=== PATIENT | female | born 1955 | race Caucasian/White ===

== ENCOUNTER 2017-08-28 11:19 | Outpatient (CLI) | payer OTHER ==
[~2017-08-28 11:19] MED LIST: APIX2.5T PO; BENZ-34 PO; BUDE10.2 INH; DILT240C PO; IPRA3AMP9 NEB; LEVO750T46 PO; LOSA1TAB39 PO; METF1000 PO; METF500T PO; PRED10TA PO; SIMV20TA5 PO; THEO100C PO
== END 2017-08-28 23:59 | disposition home or self-care (01) ==
LOC: LAB 11:19
PROVIDERS: ATTEND Nurse Practitioner Family
DX: L65.9 Nonscarring hair loss, unspecified (principal); R53.83 Other fatigue; E55.9 Vitamin D deficiency, unspecified; I10 Essential (primary) hypertension; J44.9 Chronic obstructive pulmonary disease, unspecified; Z95.0 Presence of cardiac pacemaker; Z87.891 Personal history of nicotine dependence
CPT/HCPCS: 36415; 82306; 84439; 84443

== ENCOUNTER 2017-09-18 11:43 | Outpatient (CLI) | payer OTHER ==
[~2017-09-18 11:43] MED LIST changes: -METF1000 PO; -METF500T PO
[2017-09-18 12:39] LABS: BASOPHILS % (AUTO) 0.5 % (0-1); EOSINOPHILS % (AUTO) 0.6 % (0-6); HEMOGLOBIN 15.4 g/dl (12.0-16.0); LYMPHOCYTES # (AUTO) 2.5 X10'3 (1.1-4.8); LYMPHOCYTES % (AUTO) 29.9 % (21-51); MEAN CORPUSCULAR HEMOGLOBIN 33.3 PG (27.0-31.0); MEAN CORPUSCULAR HGB CONC 33.5 % (33.0-36.5); MEAN CORPUSCULAR VOLUME 99.3 FL (78-98); MEAN PLATELET VOLUME 8.8 FL (7.4-10.4); MONOCYTES # (AUTO) 0.8 X10'3 (0-0.9); PLATELET COUNT 161 X10'3 (140-440); RED BLOOD COUNT 4.63 X10'6 (4.20-5.60); RED CELL DISTRIBUTION WIDTH 14.4 % (11.5-14.5); WHITE BLOOD COUNT 8.3 X10'3 (4.5-11.0)
[2017-09-18 12:54] LABS: ALANINE AMINOTRANSFERASE 71 U/L (12-78); ALBUMIN 3.6 G/DL (3.4-5.0); ALKALINE PHOSPHATASE 157 IU/L (46-116); ANION GAP 9 (8-16); ASPARTATE AMINO TRANSFERASE 70 U/L (10-37); BILIRUBIN,TOTAL 0.8 MG/DL (0.1-1.0); BLOOD UREA NITROGEN 7 MG/DL (7-18); BUN/CREATININE RATIO 8.6 (6.6-38.0); CALCIUM 9.4 MG/DL (8.5-10.1); CHLORIDE 104 MMOL/L (99-107); CREATININE 0.81 MG/DL (0.40-0.90); GLUCOSE 139 MG/DL (70-104); POTASSIUM 4.1 MMOL/L (3.5-5.1); SODIUM 141 MMOL/L (135-145); TOTAL CARBON DIOXIDE 28.4 MMOL/L (24-32); TOTAL PROTEIN 7.3 G/DL (6.4-8.2); eGFR 71 ML/MIN
== END 2017-09-18 23:59 | disposition home or self-care (01) ==
LOC: RAD 11:43
PROVIDERS: ATTEND Nurse Practitioner Family
DX: J44.9 Chronic obstructive pulmonary disease, unspecified (principal); J98.8 Other specified respiratory disorders; R53.83 Other fatigue; I12.9 Hypertensive chronic kidney disease with stage 1 through stage 4 chronic kidney disease, or unspecified chronic kidney disease; N18.9 Chronic kidney disease, unspecified; F17.200 Nicotine dependence, unspecified, uncomplicated; Z96.642 Presence of left artificial hip joint; Z95.0 Presence of cardiac pacemaker
CPT/HCPCS: 36415; 71046; 80053; 85025

== ENCOUNTER 2018-09-03 10:21 | Emergency (ER) | payer OTHER ==
[~2018-09-03] VITALS: Ht 177.8 cm; Wt 99.5 kg
[~2018-09-03 10:21] MED LIST changes: -BENZ-34 PO; +DILT180C95 PO; -DILT240C PO; -LEVO750T46 PO; -THEO100C PO
[2018-09-03] MEDS ORDERED: levalbuterol 1.25mg/0.5ml nebule IH ONE ×3 (10:25→11:45)
[2018-09-03] MEDS ORDERED: normal saline 1000ML IV soln IVB ONE ×2 (10:25→11:45)
[2018-09-03] MEDS ORDERED: ipratropium 0.5 MG/2.5ML nebule IH ONE (10:25)
[2018-09-03] MEDS ORDERED: methylPREDNISolone sod succ 125mg/2ml vial IV ONE (10:25)
[2018-09-03] MEDS ORDERED: ipratropium 0.5 MG/2.5ML nebule ONE (10:32)
[2018-09-03] MEDS ORDERED: magnesium 2GM in 50ml NS 50 ML IV ONE (10:35)
[2018-09-03 11:07] LABS: BASOPHILS # (AUTO) 0.1 X10'3 (0-0.2); EOSINOPHILS # (AUTO) 0.1 X10'3 (0-0.9); EOSINOPHILS % (AUTO) 0.9 % (0-6); HEMATOCRIT 45.1 % (35.0-45.0); HEMOGLOBIN 15.1 g/dl (12.0-16.0); LYMPHOCYTES % (AUTO) 9.4 % (21-51); MEAN CORPUSCULAR HEMOGLOBIN 34.3 PG (27.0-31.0); MEAN CORPUSCULAR HGB CONC 33.5 % (33.0-36.5); MEAN CORPUSCULAR VOLUME 102.4 FL (78-98); MEAN PLATELET VOLUME 9.5 FL (7.4-10.4); MONOCYTES # (AUTO) 0.7 X10'3 (0-0.9); MONOCYTES % (AUTO) 6.2 % (2-12); NEUTROPHILS # (AUTO) 9.2 X10'3 (1.8-7.7); NEUTROPHILS % (AUTO) 82.5 % (42-75); PLATELET COUNT 168 X10'3 (140-440); RED BLOOD COUNT 4.41 X10'6 (4.20-5.60); WHITE BLOOD COUNT 11.2 X10'3 (4.5-11.0)
[2018-09-03 11:22] LABS: ALANINE AMINOTRANSFERASE 74 U/L (12-78); ALBUMIN 3.6 G/DL (3.4-5.0); ALKALINE PHOSPHATASE 142 IU/L (46-116); ANION GAP 12 (8-16); ASPARTATE AMINO TRANSFERASE 59 U/L (10-37); BILIRUBIN,TOTAL 0.6 MG/DL (0.1-1.0); BLOOD UREA NITROGEN 21 MG/DL (7-18); BUN/CREATININE RATIO 19.1 (6.6-38.0); CALCIUM 9.6 MG/DL (8.5-10.1); CHLORIDE 101 MMOL/L (99-107); GLUCOSE 284 MG/DL (70-104); POTASSIUM 4.4 MMOL/L (3.5-5.1); SODIUM 139 MMOL/L (135-145); TOTAL CARBON DIOXIDE 25.8 MMOL/L (24-32); TOTAL PROTEIN 7.1 G/DL (6.4-8.2); eGFR 50 ML/MIN
[2018-09-03 11:29] LABS: MAGNESIUM 1.7 MG/DL (1.5-2.4)
[2018-09-03] MEDS ORDERED: levoFLOXACIN-Levaquin 750MG/D5 150 ML IV ONE (11:45)
[2018-09-03] MEDS ORDERED: LEVO750T21 PO (12:06)
[2018-09-03] MEDS ORDERED: ondansetron/PF 4mg/2ml inj IV ONE (12:15)
[2018-09-03] MEDS ORDERED: HYDR-4353 PO (12:19)
[2018-09-03] MEDS: morphine 4 MG/ML inj SYRINge IV PRN ×2 (12:26→13:13)
[2018-09-03] MEDS ORDERED: albuterol 2.5 MG/3 ML nebule CONTNEB PRN (13:55)
[2018-09-03 15:27] VITALS: BP 120/64
== END 2018-09-03 15:18 | disposition home or self-care (01) ==
LOC: ER 10:22
DX: J44.1 Chronic obstructive pulmonary disease with (acute) exacerbation (principal); I10 Essential (primary) hypertension; G89.29 Other chronic pain; Z86.73 Personal history of transient ischemic attack (TIA), and cerebral infarction without residual deficits; Z86.711 Personal history of pulmonary embolism; Z90.49 Acquired absence of other specified parts of digestive tract; Z95.0 Presence of cardiac pacemaker; Z98.890 Other specified postprocedural states; Z91.018 Allergy to other foods; Z88.8 Allergy status to other drugs, medicaments and biological substances; Z79.01 Long term (current) use of anticoagulants; Z79.899 Other long term (current) drug therapy
CPT/HCPCS: 36415; 71045; 80053; 83605; 83735; 83880; 84145; 85025; 87040; 87502; 87503; 93005; 94640; 94644; 94760; 96365; 96367; 96375; 96376; 99285; J1956; J2270; J2405; J2930; J3475; 99284; J7614

== ENCOUNTER 2018-10-04 06:15 | Inpatient (IN) | payer OTHER | END 2018-10-05 13:25 | disposition home or self-care (01) | LOC: ER 06:15 → ED HOLD 10:13 → MED 3N 12:15 ==

== ENCOUNTER 2018-11-13 21:30 | Inpatient (IN) | payer OTHER ==
[~2018-11-13] VITALS: Ht 177.8 cm; Wt 98.5 kg
[~2018-11-13 21:30] MED LIST changes: -PRED10TA PO; -SIMV20TA5 PO
[2018-11-13] MEDS ORDERED: dexamethasone sod phosphate 10mg/ml inj IV STA (21:33)
[2018-11-13] MEDS ORDERED: normal saline 1000ML IV soln IVB ONE (21:35)
[2018-11-13] MEDS ORDERED: methylPREDNISolone sod succ 125mg/2ml vial IV ONE (21:35)
[2018-11-13] MEDS ORDERED: ipratropium/albuterol 3ml nebule NEB ONE (21:35)
[2018-11-13] MEDS ORDERED: albuterol 2.5 mg/0.5ml nebule NEB ONE (21:35)
[2018-11-13] MEDS ORDERED: albuterol 2.5 MG/3 ML nebule NEB ONE (21:40)
[2018-11-13 21:56] LABS: ABG BASE EXCESS -1.9 mmol/L (-2.0-3.0); ABG HCO3 23.4 mmol/L (22.0-26.0); ABG OXYGEN SATURATION 97.6 % (95-98); ABG PCO2 (T) 40.9 mmHg (32.0-45.0); ABG PH (T) 7.373 (7.350-7.450); ABG PO2 (T) 104.5 mmHg (83-108); ALLEN'S TEST Positive; FCOHb 5.2 % (0.5-1.5); FMetHb 0.2 % (0.3-1.12); FO2Hb 92.3 % (94-100); PATIENT TEMPERATURE 36.4; RESPIRATORY RATE 14 b/min; RESPIRATORY RATE (OBSERVED) 17 b/min
[2018-11-13 22:21] LABS: ALANINE AMINOTRANSFERASE 84 U/L (12-78); ALBUMIN 3.5 G/DL (3.4-5.0); ALBUMIN/GLOBULIN RATIO 0.9 (1.1-1.5); ALKALINE PHOSPHATASE 150 IU/L (46-116); ANION GAP 12 (8-16); ASPARTATE AMINO TRANSFERASE 69 U/L (10-37); BILIRUBIN,TOTAL 0.3 MG/DL (0.1-1.0); BLOOD UREA NITROGEN 13 MG/DL (7-18); CALCIUM 9.4 MG/DL (8.5-10.1); CHLORIDE 103 MMOL/L (99-107); CREATININE 0.93 MG/DL (0.40-0.90); GLUCOSE 154 MG/DL (70-104); POTASSIUM 3.3 MMOL/L (3.5-5.1); SODIUM 140 MMOL/L (135-145); TOTAL PROTEIN 7.2 G/DL (6.4-8.2); eGFR 61 ML/MIN
[2018-11-13 22:27] LABS: PARTIAL THROMBOPLASTIN TIME 28 SECONDS (22-32)
[2018-11-13 22:40] LABS: BASOPHILS % (AUTO) 0.6 % (0-1); EOSINOPHILS # (AUTO) 0.1 X10'3 (0-0.9); EOSINOPHILS % (AUTO) 1.4 % (0-6); HEMATOCRIT 45.7 % (35.0-45.0); HEMOGLOBIN 15.4 g/dl (12.0-16.0); LYMPHOCYTES # (AUTO) 2.3 X10'3 (1.1-4.8); LYMPHOCYTES % (AUTO) 31.5 % (21-51); MEAN CORPUSCULAR HEMOGLOBIN 35.3 PG (27.0-31.0); MEAN CORPUSCULAR HGB CONC 33.7 g/dL (33.0-36.5); MEAN CORPUSCULAR VOLUME 104.6 FL (78-98); MEAN PLATELET VOLUME 9.5 FL (7.4-10.4); MONOCYTES # (AUTO) 1.1 X10'3 (0-0.9); MONOCYTES % (AUTO) 15.5 % (2-12); NEUTROPHILS # (AUTO) 3.7 X10'3 (1.8-7.7); PLATELET COUNT 170 X10'3 (140-440); RED BLOOD COUNT 4.37 X10'6 (4.20-5.60); RED CELL DISTRIBUTION WIDTH 14.2 % (11.5-14.5); WHITE BLOOD COUNT 7.3 X10'3 (4.5-11.0)
--- NOTE | 2018-11-13 22:45 | NUR ---
relieving RN for break, pt tripoding, speaking one word sentences, Dr Ta at bedside to evaluate pt
[2018-11-13] MEDS: magnesium 2GM in 50ml NS 50 ML IV SCH ×2 (22:54→23:45)
[2018-11-13] MEDS ORDERED: propofol 1000mg/100ml bottle 100 ML IV ONE (22:56)
--- NOTE | 2018-11-13 23:03 | NUR ---
2300 RT at bedside, plan to intubate 2305 propofol 130mg IV given 2306 lorena 50mg IV, 172/87, HR 98, pulse ox [address] Ta, propofol 70mg IV, ETtube 7.5, 22cm at the teeth, even rise and fall of chest,
[2018-11-13 23:36] LABS: ABG HCO3 23.2 mmol/L (22.0-26.0); ABG OXYGEN SATURATION 96.3 % (95-98); ABG PCO2 (T) 50.8 mmHg (32.0-45.0); ABG PH (T) 7.278 (7.350-7.450); ABG PO2 (T) 101.4 mmHg (83-108); ALLEN'S TEST Positive; FCOHb 3.3 % (0.5-1.5); FMetHb 0.3 % (0.3-1.12); FO2Hb 92.8 % (94-100); MINUTE VOLUME 7 L/min; PATIENT TEMPERATURE 37.2; PEEP 5 cm H2O; RESPIRATORY RATE 16 b/min; RESPIRATORY RATE (OBSERVED) 16 b/min; TIDAL VOLUME 400 mL; TOTAL HEMOGLOBIN 15.5 G/dl (12.0-16.0)
[2018-11-13] MEDS: normal saline 1000ml 1,000 ML IV SCH (23:39)
[2018-11-13] MEDS ORDERED: acetaminophen 650mg rectal suppository RC PRN (23:40)
[2018-11-13] MEDS ORDERED: magnesium hydroxide 30ml (MOM) UD suspension PO PRN (23:40)
[2018-11-13] MEDS ORDERED: levoFLOXACIN-Levaquin 500mg/D5 100 ML IV SCH (23:40)
[2018-11-13] MEDS ORDERED: ondansetron/PF 4mg/2ml inj IV PRN (23:40)
[2018-11-13] MEDS ORDERED: potassium Cl 40MEQ/NS 500ml 500 ML IV PRN ×2 (23:40)
[2018-11-13] MEDS ORDERED: acetaminophen 325mg tablet PO PRN ×2 (23:40)
[2018-11-13] MEDS ORDERED: albuterol 2.5 MG/3 ML nebule NEB PRN (23:40)
--- NOTE | 2018-11-13 23:50 | NUR ---
pt agitated, increased propofol to 40mcg/kg/min
[2018-11-13] MEDS ORDERED: propofol 1000mg/100ml bottle 100 ML IV PRN (23:56)
[2018-11-13] MEDS ORDERED: FENTANYL-0.9 % NACL/PF 100 ML IV PRN (23:58)
[2018-11-14] VITALS (24 sets, daily range): BP systolic 92–151; BP diastolic 40–70
[2018-11-14] MEDS ORDERED: fentaNYL/PF 50MCG/1 ML 2ML syringe IV ONE
--- NOTE | 2018-11-14 | NUR ---
assisting RN with pt care, pt is agitated, moving all extremities, Dr Ta aware, propofol increased to 40mcg/kg/min
--- NOTE | 2018-11-14 00:30 | NUR ---
received from ER , intubated per feliberto , awaken easily on max dose of diprivan , turn off diprivan and start with fentanyl and versed ,
[2018-11-14] MEDS ORDERED: midazolam 100mg in NS 100ml 100 ML IV PRN ×2 (00:32)
[2018-11-14] MEDS: CefTRIAXone inj 2,000 MG in dextrose 5%-water 50ml 50 ML IV SCH ×2 (01:27→08:00)
[2018-11-14] MEDS ORDERED: ipratropium/albuterol 3ml nebule NEB SCH (03:00)
[2018-11-14] MEDS ORDERED: albuterol 2.5 MG/3 ML nebule NEB SCH (03:00)
[2018-11-14] MEDS: methylPREDNISolone sod succ/PF 40mg inj. IV SCH ×4 (03:42→21:37)
[2018-11-14] MEDS: ipratropium/albuterol 3ml nebule NEB SCH ×5 (03:54→21:11)
[2018-11-14 04:11] LABS: ABG BASE EXCESS -5.2 mmol/L (-2.0-3.0); ABG OXYGEN SATURATION 95.7 % (95-98); ABG PCO2 (T) 41.4 mmHg (32.0-45.0); ABG PH (T) 7.318 (7.350-7.450); ABG PO2 (T) 80.9 mmHg (83-108); ALLEN'S TEST Positive; FCOHb 1.6 % (0.5-1.5); FMetHb 0.3 % (0.3-1.12); FO2Hb 93.9 % (94-100); MINUTE VOLUME 8 L/min; PATIENT TEMPERATURE 35.9; PEEP 5 cm H2O; RESPIRATORY RATE 20 b/min; RESPIRATORY RATE (OBSERVED) 20 b/min; TIDAL VOLUME 400 mL
[2018-11-14 04:15] LABS: PARTIAL THROMBOPLASTIN TIME 28 SECONDS (22-32)
[2018-11-14 04:16] LABS: ALANINE AMINOTRANSFERASE 72 U/L (12-78); ALBUMIN 3.2 G/DL (3.4-5.0); ALBUMIN/GLOBULIN RATIO 0.9 (1.1-1.5); ALKALINE PHOSPHATASE 124 IU/L (46-116); ANION GAP 12 (8-16); ASPARTATE AMINO TRANSFERASE 62 U/L (10-37); BILIRUBIN,TOTAL 0.2 MG/DL (0.1-1.0); BLOOD UREA NITROGEN 13 MG/DL (7-18); BUN/CREATININE RATIO 15.1 (6.6-38.0); CALCIUM 9.2 MG/DL (8.5-10.1); CHLORIDE 104 MMOL/L (99-107); CREATININE 0.86 MG/DL (0.40-0.90); GLUCOSE 194 MG/DL (70-104); POTASSIUM 3.8 MMOL/L (3.5-5.1); SODIUM 139 MMOL/L (135-145); TOTAL PROTEIN 6.7 G/DL (6.4-8.2); eGFR 66 ML/MIN
[2018-11-14 04:19] LABS: PHOSPHORUS 3.5 MG/DL (2.3-4.5)
[2018-11-14 04:20] LABS: BASOPHILS % (AUTO) 0.9 % (0-1); EOSINOPHILS % (AUTO) 0.1 % (0-6); HEMATOCRIT 42.8 % (35.0-45.0); HEMOGLOBIN 14.4 g/dl (12.0-16.0); LYMPHOCYTES # (AUTO) 0.5 X10'3 (1.1-4.8); MEAN CORPUSCULAR HEMOGLOBIN 35.4 PG (27.0-31.0); MEAN CORPUSCULAR HGB CONC 33.7 g/dL (33.0-36.5); MEAN CORPUSCULAR VOLUME 104.9 FL (78-98); MEAN PLATELET VOLUME 9.6 FL (7.4-10.4); MONOCYTES # (AUTO) 0.1 X10'3 (0-0.9); MONOCYTES % (AUTO) 2.5 % (2-12); NEUTROPHILS # (AUTO) 2.7 X10'3 (1.8-7.7); NEUTROPHILS % (AUTO) 80.5 % (42-75); PLATELET COUNT 148 X10'3 (140-440); RED BLOOD COUNT 4.08 X10'6 (4.20-5.60); RED CELL DISTRIBUTION WIDTH 14.2 % (11.5-14.5); WHITE BLOOD COUNT 3.3 X10'3 (4.5-11.0)
--- NOTE | 2018-11-14 06:30 | NUR ---
Patient in room ICU 2037. I have received report from SANDRA Burris and had the opportunity to ask questions and assume patient care.
--- NOTE | 2018-11-14 06:36 | NUR ---
Problems reprioritized. Patient report given, questions answered & plan of care reviewed with JASEN FLORES.
[2018-11-14] MEDS: budesonide 0.5mg/2ml UD nebule IH SCH ×2 (07:19→18:51)
[2018-11-14] MEDS ORDERED: diltiazem CD 180mg cap (once-daily) PO SCH (08:00)
[2018-11-14] MEDS ORDERED: non-formulary drug (Budesonide/Formoterol Fumarate (Symbicort 160-4.5 Mcg Inhaler) 2 PUFFS INH SCH (08:00)
[2018-11-14] MEDS ORDERED: non-formulary drug (Losartan/Hydrochlorothiazide (Losartan-Hctz 100-25 Mg Tab) 1 TAB) PO SCH (08:00)
[2018-11-14] MEDS: pantoprazole 40 MG vial IV SCH (08:34)
[2018-11-14] MEDS: losartan 50mg tablet PO SCH (09:48)
[2018-11-14] MEDS: HYDROchlorothiazide 25mg tablet PO SCH (09:48)
[2018-11-14] MEDS: docusate sodium 100mg/10ml UD cup PO SCH ×2 (09:48→21:37)
[2018-11-14] MEDS: apixaban 2.5mg tablet PO SCH ×2 (09:48→21:37)
--- NOTE | 2018-11-14 10:18 | NUR ---
Rounds with Dr. Segura this AM, addressed pt's decreased UO, respiratory status, vent settings, blood sugars, nutrition and that ordered PO Cardizem cannot be given. Per MD we will wait on tube feeds and and fluids for UO d/t the plan of care for today is to extubate this afternoon. Addressed that pt is still on higher fiO2 of 50% and MD stated that he accepts an O2 saturation of between 88-90%. RN will collaborate with RT to wean down fiO2. Cardizem will be changed to IR dose until pt can receive home dose. RN will continue to monitor blood glucoses and UO.
[2018-11-14] MEDS: diltiazem 30mg tablet PO SCH ×3 (11:33→21:37)
--- NOTE | 2018-11-14 11:36 | NUR ---
Initial: Pt intubated admit w/ COPD exacerbation hx COPD, HTN, smoking. No edema/wounds present on 50% FiO2 w/ MAP [address]. Remains NPO; likely to extubate in near future per MD. WBC 3.3 on steroids w/ GLU 127. Will monitor for nutrition support needs if prolonged intubation; recs below. Rec: 1. IF TF; Vital HP at 90ml/hr goal; to provide 2160ml fluid, 2160kcals, 1814ml free water, and g protein. 2. IF TF, water flush 200ml Q6 3. IF TF, prealbumin Q /, daily wts 4. advance diet upon extubation to heart healthy Addendum: 11/14/18 at [address] Amended: Links added.
[2018-11-14] MEDS: normal saline 1000ml 1,000 ML IV SCH ×2 (11:37→22:37)
[2018-11-14] MEDS ORDERED: racepinephrine 11.25mg/0.5ml nebule NEB PRN (13:35)
[2018-11-14] MEDS ORDERED: ipratropium/albuterol 3ml nebule NEB PRN (13:35)
--- NOTE | 2018-11-14 13:36 | NUR ---
Dr. Segura came to bedside assessed pt, asked for RT to get weaning parameters on pt. Versed and fentanyl turned off. RT's preformed weaning parameters and MD notified. Will extubated when MD puts orders into the chart.
--- NOTE | 2018-11-14 14:09 | NUR ---
Pt extubated at 1347 to NC by RT's. at bedside. Pt tolerating NC well, educated on flutter valve and IS. Moving air well, has an audible voice. RN will continue to monitor.
[2018-11-14] MEDS: azithromycin/NS 500mg/250ml 250 ML IV SCH (14:32)
--- NOTE | 2018-11-14 18:00 | NUR ---
Pt has tablet, phone, and purse at bedside that pt's brought in.
--- NOTE | 2018-11-14 18:00 | NUR ---
Patient in room ICU 2037. I have received report from Lashon FLORES and had the opportunity to ask questions and assume patient care.
--- NOTE | 2018-11-14 18:22 | NUR ---
Problems reprioritized. Patient report given, questions answered & plan of care reviewed with SANDRA Khan.
[2018-11-14] MEDS: mineral oil/petrolatum ophthal oint EACHEYE SCH (20:00)
[2018-11-15] VITALS (17 sets, daily range): BP systolic 93–149; BP diastolic 46–91
--- NOTE | 2018-11-15 00:50 | NUR ---
Patient has been sleeping, but when she woke up for a min nurse asked her if she felt like she needed to urinate and she stated "no". 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 She stated "no" and that she just wanted to sleep. Nurse will ask her again when she wakes up.
[2018-11-15] MEDS ORDERED: levoFLOXACIN-Levaquin 750MG/D5 150 ML IV SCH (01:00)
[2018-11-15] MEDS: methylPREDNISolone sod succ/PF 40mg inj. IV SCH ×4 (02:55→19:48)
[2018-11-15] MEDS: ipratropium/albuterol 3ml nebule NEB SCH ×6 (03:29→23:25)
[2018-11-15 04:56] LABS: BASOPHILS % (AUTO) 0 % (0-1); EOSINOPHILS % (AUTO) 0 % (0-6); HEMATOCRIT 40.3 % (35.0-45.0); HEMOGLOBIN 13.3 g/dl (12.0-16.0); LYMPHOCYTES # (AUTO) 0.7 X10'3 (1.1-4.8); LYMPHOCYTES % (AUTO) 5.8 % (21-51); MEAN CORPUSCULAR HGB CONC 33.2 g/dL (33.0-36.5); MEAN CORPUSCULAR VOLUME 105.7 FL (78-98); MEAN PLATELET VOLUME 9.7 FL (7.4-10.4); MONOCYTES # (AUTO) 0.7 X10'3 (0-0.9); MONOCYTES % (AUTO) 6.5 % (2-12); NEUTROPHILS # (AUTO) 9.8 X10'3 (1.8-7.7); NEUTROPHILS % (AUTO) 87.7 % (42-75); PLATELET COUNT 141 X10'3 (140-440); RED BLOOD COUNT 3.81 X10'6 (4.20-5.60); RED CELL DISTRIBUTION WIDTH 14.7 % (11.5-14.5); WHITE BLOOD COUNT 11.2 X10'3 (4.5-11.0)
[2018-11-15 05:02] LABS: ALANINE AMINOTRANSFERASE 57 U/L (12-78); ALBUMIN 3.1 G/DL (3.4-5.0); ALBUMIN/GLOBULIN RATIO 0.9 (1.1-1.5); ALKALINE PHOSPHATASE 113 IU/L (46-116); ANION GAP 8 (8-16); ASPARTATE AMINO TRANSFERASE 28 U/L (10-37); BILIRUBIN,TOTAL 0.3 MG/DL (0.1-1.0); BLOOD UREA NITROGEN 23 MG/DL (7-18); BUN/CREATININE RATIO 21.5 (6.6-38.0); CALCIUM 8.3 MG/DL (8.5-10.1); CHLORIDE 104 MMOL/L (99-107); CREATININE 1.07 MG/DL (0.40-0.90); GLUCOSE 255 MG/DL (70-104); MAGNESIUM 1.9 MG/DL (1.5-2.4); POTASSIUM 3.8 MMOL/L (3.5-5.1); SODIUM 137 MMOL/L (135-145); TOTAL CARBON DIOXIDE 25.5 MMOL/L (24-32); TOTAL PROTEIN 6.4 G/DL (6.4-8.2); eGFR 52 ML/MIN
[2018-11-15 05:10] LABS: PARTIAL THROMBOPLASTIN TIME 28 SECONDS (22-32); PROTHROMBIN TIME 10.3 SECONDS (9.0-12.0)
[2018-11-15] MEDS: normal saline 1000ml 1,000 ML IV SCH (05:39)
[2018-11-15] MEDS: mineral oil/petrolatum ophthal oint EACHEYE SCH ×3 (05:50→19:48)
--- NOTE | 2018-11-15 06:00 | NUR ---
Problems reprioritized. Patient report given, questions answered & plan of care reviewed with Alvina FLORES.
--- NOTE | 2018-11-15 06:34 | NUR ---
Patient in room ICU 2037. I have received report from Erin and had the opportunity to ask questions and assume patient care.
[2018-11-15] MEDS: azithromycin/NS 500mg/250ml 250 ML IV SCH (07:44)
[2018-11-15] MEDS: HYDROchlorothiazide 25mg tablet PO SCH (07:44)
[2018-11-15] MEDS: pantoprazole 40 MG vial IV SCH (07:44)
[2018-11-15] MEDS: docusate sodium 100mg/10ml UD cup PO SCH ×2 (07:44→19:48)
[2018-11-15] MEDS: losartan 50mg tablet PO SCH (07:44)
[2018-11-15] MEDS: diltiazem 30mg tablet PO SCH ×4 (07:44→19:48)
[2018-11-15] MEDS: CefTRIAXone 2gm/D5W 50ml 50 ML IV SCH (07:45)
[2018-11-15] MEDS: apixaban 2.5mg tablet PO SCH ×2 (07:45→19:47)
[2018-11-15] MEDS: budesonide 0.5mg/2ml UD nebule IH SCH ×2 (08:02→19:31)
[2018-11-15] MEDS: guaiFENesin/DM 10ml UD oral syrup PO PRN ×3 (10:37→19:47)
--- NOTE | 2018-11-15 16:54 | NUR ---
Patient in room ICU 2037. I have received report from Myesha FLORES and had the opportunity to ask questions and assume patient care.
--- NOTE | 2018-11-15 17:00 | NUR ---
Report called to Zuri on PCU. Pt transported via wheelchair to room 3020 with alll belongings.
--- NOTE | 2018-11-15 17:06 | NUR ---
Patient on the unit.
--- NOTE | 2018-11-15 18:29 | NUR ---
Problems reprioritized. Patient report given, questions answered & plan of care reviewed with Rain FLORES.
[2018-11-15] MEDS: lactobacillus rhamnosus 10,000 MMU CELLS/CAPSULE PO SCH (19:48)
[2018-11-15] MEDS: temazepam 15mg capsule PO PRN (21:02)
[2018-11-15] MEDS ORDERED: temazepam 15mg capsule PO ONE (21:55)
[2018-11-16] MEDS: methylPREDNISolone sod succ/PF 40mg inj. IV SCH ×4 (02:43→19:13)
[2018-11-16 03:00] VITALS: BP 142/71
[2018-11-16] MEDS: ipratropium/albuterol 3ml nebule NEB SCH ×6 (03:52→21:56)
--- NOTE | 2018-11-16 06:34 | NUR ---
Patient in room PCU 3020. I have received report from SANDRA Rodrigez and had the opportunity to ask questions and assume patient care. Patient awake and alert at this time. Nasal cannula not on upon entering the room. Oxygen reapplied. Patient in no apparent distress. Call light and items of frequent use in reach of patient.
[2018-11-16 06:56] VITALS: BP 149/70
[2018-11-16 06:57] LABS: BASOPHILS % (AUTO) 0.1 % (0-1); EOSINOPHILS % (AUTO) 0 % (0-6); HEMATOCRIT 42.1 % (35.0-45.0); HEMOGLOBIN 14.3 g/dl (12.0-16.0); LYMPHOCYTES # (AUTO) 0.6 X10'3 (1.1-4.8); LYMPHOCYTES % (AUTO) 4.2 % (21-51); MEAN CORPUSCULAR HEMOGLOBIN 35.4 PG (27.0-31.0); MEAN PLATELET VOLUME 9.7 FL (7.4-10.4); MONOCYTES # (AUTO) 0.8 X10'3 (0-0.9); MONOCYTES % (AUTO) 6.4 % (2-12); NEUTROPHILS # (AUTO) 11.8 X10'3 (1.8-7.7); NEUTROPHILS % (AUTO) 89.3 % (42-75); PLATELET COUNT 144 X10'3 (140-440); RED BLOOD COUNT 4.05 X10'6 (4.20-5.60); RED CELL DISTRIBUTION WIDTH 14.5 % (11.5-14.5); WHITE BLOOD COUNT 13.2 X10'3 (4.5-11.0)
[2018-11-16 06:59] LABS: PARTIAL THROMBOPLASTIN TIME 28 SECONDS (22-32); PROTHROMBIN TIME 10.4 SECONDS (9.0-12.0)
[2018-11-16 07:06] LABS: ALANINE AMINOTRANSFERASE 45 U/L (12-78); ALBUMIN 3.1 G/DL (3.4-5.0); ALBUMIN/GLOBULIN RATIO 0.9 (1.1-1.5); ALKALINE PHOSPHATASE 107 IU/L (46-116); ANION GAP 5 (8-16); ASPARTATE AMINO TRANSFERASE 18 U/L (10-37); BILIRUBIN,TOTAL 0.3 MG/DL (0.1-1.0); BLOOD UREA NITROGEN 19 MG/DL (7-18); BUN/CREATININE RATIO 25.7 (6.6-38.0); CHLORIDE 107 MMOL/L (99-107); CREATININE 0.74 MG/DL (0.40-0.90); GLUCOSE 230 MG/DL (70-104); MAGNESIUM 2.1 MG/DL (1.5-2.4); POTASSIUM 3.7 MMOL/L (3.5-5.1); SODIUM 141 MMOL/L (135-145); TOTAL PROTEIN 6.6 G/DL (6.4-8.2); eGFR 79 ML/MIN
[2018-11-16] MEDS: budesonide 0.5mg/2ml UD nebule IH SCH ×2 (07:28→18:59)
[2018-11-16] MEDS: CefTRIAXone 2gm/D5W 50ml 50 ML IV SCH (07:28)
[2018-11-16] MEDS: pantoprazole 40 MG vial IV SCH (07:34)
[2018-11-16] MEDS: diltiazem 30mg tablet PO SCH ×4 (07:34→20:58)
[2018-11-16] MEDS: docusate sodium 100mg/10ml UD cup PO SCH ×2 (07:35→20:00)
[2018-11-16] MEDS: lactobacillus rhamnosus 10,000 MMU CELLS/CAPSULE PO SCH ×2 (07:36→20:58)
[2018-11-16] MEDS: apixaban 2.5mg tablet PO SCH ×2 (07:36→20:58)
[2018-11-16] MEDS: losartan 50mg tablet PO SCH (07:36)
[2018-11-16] MEDS: HYDROchlorothiazide 25mg tablet PO SCH (07:36)
[2018-11-16] MEDS: azithromycin/NS 500mg/250ml 250 ML IV SCH (07:51)
[2018-11-16] MEDS: guaiFENesin/DM 10ml UD oral syrup PO PRN ×3 (09:31→19:12)
[2018-11-16 11:42] VITALS: BP 155/87
[2018-11-16] MEDS ORDERED: insulin Lispro (HumaLOG) vial - multi-dose SQ SCH (14:50)
[2018-11-16] MEDS ORDERED: dextrose 50%-water 50ml dispensing syringe IV PRN ×2 (14:50)
[2018-11-16] MEDS ORDERED: MESSAGE TO PHARMACY PO ONE (14:50)
[2018-11-16] MEDS ORDERED: dextrose ORAL solution 15 GM/59 ML bottle PO PRN ×2 (14:50)
[2018-11-16] MEDS ORDERED: glucagon, human recombinant 1mg kit SUBCUT PRN (14:50)
[2018-11-16 15:00] VITALS: BP 143/73
[2018-11-16 15:55] LABS: HEMOGLOBIN A1C 6.2 % (4.5-6.2)
--- NOTE | 2018-11-16 16:00 | NUR ---
According to vitals sheet. Patient O2 saturation was 97% on 3L NC. Went to titrate patient down a little. Checked saturation again and patient was 89%-91% on the 3L NC. Will not titrate oxygen at this time.
[2018-11-16 18:00] VITALS: BP 160/66
--- NOTE | 2018-11-16 18:13 | NUR ---
Problems reprioritized. Patient report given, questions answered & plan of care reviewed with SANDRA Parker. Patient in no apparent distress at this time. Call light and items of frequent use in reach of patient.
[2018-11-16] MEDS: temazepam 15mg capsule PO PRN (20:58)
[2018-11-16] MEDS ORDERED: insulin glargine (Lantus) pen - multi-dose SQ SCH (21:00)
--- NOTE | 2018-11-16 21:48 | NUR ---
Paged respiratory for nebulizer treatment d/t wheezing
[2018-11-16 22:00] VITALS: BP 160/69
[2018-11-16] MEDS ORDERED: temazepam 15mg capsule PO ONE (22:45)
[2018-11-16] MEDS ORDERED: morphine 2 MG/ML inj. syringe IV PRN (22:45)
[2018-11-17 02:00] VITALS: BP 141/78
[2018-11-17] MEDS: methylPREDNISolone sod succ/PF 40mg inj. IV SCH ×2 (02:29→08:33)
--- NOTE | 2018-11-17 02:59 | NUR ---
Patient in room PCU 3020. I have received report from efren brantley and had the opportunity to ask questions and assume patient care. patient asleep in no distress on oxygen. iv in place asymptomatic
[2018-11-17] MEDS: ipratropium/albuterol 3ml nebule NEB SCH ×6 (03:43→22:56)
--- NOTE | 2018-11-17 04:23 | NUR ---
CAREY CALLED ABOUT PATIENT'S INCREASES SOB AND WHEEZING. PATIENT IS HAVING AIR HUNGER ON 4L NC O2SAT AT 88%. CAREY ORDERED STAT CHEST XRAY AND 2MG MORPHINE IV ONCE NOW PRN AIR HUNGER.
[2018-11-17] MEDS ORDERED: morphine 2 MG/ML inj. syringe IV ONE (04:25)
--- NOTE | 2018-11-17 06:21 | NUR ---
Problems reprioritized. Patient report given, questions answered & plan of care reviewed with LINDSEY FLORES. PATIENT ASLEEP IN NO DISTRESS.
--- NOTE | 2018-11-17 06:30 | NUR ---
Patient in room PCU 3020. I have received report from SANDRA Portillo and had the opportunity to ask questions and assume patient care.
[2018-11-17 07:12] VITALS: BP 154/84
[2018-11-17 07:46] LABS: BASOPHILS % (AUTO) 0.1 % (0-1); EOSINOPHILS % (AUTO) 0 % (0-6); HEMOGLOBIN 14.1 g/dl (12.0-16.0); LYMPHOCYTES # (AUTO) 0.4 X10'3 (1.1-4.8); LYMPHOCYTES % (AUTO) 3.3 % (21-51); MEAN CORPUSCULAR HEMOGLOBIN 34.9 PG (27.0-31.0); MEAN CORPUSCULAR HGB CONC 33.5 g/dL (33.0-36.5); MEAN CORPUSCULAR VOLUME 104.2 FL (78-98); MEAN PLATELET VOLUME 9.9 FL (7.4-10.4); MONOCYTES # (AUTO) 0.8 X10'3 (0-0.9); MONOCYTES % (AUTO) 7.4 % (2-12); NEUTROPHILS # (AUTO) 10.2 X10'3 (1.8-7.7); NEUTROPHILS % (AUTO) 89.2 % (42-75); PLATELET COUNT 141 X10'3 (140-440); RED BLOOD COUNT 4.03 X10'6 (4.20-5.60); RED CELL DISTRIBUTION WIDTH 14.1 % (11.5-14.5); WHITE BLOOD COUNT 11.5 X10'3 (4.5-11.0)
[2018-11-17 07:57] LABS: ALANINE AMINOTRANSFERASE 40 U/L (12-78); ALBUMIN/GLOBULIN RATIO 0.9 (1.1-1.5); ALKALINE PHOSPHATASE 108 IU/L (46-116); ANION GAP 2 (8-16); ASPARTATE AMINO TRANSFERASE 17 U/L (10-37); BILIRUBIN,TOTAL 0.3 MG/DL (0.1-1.0); BLOOD UREA NITROGEN 21 MG/DL (7-18); BUN/CREATININE RATIO 30.9 (6.6-38.0); CHLORIDE 106 MMOL/L (99-107); CREATININE 0.68 MG/DL (0.40-0.90); GLUCOSE 277 MG/DL (70-104); MAGNESIUM 2.2 MG/DL (1.5-2.4); PHOSPHORUS 2.7 MG/DL (2.3-4.5); POTASSIUM 3.3 MMOL/L (3.5-5.1); SODIUM 141 MMOL/L (135-145); TOTAL PROTEIN 6.5 G/DL (6.4-8.2); eGFR 87 ML/MIN
[2018-11-17 08:00] LABS: PARTIAL THROMBOPLASTIN TIME 27 SECONDS (22-32); PROTHROMBIN TIME 10.1 SECONDS (9.0-12.0)
[2018-11-17] MEDS: docusate sodium 100mg/10ml UD cup PO SCH ×2 (08:00→20:00)
[2018-11-17] MEDS: budesonide 0.5mg/2ml UD nebule IH SCH ×2 (08:25→19:08)
[2018-11-17] MEDS: losartan 50mg tablet PO SCH (08:32)
[2018-11-17] MEDS: HYDROchlorothiazide 25mg tablet PO SCH (08:32)
[2018-11-17] MEDS: diltiazem 30mg tablet PO SCH ×4 (08:32→20:44)
[2018-11-17] MEDS: lactobacillus rhamnosus 10,000 MMU CELLS/CAPSULE PO SCH ×2 (08:32→20:43)
[2018-11-17] MEDS: apixaban 2.5mg tablet PO SCH ×2 (08:32→20:44)
[2018-11-17] MEDS: pantoprazole 40mg Tablet.DR PO SCH (08:32)
[2018-11-17] MEDS: CefTRIAXone 2gm/D5W 50ml 50 ML IV SCH (08:33)
[2018-11-17] MEDS: guaiFENesin/DM 10ml UD oral syrup PO PRN ×3 (08:44→20:49)
[2018-11-17] MEDS: azithromycin/NS 500mg/250ml 250 ML IV SCH (09:10)
--- NOTE | 2018-11-17 09:48 | NUR ---
NOTIFIED BY TELE POLICY VALUE CALCULATOR PATIENT SPO2 "IN THE 80'S" WENT TO ASSESS PATIENT AND PATIENT APPEARS TO BE IN DISTRESS. PATIENT STATES, "I CAN'T BREATHE." SHE IS USING HER ACCESSORY MUSCLES TO BREATHE. SPO2 SHOWED 89-90% TURNED PATIENT TO 4LNC AND PATIENT SPO2 NOW AT 93%. HINA DIAZ NOTIFIED AND RECEVEID NEW ORDERS.
[2018-11-17] MEDS ORDERED: methylPREDNISolone sod succ/PF 40mg inj. IV ONE (09:50)
--- NOTE | 2018-11-17 10:35 | NUR ---
SOLUMEDROL ADMINISTERED ORDERED. PATIENT APPEARS TO BE COMFORTABLE AT THIS TIME. SHE DENIES ANY PAIN OR DISCOMFORT OR DISTRESS AT THIS TIME. HINA DIAZ WAS IN TO SEE PATIENT. PATIENT NOW ON 4LNC SPO2% 93%.
[2018-11-17 12:12] VITALS: BP 146/59
[2018-11-17] MEDS: potassium Cl 20 mEq SR tablet PO PRN ×3 (13:34→20:44)
[2018-11-17] MEDS: methylPREDNISolone sod succ 125mg/2ml vial IV SCH ×2 (13:35→20:54)
--- NOTE | 2018-11-17 15:12 | NUR ---
reassessment: Pt PO 50% avg carb controlled meals s/p extubation. LBM 11/15. GLU 277 on high dose solumedrol w/ hypoglycemics d/c; SHABBIR d/w RN to restart hyperglycemia protocol given A1C 6.2 on steroids; no prior DM hx. K 3.3 on hydrochlorothiazide. Will continue to monitor. Rec: 1. continue carb controlled diet per MD 2. hyperglycemia protocol on solumedrol w/ GLU 277 3. wt per rx Addendum: 11/17/18 at [address] Amended: Links added.
[2018-11-17 16:03] VITALS: BP 138/77
--- NOTE | 2018-11-17 18:34 | NUR ---
Problems reprioritized. Patient report given, questions answered & plan of care reviewed with SANDRA WHEELER.
[2018-11-17 19:00] VITALS: BP 179/78
[2018-11-17] MEDS: temazepam 15mg capsule PO PRN (20:44)
[2018-11-17 23:00] VITALS: BP 135/87
[2018-11-18] MEDS: methylPREDNISolone sod succ 125mg/2ml vial IV SCH ×4 (02:10→19:58)
[2018-11-18 03:00] VITALS: BP 166/81
[2018-11-18] MEDS: ipratropium/albuterol 3ml nebule NEB SCH ×6 (03:09→23:35)
[2018-11-18 06:00] VITALS: BP 168/81
--- NOTE | 2018-11-18 06:30 | NUR ---
Patient in room PCU 3020. I have received report from Katharine FLORES and had the opportunity to ask questions and assume patient care.
[2018-11-18 06:46] LABS: BASOPHILS % (AUTO) 0.1 % (0-1); EOSINOPHILS % (AUTO) 0 % (0-6); HEMATOCRIT 42.1 % (35.0-45.0); HEMOGLOBIN 14.1 g/dl (12.0-16.0); LYMPHOCYTES # (AUTO) 0.6 X10'3 (1.1-4.8); LYMPHOCYTES % (AUTO) 5.5 % (21-51); MEAN CORPUSCULAR HEMOGLOBIN 34.9 PG (27.0-31.0); MEAN CORPUSCULAR HGB CONC 33.5 g/dL (33.0-36.5); MEAN CORPUSCULAR VOLUME 104.1 FL (78-98); MEAN PLATELET VOLUME 9.5 FL (7.4-10.4); MONOCYTES # (AUTO) 0.6 X10'3 (0-0.9); MONOCYTES % (AUTO) 5.6 % (2-12); NEUTROPHILS # (AUTO) 9.4 X10'3 (1.8-7.7); NEUTROPHILS % (AUTO) 88.8 % (42-75); PLATELET COUNT 151 X10'3 (140-440); RED BLOOD COUNT 4.05 X10'6 (4.20-5.60); RED CELL DISTRIBUTION WIDTH 13.9 % (11.5-14.5); WHITE BLOOD COUNT 10.5 X10'3 (4.5-11.0)
[2018-11-18 06:55] LABS: ALANINE AMINOTRANSFERASE 40 U/L (12-78); ALBUMIN 2.9 G/DL (3.4-5.0); ALBUMIN/GLOBULIN RATIO 0.8 (1.1-1.5); ALKALINE PHOSPHATASE 97 IU/L (46-116); ANION GAP 3 (8-16); ASPARTATE AMINO TRANSFERASE 22 U/L (10-37); BILIRUBIN,TOTAL 0.5 MG/DL (0.1-1.0); BLOOD UREA NITROGEN 22 MG/DL (7-18); BUN/CREATININE RATIO 32.8 (6.6-38.0); CHLORIDE 105 MMOL/L (99-107); CREATININE 0.67 MG/DL (0.40-0.90); GLUCOSE 242 MG/DL (70-104); MAGNESIUM 2.3 MG/DL (1.5-2.4); PHOSPHORUS 2.9 MG/DL (2.3-4.5); POTASSIUM 3.5 MMOL/L (3.5-5.1); SODIUM 139 MMOL/L (135-145); TOTAL CARBON DIOXIDE 30.7 MMOL/L (24-32); TOTAL PROTEIN 6.6 G/DL (6.4-8.2); eGFR 89 ML/MIN
[2018-11-18 06:59] LABS: PROTHROMBIN TIME 10.2 SECONDS (9.0-12.0)
[2018-11-18 07:00] LABS: PARTIAL THROMBOPLASTIN TIME 26 SECONDS (22-32)
[2018-11-18] MEDS: docusate sodium 100mg/10ml UD cup PO SCH ×2 (08:00→19:58)
[2018-11-18] MEDS: azithromycin/NS 500mg/250ml 250 ML IV SCH (08:00)
[2018-11-18] MEDS: budesonide 0.5mg/2ml UD nebule IH SCH ×2 (08:01→19:17)
[2018-11-18] MEDS: CefTRIAXone 2gm/D5W 50ml 50 ML IV SCH (08:19)
[2018-11-18] MEDS: lactobacillus rhamnosus 10,000 MMU CELLS/CAPSULE PO SCH ×2 (08:20→19:59)
[2018-11-18] MEDS: pantoprazole 40mg Tablet.DR PO SCH (08:20)
[2018-11-18] MEDS: apixaban 2.5mg tablet PO SCH ×2 (08:21→19:59)
[2018-11-18] MEDS: diltiazem 30mg tablet PO SCH ×4 (08:21→19:59)
[2018-11-18] MEDS: HYDROchlorothiazide 25mg tablet PO SCH (08:21)
[2018-11-18] MEDS: losartan 50mg tablet PO SCH (08:21)
[2018-11-18 11:00] VITALS: BP 145/75
[2018-11-18 15:00] VITALS: BP 177/86
[2018-11-18 18:00] VITALS: BP 154/76
--- NOTE | 2018-11-18 18:30 | NUR ---
Patient in room PCU 3020. I have received report from SANDRA Queen and had the opportunity to ask questions and assume patient care. Patient sitting up in bed eating pizza with at the bedside, she is A&O x4 and AFNG. I will continue to monitor.
--- NOTE | 2018-11-18 18:36 | NUR ---
Problems reprioritized. Patient report given, questions answered & plan of care reviewed with Geovanna FLORES. Pt is resting comfortably in bed.
--- NOTE | 2018-11-18 18:39 | NUR ---
Orientee documentation: I have reviewed and agree with all interventions, assessments performed and documented by Judy FLORES . Orientee Medication Administration: For this medication-pass time frame, all medication were reviewed, dispensed, administered and documented per hospital policy by Judy FLORES .
--- NOTE | 2018-11-18 20:49 | NUR ---
Per KISHA Rock ok to give patient one time Morphine 4mg now for discomfort/pain and work of breathing.
[2018-11-18] MEDS ORDERED: morphine 4 MG/ML inj SYRINge IV ONE (20:50)
[2018-11-18 22:00] VITALS: BP 152/78
[2018-11-19 02:00] VITALS: BP 168/69
[2018-11-19] MEDS: methylPREDNISolone sod succ 125mg/2ml vial IV SCH ×4 (02:23→20:07)
[2018-11-19] MEDS: ipratropium/albuterol 3ml nebule NEB SCH ×6 (03:16→23:35)
[2018-11-19 05:57] LABS: BASOPHILS % (AUTO) 0.1 % (0-1); EOSINOPHILS % (AUTO) 0 % (0-6); HEMOGLOBIN 13.3 g/dl (12.0-16.0); LYMPHOCYTES # (AUTO) 0.5 X10'3 (1.1-4.8); LYMPHOCYTES % (AUTO) 5.9 % (21-51); MEAN CORPUSCULAR HEMOGLOBIN 34.5 PG (27.0-31.0); MEAN CORPUSCULAR HGB CONC 33.3 g/dL (33.0-36.5); MEAN CORPUSCULAR VOLUME 103.5 FL (78-98); MEAN PLATELET VOLUME 9.4 FL (7.4-10.4); MONOCYTES # (AUTO) 0.6 X10'3 (0-0.9); MONOCYTES % (AUTO) 8.2 % (2-12); NEUTROPHILS # (AUTO) 6.8 X10'3 (1.8-7.7); NEUTROPHILS % (AUTO) 85.8 % (42-75); PLATELET COUNT 137 X10'3 (140-440); RED BLOOD COUNT 3.87 X10'6 (4.20-5.60); RED CELL DISTRIBUTION WIDTH 13.7 % (11.5-14.5); WHITE BLOOD COUNT 7.9 X10'3 (4.5-11.0)
[2018-11-19 06:14] LABS: ALANINE AMINOTRANSFERASE 40 U/L (12-78); ALBUMIN 2.8 G/DL (3.4-5.0); ALBUMIN/GLOBULIN RATIO 0.9 (1.1-1.5); ALKALINE PHOSPHATASE 92 IU/L (46-116); ANION GAP 5 (8-16); ASPARTATE AMINO TRANSFERASE 19 U/L (10-37); BILIRUBIN,TOTAL 0.5 MG/DL (0.1-1.0); BLOOD UREA NITROGEN 20 MG/DL (7-18); BUN/CREATININE RATIO 31.3 (6.6-38.0); CALCIUM 9.3 MG/DL (8.5-10.1); CHLORIDE 102 MMOL/L (99-107); CREATININE 0.64 MG/DL (0.40-0.90); GLUCOSE 268 MG/DL (70-104); MAGNESIUM 2.1 MG/DL (1.5-2.4); PHOSPHORUS 2.9 MG/DL (2.3-4.5); SODIUM 142 MMOL/L (135-145); eGFR > 90 ML/MIN
[2018-11-19 06:21] LABS: PARTIAL THROMBOPLASTIN TIME 25 SECONDS (22-32); PROTHROMBIN TIME 10.2 SECONDS (9.0-12.0)
--- NOTE | 2018-11-19 06:23 | NUR ---
Problems reprioritized. Patient report given, questions answered & plan of care reviewed with SANDRA Queen.
--- NOTE | 2018-11-19 06:28 | NUR ---
Patient in room PCU 3020. I have received report from Geovanna FLORES and had the opportunity to ask questions and assume patient care.
--- NOTE | 2018-11-19 06:30 | NUR ---
Patient in room PCU 3020. I have received report from Geovanna FLORES and had the opportunity to ask questions and assume patient care.
[2018-11-19 06:38] LABS: POTASSIUM 2.9 MMOL/L (3.5-5.1)
--- NOTE | 2018-11-19 06:57 | NUR ---
Paged Dr Brock regarding critical lab K 2.9 PAGER ID: [phone] MESSAGE: Judy WHITING. RE: Roscoe Flores [id number]. Critical lab: K 2.9.
[2018-11-19 07:00] VITALS: BP 167/88
[2018-11-19 07:04] LABS: PLATELET ESTIMATE DECREASED; TOTAL CELLS COUNTED 100
[2018-11-19] MEDS: HYDROchlorothiazide 25mg tablet PO SCH (07:29)
[2018-11-19] MEDS: pantoprazole 40mg Tablet.DR PO SCH (07:29)
[2018-11-19] MEDS: diltiazem 30mg tablet PO SCH ×4 (07:29→20:08)
[2018-11-19] MEDS: apixaban 2.5mg tablet PO SCH ×2 (07:29→20:07)
[2018-11-19] MEDS: CefTRIAXone 2gm/D5W 50ml 50 ML IV SCH (07:30)
[2018-11-19] MEDS: losartan 50mg tablet PO SCH (07:30)
[2018-11-19] MEDS: lactobacillus rhamnosus 10,000 MMU CELLS/CAPSULE PO SCH ×2 (07:30→20:08)
[2018-11-19] MEDS: potassium Cl 20 mEq SR tablet PO PRN ×3 (07:31→16:21)
[2018-11-19] MEDS: docusate sodium 100mg/10ml UD cup PO SCH ×2 (07:32→20:00)
[2018-11-19] MEDS: budesonide 0.5mg/2ml UD nebule IH SCH ×2 (08:00→19:59)
[2018-11-19] MEDS: azithromycin/NS 500mg/250ml 250 ML IV SCH (08:58)
[2018-11-19 11:00] VITALS: BP 148/61
[2018-11-19 15:00] VITALS: BP 169/77
[2018-11-19] MEDS ORDERED: furosemide 40mg/4ml inj IV ONE (15:00)
[2018-11-19 18:00] VITALS: BP_SYST 165; BP_SYST 166; BP_DIAS 69; BP_DIAS 81
--- NOTE | 2018-11-19 18:16 | NUR ---
Problems reprioritized. Patient report given, questions answered & plan of care reviewed with Margi FLORES. Patient is resting in bed and is at bedside.
--- NOTE | 2018-11-19 18:17 | NUR ---
Orientee documentation: I have reviewed and agree with all interventions, assessments performed and documented by Judy FLORES. Orientee Medication Administration: For this medication-pass time frame, all medication were reviewed, dispensed, administered and documented per hospital policy by Judy FLORES .
--- NOTE | 2018-11-19 18:27 | NUR ---
Patient in room PCU 3020. I have received report from GARY AND CALLI RNS and had the opportunity to ask questions and assume patient care.
[2018-11-19] MEDS ORDERED: morphine 4 MG/ML inj SYRINge IM ONE (20:20)
[2018-11-19] MEDS ORDERED: morphine 4 MG/ML inj SYRINge IV ONE (20:30)
[2018-11-19 22:00] VITALS: BP 148/76
[2018-11-20 02:00] VITALS: BP 163/79
[2018-11-20] MEDS: methylPREDNISolone sod succ 125mg/2ml vial IV SCH ×4 (02:12→20:43)
[2018-11-20] MEDS: ipratropium/albuterol 3ml nebule NEB SCH ×6 (03:44→22:59)
[2018-11-20 05:16] LABS: BASOPHILS % (AUTO) 0.1 % (0-1); EOSINOPHILS % (AUTO) 0 % (0-6); HEMATOCRIT 39.6 % (35.0-45.0); HEMOGLOBIN 13.2 g/dl (12.0-16.0); LYMPHOCYTES # (AUTO) 0.5 X10'3 (1.1-4.8); LYMPHOCYTES % (AUTO) 6.1 % (21-51); MEAN CORPUSCULAR HEMOGLOBIN 34.5 PG (27.0-31.0); MEAN CORPUSCULAR HGB CONC 33.2 g/dL (33.0-36.5); MEAN CORPUSCULAR VOLUME 103.7 FL (78-98); MEAN PLATELET VOLUME 9.8 FL (7.4-10.4); MONOCYTES # (AUTO) 0.6 X10'3 (0-0.9); MONOCYTES % (AUTO) 7.3 % (2-12); NEUTROPHILS # (AUTO) 6.7 X10'3 (1.8-7.7); NEUTROPHILS % (AUTO) 86.5 % (42-75); PLATELET COUNT 138 X10'3 (140-440); RED BLOOD COUNT 3.82 X10'6 (4.20-5.60); RED CELL DISTRIBUTION WIDTH 14.1 % (11.5-14.5); WHITE BLOOD COUNT 7.7 X10'3 (4.5-11.0)
[2018-11-20 05:32] LABS: PROTHROMBIN TIME 10.6 SECONDS (9.0-12.0)
[2018-11-20 05:33] LABS: PARTIAL THROMBOPLASTIN TIME 24 SECONDS (22-32)
[2018-11-20 05:34] LABS: ALANINE AMINOTRANSFERASE 41 U/L (12-78); ALBUMIN 2.7 G/DL (3.4-5.0); ALBUMIN/GLOBULIN RATIO 0.8 (1.1-1.5); ALKALINE PHOSPHATASE 89 IU/L (46-116); ANION GAP 5 (8-16); ASPARTATE AMINO TRANSFERASE 19 U/L (10-37); BILIRUBIN,TOTAL 0.5 MG/DL (0.1-1.0); BLOOD UREA NITROGEN 22 MG/DL (7-18); BUN/CREATININE RATIO 36.1 (6.6-38.0); CALCIUM 8.5 MG/DL (8.5-10.1); CHLORIDE 100 MMOL/L (99-107); CREATININE 0.61 MG/DL (0.40-0.90); GLUCOSE 281 MG/DL (70-104); MAGNESIUM 2.1 MG/DL (1.5-2.4); PHOSPHORUS 2.9 MG/DL (2.3-4.5); POTASSIUM 3.1 MMOL/L (3.5-5.1); SODIUM 142 MMOL/L (135-145); TOTAL CARBON DIOXIDE 36.7 MMOL/L (24-32); eGFR > 90 ML/MIN
--- NOTE | 2018-11-20 06:14 | NUR ---
Problems reprioritized. Patient report given, questions answered & plan of care reviewed with reyna FLORES.
[2018-11-20 06:30] VITALS: BP 169/77
[2018-11-20 06:39] LABS: PLATELET ESTIMATE DECREASED; TOTAL CELLS COUNTED 100
[2018-11-20 06:40] LABS: TOXIC GRANULATION 1+
--- NOTE | 2018-11-20 06:42 | NUR ---
Patient in room PCU 3020. I have received report from Margi FLORES and had the opportunity to ask questions and assume patient care.
[2018-11-20] MEDS: CefTRIAXone 2gm/D5W 50ml 50 ML IV SCH (07:10)
[2018-11-20] MEDS: diltiazem 30mg tablet PO SCH ×4 (07:11→20:45)
[2018-11-20] MEDS: HYDROchlorothiazide 25mg tablet PO SCH (07:11)
[2018-11-20] MEDS: lactobacillus rhamnosus 10,000 MMU CELLS/CAPSULE PO SCH ×2 (07:11→20:45)
[2018-11-20] MEDS: potassium Cl 20 mEq SR tablet PO PRN ×2 (07:11→11:20)
[2018-11-20] MEDS: pantoprazole 40mg Tablet.DR PO SCH (07:11)
[2018-11-20] MEDS: apixaban 2.5mg tablet PO SCH ×2 (07:11→20:45)
[2018-11-20] MEDS: losartan 50mg tablet PO SCH (07:11)
[2018-11-20] MEDS: docusate sodium 100mg/10ml UD cup PO SCH ×2 (07:12→20:00)
[2018-11-20] MEDS: budesonide 0.5mg/2ml UD nebule IH SCH ×2 (08:01→18:51)
[2018-11-20] MEDS: azithromycin/NS 500mg/250ml 250 ML IV SCH (08:42)
[2018-11-20] MEDS: furosemide 40mg/4ml inj IV SCH ×2 (08:43→20:44)
[2018-11-20 11:00] VITALS: BP 154/76
[2018-11-20 15:00] VITALS: BP 136/73
--- NOTE | 2018-11-20 18:37 | NUR ---
Problems reprioritized. Patient report given, questions answered & plan of care reviewed with Deep RN. Patient is resting in bed and is at bedside.
--- NOTE | 2018-11-20 18:45 | NUR ---
Orientee documentation: I have reviewed and agree with all interventions, assessments performed and documented by Judy FLORES . Orientee Medication Administration: For this medication-pass time frame, all medication were reviewed, dispensed, administered and documented per hospital policy by Judy FLORES.
[2018-11-20 19:00] VITALS: BP 148/74
[2018-11-20] MEDS: temazepam 15mg capsule PO PRN (20:47)
[2018-11-20 23:00] VITALS: BP 140/67
[2018-11-21] MEDS: methylPREDNISolone sod succ 125mg/2ml vial IV SCH ×3 (02:16→14:29)
[2018-11-21 03:00] VITALS: BP 152/79
[2018-11-21] MEDS: ipratropium/albuterol 3ml nebule NEB SCH ×6 (03:00→23:20)
[2018-11-21 06:00] VITALS: BP 171/87
--- NOTE | 2018-11-21 06:35 | NUR ---
Patient in room PCU 3020. I have received report from SANDRA NAVA and had the opportunity to ask questions and assume patient care.
[2018-11-21 07:17] LABS: BASOPHILS % (AUTO) 0.1 % (0-1); EOSINOPHILS % (AUTO) 0 % (0-6); HEMATOCRIT 41.6 % (35.0-45.0); HEMOGLOBIN 13.9 g/dl (12.0-16.0); LYMPHOCYTES # (AUTO) 0.5 X10'3 (1.1-4.8); LYMPHOCYTES % (AUTO) 5.3 % (21-51); MEAN CORPUSCULAR HEMOGLOBIN 34.3 PG (27.0-31.0); MEAN CORPUSCULAR HGB CONC 33.3 g/dL (33.0-36.5); MEAN CORPUSCULAR VOLUME 103.1 FL (78-98); MEAN PLATELET VOLUME 10.1 FL (7.4-10.4); MONOCYTES # (AUTO) 0.6 X10'3 (0-0.9); MONOCYTES % (AUTO) 6.5 % (2-12); NEUTROPHILS % (AUTO) 88.1 % (42-75); PLATELET COUNT 143 X10'3 (140-440); RED BLOOD COUNT 4.04 X10'6 (4.20-5.60); RED CELL DISTRIBUTION WIDTH 13.9 % (11.5-14.5); WHITE BLOOD COUNT 9.1 X10'3 (4.5-11.0)
[2018-11-21 07:43] LABS: ALANINE AMINOTRANSFERASE 48 U/L (12-78); ALBUMIN 2.7 G/DL (3.4-5.0); ALBUMIN/GLOBULIN RATIO 0.8 (1.1-1.5); ALKALINE PHOSPHATASE 109 IU/L (46-116); ANION GAP 2 (8-16); ASPARTATE AMINO TRANSFERASE 22 U/L (10-37); BILIRUBIN,TOTAL 0.6 MG/DL (0.1-1.0); BLOOD UREA NITROGEN 27 MG/DL (7-18); BUN/CREATININE RATIO 39.7 (6.6-38.0); CALCIUM 8.4 MG/DL (8.5-10.1); CHLORIDE 101 MMOL/L (99-107); CREATININE 0.68 MG/DL (0.40-0.90); GLUCOSE 289 MG/DL (70-104); MAGNESIUM 2.1 MG/DL (1.5-2.4); PHOSPHORUS 3.3 MG/DL (2.3-4.5); POTASSIUM 3.2 MMOL/L (3.5-5.1); SODIUM 142 MMOL/L (135-145); TOTAL CARBON DIOXIDE 38.8 MMOL/L (24-32); eGFR 87 ML/MIN
[2018-11-21] MEDS: pantoprazole 40mg Tablet.DR PO SCH (07:45)
[2018-11-21] MEDS: diltiazem 30mg tablet PO SCH ×4 (07:45→20:25)
[2018-11-21 07:46] LABS: INR 1.1 INR; PARTIAL THROMBOPLASTIN TIME 24 SECONDS (22-32); PROTHROMBIN TIME 10.8 SECONDS (9.0-12.0)
[2018-11-21] MEDS: HYDROchlorothiazide 25mg tablet PO SCH (07:46)
[2018-11-21] MEDS: losartan 50mg tablet PO SCH (07:47)
[2018-11-21] MEDS: apixaban 2.5mg tablet PO SCH ×2 (07:48→20:25)
[2018-11-21] MEDS: lactobacillus rhamnosus 10,000 MMU CELLS/CAPSULE PO SCH ×2 (07:48→20:26)
[2018-11-21] MEDS: docusate sodium 100mg/10ml UD cup PO SCH ×2 (07:48→20:00)
[2018-11-21] MEDS: furosemide 40mg/4ml inj IV SCH (07:53)
[2018-11-21] MEDS: budesonide 0.5mg/2ml UD nebule IH SCH ×2 (08:00→20:00)
[2018-11-21] MEDS: CefTRIAXone 2gm/D5W 50ml 50 ML IV SCH (08:01)
[2018-11-21] MEDS ORDERED: potassium Cl 20 mEq SR tablet PO PRN (09:10)
[2018-11-21] MEDS: azithromycin/NS 500mg/250ml 250 ML IV SCH (09:27)
[2018-11-21] MEDS: potassium Cl 20 mEq SR tablet PO PRN ×3 (10:33→22:16)
[2018-11-21 11:00] VITALS: BP 154/82
--- NOTE | 2018-11-21 12:44 | NUR ---
patient walked 60feet with O2 2L and O2 sat dropped to 84, increase O2 to 3L and O2 back to 92.
[2018-11-21 16:00] VITALS: BP 168/75
--- NOTE | 2018-11-21 18:22 | NUR ---
Problems reprioritized. Patient report given, questions answered & plan of care reviewed with Deep RN.
[2018-11-21 19:00] VITALS: BP 151/62
[2018-11-21] MEDS: temazepam 15mg capsule PO PRN (20:25)
[2018-11-21 23:00] VITALS: BP 136/53
[2018-11-22 03:00] VITALS: BP 129/60
[2018-11-22] MEDS: ipratropium/albuterol 3ml nebule NEB SCH ×4 (03:00→15:00)
--- NOTE | 2018-11-22 06:27 | NUR ---
Patient in room PCU 3020. I have received report from Phan RN and had the opportunity to ask questions and assume patient care. Pt is on 2.5L NC, alert and oriented X4, saline locked, will continue to monitor.
[2018-11-22 07:00] VITALS: BP 171/85
[2018-11-22 07:14] LABS: BASOPHILS % (AUTO) 0.2 % (0-1); EOSINOPHILS % (AUTO) 0.1 % (0-6); HEMATOCRIT 43.3 % (35.0-45.0); HEMOGLOBIN 14.1 g/dl (12.0-16.0); LYMPHOCYTES # (AUTO) 1.2 X10'3 (1.1-4.8); LYMPHOCYTES % (AUTO) 10.1 % (21-51); MEAN CORPUSCULAR HEMOGLOBIN 33.8 PG (27.0-31.0); MEAN CORPUSCULAR HGB CONC 32.6 g/dL (33.0-36.5); MEAN CORPUSCULAR VOLUME 103.8 FL (78-98); MEAN PLATELET VOLUME 9.7 FL (7.4-10.4); MONOCYTES # (AUTO) 1.1 X10'3 (0-0.9); MONOCYTES % (AUTO) 9.3 % (2-12); NEUTROPHILS # (AUTO) 9.2 X10'3 (1.8-7.7); NEUTROPHILS % (AUTO) 80.3 % (42-75); PLATELET COUNT 146 X10'3 (140-440); RED BLOOD COUNT 4.18 X10'6 (4.20-5.60); RED CELL DISTRIBUTION WIDTH 13.9 % (11.5-14.5); WHITE BLOOD COUNT 11.5 X10'3 (4.5-11.0)
[2018-11-22 07:32] LABS: ANION GAP 5 (8-16); BLOOD UREA NITROGEN 28 MG/DL (7-18); BUN/CREATININE RATIO 38.4 (6.6-38.0); CALCIUM 9.1 MG/DL (8.5-10.1); CHLORIDE 102 MMOL/L (99-107); CREATININE 0.73 MG/DL (0.40-0.90); GLUCOSE 254 MG/DL (70-104); PHOSPHORUS 3.1 MG/DL (2.3-4.5); POTASSIUM 3.5 MMOL/L (3.5-5.1); SODIUM 142 MMOL/L (135-145); TOTAL CARBON DIOXIDE 35.3 MMOL/L (24-32); eGFR 80 ML/MIN
[2018-11-22 07:33] LABS: ALANINE AMINOTRANSFERASE 53 U/L (12-78); ALBUMIN 2.7 G/DL (3.4-5.0); ALBUMIN/GLOBULIN RATIO 0.8 (1.1-1.5); ALKALINE PHOSPHATASE 115 IU/L (46-116); ASPARTATE AMINO TRANSFERASE 20 U/L (10-37); BILIRUBIN,TOTAL 0.6 MG/DL (0.1-1.0); INR 1.1 INR; MAGNESIUM 2.1 MG/DL (1.5-2.4); PARTIAL THROMBOPLASTIN TIME 23 SECONDS (22-32); PROTHROMBIN TIME 10.9 SECONDS (9.0-12.0); TOTAL PROTEIN 5.9 G/DL (6.4-8.2)
[2018-11-22] MEDS: budesonide 0.5mg/2ml UD nebule IH SCH (07:38)
[2018-11-22] MEDS: losartan 50mg tablet PO SCH (07:49)
[2018-11-22] MEDS: HYDROchlorothiazide 25mg tablet PO SCH (07:51)
[2018-11-22] MEDS: lactobacillus rhamnosus 10,000 MMU CELLS/CAPSULE PO SCH (07:51)
[2018-11-22] MEDS: apixaban 2.5mg tablet PO SCH (07:51)
[2018-11-22] MEDS: pantoprazole 40mg Tablet.DR PO SCH (07:52)
[2018-11-22] MEDS: diltiazem 30mg tablet PO SCH ×2 (07:52→13:03)
[2018-11-22] MEDS ORDERED: furosemide 40mg tablet PO SCH (08:00)
[2018-11-22] MEDS: docusate sodium 100mg/10ml UD cup PO SCH (08:00)
[2018-11-22] MEDS ORDERED: prednisone 10mg tablet PO SCH (08:30)
--- NOTE | 2018-11-22 11:47 | NUR ---
O2 Sat at rest on room air: 87% If below 89%: Recovery O2 Sat at rest on 2 LPM: SPO2 93% via nasal cannula No further documentation is necessary.
[2018-11-22 12:11] VITALS: BP 139/73
[2018-11-22] MEDS ORDERED: PANT40TA4 PO (15:24)
[2018-11-22] MEDS ORDERED: FURO40TA4 PO (15:24)
[2018-11-22] MEDS ORDERED: ROBDML PO (15:24)
--- NOTE | 2018-11-22 16:00 | NUR ---
Reviewed discharge instructions with pt including new prescriptions. Her home O2 concentrator was delivered during discharge instructions. Discontinued midline IV with canula intact. Discontinued tele monitor and returned to tele room. Transferred pt via wheelchair to private vehicle driven by spouse. Pt was on 2L NC with her home O2 in stable condition. Called in new prescriptions to [facility] on [address]. Pt left with all of belongings.
== END 2018-11-22 16:23 | disposition home or self-care (01) | DRG 208 ==
LOC: ER 21:30 → ED HOLD 23:39 → ICU 2S 11-14 00:09 → PCU 3S 11-15 17:02
PROVIDERS: ADMIT Internal Medicine Critical Care Medicine; ATTEND Internal Medicine Critical Care Medicine
PROC: 5A1935Z Respiratory Ventilation, Less than 24 Consecutive Hours (ICD-10-PCS; principal; 2018-11-13)
PROC: 0BH17EZ Insertion of Endotracheal Airway into Trachea, Via Natural or Artificial Opening (ICD-10-PCS; 2018-11-13)
PROC: 5A09357 Assistance with Respiratory Ventilation, Less than 24 Consecutive Hours, Continuous Positive Airway Pressure (ICD-10-PCS; 2018-11-13)
DX: J96.01 Acute respiratory failure with hypoxia (principal); J44.1 Chronic obstructive pulmonary disease with (acute) exacerbation; G47.30 Sleep apnea, unspecified; J96.02 Acute respiratory failure with hypercapnia; G89.29 Other chronic pain; F17.210 Nicotine dependence, cigarettes, uncomplicated; I10 Essential (primary) hypertension; R73.9 Hyperglycemia, unspecified; T38.0X5A Adverse effect of glucocorticoids and synthetic analogues, initial encounter; Z86.711 Personal history of pulmonary embolism; Z86.73 Personal history of transient ischemic attack (TIA), and cerebral infarction without residual deficits; Z87.442 Personal history of urinary calculi; Z90.49 Acquired absence of other specified parts of digestive tract; Z87.01 Personal history of pneumonia (recurrent); Z91.041 Radiographic dye allergy status; Z88.8 Allergy status to other drugs, medicaments and biological substances; Z91.018 Allergy to other foods; Z79.899 Other long term (current) drug therapy; Z79.01 Long term (current) use of anticoagulants; Z95.0 Presence of cardiac pacemaker; Y92.89 Other specified places as the place of occurrence of the external cause
CPT/HCPCS: 36415; 36600; 71045; 80053; 82803; 82948; 83036; 83605; 83735; 83880; 84100; 84484; 85018; 85025; 85610; 85730; 87040; 87070; 93005; 94002; 94003; 94640; 94660; 94760; 96374; 96375; 99291; C9113; G0378; J0456; J0696; J1100; J1815; J1940; J2250; J2270; J2405; J2704; J2920; J2930; J3010; J7060; J7512; J7611; J7626

== ENCOUNTER 2019-01-29 07:14 | Outpatient (CLI) | payer OTHER ==
[~2019-01-29 07:14] MED LIST changes: +FURO40TA4 PO; +PANT40TA4 PO; +ROBDML PO
[2019-01-30 11:11] LABS: RUBEOLA ANTIBODIES, IGG >300.0 AU/mL (Immune >29.9); VARICELLA-ZOSTER VIRUS AB, IGG 691 index (Immune >165)
== END 2019-01-29 23:59 | disposition home or self-care (01) ==
LOC: LAB 07:14
PROVIDERS: ATTEND Family Medicine
DX: Z23 Encounter for immunization (principal); J44.9 Chronic obstructive pulmonary disease, unspecified; I10 Essential (primary) hypertension; Z95.0 Presence of cardiac pacemaker; Z87.891 Personal history of nicotine dependence
CPT/HCPCS: 36415; 83880; 86735; 86762; 86765

== ENCOUNTER 2019-01-29 07:22 | Outpatient (CLI) | payer OTHER ==
[~2019-01-29] VITALS: Ht 177.8 cm; Wt 94.3 kg
[2019-01-29] MEDS ORDERED: albuterol 2.5 MG/3 ML nebule NEB PRN (07:45)
== END 2019-01-29 23:59 | disposition home or self-care (01) ==
LOC: RT 07:22
PROVIDERS: ATTEND Internal Medicine Critical Care Medicine
DX: J44.9 Chronic obstructive pulmonary disease, unspecified (principal); R94.2 Abnormal results of pulmonary function studies; I10 Essential (primary) hypertension; Z95.0 Presence of cardiac pacemaker; Z87.891 Personal history of nicotine dependence
CPT/HCPCS: 94060; 94727; 94729; 94760

== ENCOUNTER 2019-05-07 14:26 | Emergency (ER) | payer OTHER ==
[~2019-05-07] VITALS: Ht 177.8 cm; Wt 87.3 kg
[~2019-05-07 14:26] MED LIST changes: +DILT-36 PO; -DILT180C95 PO
[2019-05-07 14:39] VITALS: BP 140/90
[2019-05-07] MEDS ORDERED: HYDROcodone/acetaminophen 5mg/325mg tablet PO ONE (15:05)
[2019-05-07] MEDS ORDERED: ketorolac trometh. 30mg/ml inj. IM ONE (15:05)
[2019-05-07] MEDS ORDERED: diazepam 5mg tablet PO ONE (15:05)
[2019-05-07] MEDS ORDERED: HYDR-3965 PO (15:10)
[2019-05-07] MEDS ORDERED: IBUP-1984 PO (15:10)
[2019-05-07] MEDS ORDERED: DIAZ5TAB PO (15:10)
--- NOTE | 2019-05-07 15:45 | NUR ---
PT. SEEN AND DISCHARGED BY DR. MENA. NO NURSE EXAM DONE
== END 2019-05-07 15:47 | disposition home or self-care (01) ==
LOC: ER 14:27
DX: M54.5 Low back pain (principal); I10 Essential (primary) hypertension; J44.9 Chronic obstructive pulmonary disease, unspecified; G89.29 Other chronic pain; Z88.8 Allergy status to other drugs, medicaments and biological substances; Z88.6 Allergy status to analgesic agent; Z79.899 Other long term (current) drug therapy; Z79.1 Long term (current) use of non-steroidal anti-inflammatories (NSAID); Z86.73 Personal history of transient ischemic attack (TIA), and cerebral infarction without residual deficits; Z86.718 Personal history of other venous thrombosis and embolism; Z87.442 Personal history of urinary calculi; Z90.49 Acquired absence of other specified parts of digestive tract; Z95.0 Presence of cardiac pacemaker; Z87.01 Personal history of pneumonia (recurrent); Z86.79 Personal history of other diseases of the circulatory system; Z91.018 Allergy to other foods; W22.8XXA Striking against or struck by other objects, initial encounter; Y93.89 Activity, other specified; Y92.89 Other specified places as the place of occurrence of the external cause; Y99.8 Other external cause status
CPT/HCPCS: 96372; 99283; J1885

== ENCOUNTER 2019-05-30 22:09 | Emergency (ER) | payer OTHER ==
[~2019-05-30] VITALS: Ht 177.8 cm; Wt 87.3 kg
[~2019-05-30 22:09] MED LIST changes: +DIAZ5TAB PO
[2019-05-30] MEDS ORDERED: albuterol 2.5 MG/3 ML nebule CONTNEB PRN (22:15)
[2019-05-30] MEDS ORDERED: methylPREDNISolone sod succ 125mg/2ml vial IM ONE (22:15)
[2019-05-30] MEDS ORDERED: azithromycin 250mg tablet PO ONE (22:15)
[2019-05-30] MEDS ORDERED: LORazepam 2 mg/ml vial IM ONE (22:35)
--- NOTE | 2019-05-30 22:48 | NUR ---
PT BECAME MORE SOB AFTER WALKING A SHORT DISTANCE TO THE RESTROOM
[2019-05-30 23:39] VITALS: BP 140/85
== END 2019-05-31 00:06 | disposition home or self-care (01) ==
LOC: MERGE 22:09 → EEVIPCON 22:09 → ER 22:09
DX: J44.1 Chronic obstructive pulmonary disease with (acute) exacerbation (principal); Z88.8 Allergy status to other drugs, medicaments and biological substances; Z91.018 Allergy to other foods
CPT/HCPCS: 71045; 94644; 94760; 96372; 99285; J2060; J2930; 94640

== ENCOUNTER 2019-06-02 16:10 | Observation (INO) | payer OTHER ==
[~2019-06-02] VITALS: Ht 177.8 cm; Wt 86.0 kg
--- NOTE | 2019-06-02 16:11 | NUR ---
dr simpson notified trauma level 2
[2019-06-02] MEDS ORDERED: albuterol 2.5 MG/3 ML nebule NEB ONE (16:20)
[2019-06-02] MEDS ORDERED: ipratropium/albuterol 3ml nebule NEB ONE (16:20)
[2019-06-02] MEDS ORDERED: ondansetron/PF 4mg/2ml inj IV ONE ×2 (16:30→18:35)
[2019-06-02] MEDS: morphine 4 MG/ML inj SYRINge IV PRN ×2 (16:34→17:06)
[2019-06-02 16:50] LABS: BASOPHILS % (AUTO) 0.2 % (0-1); EOSINOPHILS % (AUTO) 0 % (0-6); HEMATOCRIT 46.1 % (35.0-45.0); HEMOGLOBIN 15.4 g/dl (12.0-16.0); LYMPHOCYTES # (AUTO) 1.1 X10'3 (1.1-4.8); MEAN CORPUSCULAR HEMOGLOBIN 35.8 PG (27.0-31.0); MEAN CORPUSCULAR HGB CONC 33.4 g/dL (33.0-36.5); MEAN CORPUSCULAR VOLUME 107.1 FL (78-98); MONOCYTES # (AUTO) 0.8 X10'3 (0-0.9); MONOCYTES % (AUTO) 6.6 % (2-12); NEUTROPHILS % (AUTO) 84.2 % (42-75); PLATELET COUNT 202 X10'3 (140-440); RED BLOOD COUNT 4.31 X10'6 (4.20-5.60); RED CELL DISTRIBUTION WIDTH 15.2 % (11.5-14.5); WHITE BLOOD COUNT 11.9 X10'3 (4.5-11.0)
[2019-06-02 16:59] LABS: PARTIAL THROMBOPLASTIN TIME 26 SECONDS (22-32)
[2019-06-02] MEDS ORDERED: LIDOcaine 1% W/epiNEPHrine 1:100,000 20ml vial IJ ONE (17:15)
[2019-06-02] MEDS ORDERED: LIDOcaine 1% w/EPI 1:200,000 injection 10mL vial IM ONE (17:15)
--- NOTE | 2019-06-02 17:43 | NUR ---
Dr Ta at bedside. Trauma called off and c-collar removed by . numbing Pt head to place sutures.
[2019-06-02] MEDS ORDERED: morphine 4 MG/ML inj SYRINge IV ONE (18:00)
[2019-06-02 18:21] LABS: ALANINE AMINOTRANSFERASE 49 U/L (12-78); ALBUMIN 3.6 G/DL (3.4-5.0); ALBUMIN/GLOBULIN RATIO 0.9 (1.1-1.5); ALKALINE PHOSPHATASE 154 IU/L (46-116); ANION GAP 14 (8-16); ASPARTATE AMINO TRANSFERASE 66 U/L (10-37); BILIRUBIN,TOTAL 0.5 MG/DL (0.1-1.0); BLOOD UREA NITROGEN 15 MG/DL (7-18); BUN/CREATININE RATIO 15.5 (6.6-38.0); CALCIUM 9.5 MG/DL (8.5-10.1); CHLORIDE 99 MMOL/L (99-107); CREATININE 0.97 MG/DL (0.40-0.90); GLUCOSE 144 MG/DL (70-104); POTASSIUM 4.2 MMOL/L (3.5-5.1); SODIUM 138 MMOL/L (135-145); TOTAL CARBON DIOXIDE 24.7 MMOL/L (24-32); TOTAL PROTEIN 7.5 G/DL (6.4-8.2); eGFR 58 ML/MIN
[2019-06-02] MEDS ORDERED: HYDROcodone/acetaminophen 10/325mg tab PO ONE (18:35)
[2019-06-02] MEDS ORDERED: morphine 4 MG/ML inj SYRINge IV PRN (18:35)
--- NOTE | 2019-06-02 19:17 | NUR ---
pt awaiting hospitalist for admission and pt agreeable to plan. Pt with increasing pain to her neck and head. just given msiv 4 mg iv and zofran. med rec completed. current vss. ra sats 93%. Pt awaiting to bring her some dinner as she has only eaten "a pickle" earlier today.
[2019-06-02] MEDS ORDERED: magnesium 4gm in 100ml NS 100 ML IV PRN (19:25)
[2019-06-02] MEDS ORDERED: potassium CL 10mEq/100ml bag 100 ML IV PRN ×2 (19:25)
[2019-06-02] MEDS ORDERED: magnesium 2GM in 50ml NS 50 ML IV PRN (19:25)
[2019-06-02] MEDS ORDERED: mag hydrox/Alum hydrox/simeth 30ml oral suspension PO PRN (19:25)
[2019-06-02] MEDS ORDERED: ondansetron/PF 4mg/2ml inj IV PRN (19:25)
[2019-06-02] MEDS ORDERED: magnesium hydroxide 30ml (MOM) UD suspension PO PRN (19:25)
[2019-06-02] MEDS ORDERED: magnesium Cl slow-release 64mg tablet PO PRN (19:25)
[2019-06-02] MEDS ORDERED: acetaminophen 325mg tablet PO PRN ×2 (19:25)
[2019-06-02] MEDS ORDERED: potassium Cl 20 mEq SR tablet PO PRN ×2 (19:25)
[2019-06-02] MEDS ORDERED: PRED10TA (19:29)
[2019-06-02] MEDS ORDERED: LEVO750T46 PO (19:31)
[2019-06-02] MEDS ORDERED: FURO40TA4 PO (19:33)
[2019-06-02 20:00] VITALS: BP_SYST 112; BP_SYST 126; BP_SYST 131; BP_DIAS 53; BP_DIAS 55; BP_DIAS 58
--- NOTE | 2019-06-02 20:29 | NUR ---
DR. OLIVAS AT BEDSIDE FOR ADMISSION. CURRENT VSS.
[2019-06-02] MEDS ORDERED: orphenadrine citrate 60mg/2ml inj. IM ONE (20:45)
--- NOTE | 2019-06-02 21:10 | NUR ---
Patient in room PCU 3019. I have received report from Hilary FLORES (ED) and had the opportunity to ask questions and assume patient care. Patient arrived to telemetry, was able to get herself into bed. Placed on tele, vitals taken, oriented to room. She has had large amounts of morphine to help with the pain of her head laceration. Feeling nauseous, vomited into emesis bag, felt better afterwards. Will continue to monitor closely.
[2019-06-02] MEDS ORDERED: ipratropium/albuterol 3ml nebule NEB PRN (21:40)
[2019-06-02 22:10] VITALS: BP 120/52
[2019-06-02 23:00] VITALS: BP 112/58
[2019-06-03] MEDS: ipratropium/albuterol 3ml nebule NEB SCH ×3 (01:00→08:01)
[2019-06-03 03:00] VITALS: BP 135/54
--- NOTE | 2019-06-03 03:40 | NUR ---
Patient still feeling nauseous after receiving zofran. Spoke with Dr. Brock, orders for Compazine 5mg IV Q6h.
[2019-06-03] MEDS ORDERED: proCHLORperazine 10 MG/2 ml inj IV PRN (03:45)
[2019-06-03 05:01] LABS: ALBUMIN 3.4 G/DL (3.4-5.0); ANION GAP 8 (8-16); BLOOD UREA NITROGEN 23 MG/DL (7-18); BUN/CREATININE RATIO 13.4 (6.6-38.0); CALCIUM 9.2 MG/DL (8.5-10.1); CHLORIDE 101 MMOL/L (99-107); CREATININE 1.72 MG/DL (0.40-0.90); GLUCOSE 117 MG/DL (70-104); MAGNESIUM 1.5 MG/DL (1.5-2.4); POTASSIUM 4.1 MMOL/L (3.5-5.1); SODIUM 142 MMOL/L (135-145); eGFR 30 ML/MIN
[2019-06-03 05:02] LABS: BASOPHILS % (AUTO) 0.3 % (0-1); EOSINOPHILS % (AUTO) 0.1 % (0-6); HEMATOCRIT 41.2 % (35.0-45.0); HEMOGLOBIN 13.9 g/dl (12.0-16.0); LYMPHOCYTES # (AUTO) 2.7 X10'3 (1.1-4.8); LYMPHOCYTES % (AUTO) 23.5 % (21-51); MEAN CORPUSCULAR HGB CONC 33.8 g/dL (33.0-36.5); MEAN CORPUSCULAR VOLUME 106.7 FL (78-98); MEAN PLATELET VOLUME 8.9 FL (7.4-10.4); MONOCYTES # (AUTO) 1.4 X10'3 (0-0.9); MONOCYTES % (AUTO) 12.2 % (2-12); NEUTROPHILS # (AUTO) 7.3 X10'3 (1.8-7.7); NEUTROPHILS % (AUTO) 63.9 % (42-75); PLATELET COUNT 185 X10'3 (140-440); RED BLOOD COUNT 3.87 X10'6 (4.20-5.60); RED CELL DISTRIBUTION WIDTH 15.1 % (11.5-14.5); WHITE BLOOD COUNT 11.5 X10'3 (4.5-11.0)
[2019-06-03 06:00] VITALS: BP 136/59
--- NOTE | 2019-06-03 06:20 | NUR ---
Problems reprioritized. Patient report given, questions answered & plan of care reviewed with Izabela FLORES and Silvia FLORES.
--- NOTE | 2019-06-03 06:36 | NUR ---
Patient in room PCU 3019. I have received report from SANDRA Young and had the opportunity to ask questions and assume patient care. Pt is awake and alert. No needs at this time. Will continue to monitor.
--- NOTE | 2019-06-03 07:16 | NUR ---
Patient in room PCU 3019. I have received report from SANDRA Young and had the opportunity to ask questions and assume patient care.
[2019-06-03 08:00] VITALS: BP_SYST 104; BP_SYST 110; BP_SYST 115; BP_DIAS 44; BP_DIAS 47; BP_DIAS 50
[2019-06-03] MEDS ORDERED: losartan 50mg tablet PO SCH (08:00)
[2019-06-03] MEDS ORDERED: K and/or MAG REPLACEMENT MC SCH (08:00)
[2019-06-03] MEDS ORDERED: predniSONE 20 mg tablet PO SCH (08:00)
[2019-06-03] MEDS ORDERED: diltiazem CD 120mg capsule (once-daily) PO SCH (08:00)
[2019-06-03] MEDS ORDERED: levoFLOXACIN 750MG TABLET PO SCH (08:00)
[2019-06-03] MEDS ORDERED: HYDROchlorothiazide 25mg tablet PO SCH (08:00)
[2019-06-03] MEDS ORDERED: furosemide 40mg tablet PO SCH (08:00)
[2019-06-03] MEDS ORDERED: apixaban 2.5mg tablet PO SCH (08:00)
[2019-06-03] MEDS ORDERED: budesonide 0.5mg/2ml UD nebule IH SCH (09:00)
--- NOTE | 2019-06-03 10:55 | NUR ---
Pt discharged. IV d/c'd, tele removed, all belongings sent home with pt. Walked down to lobby accompanied by RN and . Left in private vehicle.
--- NOTE | 2019-06-03 11:08 | NUR ---
pt. discharged from facility at 1055. pt. was walked down to [facility] accompanied by and RN. pt. went home in personal car. pt. IV was d/c intact. pt. paperwork was explained, understood and signed. pt. was not d/c on any new meds. pt. left with all belongings.
== END 2019-06-03 11:01 | disposition home or self-care (01) ==
LOC: ER 16:11 → EEVIPCON 16:11 → PCU 3S 21:23 → CMPBEDREQ 06-03 05:30
PROVIDERS: ADMIT Hospitalist; ATTEND Internal Medicine
DX: R55 Syncope and collapse (principal); S01.81XA Laceration without foreign body of other part of head, initial encounter; J44.1 Chronic obstructive pulmonary disease with (acute) exacerbation; E78.5 Hyperlipidemia, unspecified; G47.30 Sleep apnea, unspecified; I10 Essential (primary) hypertension; M43.6 Torticollis; R94.31 Abnormal electrocardiogram [ECG] [EKG]; G89.29 Other chronic pain; Z86.711 Personal history of pulmonary embolism; Z86.73 Personal history of transient ischemic attack (TIA), and cerebral infarction without residual deficits; Z87.442 Personal history of urinary calculi; Z90.49 Acquired absence of other specified parts of digestive tract; Z95.0 Presence of cardiac pacemaker; Z79.51 Long term (current) use of inhaled steroids; Z79.01 Long term (current) use of anticoagulants; Z79.899 Other long term (current) drug therapy; Z88.8 Allergy status to other drugs, medicaments and biological substances; Z91.018 Allergy to other foods; W19.XXXA Unspecified fall, initial encounter
CPT/HCPCS: 12013; 36415; 70450; 71045; 72125; 80048; 80053; 83735; 85025; 85610; 85730; 87081; 93005; 94640; 94760; 96372; 96374; 96375; 96376; 99284; G0378; J0780; J2270; J2360; J2405; J7512

== ENCOUNTER 2019-08-19 06:48 | Emergency (ER) | payer OTHER ==
[~2019-08-19] VITALS: Ht 172.7 cm; Wt 93.6 kg
[~2019-08-19 06:48] MED LIST changes: -DIAZ5TAB PO; -IPRA3AMP9 NEB; +LEVO750T46 PO; -PANT40TA4 PO; +PRED10TA; -ROBDML PO
[2019-08-19] MEDS ORDERED: metoclopramide 5 mg/ml inj IV ONE (07:00)
[2019-08-19] MEDS ORDERED: ondansetron 4mg rapidly disintigrating tab PO ONE (07:00)
[2019-08-19] MEDS ORDERED: ondansetron/PF 4mg/2ml inj IM ONE (07:20)
[2019-08-19 07:26] LABS: BASOPHILS # (AUTO) 0.1 X10'3 (0-0.2); EOSINOPHILS # (AUTO) 0.1 X10'3 (0-0.9); EOSINOPHILS % (AUTO) 1.2 % (0-6); HEMATOCRIT 47.1 % (35.0-45.0); HEMOGLOBIN 16.1 g/dl (12.0-16.0); LYMPHOCYTES # (AUTO) 1.9 X10'3 (1.1-4.8); MEAN CORPUSCULAR HEMOGLOBIN 37.3 PG (27.0-31.0); MEAN CORPUSCULAR HGB CONC 34.1 g/dL (33.0-36.5); MEAN CORPUSCULAR VOLUME 109.4 FL (78-98); MEAN PLATELET VOLUME 9.1 FL (7.4-10.4); MONOCYTES # (AUTO) 0.8 X10'3 (0-0.9); MONOCYTES % (AUTO) 12.6 % (2-12); NEUTROPHILS # (AUTO) 3.3 X10'3 (1.8-7.7); NEUTROPHILS % (AUTO) 54.2 % (42-75); PLATELET COUNT 174 X10'3 (140-440); RED BLOOD COUNT 4.31 X10'6 (4.20-5.60); RED CELL DISTRIBUTION WIDTH 15.1 % (11.5-14.5); WHITE BLOOD COUNT 6.2 X10'3 (4.5-11.0)
[2019-08-19] MEDS ORDERED: ondansetron/PF 4mg/2ml inj IV ONE (07:40)
[2019-08-19 07:52] LABS: ALANINE AMINOTRANSFERASE 49 U/L (12-78); ALBUMIN 3.7 G/DL (3.4-5.0); ALBUMIN/GLOBULIN RATIO 0.9 (1.1-1.5); ALKALINE PHOSPHATASE 162 IU/L (46-116); ANION GAP 11 (8-16); ASPARTATE AMINO TRANSFERASE 59 U/L (10-37); BILIRUBIN,TOTAL 0.6 MG/DL (0.1-1.0); BLOOD UREA NITROGEN 8 MG/DL (7-18); BUN/CREATININE RATIO 13.3 (6.6-38.0); CALCIUM 9.2 MG/DL (8.5-10.1); CHLORIDE 105 MMOL/L (99-107); GLUCOSE 109 MG/DL (70-104); POTASSIUM 3.9 MMOL/L (3.5-5.1); SODIUM 143 MMOL/L (135-145); TOTAL CARBON DIOXIDE 26.7 MMOL/L (24-32); TOTAL PROTEIN 7.6 G/DL (6.4-8.2); eGFR > 90 ML/MIN
[2019-08-19] MEDS ORDERED: DIAZ5TAB4 PO (08:30)
[2019-08-19] MEDS ORDERED: MECL-111 PO (08:30)
[2019-08-19] MEDS ORDERED: LORazepam 2 mg/ml vial IV ONE (08:30)
[2019-08-19 09:37] VITALS: BP 166/83
== END 2019-08-19 09:38 | disposition home or self-care (01) ==
LOC: ER 06:48 → EEVIPCON 06:48 → ER 09:38
DX: H81.10 Benign paroxysmal vertigo, unspecified ear (principal); I10 Essential (primary) hypertension; R11.2 Nausea with vomiting, unspecified; J44.9 Chronic obstructive pulmonary disease, unspecified; G89.29 Other chronic pain; Z86.73 Personal history of transient ischemic attack (TIA), and cerebral infarction without residual deficits; Z90.49 Acquired absence of other specified parts of digestive tract; Z95.1 Presence of aortocoronary bypass graft; Z98.890 Other specified postprocedural states; Z87.891 Personal history of nicotine dependence; Z88.8 Allergy status to other drugs, medicaments and biological substances; Z91.041 Radiographic dye allergy status; Z91.018 Allergy to other foods; Z79.01 Long term (current) use of anticoagulants; Z79.899 Other long term (current) drug therapy
CPT/HCPCS: 36415; 70450; 71045; 80053; 84484; 85025; 93005; 96374; 96375; 99284; J2060; J2405; J2765

== ENCOUNTER 2019-09-14 20:34 | Emergency (ER) | payer OTHER ==
[~2019-09-14] VITALS: Ht 177.8 cm; Wt 94.0 kg
[~2019-09-14 20:34] MED LIST changes: +DIAZ5TAB4 PO; +MECL-111 PO
[2019-09-14] MEDS ORDERED: magnesium 2GM in 50ml NS 50 ML IV ONE (20:35)
[2019-09-14] MEDS ORDERED: ipratropium 0.5 MG/2.5ML nebule IH ONE (20:35)
[2019-09-14] MEDS ORDERED: methylPREDNISolone sod succ 125mg/2ml vial IV ONE (20:35)
[2019-09-14] MEDS: albuterol 2.5 MG/3 ML nebule CONTNEB PRN ×2 (20:42→23:17)
[2019-09-14] MEDS ORDERED: ondansetron/PF 4mg/2ml inj IV ONE (20:50)
[2019-09-14 20:54] LABS: BASOPHILS # (AUTO) 0.1 X10'3 (0-0.2); EOSINOPHILS # (AUTO) 0.1 X10'3 (0-0.9); MEAN CORPUSCULAR HGB CONC 34.1 g/dL (33.0-36.5); MONOCYTES # (AUTO) 0.9 X10'3 (0-0.9)
[2019-09-14 20:56] LABS: EOSINOPHILS % (AUTO) 1.5 % (0-6); LYMPHOCYTES % (AUTO) 37.1 % (21-51); MEAN CORPUSCULAR HEMOGLOBIN 37.1 PG (27.0-31.0); MEAN CORPUSCULAR VOLUME 108.7 FL (78-98); MEAN PLATELET VOLUME 9.3 FL (7.4-10.4); MONOCYTES % (AUTO) 10.8 % (2-12); NEUTROPHILS # (AUTO) 4.1 X10'3 (1.8-7.7); NEUTROPHILS % (AUTO) 49.6 % (42-75); PLATELET COUNT 173 X10'3 (140-440); RED BLOOD COUNT 4.33 X10'6 (4.20-5.60); RED CELL DISTRIBUTION WIDTH 14.6 % (11.5-14.5); WHITE BLOOD COUNT 8.2 X10'3 (4.5-11.0)
[2019-09-14 21:09] LABS: ALANINE AMINOTRANSFERASE 64 U/L (12-78); ALBUMIN 3.7 G/DL (3.4-5.0); ALKALINE PHOSPHATASE 174 IU/L (46-116); ANION GAP 8 (8-16); ASPARTATE AMINO TRANSFERASE 74 U/L (10-37); BILIRUBIN,TOTAL 0.4 MG/DL (0.1-1.0); BLOOD UREA NITROGEN 8 MG/DL (7-18); BUN/CREATININE RATIO 11.8 (6.6-38.0); CALCIUM 9.4 MG/DL (8.5-10.1); CHLORIDE 106 MMOL/L (99-107); CREATININE 0.68 MG/DL (0.40-0.90); GLUCOSE 175 MG/DL (70-104); POTASSIUM 3.7 MMOL/L (3.5-5.1); SODIUM 142 MMOL/L (135-145); TOTAL CARBON DIOXIDE 28.5 MMOL/L (24-32); TOTAL PROTEIN 7.3 G/DL (6.4-8.2); eGFR 87 ML/MIN
[2019-09-14] MEDS ORDERED: CefTRIAXone 2gm/D5W 50ml 50 ML IV ONE (21:40)
[2019-09-14] MEDS ORDERED: normal saline 1000ML IV soln IVB ONE (21:40)
[2019-09-14] MEDS ORDERED: glycopyrrolate 0.2mg/ml inj IV ONE ×2 (21:45→22:05)
[2019-09-14] MEDS ORDERED: PRED20TA PO (21:46)
[2019-09-14] MEDS ORDERED: AZIT250T PO (21:46)
--- NOTE | 2019-09-14 21:48 | NUR ---
Patient had episode of apnea, SPO2 82% on room air, patient difficult to arouse, RT at bedside, pat able to follow simple commands, Placed on O@ 2L via N/C, Dr Ta requested to bedside, patient increase in alertness, oriented X4. RT at bedside, at bedside.
--- NOTE | 2019-09-14 22:01 | NUR ---
GLYCOPYRROLATE GIVEN VIA NEBULIZER BY DR ELIZABETH.
[2019-09-14] MEDS ORDERED: LIDOcaine 4% (40 mg/ml) topical solution 50ml MM PRN (22:05)
[2019-09-14] MEDS ORDERED: proCHLORperazine 10 MG/2 ml inj IV ONE (22:10)
--- NOTE | 2019-09-14 22:37 | NUR ---
pts spo2 dropped to 86% on room air. pt placed on o2 at 2lpm - primary RN aware, sats up to 92%
[2019-09-15] MEDS ORDERED: albuterol 2.5 MG/3 ML nebule CONTNEB PRN ×2 (02:00→06:20)
[2019-09-15] MEDS: albuterol 2.5 MG/3 ML nebule CONTNEB PRN ×2 (02:02→06:38)
[2019-09-15] MEDS ORDERED: glycopyrrolate 0.2mg/ml inj IV ONE (06:25)
[2019-09-15] MEDS ORDERED: benzonatate 100mg capsule PO ONE (07:25)
[2019-09-15] MEDS ORDERED: LIDOcaine 40mg/ml topical solution IH ONE (07:35)
[2019-09-15] MEDS ORDERED: LIDOcaine 4% (40 mg/ml) topical solution 50ml TP ONE (07:40)
--- NOTE | 2019-09-15 09:02 | NUR ---
RECIEVING LIDO NEB TX NOW, VS IMPROVED, NO NEEDS AT THIS TIME.
[2019-09-15] MEDS ORDERED: BENZ-16 PO (09:59)
[2019-09-15] MEDS ORDERED: predniSONE 20 mg tablet PO ONE (10:00)
[2019-09-15] MEDS ORDERED: HYDR-4353 PO (10:04)
[2019-09-15] MEDS ORDERED: azithromycin 250mg tablet PO ONE (10:05)
[2019-09-15 10:27] VITALS: BP 120/89
== END 2019-09-15 10:34 | disposition home or self-care (01) ==
LOC: ER 20:35 → EEVIPCON 20:35 → ER 09-15 10:34
DX: J44.1 Chronic obstructive pulmonary disease with (acute) exacerbation (principal); I10 Essential (primary) hypertension; Z86.711 Personal history of pulmonary embolism; G89.29 Other chronic pain; F10.99 Alcohol use, unspecified with unspecified alcohol-induced disorder; Z87.442 Personal history of urinary calculi; Z86.73 Personal history of transient ischemic attack (TIA), and cerebral infarction without residual deficits; Z90.49 Acquired absence of other specified parts of digestive tract; Z95.0 Presence of cardiac pacemaker; Z98.890 Other specified postprocedural states; Z91.018 Allergy to other foods; Z88.8 Allergy status to other drugs, medicaments and biological substances; Z91.041 Radiographic dye allergy status; Z88.6 Allergy status to analgesic agent; Z79.01 Long term (current) use of anticoagulants; Z79.899 Other long term (current) drug therapy; Y90.9 Presence of alcohol in blood, level not specified
CPT/HCPCS: 71045; 80053; 85025; 94640; 94644; 94645; 96365; 96367; 96375; 96376; 99291; J0696; J0780; J2405; J2930; J3475; J7030; J7512; 94760; J2001; J3490

== ENCOUNTER 2019-10-20 08:32 | Emergency (ER) | payer OTHER ==
[~2019-10-20] VITALS: Ht 177.8 cm; Wt 94.5 kg
[~2019-10-20 08:32] MED LIST changes: +AZIT250T PO; -MECL-111 PO; +MECL-159 PO
[2019-10-20] MEDS ORDERED: LORazepam 2 mg/ml vial IV ONE (08:40)
[2019-10-20] MEDS ORDERED: meclizine 12.5mg tablet PO ONE (08:40)
[2019-10-20] MEDS ORDERED: morphine 4 MG/ML inj SYRINge IV ONE (08:50)
[2019-10-20] MEDS ORDERED: diphenhydrAMINE 50 mg/ml inj IV ONE (08:50)
[2019-10-20] MEDS ORDERED: metoclopramide 5 mg/ml inj IV ONE (08:50)
[2019-10-20 09:14] LABS: BASOPHILS # (AUTO) 0.1 X10'3 (0-0.2); BASOPHILS % (AUTO) 0.9 % (0-1); EOSINOPHILS % (AUTO) 0.7 % (0-6); HEMATOCRIT 46.8 % (35.0-45.0); LYMPHOCYTES # (AUTO) 1.7 X10'3 (1.1-4.8); LYMPHOCYTES % (AUTO) 23.2 % (21-51); MEAN CORPUSCULAR HEMOGLOBIN 36.6 PG (27.0-31.0); MEAN CORPUSCULAR HGB CONC 34.2 g/dL (33.0-36.5); MEAN CORPUSCULAR VOLUME 107.1 FL (78-98); MEAN PLATELET VOLUME 9.1 FL (7.4-10.4); MONOCYTES # (AUTO) 0.8 X10'3 (0-0.9); MONOCYTES % (AUTO) 11.5 % (2-12); NEUTROPHILS # (AUTO) 4.6 X10'3 (1.8-7.7); NEUTROPHILS % (AUTO) 63.7 % (42-75); PLATELET COUNT 161 X10'3 (140-440); RED BLOOD COUNT 4.37 X10'6 (4.20-5.60); RED CELL DISTRIBUTION WIDTH 14.8 % (11.5-14.5); WHITE BLOOD COUNT 7.2 X10'3 (4.5-11.0)
[2019-10-20 09:30] LABS: ALANINE AMINOTRANSFERASE 61 U/L (12-78); ALBUMIN 3.7 G/DL (3.4-5.0); ALKALINE PHOSPHATASE 180 IU/L (46-116); ANION GAP 11 (8-16); ASPARTATE AMINO TRANSFERASE 105 U/L (10-37); BILIRUBIN,TOTAL 0.6 MG/DL (0.1-1.0); BLOOD UREA NITROGEN 7 MG/DL (7-18); BUN/CREATININE RATIO 10.8 (6.6-38.0); CALCIUM 9.3 MG/DL (8.5-10.1); CHLORIDE 106 MMOL/L (99-107); CREATININE 0.65 MG/DL (0.40-0.90); GLUCOSE 112 MG/DL (70-104); POTASSIUM 3.7 MMOL/L (3.5-5.1); SODIUM 144 MMOL/L (135-145); TOTAL PROTEIN 7.5 G/DL (6.4-8.2); eGFR > 90 ML/MIN
[2019-10-20 10:14] LABS: MAGNESIUM 1.4 MG/DL (1.5-2.4)
[2019-10-20] MEDS ORDERED: magnesium 2GM in 50ml NS 50 ML IV ONE (10:45)
[2019-10-20] MEDS ORDERED: normal saline 1000ml 1,000 ML IVB ONE (11:30)
[2019-10-20 12:28] VITALS: BP 138/86
== END 2019-10-20 12:31 | disposition home or self-care (01) ==
LOC: ER 08:33 → EEVIPCON 08:33 → ER 12:31
DX: R55 Syncope and collapse (principal); R51 Headache; R05 Cough; R07.89 Other chest pain; H53.8 Other visual disturbances; I10 Essential (primary) hypertension; J44.9 Chronic obstructive pulmonary disease, unspecified; Z86.711 Personal history of pulmonary embolism; G47.30 Sleep apnea, unspecified; F10.99 Alcohol use, unspecified with unspecified alcohol-induced disorder; Z86.73 Personal history of transient ischemic attack (TIA), and cerebral infarction without residual deficits; Z87.442 Personal history of urinary calculi; Z95.0 Presence of cardiac pacemaker; Z90.49 Acquired absence of other specified parts of digestive tract; Z98.890 Other specified postprocedural states; Z87.891 Personal history of nicotine dependence; Z88.8 Allergy status to other drugs, medicaments and biological substances; Z91.018 Allergy to other foods; Z91.041 Radiographic dye allergy status; Z79.899 Other long term (current) drug therapy; Y90.9 Presence of alcohol in blood, level not specified
CPT/HCPCS: 36415; 71045; 80053; 83735; 83880; 84484; 85025; 85610; 87502; 87503; 96365; 96366; 96375; 99284; J1200; J2060; J2270; J2765; J3475; J7030; J8597

== ENCOUNTER 2019-11-13 11:33 | Emergency (ER) | payer OTHER ==
[~2019-11-13] VITALS: Ht 177.8 cm; Wt 94.0 kg
[2019-11-13] MEDS ORDERED: ipratropium/albuterol 3ml nebule NEB ONE (12:20)
[2019-11-13] MEDS ORDERED: normal saline 1000ML IV soln IVB ONE (12:50)
[2019-11-13] MEDS ORDERED: methylPREDNISolone sod succ 125mg/2ml vial IV ONE (12:50)
[2019-11-13] MEDS ORDERED: normal saline 1000ML IV soln IV ONE (13:25)
[2019-11-13 13:27] LABS: BASOPHILS # (AUTO) 0.1 X10'3 (0-0.2); EOSINOPHILS % (AUTO) 0.5 % (0-6); HEMATOCRIT 45.9 % (35.0-45.0); HEMOGLOBIN 15.5 g/dl (12.0-16.0); LYMPHOCYTES # (AUTO) 2.9 X10'3 (1.1-4.8); LYMPHOCYTES % (AUTO) 27.1 % (21-51); MEAN CORPUSCULAR HEMOGLOBIN 35.6 PG (27.0-31.0); MEAN CORPUSCULAR HGB CONC 33.9 g/dL (33.0-36.5); MEAN PLATELET VOLUME 9.2 FL (7.4-10.4); MONOCYTES % (AUTO) 9.3 % (2-12); NEUTROPHILS # (AUTO) 6.6 X10'3 (1.8-7.7); NEUTROPHILS % (AUTO) 62.1 % (42-75); PLATELET COUNT 208 X10'3 (140-440); RED BLOOD COUNT 4.37 X10'6 (4.20-5.60); RED CELL DISTRIBUTION WIDTH 14.5 % (11.5-14.5); WHITE BLOOD COUNT 10.6 X10'3 (4.5-11.0)
[2019-11-13 13:37] LABS: PARTIAL THROMBOPLASTIN TIME 27 SECONDS (22-32)
[2019-11-13] MEDS ORDERED: albuterol 2.5 MG/3 ML nebule CONTNEB PRN (13:40)
[2019-11-13] MEDS ORDERED: ipratropium 0.5 MG/2.5ML nebule IH ONE (13:40)
[2019-11-13] MEDS ORDERED: CefTRIAXone/D5W-Rocephin 1gm 50 ML IV ONE (13:40)
--- NOTE | 2019-11-13 13:49 | NUR ---
RESPIRATORY AT BEDSIDE. PATIENT TO HAVE CONTINUOUS NEB TREATMENT
[2019-11-13 13:52] LABS: ALANINE AMINOTRANSFERASE 37 U/L (12-78); ALBUMIN 3.5 G/DL (3.4-5.0); ALBUMIN/GLOBULIN RATIO 0.9 (1.1-1.5); ALKALINE PHOSPHATASE 166 IU/L (46-116); ANION GAP 9 (8-16); ASPARTATE AMINO TRANSFERASE 46 U/L (10-37); BILIRUBIN,TOTAL 0.8 MG/DL (0.1-1.0); BLOOD UREA NITROGEN 5 MG/DL (7-18); BUN/CREATININE RATIO 7.8 (6.6-38.0); CALCIUM 9.4 MG/DL (8.5-10.1); CHLORIDE 103 MMOL/L (99-107); CREATININE 0.64 MG/DL (0.40-0.90); GLUCOSE 100 MG/DL (70-104); MAGNESIUM 1.5 MG/DL (1.5-2.4); POTASSIUM 3.6 MMOL/L (3.5-5.1); SODIUM 140 MMOL/L (135-145); TOTAL CARBON DIOXIDE 28.4 MMOL/L (24-32); TOTAL PROTEIN 7.4 G/DL (6.4-8.2); eGFR > 90 ML/MIN
[2019-11-13] MEDS ORDERED: PRED10TA PO (15:32)
[2019-11-13] MEDS ORDERED: AZIT250T PO (15:32)
[2019-11-13 15:43] VITALS: BP 198/102
== END 2019-11-13 15:46 | disposition home or self-care (01) ==
LOC: ER 11:34
DX: J44.1 Chronic obstructive pulmonary disease with (acute) exacerbation (principal); I10 Essential (primary) hypertension; G47.30 Sleep apnea, unspecified; G89.29 Other chronic pain; Z86.73 Personal history of transient ischemic attack (TIA), and cerebral infarction without residual deficits; Z86.711 Personal history of pulmonary embolism; Z90.49 Acquired absence of other specified parts of digestive tract; Z95.0 Presence of cardiac pacemaker; Z98.890 Other specified postprocedural states; Z88.8 Allergy status to other drugs, medicaments and biological substances; Z79.01 Long term (current) use of anticoagulants; Z79.899 Other long term (current) drug therapy
CPT/HCPCS: 36415; 71046; 80053; 83605; 83735; 84145; 85025; 85610; 85730; 87040; 94640; 94644; 96361; 96365; 96375; 99285; J0696; J2930; J7030; 94760

== ENCOUNTER 2019-12-01 13:05 | Emergency (ER) | payer OTHER ==
[~2019-12-01] VITALS: Ht 177.8 cm; Wt 91.4 kg
[~2019-12-01 13:05] MED LIST changes: +PRED10TA PO
[2019-12-01 13:24] VITALS: BP 157/111
== END 2019-12-01 14:51 | disposition home or self-care (01) ==
LOC: ER 13:07
DX: R07.89 Other chest pain (principal); J44.9 Chronic obstructive pulmonary disease, unspecified; I10 Essential (primary) hypertension; G47.30 Sleep apnea, unspecified; G89.29 Other chronic pain; F17.210 Nicotine dependence, cigarettes, uncomplicated; Z86.711 Personal history of pulmonary embolism; Z90.49 Acquired absence of other specified parts of digestive tract; Z86.73 Personal history of transient ischemic attack (TIA), and cerebral infarction without residual deficits; Z72.89 Other problems related to lifestyle; Z95.818 Presence of other cardiac implants and grafts; Z98.890 Other specified postprocedural states; Z87.442 Personal history of urinary calculi; Z88.8 Allergy status to other drugs, medicaments and biological substances; Z91.041 Radiographic dye allergy status; Z79.01 Long term (current) use of anticoagulants; Z79.899 Other long term (current) drug therapy; Y04.8XXA Assault by other bodily force, initial encounter; Y93.89 Activity, other specified; Y92.89 Other specified places as the place of occurrence of the external cause; Y99.8 Other external cause status
CPT/HCPCS: 71101; 99283

== ENCOUNTER 2019-12-18 18:00 | Inpatient (IN) | payer OTHER ==
[~2019-12-18] VITALS: Ht 177.8 cm; Wt 89.5 kg
[2019-12-18] MEDS ORDERED: albuterol 2.5 MG/3 ML nebule NEB ONE ×2 (18:30→20:10)
[2019-12-18] MEDS ORDERED: ALBU8.5H8 INH (18:33)
[2019-12-18] MEDS ORDERED: potassium Cl 20 mEq SR tablet PO PRN (18:35)
[2019-12-18] MEDS ORDERED: acetaminophen 325mg tablet PO PRN ×2 (18:35)
[2019-12-18] MEDS ORDERED: ondansetron/PF 4mg/2ml inj IV PRN (18:35)
[2019-12-18] MEDS ORDERED: morphine 2 MG/ML inj. syringe IV PRN (18:35)
[2019-12-18] MEDS ORDERED: magnesium hydroxide 30ml (MOM) UD suspension PO PRN (18:35)
[2019-12-18] MEDS ORDERED: potassium CL 10mEq/100ml bag 100 ML IV PRN ×2 (18:35)
[2019-12-18 18:37] LABS: BASOPHILS # (AUTO) 0.1 X10'3 (0-0.2); EOSINOPHILS # (AUTO) 0.1 X10'3 (0-0.9); EOSINOPHILS % (AUTO) 1.5 % (0-6); HEMATOCRIT 44.8 % (35.0-45.0); HEMOGLOBIN 15.2 g/dl (12.0-16.0); LYMPHOCYTES # (AUTO) 3.4 X10'3 (1.1-4.8); LYMPHOCYTES % (AUTO) 42.5 % (21-51); MEAN CORPUSCULAR HGB CONC 33.9 g/dL (33.0-36.5); MEAN CORPUSCULAR VOLUME 109.2 FL (78-98); MEAN PLATELET VOLUME 8.9 FL (7.4-10.4); MONOCYTES # (AUTO) 1.1 X10'3 (0-0.9); MONOCYTES % (AUTO) 14.3 % (2-12); NEUTROPHILS # (AUTO) 3.2 X10'3 (1.8-7.7); NEUTROPHILS % (AUTO) 40.7 % (42-75); PLATELET COUNT 170 X10'3 (140-440); RED CELL DISTRIBUTION WIDTH 15.6 % (11.5-14.5); WHITE BLOOD COUNT 7.9 X10'3 (4.5-11.0)
[2019-12-18] MEDS: diltiazem CD 120mg capsule (once-daily) PO SCH (18:40)
[2019-12-18] MEDS ORDERED: ALBUTEROL INHALER 1 PUFF/90 MCG INHALER IH PRN (18:40)
[2019-12-18 18:47] LABS: PARTIAL THROMBOPLASTIN TIME 27 SECONDS (22-32)
[2019-12-18 18:48] LABS: ALANINE AMINOTRANSFERASE 62 U/L (12-78); ALBUMIN 3.4 G/DL (3.4-5.0); ALBUMIN/GLOBULIN RATIO 0.9 (1.1-1.5); ALKALINE PHOSPHATASE 153 IU/L (46-116); ANION GAP 8 (8-16); ASPARTATE AMINO TRANSFERASE 137 U/L (10-37); BILIRUBIN,TOTAL 0.6 MG/DL (0.1-1.0); BLOOD UREA NITROGEN 8 MG/DL (7-18); BUN/CREATININE RATIO 13.8 (6.6-38.0); CALCIUM 8.9 MG/DL (8.5-10.1); CHLORIDE 109 MMOL/L (99-107); CREATININE 0.58 MG/DL (0.40-0.90); GLUCOSE 103 MG/DL (70-104); POTASSIUM 3.9 MMOL/L (3.5-5.1); SODIUM 145 MMOL/L (135-145); TOTAL CARBON DIOXIDE 27.6 MMOL/L (24-32); TOTAL PROTEIN 7.3 G/DL (6.4-8.2); eGFR > 90 ML/MIN
[2019-12-18] MEDS ORDERED: albuterol 2.5 MG/3 ML nebule NEB PRN (18:50)
[2019-12-18] MEDS ORDERED: hydroxychloroquine 200mg tablet PO STA (18:58)
[2019-12-18 19:01] LABS: C-REACTIVE PROTEIN 1.07 MG/DL (0.0-0.5); FERRITIN 399 NG/ML (8-252); LACTATE DEHYDROGENASE 265 U/L (81-234); MAGNESIUM 1.7 MG/DL (1.5-2.4)
--- NOTE | 2019-12-18 19:04 | NUR ---
Patient given neb treatment with filter in place. Patient reported feeling better after treatment. Patient was placed on 3L via NC at which patient began to feel as if she stated, "she couldn't get air in." With oxygen saturation of 94%. Patient was then placed on the CPAP filter at a PEEP of 5 with oxygen at 15 L/min. Patient reported feeling still feeling SOB and inability to get "air in". PEEP was increased to 10. Patient reported a decrease in SOB and oxygen saturation increased to 99%. Addendum: 12/18/19 at 1948 by ILSA Amended noted: Patient was placed on angélica breathing apparatus.
--- NOTE | 2019-12-18 19:13 | NUR ---
PER CLARA DHILLON, HOLD HYDROXYCHLOROQUINE
[2019-12-18] MEDS ORDERED: albuterol 2.5 MG/3 ML nebule NEB SCH (20:00)
[2019-12-18] MEDS: budesonide 0.5mg/2ml UD nebule IH SCH (20:00)
--- NOTE | 2019-12-18 20:12 | NUR ---
pt had an episode of pulling off her mask. Dr Ta in the room with the pt and he is comforting her. She is feeling better. Breathing tx ordered. RT paged.
[2019-12-18 21:00] VITALS: BP 129/70
--- NOTE | 2019-12-18 21:00 | NUR ---
Received report from Lizette FLORES, Pt transferred to [address]. Pt on 3l nasal cannula. Pt put in negative presure room pending rule out for COVID19.
[2019-12-18] MEDS: morphine 4 MG/ML inj SYRINge IV PRN (21:40)
[2019-12-18] MEDS: heparin, porcine 5000 units/ml vial SQ SCH (21:41)
[2019-12-18 22:00] VITALS: BP 132/76
[2019-12-18] MEDS ORDERED: Melatonin 3mg tablet PO PRN (22:00)
[2019-12-18] MEDS ORDERED: diphenhydrAMINE 25mg capsule PO PRN (22:00)
[2019-12-18 22:55] LABS: CLARITY,URINE CLEAR (Clear); COLOR,URINE YELLOW (Yellow); GLUCOSE, URINE NEGATIVE (Neg); KETONES,URINE NEGATIVE (Neg); LEUKOCYTE ESTERASE ,URINE NEGATIVE (Neg); NITRITES, URINE NEGATIVE (Neg); OCCULT BLOOD,URINE NEGATIVE (Neg); PROTEIN,URINE NEGATIVE (Neg); URINE HCG NEGATIVE (NEG); UROBILINOGEN,URINE 0.2 E.U/dL (0.2-1.0)
[2019-12-18 22:56] LABS: UA COLLECTION TYPE CLN CATCH MIDSTREAM
[2019-12-18 23:00] VITALS: BP 125/68
[2019-12-19] VITALS (18 sets, daily range): BP systolic 125–180; BP diastolic 50–80
[2019-12-19] MEDS: diphenhydrAMINE 25mg capsule PO PRN ×2 (02:05→20:30)
[2019-12-19] MEDS: albuterol 2.5 MG/3 ML nebule NEB SCH ×4 (02:24→20:48)
[2019-12-19 02:42] LABS: BASOPHILS # (AUTO) 0.1 X10'3 (0-0.2); BASOPHILS % (AUTO) 1.6 % (0-1); EOSINOPHILS # (AUTO) 0.1 X10'3 (0-0.9); EOSINOPHILS % (AUTO) 1.3 % (0-6); HEMATOCRIT 40.6 % (35.0-45.0); HEMOGLOBIN 13.3 g/dl (12.0-16.0); LYMPHOCYTES # (AUTO) 2.1 X10'3 (1.1-4.8); LYMPHOCYTES % (AUTO) 36.8 % (21-51); MEAN CORPUSCULAR HEMOGLOBIN 36.4 PG (27.0-31.0); MEAN CORPUSCULAR HGB CONC 32.9 g/dL (33.0-36.5); MEAN CORPUSCULAR VOLUME 110.7 FL (78-98); MEAN PLATELET VOLUME 9.3 FL (7.4-10.4); MONOCYTES # (AUTO) 0.9 X10'3 (0-0.9); MONOCYTES % (AUTO) 15.6 % (2-12); NEUTROPHILS # (AUTO) 2.5 X10'3 (1.8-7.7); NEUTROPHILS % (AUTO) 44.7 % (42-75); PLATELET COUNT 138 X10'3 (140-440); RED BLOOD COUNT 3.66 X10'6 (4.20-5.60); RED CELL DISTRIBUTION WIDTH 15.5 % (11.5-14.5); WHITE BLOOD COUNT 5.6 X10'3 (4.5-11.0)
[2019-12-19 02:52] LABS: ALANINE AMINOTRANSFERASE 54 U/L (12-78); ALBUMIN 2.9 G/DL (3.4-5.0); ALBUMIN/GLOBULIN RATIO 0.9 (1.1-1.5); ALKALINE PHOSPHATASE 131 IU/L (46-116); ANION GAP 6 (8-16); ASPARTATE AMINO TRANSFERASE 115 U/L (10-37); BILIRUBIN,TOTAL 0.6 MG/DL (0.1-1.0); BLOOD UREA NITROGEN 8 MG/DL (7-18); BUN/CREATININE RATIO 12.1 (6.6-38.0); CALCIUM 8.5 MG/DL (8.5-10.1); CHLORIDE 108 MMOL/L (99-107); CREATININE 0.66 MG/DL (0.40-0.90); GLUCOSE 88 MG/DL (70-104); MAGNESIUM 1.4 MG/DL (1.5-2.4); PHOSPHORUS 3.4 MG/DL (2.3-4.5); POTASSIUM 3.4 MMOL/L (3.5-5.1); SODIUM 142 MMOL/L (135-145); TOTAL PROTEIN 6.3 G/DL (6.4-8.2); eGFR 90 ML/MIN
[2019-12-19 03:25] LABS: TOTAL CELLS COUNTED 100
[2019-12-19 03:26] LABS: PLATELET ESTIMATE NORMAL
--- NOTE | 2019-12-19 06:45 | NUR ---
Patient in room CICU 2006. I have received report from Dc FLORES and had the opportunity to ask questions and assume patient care.
[2019-12-19] MEDS ORDERED: non-formulary drug (Losartan/Hydrochlorothiazide (Losartan-Hctz 100-25 Mg Tab) 1 TAB) PO SCH (08:00)
[2019-12-19] MEDS: heparin, porcine 5000 units/ml vial SQ SCH ×2 (08:20→20:33)
[2019-12-19] MEDS: HYDROchlorothiazide 25mg tablet PO SCH (08:20)
[2019-12-19] MEDS: losartan 50mg tablet PO SCH (08:20)
[2019-12-19] MEDS: diltiazem CD 120mg capsule (once-daily) PO SCH (08:20)
[2019-12-19] MEDS: potassium Cl 20 mEq SR tablet PO PRN ×3 (08:21→20:31)
[2019-12-19] MEDS: budesonide 0.5mg/2ml UD nebule IH SCH ×2 (08:26→20:48)
[2019-12-19] MEDS ORDERED: pneumococcal 23-VAL P-sac vacc 25 mcg/0.5ml vial IMVAC ONE (10:00)
[2019-12-19] MEDS: morphine 4 MG/ML inj SYRINge IV PRN (13:59)
[2019-12-19] MEDS ORDERED: DIPH25CA83 PO (15:39)
--- NOTE | 2019-12-19 17:23 | NUR ---
Patient in room CICU 2006. I have received report from SANDRA Martinez and had the opportunity to ask questions and assume patient care.
--- NOTE | 2019-12-19 17:40 | NUR ---
pt arrived on unit.
--- NOTE | 2019-12-19 18:11 | NUR ---
Problems reprioritized. Patient report given, questions answered & plan of care reviewed with SANDRA Parker.
--- NOTE | 2019-12-19 18:25 | NUR ---
Patient in room PCU 3022. I have received report from Izabela FLORES and had the opportunity to ask questions and assume patient care.
--- NOTE | 2019-12-19 20:56 | NUR ---
Erind Dr. Montes 2256K Keri Barnes - Pt c/o epigastric burning/discomfort + to palpation. relief w/ sitting upright. Pt states they had forgotten to take their prilosec 40mg this AM. Requesting continuation of medication starting now. [phone] Keith Addendum: 12/20/19 at 0102 by Micah Frederick RN Wrong patient -
[2019-12-20 02:00] VITALS: BP 146/77
[2019-12-20] MEDS: morphine 4 MG/ML inj SYRINge IV PRN (02:39)
[2019-12-20] MEDS: albuterol 2.5 MG/3 ML nebule NEB SCH ×2 (03:08→08:08)
[2019-12-20 04:00] VITALS: BP 146/77
[2019-12-20 06:00] VITALS: BP 145/64
[2019-12-20 06:11] LABS: BASOPHILS % (AUTO) 0.7 % (0-1); EOSINOPHILS # (AUTO) 0.1 X10'3 (0-0.9); EOSINOPHILS % (AUTO) 1.1 % (0-6); HEMATOCRIT 41.2 % (35.0-45.0); HEMOGLOBIN 13.9 g/dl (12.0-16.0); LYMPHOCYTES # (AUTO) 1.5 X10'3 (1.1-4.8); LYMPHOCYTES % (AUTO) 29.6 % (21-51); MEAN CORPUSCULAR HEMOGLOBIN 37.1 PG (27.0-31.0); MEAN CORPUSCULAR HGB CONC 33.8 g/dL (33.0-36.5); MEAN CORPUSCULAR VOLUME 109.9 FL (78-98); MEAN PLATELET VOLUME 9.6 FL (7.4-10.4); MONOCYTES # (AUTO) 0.8 X10'3 (0-0.9); MONOCYTES % (AUTO) 14.8 % (2-12); NEUTROPHILS # (AUTO) 2.8 X10'3 (1.8-7.7); NEUTROPHILS % (AUTO) 53.8 % (42-75); PLATELET COUNT 124 X10'3 (140-440); RED BLOOD COUNT 3.75 X10'6 (4.20-5.60); WHITE BLOOD COUNT 5.2 X10'3 (4.5-11.0)
--- NOTE | 2019-12-20 06:15 | NUR ---
Problems reprioritized. Patient report given, questions answered & plan of care reviewed with Lizette FLORES
--- NOTE | 2019-12-20 06:26 | NUR ---
Patient in room PCU 3022. I have received report from Keith and had the opportunity to ask questions and assume patient care.
[2019-12-20 06:37] LABS: ALBUMIN 2.9 G/DL (3.4-5.0); ANION GAP 4 (8-16); BILIRUBIN,TOTAL 0.9 MG/DL (0.1-1.0); BLOOD UREA NITROGEN 11 MG/DL (7-18); BUN/CREATININE RATIO 17.7 (6.6-38.0); CHLORIDE 105 MMOL/L (99-107); CREATININE 0.62 MG/DL (0.40-0.90); GLUCOSE 110 MG/DL (70-104); MAGNESIUM 1.6 MG/DL (1.5-2.4); PHOSPHORUS 3.9 MG/DL (2.3-4.5); POTASSIUM 3.8 MMOL/L (3.5-5.1); SODIUM 138 MMOL/L (135-145); TOTAL CARBON DIOXIDE 28.7 MMOL/L (24-32); TOTAL PROTEIN 6.3 G/DL (6.4-8.2); eGFR > 90 ML/MIN
[2019-12-20 06:38] LABS: ALANINE AMINOTRANSFERASE 40 U/L (12-78); ALBUMIN/GLOBULIN RATIO 0.9 (1.1-1.5); ALKALINE PHOSPHATASE 128 IU/L (46-116); ASPARTATE AMINO TRANSFERASE 52 U/L (10-37)
[2019-12-20] MEDS: losartan 50mg tablet PO SCH (07:38)
[2019-12-20] MEDS: diltiazem CD 120mg capsule (once-daily) PO SCH (07:38)
[2019-12-20] MEDS: heparin, porcine 5000 units/ml vial SQ SCH (07:39)
[2019-12-20] MEDS: HYDROchlorothiazide 25mg tablet PO SCH (07:39)
[2019-12-20] MEDS: budesonide 0.5mg/2ml UD nebule IH SCH (08:08)
[2019-12-20 12:00] VITALS: BP 136/67
[2019-12-20] MEDS ORDERED: AZI25OT PO (12:00)
[2019-12-20] MEDS ORDERED: PRED5TAB PO (12:00)
--- NOTE | 2019-12-20 13:00 | NUR ---
Reviewed discharge medications with pt. Pt verbalized understanding. Pt was able to dress herself and chose to walk downstairs to be picked up by her spouse.
== END 2019-12-20 12:58 | disposition home or self-care (01) | DRG 189 ==
LOC: ER 18:00 → ED HOLD 18:33 → CICU 2S 21:00 → PCU 3S 12-19 17:40
PROVIDERS: ADMIT Internal Medicine Critical Care Medicine; ATTEND Internal Medicine Critical Care Medicine
PROC: 3E0234Z Introduction of Serum, Toxoid and Vaccine into Muscle, Percutaneous Approach (ICD-10-PCS; principal; 2019-12-19)
DX: J96.00 Acute respiratory failure, unspecified whether with hypoxia or hypercapnia (principal); J44.1 Chronic obstructive pulmonary disease with (acute) exacerbation; Z88.8 Allergy status to other drugs, medicaments and biological substances; Z91.041 Radiographic dye allergy status; Z86.711 Personal history of pulmonary embolism; Z86.73 Personal history of transient ischemic attack (TIA), and cerebral infarction without residual deficits; Z95.0 Presence of cardiac pacemaker; Z90.49 Acquired absence of other specified parts of digestive tract; Z87.442 Personal history of urinary calculi; J44.9 Chronic obstructive pulmonary disease, unspecified; I10 Essential (primary) hypertension; G47.30 Sleep apnea, unspecified; Z87.01 Personal history of pneumonia (recurrent); Z87.891 Personal history of nicotine dependence; E87.5 Hyperkalemia; G89.29 Other chronic pain; Z23 Encounter for immunization
CPT/HCPCS: 36415; 71045; 80053; 81003; 81025; 82728; 83605; 83615; 83735; 84100; 84145; 85025; 85610; 85730; 86140; 87040; 87081; 87635; 90732; 93005; 94640; 94760; 97162; 99291; 99292; G0378; J1644; J2270; J7626; Q0163

== ENCOUNTER 2019-12-21 18:35 | Inpatient (IN) | payer OTHER ==
[~2019-12-21] VITALS: Ht 177.8 cm; Wt 97.3 kg
[~2019-12-21 18:35] MED LIST changes: +ALBU8.5H8 INH; -APIX2.5T PO; +AZI25OT PO; -AZIT250T PO; -DIAZ5TAB4 PO; +DIPH25CA83 PO; -FURO40TA4 PO; -LEVO750T46 PO; -MECL-159 PO; -PRED10TA; -PRED10TA PO; +PRED5TAB PO
[2019-12-21] MEDS ORDERED: epiNEPHrine 1 mg/ml inj ONE (18:39)
--- NOTE | 2019-12-21 18:40 | NUR ---
MD Logan stat notified of patient syncope episode and ceasation of autonomic breathing. BVM applied. MD brought to room and decision made at this time to intubation.
--- NOTE | 2019-12-21 18:42 | NUR ---
1840 0.3 MG EPI ADMINISTERD SUB Q NC 6L HR 91 O2 99 135/66 97.5 F 1845 HR 104 98% 3L 135/66
[2019-12-21] MEDS ORDERED: albuterol 2.5 MG/3 ML nebule CONTNEB PRN (18:45)
[2019-12-21] MEDS ORDERED: ipratropium 0.5 MG/2.5ML nebule IH ONE (18:45)
[2019-12-21] MEDS ORDERED: magnesium 2GM in 50ml NS 50 ML IV ONE (18:45)
[2019-12-21] MEDS ORDERED: methylPREDNISolone sod succ 125mg/2ml vial IV ONE (18:45)
--- NOTE | 2019-12-21 19:00 | NUR ---
Successful intubation completed at 1858. Verbal order from MD given for propofol gtt per protocol.
[2019-12-21] MEDS ORDERED: propofol 1000mg/100ml bottle 100 ML IV ONE (19:03)
[2019-12-21 19:06] LABS: BASOPHILS # (AUTO) 0.1 X10'3 (0-0.2); BASOPHILS % (AUTO) 0.9 % (0-1); EOSINOPHILS % (AUTO) 0 % (0-6); HEMATOCRIT 46.9 % (35.0-45.0); HEMOGLOBIN 15.8 g/dl (12.0-16.0); LYMPHOCYTES # (AUTO) 1.8 X10'3 (1.1-4.8); LYMPHOCYTES % (AUTO) 16.3 % (21-51); MEAN CORPUSCULAR HEMOGLOBIN 36.7 PG (27.0-31.0); MEAN CORPUSCULAR HGB CONC 33.7 g/dL (33.0-36.5); MEAN PLATELET VOLUME 9.4 FL (7.4-10.4); MONOCYTES # (AUTO) 0.5 X10'3 (0-0.9); MONOCYTES % (AUTO) 4.8 % (2-12); NEUTROPHILS # (AUTO) 8.5 X10'3 (1.8-7.7); PLATELET COUNT 199 X10'3 (140-440); RED CELL DISTRIBUTION WIDTH 15.4 % (11.5-14.5)
[2019-12-21] MEDS ORDERED: propofol 1000mg/100ml bottle 100 ML IV SCH ×2 (19:07→19:20)
[2019-12-21 19:14] LABS: PARTIAL THROMBOPLASTIN TIME 27 SECONDS (22-32)
[2019-12-21 19:17] LABS: ALANINE AMINOTRANSFERASE 64 U/L (12-78); ALBUMIN 3.5 G/DL (3.4-5.0); ALBUMIN/GLOBULIN RATIO 0.8 (1.1-1.5); ALKALINE PHOSPHATASE 158 IU/L (46-116); ANION GAP 9 (8-16); ASPARTATE AMINO TRANSFERASE 104 U/L (10-37); BILIRUBIN,TOTAL 0.4 MG/DL (0.1-1.0); BLOOD UREA NITROGEN 10 MG/DL (7-18); BUN/CREATININE RATIO 12.7 (6.6-38.0); CALCIUM 9.2 MG/DL (8.5-10.1); CHLORIDE 107 MMOL/L (99-107); CREATININE 0.79 MG/DL (0.40-0.90); GLUCOSE 187 MG/DL (70-104); POTASSIUM 4.2 MMOL/L (3.5-5.1); SODIUM 143 MMOL/L (135-145); TOTAL CARBON DIOXIDE 27.5 MMOL/L (24-32); TOTAL PROTEIN 7.7 G/DL (6.4-8.2); eGFR 73 ML/MIN
[2019-12-21 19:35] LABS: TRIGLYCERIDES 79 MG/DL (20-135)
[2019-12-21 19:51] LABS: ABG BASE EXCESS -1.9 mmol/L (-2.0-3.0); ABG HCO3 24.7 mmol/L (22.0-26.0); ABG OXYGEN SATURATION 96.2 % (95-98); ABG PCO2 (T) 46.9 mmHg (35.0-45.0); ABG PH (T) 7.336 (7.350-7.450); ABG PO2 (T) 85.2 mmHg (83-108); FCOHb 5.7 % (0.5-1.5); FMetHb 0.3 % (0.3-1.12); FO2Hb 90.4 % (94-100); PATIENT TEMPERATURE 36.1; PEEP 5 cm H2O; RESPIRATORY RATE 20 b/min; TIDAL VOLUME 500 mL; TOTAL HEMOGLOBIN 16.1 G/dl (12.0-16.0)
[2019-12-21] MEDS ORDERED: CefTRIAXone/D5W-Rocephin 1gm 50 ML IV ONE (20:00)
[2019-12-21] MEDS ORDERED: azithromycin/NS 500mg/250ml 250 ML IV ONE (20:00)
[2019-12-21] MEDS ORDERED: normal saline 1000ML IV soln IVB ONE (20:05)
[2019-12-21] MEDS ORDERED: FENTANYL-0.9 % NACL/PF 100 ML IV PRN (20:24)
[2019-12-21] MEDS ORDERED: albuterol 2.5 MG/3 ML nebule NEB PRN (20:25)
[2019-12-21] MEDS ORDERED: ondansetron/PF 4mg/2ml inj IV PRN (20:25)
[2019-12-21] MEDS ORDERED: acetaminophen 650mg rectal suppository RC PRN (20:25)
[2019-12-21] MEDS ORDERED: potassium CL 10mEq/100ml bag 100 ML IV PRN (20:25)
[2019-12-21] MEDS ORDERED: acetaminophen 325mg tablet PO PRN ×2 (20:25)
[2019-12-21] MEDS ORDERED: normal saline 1000ml 1,000 ML IVB ONE ×2 (20:51→20:52)
[2019-12-21] MEDS: midazolam 100mg in NS 100ml 100 ML IV PRN (20:54)
[2019-12-21 21:12] LABS: CLARITY,URINE CLEAR (Clear); COLOR,URINE YELLOW (Yellow); GLUCOSE, URINE 250 mg/dl (Neg); KETONES,URINE NEGATIVE (Neg); LEUKOCYTE ESTERASE ,URINE NEGATIVE (Neg); NITRITES, URINE NEGATIVE (Neg); OCCULT BLOOD,URINE NEGATIVE (Neg); PROTEIN,URINE NEGATIVE (Neg)
[2019-12-21 21:14] LABS: UA COLLECTION TYPE CLN CATCH MIDSTREAM
[2019-12-21 21:19] LABS: TROPONIN I < 0.04 NG/ML (0.0-0.05)
[2019-12-21 21:45] VITALS: BP 128/55
[2019-12-21 22:00] VITALS: BP 118/52
[2019-12-21 23:00] VITALS: BP 126/57
[2019-12-21] MEDS: ipratropium/albuterol 3ml nebule NEB SCH (23:13)
[2019-12-22] VITALS (22 sets, daily range): BP systolic 118–153; BP diastolic 53–83
[2019-12-22] MEDS: methylPREDNISolone sod succ 125mg/2ml vial IV SCH ×4 (01:46→20:22)
[2019-12-22] MEDS: normal saline 1000ml 1,000 ML IV SCH ×2 (02:56→06:24)
[2019-12-22] MEDS: ipratropium/albuterol 3ml nebule NEB SCH ×4 (03:06→21:27)
[2019-12-22 03:55] LABS: ABG BASE EXCESS -4.9 mmol/L (-2.0-3.0); ABG HCO3 21.7 mmol/L (22.0-26.0); ABG OXYGEN SATURATION 93.8 % (95-98); ABG PCO2 (T) 43.6 mmHg (35.0-45.0); ABG PH (T) 7.309 (7.350-7.450); ABG PO2 (T) 70.1 mmHg (83-108); FCOHb 1.2 % (0.5-1.5); FMetHb 0.2 % (0.3-1.12); FO2Hb 92.5 % (94-100); PATIENT TEMPERATURE 35.8; PEEP 5 cm H2O; RESPIRATORY RATE 20 b/min; TIDAL VOLUME 400 mL
[2019-12-22] MEDS: midazolam 100mg in NS 100ml 100 ML IV PRN (04:36)
[2019-12-22 05:22] LABS: PARTIAL THROMBOPLASTIN TIME 26 SECONDS (22-32)
[2019-12-22 05:23] LABS: EOSINOPHILS % (AUTO) 0 % (0-6); LYMPHOCYTES # (AUTO) 0.4 X10'3 (1.1-4.8); MEAN CORPUSCULAR VOLUME 110.9 FL (78-98); MONOCYTES # (AUTO) 0.2 X10'3 (0-0.9); NEUTROPHILS % (AUTO) 89.4 % (42-75)
[2019-12-22 05:29] LABS: BASOPHILS % (AUTO) 0.2 % (0-1); HEMATOCRIT 40.8 % (35.0-45.0); HEMOGLOBIN 13.5 g/dl (12.0-16.0); LYMPHOCYTES % (AUTO) 7.5 % (21-51); MEAN CORPUSCULAR HEMOGLOBIN 36.6 PG (27.0-31.0); MEAN PLATELET VOLUME 9.7 FL (7.4-10.4); MONOCYTES % (AUTO) 2.9 % (2-12); PLATELET COUNT 143 X10'3 (140-440); RED BLOOD COUNT 3.68 X10'6 (4.20-5.60); RED CELL DISTRIBUTION WIDTH 15.4 % (11.5-14.5); WHITE BLOOD COUNT 5.6 X10'3 (4.5-11.0)
[2019-12-22 05:46] LABS: ALANINE AMINOTRANSFERASE 49 U/L (12-78); ALBUMIN 2.9 G/DL (3.4-5.0); ALBUMIN/GLOBULIN RATIO 0.8 (1.1-1.5); ALKALINE PHOSPHATASE 124 IU/L (46-116); ANION GAP 11 (8-16); ASPARTATE AMINO TRANSFERASE 66 U/L (10-37); BILIRUBIN,TOTAL 0.2 MG/DL (0.1-1.0); BLOOD UREA NITROGEN 12 MG/DL (7-18); BUN/CREATININE RATIO 17.4 (6.6-38.0); CALCIUM 8.2 MG/DL (8.5-10.1); CHLORIDE 112 MMOL/L (99-107); CREATININE 0.69 MG/DL (0.40-0.90); GLUCOSE 185 MG/DL (70-104); PHOSPHORUS 3.1 MG/DL (2.3-4.5); POTASSIUM 4.2 MMOL/L (3.5-5.1); SODIUM 145 MMOL/L (135-145); TOTAL CARBON DIOXIDE 22.5 MMOL/L (24-32); TOTAL PROTEIN 6.4 G/DL (6.4-8.2); TRIGLYCERIDES 61 MG/DL (20-135); eGFR 85 ML/MIN
--- NOTE | 2019-12-22 06:15 | NUR ---
Problems reprioritized. Patient report given, questions answered & plan of care reviewed with LISA FLORES.
--- NOTE | 2019-12-22 06:15 | NUR ---
Received report from Elza FLORES>
[2019-12-22] MEDS: heparin, porcine 5000 units/ml vial SQ SCH ×2 (08:12→20:23)
[2019-12-22] MEDS: pantoprazole 40 MG vial IV SCH (08:12)
[2019-12-22] MEDS: docusate sodium 100mg/10ml UD cup PO SCH ×2 (08:13→20:22)
[2019-12-22] MEDS ORDERED: FENTANYL-0.9 % NACL/PF 100 ML IV PRN (09:56)
[2019-12-22] MEDS ORDERED: midazolam 100mg in NS 100ml 100 ML IV PRN (09:56)
[2019-12-22 10:48] LABS: TOTAL CELLS COUNTED 100
[2019-12-22 10:49] LABS: LARGE PLATELETS FEW; PLATELET ESTIMATE DECREASED
[2019-12-22 10:50] LABS: ANISOCYTOSIS FEW
[2019-12-22] MEDS ORDERED: racepinephrine 11.25mg/0.5ml nebule NEB PRN (11:25)
[2019-12-22] MEDS ORDERED: ipratropium/albuterol 3ml nebule NEB PRN (11:25)
--- NOTE | 2019-12-22 11:40 | NUR ---
Extubated at this time, placed on 2 L N/C, saturating at 90%, tolerating well.
[2019-12-22] MEDS ORDERED: etomidate 2mg/ml inj. ONE (16:00)
[2019-12-22] MEDS ORDERED: rocuronium 10mg/ml inj IV ONE (16:00)
--- NOTE | 2019-12-22 18:17 | NUR ---
Gave report to Elza FLORES.
--- NOTE | 2019-12-22 18:18 | NUR ---
Patient in room CICU 2009. I have received report from Amanda FLORES and had the opportunity to ask questions and assume patient care.
[2019-12-22] MEDS ORDERED: PRE5T PO (18:33)
[2019-12-22] MEDS ORDERED: AZIT250T29 PO (18:33)
--- NOTE | 2019-12-22 18:35 | NUR ---
Morley catheter removed with tip intact, patient tolerated procedure well.
[2019-12-22] MEDS ORDERED: azithromycin/NS 500mg/250ml 250 ML IV SCH (20:00)
[2019-12-22] MEDS: CefTRIAXone 2gm/D5W 50ml 50 ML IV SCH (20:22)
[2019-12-22] MEDS ORDERED: diphenhydrAMINE 25mg capsule PO PRN ×2 (20:45)
[2019-12-22] MEDS: Melatonin 3mg tablet PO SCH (22:23)
[2019-12-23] VITALS (24 sets, daily range): BP systolic 135–163; BP diastolic 58–85
[2019-12-23] MEDS ORDERED: mineral oil/petrolatum ophthal oint EACHEYE SCH (02:00)
[2019-12-23] MEDS: methylPREDNISolone sod succ 125mg/2ml vial IV SCH ×2 (02:56→07:59)
[2019-12-23] MEDS: ipratropium/albuterol 3ml nebule NEB SCH ×4 (03:32→21:18)
[2019-12-23 05:03] LABS: BASOPHILS % (AUTO) 0 % (0-1); EOSINOPHILS % (AUTO) 0 % (0-6); HEMATOCRIT 41.2 % (35.0-45.0); HEMOGLOBIN 13.3 g/dl (12.0-16.0); LYMPHOCYTES # (AUTO) 0.7 X10'3 (1.1-4.8); LYMPHOCYTES % (AUTO) 6.1 % (21-51); MEAN CORPUSCULAR HEMOGLOBIN 35.9 PG (27.0-31.0); MEAN CORPUSCULAR HGB CONC 32.3 g/dL (33.0-36.5); MEAN CORPUSCULAR VOLUME 111.4 FL (78-98); MEAN PLATELET VOLUME 9.5 FL (7.4-10.4); MONOCYTES # (AUTO) 0.7 X10'3 (0-0.9); MONOCYTES % (AUTO) 5.3 % (2-12); NEUTROPHILS # (AUTO) 10.8 X10'3 (1.8-7.7); NEUTROPHILS % (AUTO) 88.6 % (42-75); PLATELET COUNT 168 X10'3 (140-440); RED CELL DISTRIBUTION WIDTH 15.9 % (11.5-14.5); WHITE BLOOD COUNT 12.2 X10'3 (4.5-11.0)
[2019-12-23 05:11] LABS: PARTIAL THROMBOPLASTIN TIME 25 SECONDS (22-32)
[2019-12-23 05:13] LABS: ALANINE AMINOTRANSFERASE 41 U/L (12-78); ALBUMIN/GLOBULIN RATIO 0.8 (1.1-1.5); ALKALINE PHOSPHATASE 122 IU/L (46-116); ANION GAP 8 (8-16); ASPARTATE AMINO TRANSFERASE 30 U/L (10-37); BILIRUBIN,TOTAL 0.3 MG/DL (0.1-1.0); BLOOD UREA NITROGEN 20 MG/DL (7-18); BUN/CREATININE RATIO 28.2 (6.6-38.0); CALCIUM 8.8 MG/DL (8.5-10.1); CHLORIDE 107 MMOL/L (99-107); CREATININE 0.71 MG/DL (0.40-0.90); GLUCOSE 178 MG/DL (70-104); MAGNESIUM 2.3 MG/DL (1.5-2.4); PHOSPHORUS 2.7 MG/DL (2.3-4.5); SODIUM 139 MMOL/L (135-145); TOTAL CARBON DIOXIDE 24.1 MMOL/L (24-32); TOTAL PROTEIN 6.7 G/DL (6.4-8.2); eGFR 83 ML/MIN
--- NOTE | 2019-12-23 06:43 | NUR ---
Patient in room CICU 2009. I have received report from fercho laws and had the opportunity to ask questions and assume patient care.
[2019-12-23 07:33] LABS: PLATELET ESTIMATE NORMAL
[2019-12-23 07:34] LABS: ANISOCYTOSIS 1+; SCHISTOCYTES FEW
[2019-12-23] MEDS: pantoprazole 40 MG vial IV SCH (07:59)
[2019-12-23] MEDS: docusate sodium 100mg/10ml UD cup PO SCH (07:59)
[2019-12-23] MEDS: heparin, porcine 5000 units/ml vial SQ SCH ×2 (08:00→20:30)
[2019-12-23] MEDS: budesonide 0.5mg/2ml UD nebule IH SCH ×2 (11:18→21:18)
[2019-12-23] MEDS: losartan 50mg tablet PO SCH (13:43)
[2019-12-23] MEDS: HYDROchlorothiazide 25mg tablet PO SCH (13:44)
[2019-12-23] MEDS: diltiazem CD 120mg capsule (once-daily) PO SCH (13:44)
[2019-12-23] MEDS: methylPREDNISolone sod succ/PF 40mg inj. IV SCH ×2 (14:27→20:29)
[2019-12-23] MEDS ORDERED: albuterol 2.5 MG/3 ML nebule NEB SCH (15:00)
[2019-12-23 15:52] LABS: D-DIMER 1.24 MG/L FEU (0-0.50)
[2019-12-23 16:07] LABS: FERRITIN 197 NG/ML (8-252); LACTATE DEHYDROGENASE 219 U/L (81-234)
--- NOTE | 2019-12-23 18:00 | NUR ---
Problems reprioritized. Patient report given, questions answered & plan of care reviewed with SANDRA CHAO.
--- NOTE | 2019-12-23 18:10 | NUR ---
Patient in room CICU 2009. I have received report from JANEY LA RN and had the opportunity to ask questions and assume patient care.
--- NOTE | 2019-12-23 18:40 | NUR ---
Primary assessment complete, the pt is sitting up in the chair finishing dinner and watching TV. The pt does have expiratory wheezes but no complaints of shortness of breath at this time. Plan of care for the night discussed with the pt and she agrees. Will continue to monitor.
[2019-12-23 18:54] LABS: C-REACTIVE PROTEIN 0.45 MG/DL (0.0-0.5)
[2019-12-23] MEDS ORDERED: non-formulary drug (Budesonide/Formoterol Fumarate (Symbicort 160-4.5 Mcg Inhaler) 2 PUFFS INH SCH (20:00)
[2019-12-23] MEDS ORDERED: lactulose 20gm/30ml cup PO PRN (20:25)
[2019-12-23] MEDS: CefTRIAXone 2gm/D5W 50ml 50 ML IV SCH (20:28)
[2019-12-23] MEDS: lactobacillus rhamnosus 10,000 MMU CELLS/CAPSULE PO SCH (20:30)
[2019-12-23] MEDS: docusate sod 100mg capsule PO SCH (21:18)
[2019-12-23] MEDS: diphenhydrAMINE 25mg capsule PO PRN (21:19)
[2019-12-23] MEDS: Melatonin 3mg tablet PO SCH (21:19)
[2019-12-24] VITALS (16 sets, daily range): BP systolic 126–155; BP diastolic 51–77
--- NOTE | 2019-12-24 00:45 | NUR ---
pt placed on O2 via nasal cannula @ 2LPM due to the pt maintaining O2 sats in the mid 80's. Pt was sleeping at the time and woke easily with no complaints of SOB or difficulty breathing.
--- NOTE | 2019-12-24 02:33 | NUR ---
pt resting comfortably, able to reposition self in bed for comfort. will continue to monitor.
[2019-12-24] MEDS: methylPREDNISolone sod succ/PF 40mg inj. IV SCH ×2 (02:55→07:29)
[2019-12-24] MEDS: ipratropium/albuterol 3ml nebule NEB SCH ×4 (02:55→20:07)
[2019-12-24 05:31] LABS: BASOPHILS % (AUTO) 0.2 % (0-1); EOSINOPHILS % (AUTO) 0 % (0-6); HEMATOCRIT 39.2 % (35.0-45.0); LYMPHOCYTES # (AUTO) 0.5 X10'3 (1.1-4.8); LYMPHOCYTES % (AUTO) 4.5 % (21-51); MEAN CORPUSCULAR HEMOGLOBIN 36.7 PG (27.0-31.0); MEAN CORPUSCULAR HGB CONC 33.1 g/dL (33.0-36.5); MEAN CORPUSCULAR VOLUME 110.9 FL (78-98); MEAN PLATELET VOLUME 9.2 FL (7.4-10.4); MONOCYTES # (AUTO) 0.8 X10'3 (0-0.9); NEUTROPHILS # (AUTO) 8.7 X10'3 (1.8-7.7); NEUTROPHILS % (AUTO) 87.3 % (42-75); PLATELET COUNT 161 X10'3 (140-440); RED BLOOD COUNT 3.53 X10'6 (4.20-5.60); RED CELL DISTRIBUTION WIDTH 15.2 % (11.5-14.5)
[2019-12-24 05:50] LABS: ALANINE AMINOTRANSFERASE 31 U/L (12-78); ALBUMIN 2.9 G/DL (3.4-5.0); ALBUMIN/GLOBULIN RATIO 0.9 (1.1-1.5); ALKALINE PHOSPHATASE 120 IU/L (46-116); ANION GAP 7 (8-16); ASPARTATE AMINO TRANSFERASE 21 U/L (10-37); BILIRUBIN,TOTAL 0.3 MG/DL (0.1-1.0); BLOOD UREA NITROGEN 17 MG/DL (7-18); BUN/CREATININE RATIO 24.3 (6.6-38.0); CALCIUM 9.1 MG/DL (8.5-10.1); CHLORIDE 107 MMOL/L (99-107); GLUCOSE 197 MG/DL (70-104); MAGNESIUM 2.2 MG/DL (1.5-2.4); SODIUM 139 MMOL/L (135-145); TOTAL CARBON DIOXIDE 25.1 MMOL/L (24-32); TOTAL PROTEIN 6.2 G/DL (6.4-8.2); eGFR 84 ML/MIN
--- NOTE | 2019-12-24 06:20 | NUR ---
Problems reprioritized. Patient report given, questions answered & plan of care reviewed with ALEN FLORES.
[2019-12-24 07:01] LABS: PLATELET ESTIMATE NORMAL
[2019-12-24 07:14] LABS: PARTIAL THROMBOPLASTIN TIME 25 SECONDS (22-32)
[2019-12-24] MEDS: HYDROchlorothiazide 25mg tablet PO SCH (07:27)
[2019-12-24] MEDS: docusate sod 100mg capsule PO SCH ×2 (07:28→20:33)
[2019-12-24] MEDS: azithromycin 250mg tablet PO SCH (07:28)
[2019-12-24] MEDS: diltiazem CD 120mg capsule (once-daily) PO SCH (07:28)
[2019-12-24] MEDS: pantoprazole 40mg Tablet.DR PO SCH (07:28)
[2019-12-24] MEDS: lactobacillus rhamnosus 10,000 MMU CELLS/CAPSULE PO SCH ×2 (07:28→20:33)
[2019-12-24] MEDS: losartan 50mg tablet PO SCH (07:28)
[2019-12-24] MEDS: heparin, porcine 5000 units/ml vial SQ SCH ×2 (07:29→20:33)
[2019-12-24] MEDS ORDERED: non-formulary drug (Losartan/Hydrochlorothiazide (Losartan-Hctz 100-25 Mg Tab) 1 TAB) PO SCH (08:00)
[2019-12-24] MEDS: budesonide 0.5mg/2ml UD nebule IH SCH ×2 (08:45→20:07)
[2019-12-24] MEDS: predniSONE 20 mg tablet PO SCH (10:17)
--- NOTE | 2019-12-24 14:07 | NUR ---
Patient in room CICU 2009. I have received report from SANDRA Jasmine and had the opportunity to ask questions and assume patient care. Report taken for primary RN Juan.
--- NOTE | 2019-12-24 14:12 | NUR ---
Problems reprioritized. Patient report given, questions answered & plan of care reviewed with Sherry FLORES.
--- NOTE | 2019-12-24 14:30 | NUR ---
Patient transferred to U 3011 with all belongings
--- NOTE | 2019-12-24 14:51 | NUR ---
pt report received from Sherry FLORES. Pt in room 3011. Pt sitting up in bed. Requested water and barrier moisturizing cream.
--- NOTE | 2019-12-24 18:25 | NUR ---
Problems reprioritized. Patient report given, questions answered & plan of care reviewed with Rocio FLORES.
--- NOTE | 2019-12-24 18:31 | NUR ---
Patient in room PCU 3011. I have received report from SANDRA Martinez and had the opportunity to ask questions and assume patient care.
--- NOTE | 2019-12-24 18:32 | NUR ---
Problems reprioritized. Patient report given, questions answered & plan of care reviewed with SANDRA Camacho.
--- NOTE | 2019-12-24 18:43 | NUR ---
Patient in room PCU 3011. I have received report from Lakia FLORES and had the opportunity to ask questions and assume patient care.
[2019-12-24] MEDS: CefTRIAXone 2gm/D5W 50ml 50 ML IV SCH (21:22)
[2019-12-24] MEDS: diphenhydrAMINE 25mg capsule PO PRN (21:23)
[2019-12-24] MEDS: Melatonin 3mg tablet PO SCH (21:23)
[2019-12-25] MEDS: ipratropium/albuterol 3ml nebule NEB SCH ×2 (03:22→09:12)
[2019-12-25 06:11] LABS: BASOPHILS % (AUTO) 0.2 % (0-1); EOSINOPHILS % (AUTO) 0 % (0-6); HEMATOCRIT 39.2 % (35.0-45.0); HEMOGLOBIN 13.1 g/dl (12.0-16.0); LYMPHOCYTES # (AUTO) 0.8 X10'3 (1.1-4.8); LYMPHOCYTES % (AUTO) 8.6 % (21-51); MEAN CORPUSCULAR HEMOGLOBIN 36.5 PG (27.0-31.0); MEAN CORPUSCULAR HGB CONC 33.3 g/dL (33.0-36.5); MEAN CORPUSCULAR VOLUME 109.5 FL (78-98); MEAN PLATELET VOLUME 9.6 FL (7.4-10.4); MONOCYTES % (AUTO) 11.5 % (2-12); NEUTROPHILS # (AUTO) 7.2 X10'3 (1.8-7.7); NEUTROPHILS % (AUTO) 79.7 % (42-75); PLATELET COUNT 162 X10'3 (140-440); RED BLOOD COUNT 3.58 X10'6 (4.20-5.60); RED CELL DISTRIBUTION WIDTH 15.3 % (11.5-14.5); WHITE BLOOD COUNT 9.1 X10'3 (4.5-11.0)
[2019-12-25 06:22] LABS: ALANINE AMINOTRANSFERASE 33 U/L (12-78); ALBUMIN 2.9 G/DL (3.4-5.0); ALBUMIN/GLOBULIN RATIO 0.9 (1.1-1.5); ALKALINE PHOSPHATASE 134 IU/L (46-116); ANION GAP 7 (8-16); ASPARTATE AMINO TRANSFERASE 24 U/L (10-37); BILIRUBIN,TOTAL 0.4 MG/DL (0.1-1.0); BLOOD UREA NITROGEN 21 MG/DL (7-18); BUN/CREATININE RATIO 29.2 (6.6-38.0); CHLORIDE 107 MMOL/L (99-107); CREATININE 0.72 MG/DL (0.40-0.90); GLUCOSE 171 MG/DL (70-104); MAGNESIUM 2.1 MG/DL (1.5-2.4); POTASSIUM 3.5 MMOL/L (3.5-5.1); SODIUM 142 MMOL/L (135-145); TOTAL CARBON DIOXIDE 28.3 MMOL/L (24-32); TOTAL PROTEIN 6.1 G/DL (6.4-8.2); eGFR 81 ML/MIN
--- NOTE | 2019-12-25 06:41 | NUR ---
Patient in room PCU 3011. I have received report from Genie Camacho and had the opportunity to ask questions and assume patient care.
--- NOTE | 2019-12-25 06:43 | NUR ---
Problems reprioritized. Patient report given, questions answered & plan of care reviewed with Michelle FLORES.
[2019-12-25 07:00] VITALS: BP 138/52
[2019-12-25] MEDS: pantoprazole 40mg Tablet.DR PO SCH (07:19)
[2019-12-25] MEDS: diltiazem CD 120mg capsule (once-daily) PO SCH (07:52)
[2019-12-25] MEDS: losartan 50mg tablet PO SCH (07:52)
[2019-12-25] MEDS: lactobacillus rhamnosus 10,000 MMU CELLS/CAPSULE PO SCH (07:52)
[2019-12-25] MEDS: predniSONE 20 mg tablet PO SCH (07:53)
[2019-12-25] MEDS: HYDROchlorothiazide 25mg tablet PO SCH (07:53)
[2019-12-25] MEDS: azithromycin 250mg tablet PO SCH (07:53)
[2019-12-25] MEDS: heparin, porcine 5000 units/ml vial SQ SCH (07:54)
[2019-12-25] MEDS: docusate sod 100mg capsule PO SCH (08:00)
[2019-12-25 08:15] LABS: TOTAL CELLS COUNTED 100
[2019-12-25] MEDS: budesonide 0.5mg/2ml UD nebule IH SCH (09:12)
[2019-12-25 11:00] VITALS: BP 159/78
--- NOTE | 2019-12-25 11:15 | NUR ---
Initial: Pt admitted with COPD exacerbation and required intubation. Pt has been extubated and transferred to the floors. Pt improving per MD notes. Pt s/p BSS 12/[address] recs regular diet as pt swallowing well. Pt currently on a regular diet documented with 75-100% PO intake. LBM 12/23. Will continue to follow and monitor need for nutrition intervention. Recommendations: 1) Continue regular diet 2) Monitor need for additional protein 3) Routine bowel care 4) Wt per rx Addendum: 12/25/19 at [address] Amended: Links added.
[2019-12-25] MEDS ORDERED: PRED10TA23 PO (14:12)
--- NOTE | 2019-12-25 15:18 | NUR ---
Patient stable for discharge. All instructions were reviewed with patient, questions were answered appropriately. All belongings were collected and sent with patient. PIV discontinued, cannula intact. Tele discontinued, telephone lines repairer notified. Walked patient to lobby with standby assistance.
== END 2019-12-25 14:55 | disposition home or self-care (01) | DRG 208 ==
LOC: ER 18:36 → ED HOLD 20:24 → CICU 2S 21:25 → PCU 3S 12-24 14:24
PROVIDERS: ADMIT Internal Medicine Critical Care Medicine; ATTEND Internal Medicine Critical Care Medicine
PROC: 5A1935Z Respiratory Ventilation, Less than 24 Consecutive Hours (ICD-10-PCS; principal; 2019-12-21)
PROC: 0BH17EZ Insertion of Endotracheal Airway into Trachea, Via Natural or Artificial Opening (ICD-10-PCS; 2019-12-21)
PROC: 5A1935Z Respiratory Ventilation, Less than 24 Consecutive Hours (ICD-10-PCS; 2019-12-22)
DX: J96.00 Acute respiratory failure, unspecified whether with hypoxia or hypercapnia (principal); J44.1 Chronic obstructive pulmonary disease with (acute) exacerbation; E78.5 Hyperlipidemia, unspecified; G47.30 Sleep apnea, unspecified; I10 Essential (primary) hypertension; Z79.51 Long term (current) use of inhaled steroids; Z79.899 Other long term (current) drug therapy; Z86.711 Personal history of pulmonary embolism; Z86.73 Personal history of transient ischemic attack (TIA), and cerebral infarction without residual deficits; Z87.442 Personal history of urinary calculi; Z87.891 Personal history of nicotine dependence; Z90.49 Acquired absence of other specified parts of digestive tract; Z95.828 Presence of other vascular implants and grafts
CPT/HCPCS: 31500; 36415; 36600; 71045; 71250; 80053; 81003; 82728; 82803; 82948; 83605; 83615; 83735; 83880; 84100; 84145; 84478; 84484; 85018; 85025; 85379; 85610; 85730; 86140; 87040; 87070; 87081; 92508; 92616; 93005; 94002; 94003; 94640; 94644; 94667; 94760; 96365; 96375; 97110; 97116; 97162; 97530; 99285; C9113; G0378; J0171; J0456; J0696; J1644; J2704; J2920; J2930; J3010; J3475; J3480; J7030; J7512; J7626; Q0163

== ENCOUNTER 2019-12-31 18:48 | Inpatient (IN) | payer OTHER ==
[~2019-12-31] VITALS: Ht 177.8 cm; Wt 84.4 kg
[~2019-12-31 18:48] MED LIST changes: -AZI25OT PO; +AZIT250T29 PO; +PRED10TA23 PO; -PRED5TAB PO
[2019-12-31] MEDS ORDERED: ipratropium 0.5 MG/2.5ML nebule IH ONE (18:50)
[2019-12-31] MEDS ORDERED: magnesium 2GM in 50ml NS 50 ML IV ONE (18:50)
[2019-12-31] MEDS ORDERED: LORazepam 2 mg/ml vial IV ONE (18:50)
[2019-12-31] MEDS ORDERED: methylPREDNISolone sod succ 125mg/2ml vial IV ONE (18:50)
[2019-12-31] MEDS ORDERED: albuterol 2.5 MG/3 ML nebule CONTNEB PRN (18:50)
[2019-12-31] MEDS ORDERED: albuterol 2.5 MG/3 ML nebule NEB ONE ×2 (19:05)
[2019-12-31 19:06] LABS: BASOPHILS # (AUTO) 0.2 X10'3 (0-0.2); EOSINOPHILS % (AUTO) 0.1 % (0-6); HEMOGLOBIN 15.4 g/dl (12.0-16.0); MONOCYTES # (AUTO) 0.9 X10'3 (0-0.9)
[2019-12-31 19:07] LABS: BASOPHILS % (AUTO) 1.2 % (0-1); HEMATOCRIT 45.9 % (35.0-45.0); LYMPHOCYTES # (AUTO) 3.6 X10'3 (1.1-4.8); LYMPHOCYTES % (AUTO) 24.5 % (21-51); MEAN CORPUSCULAR HEMOGLOBIN 36.6 PG (27.0-31.0); MEAN CORPUSCULAR HGB CONC 33.6 g/dL (33.0-36.5); MEAN CORPUSCULAR VOLUME 109.1 FL (78-98); MEAN PLATELET VOLUME 8.8 FL (7.4-10.4); NEUTROPHILS # (AUTO) 10.1 X10'3 (1.8-7.7); NEUTROPHILS % (AUTO) 68.2 % (42-75); PLATELET COUNT 251 X10'3 (140-440); RED CELL DISTRIBUTION WIDTH 15.1 % (11.5-14.5); WHITE BLOOD COUNT 14.8 X10'3 (4.5-11.0)
--- NOTE | 2019-12-31 19:08 | NUR ---
Patient given ativan IV. Her work of breathing decreased and she appeared more comfortable. Shortly after she had a period of apnea which resolved after vigorous stimulation. Patient is now awake and breathing on her own but is drowsy. She is able to nod yes or no to questions.
[2019-12-31 19:21] LABS: ALANINE AMINOTRANSFERASE 79 U/L (12-78); ALBUMIN 3.4 G/DL (3.4-5.0); ALBUMIN/GLOBULIN RATIO 0.9 (1.1-1.5); ALKALINE PHOSPHATASE 194 IU/L (46-116); ANION GAP 12 (8-16); ASPARTATE AMINO TRANSFERASE 49 U/L (10-37); BILIRUBIN,TOTAL 0.4 MG/DL (0.1-1.0); BLOOD UREA NITROGEN 20 MG/DL (7-18); BUN/CREATININE RATIO 21.5 (6.6-38.0); CALCIUM 9.4 MG/DL (8.5-10.1); CHLORIDE 103 MMOL/L (99-107); CREATININE 0.93 MG/DL (0.40-0.90); GLUCOSE 180 MG/DL (70-104); POTASSIUM 4.5 MMOL/L (3.5-5.1); SODIUM 141 MMOL/L (135-145); TOTAL PROTEIN 7.2 G/DL (6.4-8.2); eGFR 61 ML/MIN
--- NOTE | 2019-12-31 19:32 | NUR ---
Patient will full body jerking and tremors for approximately 60 seconds. No apnea during that time and Spo2 remained unchanged. When patient was able to speak she states she has no recollection of the event. No hx of siezures.
[2019-12-31] MEDS ORDERED: ketamine 50 mg/ml 10ml vial IV ONE ×2 (19:35→20:20)
[2019-12-31] MEDS ORDERED: glycopyrrolate 0.2mg/ml inj IV ONE (20:20)
[2019-12-31] MEDS ORDERED: terbutaline 1 mg/ml inj SQ STA (20:27)
[2019-12-31] MEDS ORDERED: zolpidem 5mg tablet PO ONE (20:55)
[2019-12-31] MEDS ORDERED: diphenhydrAMINE 25mg capsule PO ONE (20:55)
[2019-12-31 21:11] LABS: ABG BASE EXCESS 0.9 mmol/L (-2.0-3.0); ABG HCO3 24.8 mmol/L (22.0-26.0); ABG OXYGEN SATURATION 97.8 % (95-98); ABG PCO2 (T) 37.4 mmHg (35.0-45.0); ABG PO2 (T) 99.9 mmHg (83-108); ALLEN'S TEST Yes; FCOHb 4.9 % (0.5-1.5); FLOW 6 L/min; FMetHb 0.2 % (0.3-1.12); FO2Hb 92.8 % (94-100); PATIENT TEMPERATURE 37.1; TOTAL HEMOGLOBIN 15.1 G/dl (12.0-16.0)
--- NOTE | 2019-12-31 22:04 | NUR ---
PATIENT AAKE A0X4 HAVING CONVERSATION WITH LAND SURVEYOR ASSISTANT RR EVEN UN LABORED NO OBSERVABLE S/S OF ACUTE STRESS AT THIS TIME WILL CONTINUE TO MONITOR, TAKING A BREAK WITH BI-PAP SP02 SAT 97% NC 4L
--- NOTE | 2019-12-31 22:22 | NUR ---
PATIENT HAS A SITTER TO HELP PATIENT DECREASE ANXIETY, PATIENT BACK ON BI-PAP SPO2 SAT 99% @30%FIO2
[2019-12-31] MEDS ORDERED: morphine 4 MG/ML inj SYRINge IV PRN (23:20)
[2019-12-31] MEDS ORDERED: potassium Cl 20 mEq SR tablet PO PRN ×2 (23:20)
[2019-12-31] MEDS ORDERED: ondansetron/PF 4mg/2ml inj IV PRN (23:20)
[2019-12-31] MEDS ORDERED: magnesium hydroxide 30ml (MOM) UD suspension PO PRN (23:20)
[2019-12-31] MEDS ORDERED: morphine 2 MG/ML inj. syringe IV PRN (23:20)
[2019-12-31] MEDS: K, MAG and/or Phos replacement - Verify level? MC SCH (23:20)
[2019-12-31] MEDS ORDERED: potassium CL 10mEq/100ml bag 100 ML IV PRN ×2 (23:20)
[2019-12-31] MEDS ORDERED: ipratropium/albuterol 3ml nebule NEB PRN (23:20)
[2019-12-31] MEDS ORDERED: acetaminophen 325mg tablet PO PRN ×2 (23:20)
[2019-12-31] MEDS ORDERED: LORazepam 2 mg/ml vial IV PRN (23:40)
[2020-01-01] VITALS (11 sets, daily range): BP systolic 131–171; BP diastolic 60–81
--- NOTE | 2020-01-01 00:20 | NUR ---
RECEIVED TELEPHONE REPORT FROM BEENA FLORES, AND THEY ARRIVED TO THE BED AROUND 0010. PT WAS ON 6LPM NASAL CANNULA AND WAS ABLE TO HELP SCOOT FROM THE GURNEY TO THE BED. PT STATED THAT SHE FELT LIKE HER BREATHING WAS BETTER BUT SHE WAS VERY TIRED FROM WORKING SO HARD TO BREATH. INITIAL ASSESSMENT COMPLETE, PLAN OF CARE DISCUSSED WITH PT, PT ORIENTED TO ROOM AND CALL LIGHT IN REACH.
--- NOTE | 2020-01-01 02:00 | NUR ---
PT RESTING COMFORTABLY, REPOSITIONING SELF FOR COMFORT. PT STILL ON 6LPM TOLERATING IT WELL. WILL CONTINUE TO MONITOR.
[2020-01-01] MEDS: methylPREDNISolone sod succ/PF 40mg inj. IV SCH ×2 (02:46→08:00)
--- NOTE | 2020-01-01 02:57 | NUR ---
PT WOKE UP AND NEEDED TO USE THE BATHROOM. PT ASSISTED TO BEDSIDE COMMODE WHERE SHE VOIDED 700 ML. PT THEN ASSISTED BACK TO BED.
--- NOTE | 2020-01-01 04:00 | NUR ---
PT AWAKE AND WATCHING THE NEWS. TITRATED THE O2 LITER FLOW DOWN TO 4LPM. WILL CONTINUE TO MONITOR
[2020-01-01 05:38] LABS: BASOPHILS % (AUTO) 0.1 % (0-1); EOSINOPHILS % (AUTO) 0 % (0-6); HEMATOCRIT 41.7 % (35.0-45.0); HEMOGLOBIN 13.9 g/dl (12.0-16.0); LYMPHOCYTES # (AUTO) 0.6 X10'3 (1.1-4.8); MEAN CORPUSCULAR HEMOGLOBIN 36.3 PG (27.0-31.0); MEAN CORPUSCULAR HGB CONC 33.2 g/dL (33.0-36.5); MEAN CORPUSCULAR VOLUME 109.4 FL (78-98); MEAN PLATELET VOLUME 9.1 FL (7.4-10.4); MONOCYTES # (AUTO) 0.1 X10'3 (0-0.9); MONOCYTES % (AUTO) 1.2 % (2-12); NEUTROPHILS # (AUTO) 8.7 X10'3 (1.8-7.7); NEUTROPHILS % (AUTO) 92.7 % (42-75); PLATELET COUNT 186 X10'3 (140-440); RED BLOOD COUNT 3.82 X10'6 (4.20-5.60); RED CELL DISTRIBUTION WIDTH 14.8 % (11.5-14.5); WHITE BLOOD COUNT 9.4 X10'3 (4.5-11.0)
[2020-01-01 05:47] LABS: ALANINE AMINOTRANSFERASE 66 U/L (12-78); ALBUMIN 3.2 G/DL (3.4-5.0); ALBUMIN/GLOBULIN RATIO 0.9 (1.1-1.5); ALKALINE PHOSPHATASE 164 IU/L (46-116); ANION GAP 7 (8-16); ASPARTATE AMINO TRANSFERASE 33 U/L (10-37); BILIRUBIN,TOTAL 0.4 MG/DL (0.1-1.0); BLOOD UREA NITROGEN 26 MG/DL (7-18); BUN/CREATININE RATIO 28.3 (6.6-38.0); CALCIUM 9.1 MG/DL (8.5-10.1); CHLORIDE 102 MMOL/L (99-107); CREATININE 0.92 MG/DL (0.40-0.90); GLUCOSE 216 MG/DL (70-104); MAGNESIUM 2.3 MG/DL (1.5-2.4); PHOSPHORUS 4.7 MG/DL (2.3-4.5); POTASSIUM 4.5 MMOL/L (3.5-5.1); SODIUM 138 MMOL/L (135-145); TOTAL CARBON DIOXIDE 29.1 MMOL/L (24-32); TOTAL PROTEIN 6.7 G/DL (6.4-8.2); eGFR 61 ML/MIN
--- NOTE | 2020-01-01 06:21 | NUR ---
Problems reprioritized. Patient report given, questions answered & plan of care reviewed with David FLORES and Alina FLROES.
[2020-01-01] MEDS: K, MAG and/or Phos replacement - Verify level? MC SCH (08:00)
[2020-01-01] MEDS ORDERED: DILT-94 PO (08:31)
[2020-01-01] MEDS ORDERED: DOXY-1 PO (10:33)
--- NOTE | 2020-01-01 10:56 | NUR ---
patient discharged home Per MD order. patient removed self from monitor when MD told her she was going home. patient educated on all medications, warning signs and symptoms, and follow up care; all questions answered. patient refused wheel chair and walked self out in stable condition with waiting for her in lobby
== END 2020-01-01 11:00 | disposition home or self-care (01) | DRG 192 ==
LOC: ER 18:49 → ED HOLD 23:20 → UNDOADMIN 23:45 → ED HOLD 23:45 → CICU 2S 23:59 → UNDODISIN 01-01 11:00
PROVIDERS: ADMIT Internal Medicine Critical Care Medicine; ATTEND Internal Medicine Critical Care Medicine
DX: J44.1 Chronic obstructive pulmonary disease with (acute) exacerbation (principal); F41.9 Anxiety disorder, unspecified; G47.30 Sleep apnea, unspecified; G89.29 Other chronic pain; I10 Essential (primary) hypertension; Z79.51 Long term (current) use of inhaled steroids; Z79.899 Other long term (current) drug therapy; Z86.711 Personal history of pulmonary embolism; Z86.73 Personal history of transient ischemic attack (TIA), and cerebral infarction without residual deficits; Z87.442 Personal history of urinary calculi; Z87.891 Personal history of nicotine dependence; Z90.49 Acquired absence of other specified parts of digestive tract; Z88.8 Allergy status to other drugs, medicaments and biological substances; Z95.0 Presence of cardiac pacemaker; Z03.818 Encounter for observation for suspected exposure to other biological agents ruled out
CPT/HCPCS: 36415; 36600; 71045; 80053; 82803; 83735; 84100; 85018; 85025; 85610; 87081; 93005; 94640; 94644; 94660; 94760; 96365; 96372; 96375; 96376; 99285; G0378; J2060; J2920; J2930; J3105; J3475; J3490; Q0163

== ENCOUNTER 2020-03-24 12:59 | Outpatient (CLI) | payer BC ==
[~2020-03-24 12:59] MED LIST changes: -AZIT250T29 PO; -DILT-36 PO; +DILT-94 PO; -PRED10TA23 PO
== END 2020-03-24 23:59 | disposition home or self-care (01) ==
LOC: CARD DIAG 12:59
PROVIDERS: ATTEND Family Medicine
DX: I65.23 Occlusion and stenosis of bilateral carotid arteries (principal)
CPT/HCPCS: 93306; 93880

== ENCOUNTER 2020-04-01 14:02 | Emergency (ER) | payer BC ==
[~2020-04-01] VITALS: Ht 177.8 cm; Wt 100.0 kg
[2020-04-01 14:32] LABS: BASOPHILS # (AUTO) 0.1 X10'3 (0-0.2); BASOPHILS % (AUTO) 0.6 % (0-1); EOSINOPHILS # (AUTO) 0.1 X10'3 (0-0.9); EOSINOPHILS % (AUTO) 0.6 % (0-6); HEMATOCRIT 43.5 % (35.0-45.0); HEMOGLOBIN 14.8 g/dl (12.0-16.0); LYMPHOCYTES % (AUTO) 23.4 % (21-51); MEAN CORPUSCULAR VOLUME 108.7 FL (78-98); MEAN PLATELET VOLUME 8.8 FL (7.4-10.4); MONOCYTES # (AUTO) 1.5 X10'3 (0-0.9); MONOCYTES % (AUTO) 11.4 % (2-12); NEUTROPHILS # (AUTO) 8.2 X10'3 (1.8-7.7); PLATELET COUNT 220 X10'3 (140-440); RED CELL DISTRIBUTION WIDTH 14.7 % (11.5-14.5); WHITE BLOOD COUNT 12.8 X10'3 (4.5-11.0)
[2020-04-01] MEDS ORDERED: ondansetron/PF 4mg/2ml inj IV ONE (14:35)
[2020-04-01] MEDS ORDERED: normal saline 1000ML IV soln IVB ONE (14:35)
[2020-04-01 14:46] LABS: ALANINE AMINOTRANSFERASE 37 U/L (12-78); ALBUMIN 2.9 G/DL (3.4-5.0); ALBUMIN/GLOBULIN RATIO 0.6 (1.1-1.5); ALKALINE PHOSPHATASE 327 IU/L (46-116); ANION GAP 11 (8-16); ASPARTATE AMINO TRANSFERASE 77 U/L (10-37); BILIRUBIN,TOTAL 1.4 MG/DL (0.1-1.0); BLOOD UREA NITROGEN 5 MG/DL (7-18); BUN/CREATININE RATIO 5.6 (6.6-38.0); CALCIUM 8.4 MG/DL (8.5-10.1); CHLORIDE 102 MMOL/L (99-107); GLUCOSE 103 MG/DL (70-104); LIPASE 71 U/L (73-393); POTASSIUM 3.1 MMOL/L (3.5-5.1); SODIUM 141 MMOL/L (135-145); TOTAL CARBON DIOXIDE 27.6 MMOL/L (24-32); TOTAL PROTEIN 7.5 G/DL (6.4-8.2); eGFR 63 ML/MIN
[2020-04-01] MEDS: morphine 4 MG/ML inj SYRINge IV PRN ×2 (14:55→15:32)
[2020-04-01] MEDS ORDERED: levoFLOXACIN-Levaquin 750MG/D5 150 ML IV STA (15:00)
[2020-04-01] MEDS ORDERED: morphine 10mg/ml inj. IV ONE (15:40)
[2020-04-01] MEDS ORDERED: potassium Cl 10 mEq/100mL bag IV ONE (15:55)
[2020-04-01] MEDS ORDERED: HYDR-4353 PO (17:17)
--- NOTE | 2020-04-01 17:23 | NUR ---
PT DECLINED IV POTASSIUM, "I HAVE POTASSIUM AT HOME I WILL TAKE", PT DC'D HOME WITH FAMILY
[2020-04-01 17:24] VITALS: BP 127/83
== END 2020-04-01 17:25 | disposition home or self-care (01) ==
LOC: ER 14:02 → EEVIPCON 14:02 → ER 17:25
DX: R10.32 Left lower quadrant pain (principal); R05 Cough; R11.2 Nausea with vomiting, unspecified; R19.7 Diarrhea, unspecified; R42 Dizziness and giddiness; I10 Essential (primary) hypertension; J44.9 Chronic obstructive pulmonary disease, unspecified; Z86.73 Personal history of transient ischemic attack (TIA), and cerebral infarction without residual deficits; Z87.01 Personal history of pneumonia (recurrent); Z86.711 Personal history of pulmonary embolism; Z87.442 Personal history of urinary calculi; G89.29 Other chronic pain; Z90.89 Acquired absence of other organs; Z90.49 Acquired absence of other specified parts of digestive tract; Z95.0 Presence of cardiac pacemaker; Z98.890 Other specified postprocedural states; Z72.89 Other problems related to lifestyle; Z88.8 Allergy status to other drugs, medicaments and biological substances; Z91.018 Allergy to other foods; Z79.899 Other long term (current) drug therapy
CPT/HCPCS: 36415; 74176; 80053; 83690; 85025; 93005; 96361; 96365; 96375; 96376; 99285; J1956; J2270; J2405; J7030

== ENCOUNTER 2020-04-04 16:07 | Emergency (ER) | payer BC ==
[~2020-04-04 16:07] MED LIST changes: +HYDR-4353 PO
[2020-04-04] MEDS ORDERED: morphine 4 MG/ML inj SYRINge IV ONE ×2 (16:40→17:40)
[2020-04-04] MEDS ORDERED: ondansetron/PF 4mg/2ml inj IV ONE (16:40)
[2020-04-04 16:56] LABS: BASOPHILS # (AUTO) 0.1 X10'3 (0-0.2); BASOPHILS % (AUTO) 0.9 % (0-1); EOSINOPHILS # (AUTO) 0.1 X10'3 (0-0.9); EOSINOPHILS % (AUTO) 0.6 % (0-6); HEMATOCRIT 42.5 % (35.0-45.0); HEMOGLOBIN 14.2 g/dl (12.0-16.0); LYMPHOCYTES # (AUTO) 2.9 X10'3 (1.1-4.8); LYMPHOCYTES % (AUTO) 22.1 % (21-51); MEAN CORPUSCULAR HEMOGLOBIN 36.8 PG (27.0-31.0); MEAN CORPUSCULAR HGB CONC 33.4 g/dL (33.0-36.5); MEAN CORPUSCULAR VOLUME 110.3 FL (78-98); MEAN PLATELET VOLUME 8.7 FL (7.4-10.4); MONOCYTES # (AUTO) 1.5 X10'3 (0-0.9); MONOCYTES % (AUTO) 11.5 % (2-12); NEUTROPHILS # (AUTO) 8.5 X10'3 (1.8-7.7); NEUTROPHILS % (AUTO) 64.9 % (42-75); PLATELET COUNT 195 X10'3 (140-440); RED BLOOD COUNT 3.86 X10'6 (4.20-5.60); RED CELL DISTRIBUTION WIDTH 14.7 % (11.5-14.5); WHITE BLOOD COUNT 13.2 X10'3 (4.5-11.0)
[2020-04-04 17:00] LABS: ALBUMIN 2.8 G/DL (3.4-5.0); ANION GAP 13 (8-16); BILIRUBIN,TOTAL 0.9 MG/DL (0.1-1.0); BLOOD UREA NITROGEN 4 MG/DL (7-18); BUN/CREATININE RATIO 5.3 (6.6-38.0); CALCIUM 7.6 MG/DL (8.5-10.1); CHLORIDE 105 MMOL/L (99-107); CREATININE 0.76 MG/DL (0.40-0.90); GLUCOSE 92 MG/DL (70-104); SODIUM 142 MMOL/L (135-145); TOTAL CARBON DIOXIDE 24.4 MMOL/L (24-32); TOTAL PROTEIN 7.1 G/DL (6.4-8.2); eGFR 76 ML/MIN
[2020-04-04 17:01] LABS: ALANINE AMINOTRANSFERASE 43 U/L (12-78); ALBUMIN/GLOBULIN RATIO 0.7 (1.1-1.5); ALKALINE PHOSPHATASE 329 IU/L (46-116); AMYLASE 26 U/L (25-115); ASPARTATE AMINO TRANSFERASE 97 U/L (10-37); LIPASE 84 U/L (73-393)
[2020-04-04] MEDS ORDERED: normal saline 1000ML IV soln IVB ONE (17:10)
[2020-04-04] MEDS ORDERED: potassium Cl 10 mEq/100mL bag IV ONE (17:10)
[2020-04-04 17:26] LABS: CLARITY,URINE CLEAR (Clear); COLOR,URINE YELLOW (Yellow); GLUCOSE, URINE NEGATIVE (Neg); KETONES,URINE NEGATIVE (Neg); LEUKOCYTE ESTERASE ,URINE NEGATIVE (Neg); NITRITES, URINE NEGATIVE (Neg); OCCULT BLOOD,URINE NEGATIVE (Neg); PROTEIN,URINE NEGATIVE (Neg); UROBILINOGEN,URINE 0.2 E.U/dL (0.2-1.0)
[2020-04-04 17:30] LABS: TROPONIN I < 0.04 NG/ML (0.0-0.05)
[2020-04-04 17:30] LABS: UA COLLECTION TYPE CLN CATCH MIDSTREAM
[2020-04-04 18:05] LABS: TOTAL CELLS COUNTED 100
[2020-04-04 18:06] LABS: PLATELET ESTIMATE NORMAL
[2020-04-04 18:07] LABS: STOMATOCYTES FEW; TARGET CELLS FEW
[2020-04-04] MEDS ORDERED: HYDROmorphone 1 mg/ml syringe IV ONE (18:40)
[2020-04-04] MEDS ORDERED: duloxetine 20mg capsule.DR PO ONE (18:50)
--- NOTE | 2020-04-04 19:43 | NUR ---
1 mg dilaudid administered in 0.5 mg x 2. Pt pain at 5/10 approx 1 hr after first adminstration. Second 0.5 mg given.
[2020-04-04 19:51] VITALS: BP 146/87
[2020-04-04] MEDS ORDERED: HYDR-3965 PO (19:54)
[2020-04-12] MEDS ORDERED: MAGN400C PO (09:44)
[2020-04-12] MEDS ORDERED: POTA10TA36 PO (09:44)
== END 2020-04-04 20:19 | disposition home or self-care (01) ==
LOC: ER 16:07
DX: R10.9 Unspecified abdominal pain (principal); R11.2 Nausea with vomiting, unspecified; I10 Essential (primary) hypertension; J44.9 Chronic obstructive pulmonary disease, unspecified; G89.29 Other chronic pain; Z86.73 Personal history of transient ischemic attack (TIA), and cerebral infarction without residual deficits; Z87.01 Personal history of pneumonia (recurrent); Z86.711 Personal history of pulmonary embolism; Z87.442 Personal history of urinary calculi; Z90.89 Acquired absence of other organs; Z90.49 Acquired absence of other specified parts of digestive tract; Z95.0 Presence of cardiac pacemaker; Z98.890 Other specified postprocedural states; Z72.89 Other problems related to lifestyle; Z88.8 Allergy status to other drugs, medicaments and biological substances; Z91.018 Allergy to other foods; Z79.899 Other long term (current) drug therapy
CPT/HCPCS: 36415; 74176; 80053; 81003; 82150; 83605; 83690; 83880; 84145; 84484; 85025; 85610; 96361; 96374; 96375; 96376; 99284; J1170; J2270; J2405; J3480; J7030

== ENCOUNTER 2020-04-08 16:14 | Inpatient (IN) | payer BC ==
[~2020-04-08] VITALS: Ht 177.8 cm; Wt 91.8 kg
[~2020-04-08 16:14] MED LIST changes: +HYDR-3965 PO
--- NOTE | 2020-04-08 16:29 | NUR ---
EKG 1626
--- NOTE | 2020-04-08 16:50 | NUR ---
discussed pt's c/o pain w/ edmd kapadia; new order for zofran 4mg and morphine 4mg iv received.
[2020-04-08 16:55] LABS: BASOPHILS # (AUTO) 0.1 X10'3 (0-0.2); EOSINOPHILS # (AUTO) 0.1 X10'3 (0-0.9); EOSINOPHILS % (AUTO) 0.8 % (0-6); HEMATOCRIT 40.8 % (35.0-45.0); HEMOGLOBIN 13.8 g/dl (12.0-16.0); LYMPHOCYTES # (AUTO) 2.8 X10'3 (1.1-4.8); LYMPHOCYTES % (AUTO) 22.3 % (21-51); MEAN CORPUSCULAR HGB CONC 33.8 g/dL (33.0-36.5); MEAN CORPUSCULAR VOLUME 109.6 FL (78-98); MEAN PLATELET VOLUME 9.2 FL (7.4-10.4); MONOCYTES # (AUTO) 1.5 X10'3 (0-0.9); MONOCYTES % (AUTO) 12.2 % (2-12); NEUTROPHILS # (AUTO) 7.9 X10'3 (1.8-7.7); NEUTROPHILS % (AUTO) 63.7 % (42-75); PLATELET COUNT 179 X10'3 (140-440); RED BLOOD COUNT 3.72 X10'6 (4.20-5.60); WHITE BLOOD COUNT 12.4 X10'3 (4.5-11.0)
[2020-04-08] MEDS ORDERED: morphine 4 MG/ML inj SYRINge IV ONE ×2 (16:55→17:50)
[2020-04-08] MEDS ORDERED: ondansetron/PF 4mg/2ml inj IV ONE (16:55)
[2020-04-08 17:07] LABS: ALANINE AMINOTRANSFERASE 41 U/L (12-78); ALBUMIN 2.6 G/DL (3.4-5.0); ALBUMIN/GLOBULIN RATIO 0.6 (1.1-1.5); ALKALINE PHOSPHATASE 333 IU/L (46-116); ANION GAP 11 (8-16); ASPARTATE AMINO TRANSFERASE 97 U/L (10-37); BILIRUBIN,TOTAL 1.2 MG/DL (0.1-1.0); BLOOD UREA NITROGEN 5 MG/DL (7-18); BUN/CREATININE RATIO 5.9 (6.6-38.0); CHLORIDE 104 MMOL/L (99-107); CREATININE 0.85 MG/DL (0.40-0.90); GLUCOSE 87 MG/DL (70-104); POTASSIUM 3.1 MMOL/L (3.5-5.1); SODIUM 143 MMOL/L (135-145); TOTAL CARBON DIOXIDE 28.1 MMOL/L (24-32); eGFR 67 ML/MIN
--- NOTE | 2020-04-08 17:48 | NUR ---
NEW ORDER RECEIVED FROM [facility]; GIVE SECOND DOSE OF MORPHINE 4MG NOW.
[2020-04-08] MEDS ORDERED: DILT360T13 PO (17:52)
[2020-04-08] MEDS ORDERED: DULO60CA65 PO (17:52)
[2020-04-08] MEDS ORDERED: PROM25TA14 PO (17:52)
[2020-04-08] MEDS ORDERED: UMEC62.5 PO (17:52)
[2020-04-08] MEDS ORDERED: HYDR-3972 PO (17:52)
[2020-04-08] MEDS ORDERED: PANT20TA3 PO (17:52)
[2020-04-08] MEDS ORDERED: magnesium 2GM in 50ml NS 50 ML IV ONE ×2 (18:15→18:50)
[2020-04-08] MEDS ORDERED: potassium Cl 10 mEq/100mL bag IV ONE (18:15)
[2020-04-08] MEDS ORDERED: normal saline 1000ML IV soln IVB ONE (18:15)
[2020-04-08] MEDS ORDERED: LORazepam 1 MG tablet PO PRN (18:20)
[2020-04-08] MEDS ORDERED: morphine 2 MG/ML inj. syringe IV PRN (18:20)
[2020-04-08] MEDS ORDERED: potassium Cl 20 mEq SR tablet PO PRN ×2 (18:20)
[2020-04-08] MEDS ORDERED: magnesium hydroxide 30ml (MOM) UD suspension PO PRN (18:20)
[2020-04-08] MEDS ORDERED: mag hydrox/Alum hydrox/simeth 30ml oral suspension PO PRN (18:20)
[2020-04-08] MEDS ORDERED: HYDROcodone/acetaminophen 5mg/325mg tablet PO PRN ×2 (18:20→19:05)
[2020-04-08] MEDS ORDERED: LORazepam 2 mg/ml vial IV PRN ×2 (18:20→19:05)
[2020-04-08] MEDS ORDERED: magnesium Cl slow-release 64mg tablet PO PRN (18:20)
[2020-04-08] MEDS ORDERED: HYDROcodone/acetaminophen 10/325mg tab PO PRN (18:20)
[2020-04-08] MEDS ORDERED: potassium CL 10mEq/100ml bag 100 ML IV PRN (18:20)
[2020-04-08] MEDS ORDERED: magnesium 4gm in 100ml NS 100 ML IV PRN (18:20)
[2020-04-08] MEDS ORDERED: dextrose 50%-water 50ml dispensing syringe IV PRN (18:20)
[2020-04-08] MEDS ORDERED: acetaminophen 325mg tablet PO PRN ×2 (18:20)
[2020-04-08 18:26] LABS: MAGNESIUM 1.1 MG/DL (1.5-2.4)
[2020-04-08] MEDS: morphine 2 MG/ML inj. syringe IV PRN (19:07)
[2020-04-08 19:08] LABS: CLARITY,URINE CLEAR (Clear); COLOR,URINE YELLOW (Yellow); GLUCOSE, URINE NEGATIVE (Neg); KETONES,URINE NEGATIVE (Neg); LEUKOCYTE ESTERASE ,URINE TRACE (Neg); NITRITES, URINE NEGATIVE (Neg); OCCULT BLOOD,URINE NEGATIVE (Neg); PROTEIN,URINE NEGATIVE (Neg)
[2020-04-08 19:09] LABS: UA COLLECTION TYPE NON-SPECIFIED
[2020-04-08] MEDS ORDERED: diatr meglu/diatrizoate 30ml oral sol.-(3 dose) bottle PO SCH ×2 (19:10→21:00)
[2020-04-08] MEDS ORDERED: ipratropium 0.5 MG/2.5ML nebule IH PRN (19:10)
[2020-04-08] MEDS ORDERED: albuterol 2.5 MG/3 ML nebule NEB PRN (19:10)
[2020-04-08 19:14] LABS: BACTERIA,URINE 1+ /HPF (Neg); RBC,URINE NONE SEEN /HPF (0-2); SQUAMOUS EPITHELIAL CELL,UR MODERATE /LPF (FEW)
[2020-04-08] MEDS: atenolol 25mg tablet PO SCH (19:36)
[2020-04-08 20:00] VITALS: BP 125/79
[2020-04-08] MEDS: budesonide 0.5mg/2ml UD nebule IH SCH (20:00)
[2020-04-08] MEDS: K and/or MAG REPLACEMENT MC SCH (20:11)
[2020-04-08] MEDS: potassium CL 10mEq/100ml bag 100 ML IV PRN ×3 (20:29→23:59)
[2020-04-08] MEDS: ciprofloxacin lact 400MG/200ML 200 ML IV SCH (20:31)
[2020-04-08] MEDS: heparin, porcine 5000 units/ml vial SQ SCH (20:31)
[2020-04-08] MEDS: normal saline 1000ml 1,000 ML IV SCH (20:42)
[2020-04-08] MEDS ORDERED: temazepam 15mg capsule PO PRN (21:00)
[2020-04-08 22:00] VITALS: BP 135/67
[2020-04-08] MEDS ORDERED: barium sulfate 450ml oral suspension PO ONE (22:30)
[2020-04-08] MEDS: ondansetron/PF 4mg/2ml inj IV PRN (22:44)
[2020-04-08] MEDS: magnesium 2GM in 50ml NS 50 ML IV PRN (22:49)
[2020-04-08] MEDS: metroNIDAZOLE-Flagyl 500mg/NS 100 ML IV SCH (23:59)
[2020-04-09] VITALS (7 sets, daily range): BP systolic 109–140; BP diastolic 32–79
[2020-04-09] MEDS: normal saline 1000ml 1,000 ML IV SCH ×2 (04:17→15:14)
[2020-04-09] MEDS: morphine 2 MG/ML inj. syringe IV PRN ×3 (04:18→19:07)
--- NOTE | 2020-04-09 05:02 | NUR ---
pt found on floor by staff, pt reports trying to get out of bed to restroom and bed was too high. pt states he landed on her right hip, denies hitting her head. Right hip mild pain no bruising or swelling, pt assisted back to bed Dr. Olea notified, received order for a right hip X-ray. Pt A&O x3.
[2020-04-09 05:29] LABS: BASOPHILS % (AUTO) 0.4 % (0-1); EOSINOPHILS # (AUTO) 0.1 X10'3 (0-0.9); EOSINOPHILS % (AUTO) 1.1 % (0-6); HEMATOCRIT 37.3 % (35.0-45.0); HEMOGLOBIN 12.5 g/dl (12.0-16.0); LYMPHOCYTES # (AUTO) 1.7 X10'3 (1.1-4.8); LYMPHOCYTES % (AUTO) 18.7 % (21-51); MEAN CORPUSCULAR HEMOGLOBIN 37.5 PG (27.0-31.0); MEAN CORPUSCULAR HGB CONC 33.6 g/dL (33.0-36.5); MEAN CORPUSCULAR VOLUME 111.8 FL (78-98); MEAN PLATELET VOLUME 9.5 FL (7.4-10.4); MONOCYTES # (AUTO) 1.1 X10'3 (0-0.9); MONOCYTES % (AUTO) 12.8 % (2-12); PLATELET COUNT 143 X10'3 (140-440); RED BLOOD COUNT 3.34 X10'6 (4.20-5.60)
[2020-04-09 05:45] LABS: ALANINE AMINOTRANSFERASE 34 U/L (12-78); ALBUMIN 2.4 G/DL (3.4-5.0); ALBUMIN/GLOBULIN RATIO 0.6 (1.1-1.5); ALKALINE PHOSPHATASE 307 IU/L (46-116); ANION GAP 9 (8-16); ASPARTATE AMINO TRANSFERASE 87 U/L (10-37); BILIRUBIN,TOTAL 1.7 MG/DL (0.1-1.0); BLOOD UREA NITROGEN 5 MG/DL (7-18); BUN/CREATININE RATIO 5.7 (6.6-38.0); CALCIUM 7.7 MG/DL (8.5-10.1); CHLORIDE 104 MMOL/L (99-107); CREATININE 0.87 MG/DL (0.40-0.90); GLUCOSE 88 MG/DL (70-104); POTASSIUM 3.6 MMOL/L (3.5-5.1); SODIUM 137 MMOL/L (135-145); TOTAL PROTEIN 6.3 G/DL (6.4-8.2); eGFR 65 ML/MIN
[2020-04-09 05:48] LABS: MAGNESIUM 2.1 MG/DL (1.5-2.4)
--- NOTE | 2020-04-09 06:09 | NUR ---
Problems reprioritized. Patient report given, questions answered & plan of care reviewed with Ad FLORES.
--- NOTE | 2020-04-09 06:15 | NUR ---
Patient in room PCU 3011. I have received report from Heath FLORES and had the opportunity to ask questions and assume patient care. Patient awake on report and in no distress.
[2020-04-09 06:16] LABS: ANISOCYTOSIS 1+; PLATELET ESTIMATE NORMAL; TARGET CELLS FEW
--- NOTE | 2020-04-09 06:18 | NUR ---
Patient in room PCU 3011. I have received report from Heath FLORES and had the opportunity to ask questions and assume patient care.
[2020-04-09] MEDS ORDERED: barium sulfate 450ml oral suspension PO ONE ×2 (07:00→08:00)
[2020-04-09] MEDS: diltiazem CD 120mg capsule (once-daily) PO SCH (07:56)
[2020-04-09] MEDS: pantoprazole 40 MG vial IV SCH (07:57)
[2020-04-09] MEDS: heparin, porcine 5000 units/ml vial SQ SCH ×2 (07:57→19:51)
[2020-04-09] MEDS: ciprofloxacin lact 400MG/200ML 200 ML IV SCH ×2 (07:58→19:51)
[2020-04-09] MEDS: metroNIDAZOLE-Flagyl 500mg/NS 100 ML IV SCH ×3 (07:58→23:43)
[2020-04-09] MEDS ORDERED: pantoprazole 40mg Tablet.DR PO SCH (08:00)
[2020-04-09] MEDS: K and/or MAG REPLACEMENT MC SCH ×2 (08:00→20:03)
[2020-04-09] MEDS ORDERED: atenolol 25mg tablet PO SCH (08:00)
[2020-04-09] MEDS: atenolol 25mg tablet PO SCH (08:01)
[2020-04-09] MEDS: HYDROcodone/acetaminophen 10/325mg tab PO PRN ×2 (08:15→16:35)
[2020-04-09 08:16] LABS: C DIFF ANTIGEN NEGATIVE (NEGATIVE); C DIFF SPECIMEN=DIARRHEA? ACCEPTABLE; C DIFFICILE TOXINS A&B NEGATIVE (Neg)
[2020-04-09] MEDS: budesonide 0.5mg/2ml UD nebule IH SCH ×2 (08:25→22:24)
[2020-04-09] MEDS: LORazepam 1 MG tablet PO PRN (09:45)
--- NOTE | 2020-04-09 10:43 | NUR ---
PAGER ID: [phone] MESSAGE: [phone] Erin Flores: Pt does not want to have accuchecks, states she is not diabetic, can we discontinue accuchecks achs? Ad [id number]
--- NOTE | 2020-04-09 12:44 | NUR ---
Paged Dr. Cordon concerning patient's diet and to alert of CT results RE Erin Flores 3011 CT results are in. Patient does not have diet order, can we feed patient now? Ruslan FLORES [phone] Dr. Cordon started patient on clear liquid diet and advance as necessary.
[2020-04-09] MEDS: ondansetron/PF 4mg/2ml inj IV PRN ×2 (16:34→23:42)
--- NOTE | 2020-04-09 17:55 | NUR ---
Orientee documentation: I have reviewed and agree with all interventions, assessments performed and documented by Ruslan FLORES.
--- NOTE | 2020-04-09 18:07 | NUR ---
Patient in room PCU 3011. I have received report from Ad FLORES and had the opportunity to ask questions and assume patient care.
--- NOTE | 2020-04-09 18:27 | NUR ---
Problems reprioritized. Patient report given, questions answered & plan of care reviewed with Heath FLORES.
[2020-04-09] MEDS: proMETHazine 25mg tablet PO PRN (19:07)
[2020-04-09] MEDS: lactobacillus rhamnosus 10,000 MMU CELLS/CAPSULE PO SCH (19:48)
[2020-04-09] MEDS: loperamide 2mg capsule PO PRN (23:43)
[2020-04-10] MEDS: normal saline 1000ml 1,000 ML IV SCH ×3 (00:26→20:17)
[2020-04-10 02:00] VITALS: BP 119/57
[2020-04-10] MEDS: HYDROcodone/acetaminophen 10/325mg tab PO PRN (04:00)
[2020-04-10] MEDS: proMETHazine 25mg tablet PO PRN (04:59)
[2020-04-10 05:26] LABS: BASOPHILS # (AUTO) 0.1 X10'3 (0-0.2); BASOPHILS % (AUTO) 0.6 % (0-1); EOSINOPHILS # (AUTO) 0.1 X10'3 (0-0.9); EOSINOPHILS % (AUTO) 1.5 % (0-6); HEMATOCRIT 36.5 % (35.0-45.0); HEMOGLOBIN 12.3 g/dl (12.0-16.0); LYMPHOCYTES # (AUTO) 1.3 X10'3 (1.1-4.8); LYMPHOCYTES % (AUTO) 15.2 % (21-51); MEAN CORPUSCULAR HEMOGLOBIN 37.4 PG (27.0-31.0); MEAN CORPUSCULAR HGB CONC 33.7 g/dL (33.0-36.5); MEAN CORPUSCULAR VOLUME 110.9 FL (78-98); MEAN PLATELET VOLUME 9.7 FL (7.4-10.4); MONOCYTES # (AUTO) 1.1 X10'3 (0-0.9); MONOCYTES % (AUTO) 12.6 % (2-12); NEUTROPHILS # (AUTO) 6.2 X10'3 (1.8-7.7); NEUTROPHILS % (AUTO) 70.1 % (42-75); PLATELET COUNT 142 X10'3 (140-440); RED BLOOD COUNT 3.29 X10'6 (4.20-5.60); RED CELL DISTRIBUTION WIDTH 14.9 % (11.5-14.5); WHITE BLOOD COUNT 8.8 X10'3 (4.5-11.0)
[2020-04-10 05:29] LABS: ALANINE AMINOTRANSFERASE 31 U/L (12-78); ALBUMIN 2.3 G/DL (3.4-5.0); ALBUMIN/GLOBULIN RATIO 0.6 (1.1-1.5); ALKALINE PHOSPHATASE 292 IU/L (46-116); ANION GAP 7 (8-16); ASPARTATE AMINO TRANSFERASE 84 U/L (10-37); BILIRUBIN,TOTAL 1.6 MG/DL (0.1-1.0); BLOOD UREA NITROGEN 3 MG/DL (7-18); BUN/CREATININE RATIO 4.2 (6.6-38.0); CALCIUM 7.4 MG/DL (8.5-10.1); CHLORIDE 106 MMOL/L (99-107); CREATININE 0.72 MG/DL (0.40-0.90); GLUCOSE 83 MG/DL (70-104); MAGNESIUM 1.5 MG/DL (1.5-2.4); POTASSIUM 3.5 MMOL/L (3.5-5.1); SODIUM 137 MMOL/L (135-145); TOTAL CARBON DIOXIDE 24.4 MMOL/L (24-32); eGFR 81 ML/MIN
[2020-04-10 06:00] VITALS: BP 119/57
--- NOTE | 2020-04-10 06:09 | NUR ---
Problems reprioritized. Patient report given, questions answered & plan of care reviewed with Ad FLORES.
--- NOTE | 2020-04-10 06:30 | NUR ---
Patient in room PCU 3011. I have received report from Heath FLORES and had the opportunity to ask questions and assume patient care.
--- NOTE | 2020-04-10 06:46 | NUR ---
Patient in room PCU 3011. I have received report from Heath FLORES and had the opportunity to ask questions and assume patient care.
--- NOTE | 2020-04-10 07:10 | NUR ---
PAGER ID: [phone] MESSAGE: [phone] Erin Flores: JACQUELINE Pt is MDRO (+) in the urine, pt is already in a isolation room. thanks Ad
[2020-04-10] MEDS: ciprofloxacin lact 400MG/200ML 200 ML IV SCH (07:16)
[2020-04-10] MEDS: atenolol 25mg tablet PO SCH (07:17)
[2020-04-10] MEDS: lactobacillus rhamnosus 10,000 MMU CELLS/CAPSULE PO SCH ×2 (07:18→19:31)
[2020-04-10] MEDS: heparin, porcine 5000 units/ml vial SQ SCH ×2 (07:19→19:32)
[2020-04-10] MEDS: pantoprazole 40 MG vial IV SCH (07:19)
[2020-04-10] MEDS: diltiazem CD 120mg capsule (once-daily) PO SCH (07:19)
--- NOTE | 2020-04-10 07:54 | NUR ---
PAGER ID: [phone] MESSAGE: [phone] Erin Flores: Pt did not tolerate ambulating w/ PT this morning, stated she felt dizzy, do you want to order ortho vs? thanks himanshu
[2020-04-10] MEDS: K and/or MAG REPLACEMENT MC SCH ×2 (08:00→20:00)
[2020-04-10] MEDS: metroNIDAZOLE-Flagyl 500mg/NS 100 ML IV SCH (08:18)
[2020-04-10] MEDS: budesonide 0.5mg/2ml UD nebule IH SCH ×2 (08:33→20:37)
[2020-04-10] MEDS: loperamide 2mg capsule PO PRN (09:10)
[2020-04-10] MEDS: morphine 2 MG/ML inj. syringe IV PRN (09:10)
[2020-04-10] MEDS ORDERED: MEROPENEM 1GM/NS 50ML IVPB 50 ML IV SCH (09:45)
[2020-04-10 10:32] LABS: LIPASE < 50 U/L (73-393)
[2020-04-10 11:00] VITALS: BP 114/63
[2020-04-10] MEDS: meropenem inj 1 GM in normal saline 100ml IV soln 100 ML IV SCH ×2 (11:05→16:56)
[2020-04-10] MEDS: LORazepam 1 MG tablet PO PRN (11:05)
[2020-04-10] MEDS: ondansetron/PF 4mg/2ml inj IV PRN ×2 (12:53→19:30)
[2020-04-10 15:00] VITALS: BP 113/60
[2020-04-10] MEDS: metroNIDAZOLE 500mg tablet PO SCH (16:42)
--- NOTE | 2020-04-10 17:09 | NUR ---
Orientee documentation: I have reviewed and agree with all interventions, assessments performed and documented by Espinoza FLORES.
[2020-04-10 18:00] VITALS: BP 119/53
--- NOTE | 2020-04-10 18:13 | NUR ---
Problems reprioritized. Patient report given, questions answered & plan of care reviewed with Osbaldo FLORES.
--- NOTE | 2020-04-10 18:30 | NUR ---
Patient in room PCU 3011. I have received report from Ad FLORES and had the opportunity to ask questions and assume patient care.
[2020-04-10 23:00] VITALS: BP 129/54
[2020-04-11] MEDS: proMETHazine 25mg tablet PO PRN ×2 (00:10→11:25)
[2020-04-11] MEDS: metroNIDAZOLE 500mg tablet PO SCH ×2 (00:10→08:14)
[2020-04-11] MEDS: meropenem inj 1 GM in normal saline 100ml IV soln 100 ML IV SCH ×2 (00:10→08:14)
[2020-04-11] MEDS: HYDROcodone/acetaminophen 10/325mg tab PO PRN ×3 (00:11→14:30)
[2020-04-11 03:00] VITALS: BP 112/48
[2020-04-11 06:03] LABS: BASOPHILS % (AUTO) 0.5 % (0-1); EOSINOPHILS # (AUTO) 0.1 X10'3 (0-0.9); EOSINOPHILS % (AUTO) 1.5 % (0-6); HEMOGLOBIN 12.3 g/dl (12.0-16.0); LYMPHOCYTES # (AUTO) 1.6 X10'3 (1.1-4.8); LYMPHOCYTES % (AUTO) 23.7 % (21-51); MEAN CORPUSCULAR HEMOGLOBIN 36.8 PG (27.0-31.0); MEAN CORPUSCULAR HGB CONC 33.2 g/dL (33.0-36.5); MEAN CORPUSCULAR VOLUME 110.8 FL (78-98); MEAN PLATELET VOLUME 9.7 FL (7.4-10.4); MONOCYTES % (AUTO) 14.1 % (2-12); NEUTROPHILS # (AUTO) 4.1 X10'3 (1.8-7.7); NEUTROPHILS % (AUTO) 60.2 % (42-75); PLATELET COUNT 144 X10'3 (140-440); RED BLOOD COUNT 3.34 X10'6 (4.20-5.60); RED CELL DISTRIBUTION WIDTH 14.9 % (11.5-14.5); WHITE BLOOD COUNT 6.8 X10'3 (4.5-11.0)
[2020-04-11 06:15] LABS: ALANINE AMINOTRANSFERASE 26 U/L (12-78); ALBUMIN/GLOBULIN RATIO 0.5 (1.1-1.5); ALKALINE PHOSPHATASE 286 IU/L (46-116); ANION GAP 7 (8-16); ASPARTATE AMINO TRANSFERASE 77 U/L (10-37); BILIRUBIN,TOTAL 1.3 MG/DL (0.1-1.0); BLOOD UREA NITROGEN 3 MG/DL (7-18); BUN/CREATININE RATIO 3.8 (6.6-38.0); CALCIUM 7.6 MG/DL (8.5-10.1); CHLORIDE 110 MMOL/L (99-107); CREATININE 0.78 MG/DL (0.40-0.90); GLUCOSE 92 MG/DL (70-104); MAGNESIUM 1.4 MG/DL (1.5-2.4); POTASSIUM 3.5 MMOL/L (3.5-5.1); SODIUM 142 MMOL/L (135-145); TOTAL PROTEIN 5.7 G/DL (6.4-8.2); eGFR 74 ML/MIN
--- NOTE | 2020-04-11 06:26 | NUR ---
Patient in room PCU 3011. I have received report from SANDRA Maki and had the opportunity to ask questions and assume patient care.
--- NOTE | 2020-04-11 06:26 | NUR ---
Problems reprioritized. Patient report given, questions answered & plan of care reviewed with Erin FLORES.
[2020-04-11 07:00] VITALS: BP 107/60
[2020-04-11] MEDS ORDERED: pantoprazole 40mg Tablet.DR PO SCH (07:30)
[2020-04-11 07:41] LABS: PLATELET ESTIMATE NORMAL; POLYCHROMASIA FEW; TARGET CELLS FEW
[2020-04-11] MEDS: heparin, porcine 5000 units/ml vial SQ SCH (08:14)
[2020-04-11] MEDS: lactobacillus rhamnosus 10,000 MMU CELLS/CAPSULE PO SCH (08:14)
[2020-04-11] MEDS: normal saline 1000ml 1,000 ML IV SCH (08:15)
[2020-04-11] MEDS: K and/or MAG REPLACEMENT MC SCH (08:15)
[2020-04-11] MEDS: diltiazem CD 120mg capsule (once-daily) PO SCH (08:15)
[2020-04-11] MEDS: atenolol 25mg tablet PO SCH (08:16)
[2020-04-11] MEDS: magnesium 2GM in 50ml NS 50 ML IV PRN (08:17)
[2020-04-11] MEDS: budesonide 0.5mg/2ml UD nebule IH SCH (09:57)
[2020-04-11] MEDS ORDERED: FOSFOMYCIN TROMETHAMINE 3 GM PACKET PO ONE (10:30)
[2020-04-11 11:00] VITALS: BP 114/55
[2020-04-11] MEDS ORDERED: thiamine 100mg tablet PO SCH (11:40)
[2020-04-11] MEDS ORDERED: multivitamins, therapeutics tablet PO SCH (11:40)
[2020-04-11] MEDS ORDERED: ipratropium/albuterol 3ml nebule NEB PRN (11:40)
[2020-04-11] MEDS ORDERED: ipratropium/albuterol 3ml nebule ONE (11:55)
[2020-04-11] MEDS ORDERED: folic acid 1mg tablet PO SCH (12:42)
[2020-04-11] MEDS ORDERED: PROM25TA14 PO (15:05)
[2020-04-11] MEDS ORDERED: FOLI0.4T2 PO (15:05)
[2020-04-11] MEDS ORDERED: METO-395 PO (15:05)
[2020-04-11] MEDS ORDERED: HYDR-4383 PO (15:05)
[2020-04-11] MEDS ORDERED: LACT1CAP26 PO (15:05)
[2020-04-11] MEDS ORDERED: ALPR0.5T8 PO (15:05)
[2020-04-11] MEDS ORDERED: THIA50TA10 PO (15:05)
[2020-04-11] MEDS ORDERED: MULT-25 PO (15:05)
--- NOTE | 2020-04-11 16:15 | NUR ---
Patient stable for discharge per MD order. All discharge instructions reviewed with patient and all questions answered. New prescriptions faxed into pharmacy. Two PIVs discontinued, cannulas intact. Telemetry discontinued, telephone lines repairer notified. All belongings collected and sent with patient. Patient picked up in private vehicle by family member, wheeled to lobby by staff.
[2020-04-12] MEDS ORDERED: POTA10TA36 PO (09:44)
[2020-04-12] MEDS ORDERED: MAGN400C PO (09:44)
== END 2020-04-11 15:58 | disposition home or self-care (01) | DRG 690 ==
LOC: ER 16:15 → EEVIPCON 16:15 → ED HOLD 18:16 → PCU 3S 19:52
PROVIDERS: ADMIT Internal Medicine; ATTEND Internal Medicine
DX: N39.0 Urinary tract infection, site not specified (principal); E87.2 Acidosis; E87.6 Hypokalemia; E83.42 Hypomagnesemia; I10 Essential (primary) hypertension; I25.10 Atherosclerotic heart disease of native coronary artery without angina pectoris; G89.29 Other chronic pain; J44.9 Chronic obstructive pulmonary disease, unspecified; Z86.711 Personal history of pulmonary embolism; Z95.0 Presence of cardiac pacemaker; Z91.041 Radiographic dye allergy status; Z79.899 Other long term (current) drug therapy; Z86.73 Personal history of transient ischemic attack (TIA), and cerebral infarction without residual deficits; Z90.49 Acquired absence of other specified parts of digestive tract; Z95.828 Presence of other vascular implants and grafts; Z03.818 Encounter for observation for suspected exposure to other biological agents ruled out
CPT/HCPCS: 36415; 71045; 74176; 76700; 80053; 81001; 82948; 82977; 83605; 83690; 83735; 83880; 84100; 84145; 84443; 84484; 85025; 85610; 87040; 87045; 87046; 87077; 87088; 87186; 87324; 87449; 87635; 89055; 93005; 93975; 94640; 94760; 96374; 96375; 96376; 97161; 97530; 99285; C9113; G0378; J0744; J1644; J2185; J2270; J2405; J3475; J3480; J3490; J7030; J7626; Q0169

== ENCOUNTER 2020-04-16 21:53 | Inpatient (IN) | payer BC ==
[~2020-04-16] VITALS: Ht 177.8 cm; Wt 101.4 kg
[~2020-04-16 21:53] MED LIST changes: +ALPR0.5T8 PO; -DILT-94 PO; +DILT360T13 PO; -DIPH25CA83 PO; +FOLI0.4T2 PO; -HYDR-3965 PO; +HYDR-3972 PO; -HYDR-4353 PO; +HYDR-4383 PO; +LACT1CAP26 PO; -LOSA1TAB39 PO; +MAGN400C PO; +METO-395 PO; +MULT-25 PO; +PANT20TA3 PO; +POTA10TA36 PO; +PROM25TA14 PO; +THIA50TA10 PO; +UMEC62.5 PO
[2020-04-16 22:20] LABS: BASOPHILS # (AUTO) 0.1 X10'3 (0-0.2); EOSINOPHILS # (AUTO) 0.2 X10'3 (0-0.9); HEMATOCRIT 35.5 % (35.0-45.0); LYMPHOCYTES # (AUTO) 1.5 X10'3 (1.1-4.8); MONOCYTES # (AUTO) 1.7 X10'3 (0-0.9); WHITE BLOOD COUNT 13.8 X10'3 (4.5-11.0)
[2020-04-16 22:21] LABS: BASOPHILS % (AUTO) 0.9 % (0-1); EOSINOPHILS % (AUTO) 1.7 % (0-6); LYMPHOCYTES % (AUTO) 11.1 % (21-51); MEAN CORPUSCULAR HEMOGLOBIN 36.7 PG (27.0-31.0); MEAN CORPUSCULAR VOLUME 108.1 FL (78-98); MEAN PLATELET VOLUME 9.3 FL (7.4-10.4); MONOCYTES % (AUTO) 12.4 % (2-12); NEUTROPHILS # (AUTO) 10.2 X10'3 (1.8-7.7); NEUTROPHILS % (AUTO) 73.9 % (42-75); PLATELET COUNT 205 X10'3 (140-440); RED BLOOD COUNT 3.28 X10'6 (4.20-5.60); RED CELL DISTRIBUTION WIDTH 14.7 % (11.5-14.5)
[2020-04-16 22:39] LABS: ALANINE AMINOTRANSFERASE 21 U/L (12-78); ALBUMIN 2.1 G/DL (3.4-5.0); ALBUMIN/GLOBULIN RATIO 0.5 (1.1-1.5); ALKALINE PHOSPHATASE 367 IU/L (46-116); ANION GAP 9 (8-16); ASPARTATE AMINO TRANSFERASE 64 U/L (10-37); BILIRUBIN,TOTAL 2.2 MG/DL (0.1-1.0); BLOOD UREA NITROGEN 5 MG/DL (7-18); BUN/CREATININE RATIO 5.6 (6.6-38.0); CALCIUM 8.1 MG/DL (8.5-10.1); CHLORIDE 102 MMOL/L (99-107); GLUCOSE 91 MG/DL (70-104); POTASSIUM 3.7 MMOL/L (3.5-5.1); SODIUM 135 MMOL/L (135-145); TOTAL CARBON DIOXIDE 23.6 MMOL/L (24-32); TOTAL PROTEIN 6.4 G/DL (6.4-8.2); eGFR 63 ML/MIN
[2020-04-16 23:00] LABS: CLARITY,URINE SLIGHTLY CLOUDY (Clear); COLOR,URINE AMBER (Yellow); GLUCOSE, URINE NEGATIVE (Neg); KETONES,URINE TRACE mg/dl (Neg); LEUKOCYTE ESTERASE ,URINE SMALL (Neg); NITRITES, URINE NEGATIVE (Neg); OCCULT BLOOD,URINE NEGATIVE (Neg); PROTEIN,URINE TRACE mg/dl (Neg)
[2020-04-16 23:02] LABS: UA COLLECTION TYPE OTHER
[2020-04-16 23:07] LABS: LIPASE < 50 U/L (73-393)
[2020-04-16] MEDS ORDERED: POTA10TA19 PO (23:07)
[2020-04-16] MEDS ORDERED: FOLI0.4T14 PO (23:07)
[2020-04-16] MEDS ORDERED: HYDR-3965 PO (23:07)
[2020-04-16] MEDS ORDERED: MAGN400C PO (23:07)
[2020-04-16] MEDS ORDERED: PANT-47 PO (23:07)
[2020-04-16] MEDS ORDERED: LORA-269 PO (23:07)
[2020-04-16] MEDS ORDERED: METO-395 PO (23:07)
[2020-04-16 23:25] LABS: RBC,URINE 0-2 /HPF (0-2)
[2020-04-16] MEDS ORDERED: normal saline 500ml IV soln 1,000 ML IV ONE (23:25)
[2020-04-16 23:26] LABS: BACTERIA,URINE FEW /HPF (Neg); MUCUS STRANDS FEW /LPF (Neg); SQUAMOUS EPITHELIAL CELL,UR MANY /LPF (FEW)
[2020-04-16 23:50] LABS: PLATELET ESTIMATE NORMAL; TOTAL CELLS COUNTED 100
[2020-04-16 23:51] LABS: TARGET CELLS FEW
[2020-04-16] MEDS ORDERED: proCHLORperazine 10 MG/2 ml inj IV PRN (23:55)
[2020-04-16] MEDS ORDERED: morphine 4 MG/ML inj SYRINge IV ONE (23:55)
[2020-04-17] MEDS ORDERED: barium sulfate 450ml oral suspension PO STA (01:18)
[2020-04-17] MEDS ORDERED: morphine 2 MG/ML inj. syringe IV PRN (01:25)
[2020-04-17] MEDS ORDERED: mag hydrox/Alum hydrox/simeth 30ml oral suspension PO PRN (01:25)
[2020-04-17] MEDS ORDERED: magnesium 2GM in 50ml NS 50 ML IV PRN (01:25)
[2020-04-17] MEDS ORDERED: magnesium 4gm in 100ml NS 100 ML IV PRN (01:25)
[2020-04-17] MEDS ORDERED: docusate sod 100mg capsule PO PRN (01:25)
[2020-04-17] MEDS ORDERED: potassium Cl 20 mEq SR tablet PO PRN ×2 (01:25)
[2020-04-17] MEDS ORDERED: LORazepam 1 MG tablet PO PRN (01:25)
[2020-04-17] MEDS ORDERED: acetaminophen 325mg tablet PO PRN (01:25)
[2020-04-17] MEDS ORDERED: potassium CL 10mEq/100ml bag 100 ML IV PRN ×2 (01:25)
[2020-04-17] MEDS: normal saline 1000ml 1,000 ML IV SCH ×3 (01:47→22:12)
[2020-04-17 02:41] LABS: CLARITY,URINE CLEAR (Clear); COLOR,URINE AMBER (Yellow); GLUCOSE, URINE NEGATIVE (Neg); KETONES,URINE NEGATIVE (Neg); LEUKOCYTE ESTERASE ,URINE NEGATIVE (Neg); NITRITES, URINE NEGATIVE (Neg); OCCULT BLOOD,URINE NEGATIVE (Neg); PH,URINE 5.5 (4.8-8.0); PROTEIN,URINE TRACE mg/dl (Neg)
[2020-04-17 02:54] LABS: UA COLLECTION TYPE STRAIGHT CATH
[2020-04-17 03:08] LABS: BACTERIA,URINE NONE SEEN /HPF (Neg); MUCUS STRANDS NONE SEEN /LPF (Neg); RBC,URINE NONE SEEN /HPF (0-2); SQUAMOUS EPITHELIAL CELL,UR NONE SEEN /LPF (FEW); TRANSITIONAL EPI CELLS,URINE FEW /HPF; WBC,URINE NONE SEEN /HPF (0-4)
[2020-04-17 03:09] LABS: HYALINE CASTS 0-3 /LPF (NEGATIVE)
[2020-04-17] MEDS: morphine 2 MG/ML inj. syringe IV PRN ×3 (03:21→20:14)
--- NOTE | 2020-04-17 03:29 | NUR ---
Received report from Roseann FLORES in the ER. Patient will be brought up to O/N and will go in room 4007.
[2020-04-17 03:37] VITALS: BP 102/44
--- NOTE | 2020-04-17 05:27 | NUR ---
PAGER ID: [phone] MESSAGE: Yasemin ext [phone]. Erin Flores is getting Barium for CT in AM. The bottle says to give another dose at 0700 but there is no order for it in the eMAR. Please advise if you would like an order put in for it. Thank you
[2020-04-17] MEDS ORDERED: barium sulfate 450ml oral suspension PO PRN (05:55)
--- NOTE | 2020-04-17 06:27 | NUR ---
Problems reprioritized. Patient report given, questions answered & plan of care reviewed with Keith RN.
--- NOTE | 2020-04-17 06:39 | NUR ---
Patient in room ORTHO 4007. I have received report from Yasemin FLORES and had the opportunity to ask questions and assume patient care.
[2020-04-17] MEDS ORDERED: barium sulfate 450ml oral suspension PO ONE (07:00)
[2020-04-17] MEDS ORDERED: ipratropium/albuterol 3ml nebule ONE (07:50)
[2020-04-17] MEDS: ipratropium/albuterol 3ml nebule NEB SCH ×4 (07:59→23:55)
[2020-04-17] MEDS: enoxaparin 40mg/0.4ml syringe SQ SCH (08:00)
[2020-04-17] MEDS: K and/or MAG REPLACEMENT MC SCH ×2 (08:00→19:56)
[2020-04-17] MEDS ORDERED: budesonide 0.5mg/2ml UD nebule IH SCH (08:00)
--- NOTE | 2020-04-17 08:01 | NUR ---
PT TOK HOME MED SYMBICORT Addendum: 04/17/20 at 0802 by Maren Turner RT Amended: Links added.
[2020-04-17] MEDS: meropenem inj 1 GM in normal saline 100ml IV soln 100 ML IV SCH ×3 (08:17→23:48)
--- NOTE | 2020-04-17 09:23 | NUR ---
Malnutrition consult: Pt reports 14-23 lb wt loss with decreased appetite per malnutrition risk screen. Per ED report pt reports 15 lb wt gain over the last week with some developing edema. Pt with scaled wt hx of 97 kg taken 12/22, current scaled weight is 101.36 kg (135% IBW). Pt currently +4.36 kg (~10 lbs). Pt currently NPO. Pt with no documented significant decrease in muscle strength and with BLE 2+ mild edema. Pt appears well developed, well nourished per ED report. Pt currently lacks a minimum of two criteria for malnutrition. Will continue to follow. Addendum: 04/17/20 at [address] Amended: Links added.
[2020-04-17 11:00] VITALS: BP 115/57
[2020-04-17] MEDS: folic acid 0.4mg tablet PO SCH (11:29)
[2020-04-17] MEDS: metoprolol succinate 25mg (24-HOUR) SR. Tablet PO SCH (11:29)
[2020-04-17 13:33] LABS: URINE AMPHETAMINE SCREEN NEGATIVE (Neg); URINE BARBITUATE SCREEN NEGATIVE (Neg); URINE BENZODIAZEPINES SCREEN NEGATIVE (Neg); URINE CANNABINOID SCREEN NEGATIVE (Neg); URINE COCAINE SCREEN NEGATIVE (Neg); URINE METHADONE SCREEN NEGATIVE (Neg); URINE OPIATE SCREEN POSITIVE (Neg); URINE PHENCYCLIDINE SCREEN NEGATIVE (Neg)
[2020-04-17 13:47] LABS: D-DIMER 1.71 MG/L FEU (0-0.50)
[2020-04-17 18:00] VITALS: BP 122/70
--- NOTE | 2020-04-17 18:04 | NUR ---
Problems reprioritized. Patient report given, questions answered & plan of care reviewed with Yasemin FLORES.
--- NOTE | 2020-04-17 18:21 | NUR ---
Patient in room ORTHO 4007. I have received report from Keith FLORES and had the opportunity to ask questions and assume patient care.
[2020-04-17] MEDS ORDERED: methylPREDNISolone sod succ 125mg/2ml vial IV ONE (18:55)
--- NOTE | 2020-04-17 18:59 | NUR ---
PAGER ID: [phone] MESSAGE: Yasemin steh [phone]. Please call in regards to Erin Flores. Thank you
--- NOTE | 2020-04-17 19:09 | NUR ---
PAGER ID: [phone] MESSAGE: Yasemin ext [phone]. Spoke to CT in regards to Erin Flores, they stated she was prepped last time and still coded. Spoke to pt about the CTA and she is refusing to have it done.
--- NOTE | 2020-04-17 19:27 | NUR ---
PAGER ID: [phone] MESSAGE: Yasemin ext [phone] in regards to Erin Flores. Pharmacy told me to clarify with you in regards to the solumedrol order. She has 125mg ordered for right now and then 60mg ordered for 8pm tonight. Do you want her to get both of those doses?
[2020-04-17] MEDS: azithromycin 250mg tablet PO SCH (19:37)
[2020-04-17] MEDS: furosemide 40mg/4ml inj IV SCH (19:38)
[2020-04-17 19:40] VITALS: BP 134/73
[2020-04-17] MEDS: methylPREDNISolone sod succ 125mg/2ml vial IV SCH (19:56)
[2020-04-17 22:00] VITALS: BP 137/74
[2020-04-18] MEDS: methylPREDNISolone sod succ 125mg/2ml vial IV SCH ×4 (01:45→19:11)
[2020-04-18 06:00] VITALS: BP 140/71
--- NOTE | 2020-04-18 06:25 | NUR ---
Problems reprioritized. Patient report given, questions answered & plan of care reviewed with Daysi FLORES.
[2020-04-18 07:11] LABS: BASOPHILS % (AUTO) 0.4 % (0-1); EOSINOPHILS % (AUTO) 0.1 % (0-6); HEMATOCRIT 32.5 % (35.0-45.0); HEMOGLOBIN 11.3 g/dl (12.0-16.0); LYMPHOCYTES # (AUTO) 0.7 X10'3 (1.1-4.8); LYMPHOCYTES % (AUTO) 8.3 % (21-51); MEAN CORPUSCULAR HEMOGLOBIN 37.8 PG (27.0-31.0); MEAN CORPUSCULAR HGB CONC 34.7 g/dL (33.0-36.5); MEAN CORPUSCULAR VOLUME 108.8 FL (78-98); MEAN PLATELET VOLUME 9.8 FL (7.4-10.4); MONOCYTES # (AUTO) 0.3 X10'3 (0-0.9); MONOCYTES % (AUTO) 3.6 % (2-12); NEUTROPHILS # (AUTO) 7.3 X10'3 (1.8-7.7); NEUTROPHILS % (AUTO) 87.6 % (42-75); PLATELET COUNT 195 X10'3 (140-440); RED BLOOD COUNT 2.98 X10'6 (4.20-5.60); WHITE BLOOD COUNT 8.3 X10'3 (4.5-11.0)
[2020-04-18 07:23] LABS: ALANINE AMINOTRANSFERASE 20 U/L (12-78); ALBUMIN 1.8 G/DL (3.4-5.0); ALBUMIN/GLOBULIN RATIO 0.4 (1.1-1.5); ALKALINE PHOSPHATASE 326 IU/L (46-116); ANION GAP 9 (8-16); ASPARTATE AMINO TRANSFERASE 57 U/L (10-37); BILIRUBIN,TOTAL 1.5 MG/DL (0.1-1.0); BLOOD UREA NITROGEN 7 MG/DL (7-18); BUN/CREATININE RATIO 11.5 (6.6-38.0); CALCIUM 7.8 MG/DL (8.5-10.1); CHLORIDE 107 MMOL/L (99-107); CREATININE 0.61 MG/DL (0.40-0.90); GLUCOSE 164 MG/DL (70-104); MAGNESIUM 1.4 MG/DL (1.5-2.4); POTASSIUM 3.8 MMOL/L (3.5-5.1); SODIUM 140 MMOL/L (135-145); TOTAL CARBON DIOXIDE 23.9 MMOL/L (24-32); TOTAL PROTEIN 6.1 G/DL (6.4-8.2); eGFR > 90 ML/MIN
[2020-04-18] MEDS: ipratropium/albuterol 3ml nebule NEB SCH ×5 (07:38→22:44)
[2020-04-18] MEDS: K and/or MAG REPLACEMENT MC SCH ×2 (08:00→19:06)
[2020-04-18] MEDS: folic acid 0.4mg tablet PO SCH (09:28)
[2020-04-18] MEDS: metoprolol succinate 25mg (24-HOUR) SR. Tablet PO SCH (09:29)
[2020-04-18] MEDS: azithromycin 250mg tablet PO SCH (09:30)
[2020-04-18] MEDS: enoxaparin 40mg/0.4ml syringe SQ SCH (09:32)
[2020-04-18 10:00] VITALS: BP 130/90
[2020-04-18] MEDS: furosemide 40mg/4ml inj IV SCH ×2 (11:47→19:11)
[2020-04-18] MEDS: meropenem inj 1 GM in normal saline 100ml IV soln 100 ML IV SCH ×2 (11:47→18:29)
[2020-04-18] MEDS: morphine 2 MG/ML inj. syringe IV PRN ×2 (12:07→19:27)
--- NOTE | 2020-04-18 13:42 | NUR ---
PAGER ID: [phone] MESSAGE: [phone] Erin is miserable and can not relax or sleep. [phone] Daysi
[2020-04-18] MEDS: LORazepam 2 mg/ml vial IV PRN ×2 (14:04→19:27)
[2020-04-18] MEDS: normal saline 1000ml 1,000 ML IV SCH ×2 (15:00→17:24)
[2020-04-18 15:12] LABS: LACTATE DEHYDROGENASE 526 U/L (81-234)
--- NOTE | 2020-04-18 16:40 | NUR ---
Appears to be sleeping, resp even & unlabored at this time. Door partially closed for noise reduction.
[2020-04-18] MEDS ORDERED: magnesium 2GM in 50ml NS 50 ML IV ONE (17:20)
[2020-04-18 18:00] VITALS: BP 114/66
--- NOTE | 2020-04-18 18:17 | NUR ---
Patient in room ORTHO 4007. I have received report from Daysi FLORES and had the opportunity to ask questions and assume patient care.
[2020-04-18] MEDS: lactobacillus rhamnosus 10,000 MMU CELLS/CAPSULE PO SCH (19:11)
[2020-04-18 22:00] VITALS: BP 111/57
[2020-04-19] MEDS: meropenem inj 1 GM in normal saline 100ml IV soln 100 ML IV SCH ×3 (00:51→17:23)
[2020-04-19] MEDS: methylPREDNISolone sod succ 125mg/2ml vial IV SCH ×4 (01:27→19:23)
[2020-04-19] MEDS: ipratropium/albuterol 3ml nebule NEB SCH ×6 (02:52→22:40)
[2020-04-19] MEDS: normal saline 1000ml 1,000 ML IV SCH (03:26)
[2020-04-19 05:46] LABS: BASOPHILS # (AUTO) 0.1 X10'3 (0-0.2); BASOPHILS % (AUTO) 0.5 % (0-1); EOSINOPHILS # (AUTO) 0.1 X10'3 (0-0.9); EOSINOPHILS % (AUTO) 0.5 % (0-6); HEMATOCRIT 30.7 % (35.0-45.0); HEMOGLOBIN 10.4 g/dl (12.0-16.0); LYMPHOCYTES # (AUTO) 0.8 X10'3 (1.1-4.8); LYMPHOCYTES % (AUTO) 6.1 % (21-51); MEAN CORPUSCULAR HEMOGLOBIN 36.4 PG (27.0-31.0); MEAN CORPUSCULAR HGB CONC 33.8 g/dL (33.0-36.5); MEAN CORPUSCULAR VOLUME 107.7 FL (78-98); MEAN PLATELET VOLUME 9.3 FL (7.4-10.4); MONOCYTES # (AUTO) 0.8 X10'3 (0-0.9); MONOCYTES % (AUTO) 5.5 % (2-12); NEUTROPHILS # (AUTO) 12.2 X10'3 (1.8-7.7); NEUTROPHILS % (AUTO) 87.4 % (42-75); PLATELET COUNT 255 X10'3 (140-440); RED BLOOD COUNT 2.85 X10'6 (4.20-5.60); RED CELL DISTRIBUTION WIDTH 14.7 % (11.5-14.5)
[2020-04-19 06:00] VITALS: BP 95/75
[2020-04-19 06:02] LABS: ALANINE AMINOTRANSFERASE 22 U/L (12-78); ALBUMIN 1.8 G/DL (3.4-5.0); ALBUMIN/GLOBULIN RATIO 0.4 (1.1-1.5); ALKALINE PHOSPHATASE 301 IU/L (46-116); ANION GAP 8 (8-16); ASPARTATE AMINO TRANSFERASE 46 U/L (10-37); BILIRUBIN,TOTAL 0.9 MG/DL (0.1-1.0); CALCIUM 7.8 MG/DL (8.5-10.1); CHLORIDE 109 MMOL/L (99-107); CREATININE 0.71 MG/DL (0.40-0.90); GLUCOSE 173 MG/DL (70-104); MAGNESIUM 1.9 MG/DL (1.5-2.4); PHOSPHORUS 3.2 MG/DL (2.3-4.5); POTASSIUM 3.8 MMOL/L (3.5-5.1); SODIUM 142 MMOL/L (135-145); TOTAL CARBON DIOXIDE 25.5 MMOL/L (24-32); eGFR 83 ML/MIN
[2020-04-19 06:04] LABS: BLOOD UREA NITROGEN 14 MG/DL (7-18); BUN/CREATININE RATIO 19.7 (6.6-38.0)
--- NOTE | 2020-04-19 06:05 | NUR ---
Received report from Yasemin FLORES, [facility].
--- NOTE | 2020-04-19 06:23 | NUR ---
Problems reprioritized. Patient report given, questions answered & plan of care reviewed with Alina FLORES.
[2020-04-19] MEDS: K and/or MAG REPLACEMENT MC SCH ×2 (08:00→20:00)
--- NOTE | 2020-04-19 08:20 | NUR ---
Noted bed needed linen change and IV was out of patient's arm, made PICC line nurse aware since patient is diff stick and usually needs U/S for IV line placement.
[2020-04-19] MEDS: azithromycin 250mg tablet PO SCH (09:00)
[2020-04-19] MEDS: metoprolol succinate 25mg (24-HOUR) SR. Tablet PO SCH (09:00)
[2020-04-19] MEDS: lactobacillus rhamnosus 10,000 MMU CELLS/CAPSULE PO SCH ×2 (09:00→19:19)
[2020-04-19] MEDS: folic acid 0.4mg tablet PO SCH (09:00)
[2020-04-19] MEDS: enoxaparin 40mg/0.4ml syringe SQ SCH (09:02)
--- NOTE | 2020-04-19 09:46 | NUR ---
Paged hospitalist, "alyson [email or web address]: Re [phone] Erin Flores lost IV, may we have po Ativan and po [place] for pain ([place]port is home med that's on hold)" Waiting on MD orders.
[2020-04-19 10:00] VITALS: BP 132/68
[2020-04-19] MEDS ORDERED: HYDROcodone & chlorphen. 10-8mg/5ml oral susp. PO SCH (11:05)
--- NOTE | 2020-04-19 11:15 | NUR ---
Dr. Olmedo given contact numbers for patient's daughter and MAKSIM in [place] to contact to update on status. SEE SBAR for contact information.
[2020-04-19] MEDS: benzonatate 100mg capsule PO SCH ×2 (12:00→17:23)
[2020-04-19] MEDS: LORazepam 1 MG tablet PO PRN ×2 (12:01→19:23)
--- NOTE | 2020-04-19 12:01 | NUR ---
5F DUAL LUMEN MIDLINE PLACED TO RIGHT BRACHIAL VEIN USING ULTRASOUND GUIDANCE X'S 1 ATTEMPT WITH SUCCESS, TIP ENDING MID-AXILLARY. HERNAN PICC RN
[2020-04-19] MEDS: furosemide 40mg/4ml inj IV SCH ×2 (12:02→19:24)
[2020-04-19] MEDS: HYDROcodone/acetaminophen 5mg/325mg tablet PO PRN ×2 (12:02→17:23)
--- NOTE | 2020-04-19 12:22 | NUR ---
Patient lost IV line this am, PICC line nurse placed midline to right arm, AM IVPB & IVP meds delayed until recently. Will adjust administration time according to orders from administration time.
[2020-04-19] MEDS: guaiFENesin/codeine phos 10ml UD oral syrup PO PRN (12:39)
[2020-04-19] MEDS: lactose-reduced food (Ensure High Protein) 237ml bottle PO SCH ×2 (13:22→18:00)
[2020-04-19 14:37] LABS: OCCULT BLOOD STOOL NEGATIVE (Neg)
[2020-04-19 18:00] VITALS: BP 105/57
--- NOTE | 2020-04-19 18:05 | NUR ---
Gave report to Lilly FLORES, transferred care.
--- NOTE | 2020-04-19 18:10 | NUR ---
Patient in room ORTHO 4007. I have received report from SANDRA Fuller and had the opportunity to ask questions and assume patient care.
[2020-04-19] MEDS: ondansetron/PF 4mg/2ml inj IV PRN (19:24)
[2020-04-19 22:00] VITALS: BP 144/70
[2020-04-20] MEDS: meropenem inj 1 GM in normal saline 100ml IV soln 100 ML IV SCH ×4 (00:24→23:27)
[2020-04-20] MEDS: benzonatate 100mg capsule PO SCH ×4 (00:25→23:27)
[2020-04-20] MEDS: ipratropium/albuterol 3ml nebule NEB SCH ×4 (03:23→20:57)
[2020-04-20 06:00] VITALS: BP 113/65
[2020-04-20 06:09] LABS: BASOPHILS % (AUTO) 0.2 % (0-1); EOSINOPHILS % (AUTO) 0 % (0-6); HEMATOCRIT 30.4 % (35.0-45.0); HEMOGLOBIN 10.3 g/dl (12.0-16.0); LYMPHOCYTES # (AUTO) 0.8 X10'3 (1.1-4.8); LYMPHOCYTES % (AUTO) 6.4 % (21-51); MEAN CORPUSCULAR VOLUME 108.9 FL (78-98); MEAN PLATELET VOLUME 8.9 FL (7.4-10.4); MONOCYTES # (AUTO) 0.7 X10'3 (0-0.9); MONOCYTES % (AUTO) 6.2 % (2-12); NEUTROPHILS # (AUTO) 10.5 X10'3 (1.8-7.7); NEUTROPHILS % (AUTO) 87.2 % (42-75); PLATELET COUNT 283 X10'3 (140-440); RED BLOOD COUNT 2.79 X10'6 (4.20-5.60)
[2020-04-20 06:24] LABS: ALANINE AMINOTRANSFERASE 33 U/L (12-78); ALBUMIN 1.8 G/DL (3.4-5.0); ALBUMIN/GLOBULIN RATIO 0.4 (1.1-1.5); ALKALINE PHOSPHATASE 328 IU/L (46-116); ANION GAP 6 (8-16); ASPARTATE AMINO TRANSFERASE 67 U/L (10-37); BILIRUBIN,TOTAL 0.8 MG/DL (0.1-1.0); BLOOD UREA NITROGEN 19 MG/DL (7-18); BUN/CREATININE RATIO 25.7 (6.6-38.0); CALCIUM 7.9 MG/DL (8.5-10.1); CHLORIDE 110 MMOL/L (99-107); CREATININE 0.74 MG/DL (0.40-0.90); GLUCOSE 140 MG/DL (70-104); MAGNESIUM 1.8 MG/DL (1.5-2.4); PHOSPHORUS 3.4 MG/DL (2.3-4.5); POTASSIUM 3.8 MMOL/L (3.5-5.1); SODIUM 143 MMOL/L (135-145); TOTAL CARBON DIOXIDE 27.5 MMOL/L (24-32); eGFR 79 ML/MIN
--- NOTE | 2020-04-20 06:25 | NUR ---
Problems reprioritized. Patient report given, questions answered & plan of care reviewed with SANDRA Moses.
[2020-04-20] MEDS: K and/or MAG REPLACEMENT MC SCH ×2 (07:01→20:00)
[2020-04-20] MEDS: lactose-reduced food (Ensure High Protein) 237ml bottle PO SCH ×3 (08:00→18:00)
[2020-04-20] MEDS ORDERED: methylPREDNISolone sod succ/PF 40mg inj. IV SCH (08:00)
[2020-04-20 10:00] VITALS: BP 123/72
[2020-04-20] MEDS: folic acid 0.4mg tablet PO SCH (10:30)
[2020-04-20] MEDS: azithromycin 250mg tablet PO SCH (10:32)
[2020-04-20] MEDS: furosemide 40mg/4ml inj IV SCH ×2 (10:34→19:59)
[2020-04-20] MEDS: metoprolol succinate 25mg (24-HOUR) SR. Tablet PO SCH (10:42)
[2020-04-20] MEDS: lactobacillus rhamnosus 10,000 MMU CELLS/CAPSULE PO SCH ×2 (10:42→19:58)
[2020-04-20] MEDS: morphine 2 MG/ML inj. syringe IV PRN (10:50)
[2020-04-20] MEDS: enoxaparin 40mg/0.4ml syringe SQ SCH (10:56)
[2020-04-20] MEDS: pantoprazole 40 MG vial IV SCH (11:02)
[2020-04-20] MEDS ORDERED: ipratropium/albuterol 3ml nebule NEB SCH ×2 (15:00→16:00)
[2020-04-20 18:00] VITALS: BP 121/58
--- NOTE | 2020-04-20 18:10 | NUR ---
Patient in room ORTHO 4007. I have received report from SANDRA Moses and had the opportunity to ask questions and assume patient care.
--- NOTE | 2020-04-20 18:27 | NUR ---
Problems reprioritized. Patient report given, questions answered & plan of care reviewed with SANDRA KEARNEY.
[2020-04-20] MEDS: HYDROcodone/acetaminophen 5mg/325mg tablet PO PRN (19:59)
[2020-04-20] MEDS: methylPREDNISolone sod succ/PF 40mg inj. IV SCH (20:11)
[2020-04-20] MEDS: LORazepam 1 MG tablet PO PRN (21:03)
[2020-04-20 22:00] VITALS: BP 149/78
[2020-04-20] MEDS: normal saline 1000ml 1,000 ML IV SCH (23:31)
[2020-04-21] VITALS (13 sets, daily range): BP systolic 125–170; BP diastolic 67–91
[2020-04-21] MEDS: ipratropium/albuterol 3ml nebule NEB SCH ×4 (05:20→20:35)
[2020-04-21] MEDS: LORazepam 1 MG tablet PO PRN ×2 (05:32→20:20)
--- NOTE | 2020-04-21 06:28 | NUR ---
Problems reprioritized. Patient report given, questions answered & plan of care reviewed with SANDRA Moses.
--- NOTE | 2020-04-21 06:35 | NUR ---
Patient in room ORTHO 4007. I have received report from SANDRA Carr and had the opportunity to ask questions and assume patient care.
[2020-04-21 06:43] LABS: BASOPHILS % (AUTO) 0.1 % (0-1); EOSINOPHILS % (AUTO) 0 % (0-6); HEMATOCRIT 33.4 % (35.0-45.0); HEMOGLOBIN 11.2 g/dl (12.0-16.0); LYMPHOCYTES % (AUTO) 8.8 % (21-51); MEAN CORPUSCULAR HEMOGLOBIN 36.3 PG (27.0-31.0); MEAN CORPUSCULAR HGB CONC 33.4 g/dL (33.0-36.5); MEAN CORPUSCULAR VOLUME 108.6 FL (78-98); MEAN PLATELET VOLUME 8.9 FL (7.4-10.4); MONOCYTES # (AUTO) 0.8 X10'3 (0-0.9); MONOCYTES % (AUTO) 7.2 % (2-12); NEUTROPHILS # (AUTO) 9.1 X10'3 (1.8-7.7); NEUTROPHILS % (AUTO) 83.9 % (42-75); PLATELET COUNT 321 X10'3 (140-440); RED BLOOD COUNT 3.08 X10'6 (4.20-5.60); RED CELL DISTRIBUTION WIDTH 14.8 % (11.5-14.5); WHITE BLOOD COUNT 10.8 X10'3 (4.5-11.0)
[2020-04-21 07:11] LABS: ALANINE AMINOTRANSFERASE 65 U/L (12-78); ALBUMIN 2.1 G/DL (3.4-5.0); ALBUMIN/GLOBULIN RATIO 0.5 (1.1-1.5); ALKALINE PHOSPHATASE 391 IU/L (46-116); ANION GAP 6 (8-16); ASPARTATE AMINO TRANSFERASE 137 U/L (10-37); BLOOD UREA NITROGEN 18 MG/DL (7-18); BUN/CREATININE RATIO 28.1 (6.6-38.0); CALCIUM 8.3 MG/DL (8.5-10.1); CHLORIDE 111 MMOL/L (99-107); CREATININE 0.64 MG/DL (0.40-0.90); GLUCOSE 120 MG/DL (70-104); MAGNESIUM 1.7 MG/DL (1.5-2.4); PHOSPHORUS 4.1 MG/DL (2.3-4.5); POTASSIUM 3.9 MMOL/L (3.5-5.1); SODIUM 147 MMOL/L (135-145); TOTAL CARBON DIOXIDE 29.9 MMOL/L (24-32); TOTAL PROTEIN 6.3 G/DL (6.4-8.2); eGFR > 90 ML/MIN
[2020-04-21] MEDS: folic acid 0.4mg tablet PO SCH (08:00)
[2020-04-21] MEDS: K and/or MAG REPLACEMENT MC SCH ×2 (08:00→20:00)
[2020-04-21] MEDS: lactose-reduced food (Ensure High Protein) 237ml bottle PO SCH ×3 (08:00→18:00)
[2020-04-21] MEDS: meropenem inj 1 GM in normal saline 100ml IV soln 100 ML IV SCH ×2 (08:00→16:15)
[2020-04-21] MEDS: benzonatate 100mg capsule PO SCH ×2 (08:00→16:25)
[2020-04-21] MEDS: lactobacillus rhamnosus 10,000 MMU CELLS/CAPSULE PO SCH ×2 (08:00→20:18)
[2020-04-21] MEDS: furosemide 40mg/4ml inj IV SCH ×2 (10:38→20:18)
[2020-04-21] MEDS: pantoprazole 40 MG vial IV SCH (10:42)
[2020-04-21] MEDS: methylPREDNISolone sod succ/PF 40mg inj. IV SCH ×2 (10:47→20:17)
[2020-04-21] MEDS: morphine 2 MG/ML inj. syringe IV PRN (10:52)
--- NOTE | 2020-04-21 12:22 | NUR ---
pt leaving floor to go to GI lab, paged respiratory to give pt breathing tx before sedation per Carolin's request
[2020-04-21] MEDS ORDERED: LIDOcaine Viscous 15ml cup ONE (12:36)
[2020-04-21] MEDS ORDERED: fentaNYL/PF 50MCG/1 ML 2ML syringe ONE (12:36)
[2020-04-21] MEDS ORDERED: MIDAZolam 5mg/5ml vial ONE (12:36)
[2020-04-21] MEDS: ipratropium/albuterol 3ml nebule NEB PRN (13:01)
--- NOTE | 2020-04-21 13:58 | NUR ---
PT RETURNED TO THE FLOOR IN STABLE CONDITION, PO VITALS STARTED Q15 X 1 HR PER FLAKITA, GI LAB. EGD SHOWED GASTRITIS, AND BIOPSY WAS OBTAINED.
[2020-04-21] MEDS: metoprolol succinate 25mg (24-HOUR) SR. Tablet PO SCH (16:25)
[2020-04-21] MEDS: azithromycin 250mg tablet PO SCH (16:25)
[2020-04-21] MEDS: enoxaparin 40mg/0.4ml syringe SQ SCH (16:26)
--- NOTE | 2020-04-21 18:35 | NUR ---
Patient in room ORTHO 4007. I have received report from Aurelia FLORES and had the opportunity to ask questions and assume patient care.
--- NOTE | 2020-04-21 19:45 | NUR ---
Page sent at [phone] PAGER ID: [phone] MESSAGE: Vanda [phone] pt. in 4007 has a sodium of 147. Can we switch fluids and increase rate. pt not drinking enough. No response. Addendum: 04/21/20 at 1950 by Vanda Moe RN Night hospitalist putting in order.
[2020-04-21] MEDS ORDERED: sodium chloride 0.45% 1,000 ML IV SCH (19:50)
[2020-04-22] MEDS: meropenem inj 1 GM in normal saline 100ml IV soln 100 ML IV SCH ×4 (00:41→23:30)
[2020-04-22] MEDS: benzonatate 100mg capsule PO SCH ×4 (00:41→23:30)
[2020-04-22 06:00] VITALS: BP 148/75
--- NOTE | 2020-04-22 06:00 | NUR ---
Patient in room ORTHO 4007. I have received report from Vanda FLORES and had the opportunity to ask questions and assume patient care.
[2020-04-22 06:11] LABS: BASOPHILS # (AUTO) 0.1 X10'3 (0-0.2); BASOPHILS % (AUTO) 0.7 % (0-1); EOSINOPHILS % (AUTO) 0 % (0-6); HEMATOCRIT 33.4 % (35.0-45.0); HEMOGLOBIN 11.4 g/dl (12.0-16.0); LYMPHOCYTES % (AUTO) 9.8 % (21-51); MEAN CORPUSCULAR VOLUME 108.7 FL (78-98); MEAN PLATELET VOLUME 8.9 FL (7.4-10.4); MONOCYTES # (AUTO) 0.8 X10'3 (0-0.9); MONOCYTES % (AUTO) 7.4 % (2-12); NEUTROPHILS # (AUTO) 8.6 X10'3 (1.8-7.7); NEUTROPHILS % (AUTO) 82.1 % (42-75); PLATELET COUNT 271 X10'3 (140-440); RED BLOOD COUNT 3.08 X10'6 (4.20-5.60); RED CELL DISTRIBUTION WIDTH 14.9 % (11.5-14.5); WHITE BLOOD COUNT 10.5 X10'3 (4.5-11.0)
--- NOTE | 2020-04-22 06:27 | NUR ---
Problems reprioritized. Patient report given, questions answered & plan of care reviewed with Marilin FLORES.
[2020-04-22 07:00] LABS: ALANINE AMINOTRANSFERASE 82 U/L (12-78); ALBUMIN 2.1 G/DL (3.4-5.0); ALBUMIN/GLOBULIN RATIO 0.5 (1.1-1.5); ALKALINE PHOSPHATASE 386 IU/L (46-116); ANION GAP 2 (8-16); ASPARTATE AMINO TRANSFERASE 123 U/L (10-37); BLOOD UREA NITROGEN 19 MG/DL (7-18); BUN/CREATININE RATIO 28.4 (6.6-38.0); CALCIUM 8.3 MG/DL (8.5-10.1); CHLORIDE 109 MMOL/L (99-107); CREATININE 0.67 MG/DL (0.40-0.90); GLUCOSE 118 MG/DL (70-104); MAGNESIUM 1.6 MG/DL (1.5-2.4); PHOSPHORUS 3.7 MG/DL (2.3-4.5); SODIUM 145 MMOL/L (135-145); TOTAL CARBON DIOXIDE 34.1 MMOL/L (24-32); TOTAL PROTEIN 6.2 G/DL (6.4-8.2); eGFR 88 ML/MIN
[2020-04-22] MEDS: enoxaparin 40mg/0.4ml syringe SQ SCH (07:34)
[2020-04-22] MEDS: methylPREDNISolone sod succ/PF 40mg inj. IV SCH (07:35)
[2020-04-22] MEDS: metoprolol succinate 25mg (24-HOUR) SR. Tablet PO SCH (07:35)
[2020-04-22] MEDS: folic acid 0.4mg tablet PO SCH (07:35)
[2020-04-22] MEDS: furosemide 40mg/4ml inj IV SCH ×2 (07:35→19:58)
[2020-04-22] MEDS: azithromycin 250mg tablet PO SCH (07:35)
[2020-04-22] MEDS: lactobacillus rhamnosus 10,000 MMU CELLS/CAPSULE PO SCH ×2 (07:35→19:58)
[2020-04-22] MEDS: pantoprazole 40 MG vial IV SCH (07:36)
[2020-04-22] MEDS: K and/or MAG REPLACEMENT MC SCH ×2 (08:00→20:00)
[2020-04-22] MEDS: lactose-reduced food (Ensure High Protein) 237ml bottle PO SCH ×3 (08:00→18:00)
[2020-04-22] MEDS: ipratropium/albuterol 3ml nebule NEB PRN (09:20)
--- NOTE | 2020-04-22 09:32 | NUR ---
Pt took SVN treatment off after a few minutes. stating that, "that is enough" no post tx done as pt got up from chair and walked herself to bathroom. No respiratory distress noted Addendum: 04/22/20 at 0933 by Nancy Weller RT Amended: Links added.
[2020-04-22] MEDS: HYDROcodone/acetaminophen 5mg/325mg tablet PO PRN ×2 (09:49→23:29)
[2020-04-22 11:00] VITALS: BP 162/80
[2020-04-22] MEDS ORDERED: predniSONE 20 mg tablet PO ONE (11:30)
--- NOTE | 2020-04-22 11:51 | NUR ---
Initial: Pt admit w/ possible aspiration PNA, etoh abuse, acute COPD exacerbation, fatty liver w/ hepatomegaly per MD. S/p EGD showing gastritis possible gastric varix w/ biopsy taken for H. Pylori per MD note. 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 RN reports pt possibly to receive stent. Noted MCV 108.7 and etoh hx; RD [email or web address] MD regarding routine thiamin, folic, MVI given etoh hx. Small BM's noted daily this admit; RN reports significant BM this AM so likely no constipation. Received PRN colace 04/19. PO 50-75% avg ensure high protein w/ decreased PO 0-25% avg meals past 2 days down from 50-75% previous. Will continue to monitor for additional ONS needs this admit. Rec: 1. continue heart healthy/mechanical soft/grind all/thin liquids per BOX SPRING FRAME BUILDER/MD 2. ensure high protein TIDWM per MD 3. bowel care per rx 4. wt per rx Addendum: 04/22/20 at [address] Amended: Links added.
[2020-04-22] MEDS: ipratropium/albuterol 3ml nebule NEB SCH ×2 (15:21→21:05)
[2020-04-22 18:00] VITALS: BP 157/79
--- NOTE | 2020-04-22 18:24 | NUR ---
Problems reprioritized. Patient report given, questions answered & plan of care reviewed with Vanda FLORES and Ermelinda FLORES.
--- NOTE | 2020-04-22 18:44 | NUR ---
Patient in room ORTHO 4007. I have received report from Marilin FLORES and had the opportunity to ask questions and assume patient care.
[2020-04-22] MEDS: pantoprazole 40mg Tablet.DR PO SCH (19:58)
[2020-04-22] MEDS ORDERED: pantoprazole 40 MG vial IV SCH (20:00)
[2020-04-22] MEDS ORDERED: methylPREDNISolone sod succ/PF 40mg inj. IV SCH (20:00)
[2020-04-22 22:00] VITALS: BP 148/75
[2020-04-22] MEDS: LORazepam 1 MG tablet PO PRN (23:31)
[2020-04-23 06:00] VITALS: BP 139/65
--- NOTE | 2020-04-23 06:15 | NUR ---
Problems reprioritized. Patient report given, questions answered & plan of care reviewed with Marilin FLORES.
--- NOTE | 2020-04-23 06:20 | NUR ---
Patient in room ORTHO 4007. I have received report from Vanda FLORES and Ermelinda FLORES and had the opportunity to ask questions and assume patient care.
--- NOTE | 2020-04-23 07:27 | NUR ---
PAGER ID: [phone] MESSAGE: RE: [phone] Erin Flores C/O chest pain and tightness 11/24. Did EKG, do you want to come look at it? Patient also requiring oxygen now 3L. ALHAJI [id number]
[2020-04-23] MEDS: LORazepam 1 MG tablet PO PRN ×2 (07:41→20:36)
[2020-04-23] MEDS: K and/or MAG REPLACEMENT MC SCH ×2 (08:00→20:00)
[2020-04-23] MEDS: lactose-reduced food (Ensure High Protein) 237ml bottle PO SCH ×3 (08:00→18:00)
[2020-04-23] MEDS: benzonatate 100mg capsule PO SCH ×3 (08:00→23:26)
--- NOTE | 2020-04-23 08:00 | NUR ---
At 0715, patient complained of shortness of breath and chest pain, vital signs showed that O2 saturation was 85% on room air. 2L nasal cannula was put on patient and her saturation went up to 95%. BP 150/72 HR 84. EKG was obtained and read by E.R. which showed sinus rhythm and No stemi. Dr. Wick was notified and troponins were ordered. First troponin was negative.
[2020-04-23] MEDS: guaiFENesin/codeine phos 10ml UD oral syrup PO PRN (08:01)
[2020-04-23] MEDS: lactobacillus rhamnosus 10,000 MMU CELLS/CAPSULE PO SCH ×2 (08:03→19:34)
[2020-04-23] MEDS: meropenem inj 1 GM in normal saline 100ml IV soln 100 ML IV SCH ×3 (08:03→23:26)
[2020-04-23] MEDS: pantoprazole 40mg Tablet.DR PO SCH ×2 (08:03→19:34)
[2020-04-23] MEDS: enoxaparin 40mg/0.4ml syringe SQ SCH (08:03)
[2020-04-23] MEDS: furosemide 40mg/4ml inj IV SCH ×2 (08:04→19:33)
[2020-04-23] MEDS: folic acid 0.4mg tablet PO SCH (08:04)
[2020-04-23] MEDS: predniSONE 20 mg tablet PO SCH (08:04)
[2020-04-23] MEDS: metoprolol succinate 25mg (24-HOUR) SR. Tablet PO SCH (08:04)
[2020-04-23] MEDS: ipratropium/albuterol 3ml nebule NEB SCH ×3 (08:56→20:50)
[2020-04-23 10:00] VITALS: BP 115/54
--- NOTE | 2020-04-23 15:24 | NUR ---
O2 Sat at rest on room air:_93_% If below 89%: Recovery O2 Sat at rest on ___LPM:___%:___% via (mask/nasal cannula, etc..) No further documentation is necessary. If O2 Sat did not drop below 89% on room air,ambulate patient on room air. O2 Sat while ambulating on room air:_85_% Recovery O2 Sat while ambulating on _RA__LPM:_95__% No further documentation is necessary. If patient does not drop below 89% while ambulating, he/she does not qualify for home O2.
[2020-04-23 18:00] VITALS: BP 136/53
--- NOTE | 2020-04-23 18:28 | NUR ---
Problems reprioritized. Patient report given, questions answered & plan of care reviewed with Ashley FLORES.
[2020-04-23] MEDS: HYDROcodone/acetaminophen 5mg/325mg tablet PO PRN (19:34)
[2020-04-23] MEDS: morphine 2 MG/ML inj. syringe IV PRN (20:37)
[2020-04-23 22:00] VITALS: BP 141/68
[2020-04-24] MEDS: morphine 2 MG/ML inj. syringe IV PRN ×2 (00:37→08:31)
[2020-04-24 05:27] LABS: BASOPHILS % (AUTO) 0.3 % (0-1); EOSINOPHILS # (AUTO) 0.1 X10'3 (0-0.9); EOSINOPHILS % (AUTO) 0.6 % (0-6); HEMATOCRIT 31.1 % (35.0-45.0); HEMOGLOBIN 10.5 g/dl (12.0-16.0); LYMPHOCYTES # (AUTO) 1.9 X10'3 (1.1-4.8); LYMPHOCYTES % (AUTO) 21.7 % (21-51); MEAN CORPUSCULAR HGB CONC 33.8 g/dL (33.0-36.5); MEAN CORPUSCULAR VOLUME 106.6 FL (78-98); MEAN PLATELET VOLUME 9.3 FL (7.4-10.4); MONOCYTES # (AUTO) 0.8 X10'3 (0-0.9); MONOCYTES % (AUTO) 8.7 % (2-12); NEUTROPHILS # (AUTO) 6.2 X10'3 (1.8-7.7); NEUTROPHILS % (AUTO) 68.7 % (42-75); PLATELET COUNT 233 X10'3 (140-440); RED BLOOD COUNT 2.92 X10'6 (4.20-5.60); RED CELL DISTRIBUTION WIDTH 14.8 % (11.5-14.5)
[2020-04-24 05:51] LABS: ANION GAP 2 (8-16); BLOOD UREA NITROGEN 13 MG/DL (7-18); BUN/CREATININE RATIO 19.7 (6.6-38.0); CALCIUM 7.9 MG/DL (8.5-10.1); CHLORIDE 106 MMOL/L (99-107); CREATININE 0.66 MG/DL (0.40-0.90); GLUCOSE 74 MG/DL (70-104); MAGNESIUM 1.4 MG/DL (1.5-2.4); SODIUM 143 MMOL/L (135-145); TOTAL CARBON DIOXIDE 34.6 MMOL/L (24-32); eGFR 90 ML/MIN
[2020-04-24 06:00] VITALS: BP 118/72
[2020-04-24 06:00] LABS: POTASSIUM 2.8 MMOL/L (3.5-5.1)
[2020-04-24] MEDS ORDERED: magnesium 4gm in 100ml NS 100 ML IV PRN (06:05)
[2020-04-24] MEDS ORDERED: magnesium Cl slow-release 64mg tablet PO PRN (06:05)
[2020-04-24] MEDS ORDERED: potassium Cl 20 mEq SR tablet PO PRN ×2 (06:05)
[2020-04-24] MEDS ORDERED: potassium CL 10mEq/100ml bag 100 ML IV PRN (06:05)
--- NOTE | 2020-04-24 06:24 | NUR ---
Problems reprioritized. Patient report given, questions answered & plan of care reviewed with SANDRA Saez.
[2020-04-24] MEDS: K and/or MAG REPLACEMENT MC SCH (07:19)
[2020-04-24] MEDS ORDERED: K and/or MAG REPLACEMENT MC SCH (08:00)
[2020-04-24] MEDS: furosemide 40mg/4ml inj IV SCH (08:00)
[2020-04-24] MEDS: lactobacillus rhamnosus 10,000 MMU CELLS/CAPSULE PO SCH (08:27)
[2020-04-24] MEDS: meropenem inj 1 GM in normal saline 100ml IV soln 100 ML IV SCH (08:27)
[2020-04-24] MEDS: pantoprazole 40mg Tablet.DR PO SCH (08:29)
[2020-04-24] MEDS: benzonatate 100mg capsule PO SCH (08:29)
[2020-04-24] MEDS: folic acid 0.4mg tablet PO SCH (08:29)
[2020-04-24] MEDS: metoprolol succinate 25mg (24-HOUR) SR. Tablet PO SCH (08:29)
[2020-04-24] MEDS: enoxaparin 40mg/0.4ml syringe SQ SCH (08:29)
[2020-04-24] MEDS: predniSONE 20 mg tablet PO SCH (08:30)
[2020-04-24] MEDS: lactose-reduced food (Ensure High Protein) 237ml bottle PO SCH ×2 (08:31→13:37)
[2020-04-24] MEDS: ondansetron/PF 4mg/2ml inj IV PRN (08:49)
[2020-04-24] MEDS: ipratropium/albuterol 3ml nebule NEB SCH ×2 (09:12→14:42)
[2020-04-24] MEDS ORDERED: POTASSIUM BICARB 20meq eff tab 20 MEQ TABLET.EFF PO PRN ×2 (10:14)
[2020-04-24] MEDS ORDERED: magnesium 2GM in 50ml NS 50 ML IV PRN (10:45)
[2020-04-24] MEDS: HYDROcodone/acetaminophen 5mg/325mg tablet PO PRN (11:14)
[2020-04-24 13:49] LABS: MAGNESIUM 2.1 MG/DL (1.5-2.4); POTASSIUM 4.5 MMOL/L (3.5-5.1)
[2020-04-24] MEDS ORDERED: PANT40TA4 PO (15:25)
[2020-04-24] MEDS ORDERED: FURO40TA4 PO (15:25)
[2020-04-24] MEDS ORDERED: POTA20TA19 PO (15:25)
[2020-04-24] MEDS ORDERED: PRED5TAB PO (15:25)
== END 2020-04-24 16:05 | disposition home or self-care (01) | DRG 178 ==
LOC: ER 21:53 → EEVIPCON 04-17 01:24 → ED HOLD 04-17 01:24 → ORTHO 4S 04-17 03:48
PROVIDERS: ADMIT Family Medicine; ATTEND Family Medicine
PROC: CB121ZZ Planar Nuclear Medicine Imaging of Lungs and Bronchi using Technetium 99m (Tc-99m) (ICD-10-PCS; 2020-04-18)
PROC: 0DB68ZX Excision of Stomach, Via Natural or Artificial Opening Endoscopic, Diagnostic (ICD-10-PCS; principal; 2020-04-21)
DX: J69.0 Pneumonitis due to inhalation of food and vomit (principal); I69.354 Hemiplegia and hemiparesis following cerebral infarction affecting left non-dominant side; N39.0 Urinary tract infection, site not specified; Z16.24 Resistance to multiple antibiotics; J44.1 Chronic obstructive pulmonary disease with (acute) exacerbation; K52.9 Noninfective gastroenteritis and colitis, unspecified; F17.200 Nicotine dependence, unspecified, uncomplicated; F32.9 Major depressive disorder, single episode, unspecified; I10 Essential (primary) hypertension; K29.70 Gastritis, unspecified, without bleeding; R29.6 Repeated falls; Y95 Nosocomial condition; Z20.828 Contact with and (suspected) exposure to other viral communicable diseases; Z96.642 Presence of left artificial hip joint; G47.30 Sleep apnea, unspecified; G89.29 Other chronic pain; K83.8 Other specified diseases of biliary tract; K70.0 Alcoholic fatty liver; B96.20 Unspecified Escherichia coli [E. coli] as the cause of diseases classified elsewhere; I86.4 Gastric varices; F10.10 Alcohol abuse, uncomplicated; W01.0XXA Fall on same level from slipping, tripping and stumbling without subsequent striking against object, initial encounter; Z80.1 Family history of malignant neoplasm of trachea, bronchus and lung; Z82.49 Family history of ischemic heart disease and other diseases of the circulatory system; Z86.711 Personal history of pulmonary embolism; Z86.718 Personal history of other venous thrombosis and embolism; Z87.01 Personal history of pneumonia (recurrent); Z87.440 Personal history of urinary (tract) infections; Z87.442 Personal history of urinary calculi; Z90.49 Acquired absence of other specified parts of digestive tract; Z91.041 Radiographic dye allergy status; Z91.19 Patient's noncompliance with other medical treatment and regimen; Z95.0 Presence of cardiac pacemaker; Y93.89 Activity, other specified; Y92.89 Other specified places as the place of occurrence of the external cause; Y99.8 Other external cause status; Z79.899 Other long term (current) drug therapy; Z71.41 Alcohol abuse counseling and surveillance of alcoholic
CPT/HCPCS: 36415; 43239; 71045; 71250; 73564; 74176; 76937; 78582; 80048; 80053; 80305; 80320; 81001; 82140; 82272; 82607; 83605; 83615; 83690; 83735; 83880; 84100; 84132; 84145; 84484; 85025; 85379; 87040; 87045; 87046; 87070; 87081; 87635; 89055; 92508; 92616; 93005; 93970; 93975; 94640; 94760; 97110; 97116; 97161; 97530; 97535; 99152; 99285; A4620; A9539; A9540; C9113; G0378; J0780; J1650; J1940; J2060; J2185; J2250; J2270; J2405; J2920; J2930; J3010; J3475; J7030; J7040; J7512

== ENCOUNTER 2020-05-05 12:45 | Emergency (ER) | payer BC ==
[~2020-05-05] VITALS: Ht 177.8 cm; Wt 91.8 kg
[~2020-05-05 12:45] MED LIST changes: -ALPR0.5T8 PO; -BUDE10.2 INH; -DILT360T13 PO; +FOLI0.4T14 PO; -FOLI0.4T2 PO; +FURO40TA4 PO; +HYDR-3965 PO; -HYDR-4383 PO; -LACT1CAP26 PO; +LORA-269 PO; -MULT-25 PO; -PANT20TA3 PO; +PANT40TA4 PO; -POTA10TA36 PO; +POTA20TA19 PO; +PRED5TAB PO; -PROM25TA14 PO; -THIA50TA10 PO; -UMEC62.5 PO
[2020-05-05 13:27] VITALS: BP 115/74
[2020-05-05 13:36] LABS: BASOPHILS # (AUTO) 0.1 X10'3 (0-0.2); BASOPHILS % (AUTO) 0.9 % (0-1); EOSINOPHILS % (AUTO) 0.4 % (0-6); HEMATOCRIT 38.5 % (35.0-45.0); HEMOGLOBIN 12.9 g/dl (12.0-16.0); LYMPHOCYTES # (AUTO) 2.2 X10'3 (1.1-4.8); LYMPHOCYTES % (AUTO) 22.1 % (21-51); MEAN CORPUSCULAR HEMOGLOBIN 35.7 PG (27.0-31.0); MEAN CORPUSCULAR HGB CONC 33.4 g/dL (33.0-36.5); MEAN CORPUSCULAR VOLUME 106.7 FL (78-98); MEAN PLATELET VOLUME 9.4 FL (7.4-10.4); MONOCYTES % (AUTO) 9.4 % (2-12); NEUTROPHILS # (AUTO) 6.8 X10'3 (1.8-7.7); NEUTROPHILS % (AUTO) 67.2 % (42-75); PLATELET COUNT 182 X10'3 (140-440); RED BLOOD COUNT 3.61 X10'6 (4.20-5.60); RED CELL DISTRIBUTION WIDTH 14.7 % (11.5-14.5); WHITE BLOOD COUNT 10.2 X10'3 (4.5-11.0)
[2020-05-05 13:51] LABS: ALANINE AMINOTRANSFERASE 41 U/L (12-78); ALBUMIN 3.1 G/DL (3.4-5.0); ALBUMIN/GLOBULIN RATIO 0.7 (1.1-1.5); ALKALINE PHOSPHATASE 241 IU/L (46-116); ANION GAP 10 (8-16); ASPARTATE AMINO TRANSFERASE 45 U/L (10-37); BILIRUBIN,TOTAL 1.2 MG/DL (0.1-1.0); BLOOD UREA NITROGEN 6 MG/DL (7-18); BUN/CREATININE RATIO 8.5 (6.6-38.0); CALCIUM 8.9 MG/DL (8.5-10.1); CHLORIDE 106 MMOL/L (99-107); CREATININE 0.71 MG/DL (0.40-0.90); GLUCOSE 122 MG/DL (70-104); POTASSIUM 3.9 MMOL/L (3.5-5.1); SODIUM 142 MMOL/L (135-145); TOTAL PROTEIN 7.5 G/DL (6.4-8.2); eGFR 83 ML/MIN
[2020-05-05 13:57] LABS: MAGNESIUM 1.5 MG/DL (1.5-2.4)
== END 2020-05-05 14:43 | disposition home or self-care (01) ==
LOC: EEVIPCON 12:46 → ER 12:46
DX: R53.83 Other fatigue (principal); R06.02 Shortness of breath; R42 Dizziness and giddiness; R19.7 Diarrhea, unspecified; I10 Essential (primary) hypertension; J44.9 Chronic obstructive pulmonary disease, unspecified; Z86.73 Personal history of transient ischemic attack (TIA), and cerebral infarction without residual deficits; Z87.01 Personal history of pneumonia (recurrent); Z86.711 Personal history of pulmonary embolism; Z87.442 Personal history of urinary calculi; G89.29 Other chronic pain; Z90.89 Acquired absence of other organs; Z90.49 Acquired absence of other specified parts of digestive tract; Z95.0 Presence of cardiac pacemaker; Z98.890 Other specified postprocedural states; Z72.89 Other problems related to lifestyle; Z88.8 Allergy status to other drugs, medicaments and biological substances; Z79.899 Other long term (current) drug therapy
CPT/HCPCS: 36415; 80053; 83735; 83880; 84484; 85025; 93005; 99284

== ENCOUNTER 2020-05-13 15:49 | Emergency (ER) | payer BC ==
[~2020-05-13] VITALS: Ht 172.7 cm; Wt 88.0 kg
--- NOTE | 2020-05-13 16:20 | NUR ---
BACK FROM CT.
[2020-05-13] MEDS ORDERED: HYDROcodone/acetaminophen 5mg/325mg tablet PO ONE (16:35)
[2020-05-13] MEDS ORDERED: ondansetron 4mg rapidly disintigrating tab PO ONE (16:35)
[2020-05-13 16:57] LABS: BASOPHILS % (AUTO) 0.5 % (0-1); EOSINOPHILS # (AUTO) 0.3 X10'3 (0-0.9); EOSINOPHILS % (AUTO) 3.3 % (0-6); HEMATOCRIT 34.3 % (35.0-45.0); HEMOGLOBIN 11.5 g/dl (12.0-16.0); LYMPHOCYTES # (AUTO) 2.8 X10'3 (1.1-4.8); LYMPHOCYTES % (AUTO) 33.5 % (21-51); MEAN CORPUSCULAR HEMOGLOBIN 35.6 PG (27.0-31.0); MEAN CORPUSCULAR HGB CONC 33.5 g/dL (33.0-36.5); MEAN CORPUSCULAR VOLUME 106.3 FL (78-98); MEAN PLATELET VOLUME 9.3 FL (7.4-10.4); MONOCYTES # (AUTO) 1.1 X10'3 (0-0.9); NEUTROPHILS # (AUTO) 4.2 X10'3 (1.8-7.7); NEUTROPHILS % (AUTO) 49.7 % (42-75); PLATELET COUNT 231 X10'3 (140-440); RED BLOOD COUNT 3.22 X10'6 (4.20-5.60); RED CELL DISTRIBUTION WIDTH 13.6 % (11.5-14.5); WHITE BLOOD COUNT 8.4 X10'3 (4.5-11.0)
[2020-05-13 17:08] LABS: PARTIAL THROMBOPLASTIN TIME 29 SECONDS (22-32)
[2020-05-13 17:11] LABS: ALANINE AMINOTRANSFERASE 20 U/L (12-78); ALBUMIN 2.8 G/DL (3.4-5.0); ALBUMIN/GLOBULIN RATIO 0.7 (1.1-1.5); ALKALINE PHOSPHATASE 171 IU/L (46-116); ANION GAP 10 (8-16); ASPARTATE AMINO TRANSFERASE 43 U/L (10-37); BILIRUBIN,TOTAL 0.5 MG/DL (0.1-1.0); BLOOD UREA NITROGEN 5 MG/DL (7-18); BUN/CREATININE RATIO 5.1 (6.6-38.0); CALCIUM 8.6 MG/DL (8.5-10.1); CHLORIDE 106 MMOL/L (99-107); CREATININE 0.98 MG/DL (0.40-0.90); GLUCOSE 114 MG/DL (70-104); POTASSIUM 3.5 MMOL/L (3.5-5.1); SODIUM 140 MMOL/L (135-145); TOTAL CARBON DIOXIDE 24.5 MMOL/L (24-32); TOTAL PROTEIN 6.9 G/DL (6.4-8.2); eGFR 57 ML/MIN
[2020-05-13] MEDS ORDERED: morphine 4 MG/ML inj SYRINge IV ONE (18:05)
[2020-05-13 19:53] VITALS: BP 123/69
== END 2020-05-13 20:17 | disposition home or self-care (01) ==
LOC: EEVIPCON 15:50 → ER 15:50
DX: H53.8 Other visual disturbances (principal); R51 Headache; R53.1 Weakness; I10 Essential (primary) hypertension; J44.9 Chronic obstructive pulmonary disease, unspecified; G89.29 Other chronic pain; Z86.73 Personal history of transient ischemic attack (TIA), and cerebral infarction without residual deficits; Z87.01 Personal history of pneumonia (recurrent); Z86.711 Personal history of pulmonary embolism; Z87.442 Personal history of urinary calculi; Z90.89 Acquired absence of other organs; Z90.49 Acquired absence of other specified parts of digestive tract; Z95.0 Presence of cardiac pacemaker; Z98.890 Other specified postprocedural states; Z72.89 Other problems related to lifestyle; Z88.8 Allergy status to other drugs, medicaments and biological substances; Z91.018 Allergy to other foods; Z79.899 Other long term (current) drug therapy
CPT/HCPCS: 36415; 70450; 71045; 80053; 85025; 85610; 85730; 93005; 96374; 99285; J2270

== ENCOUNTER 2020-07-18 11:02 | Outpatient (CLI) | payer OTHER ==
[~2020-07-18 11:02] MED LIST changes: -FURO40TA4 PO; -PANT40TA4 PO; +PANT40TA54 PO; -POTA20TA19 PO
== END 2020-07-19 23:59 | disposition home or self-care (01) ==
LOC: LAB 11:02 → EEVIPCON 11:02 → LAB 07-19 23:59
PROVIDERS: ATTEND Internal Medicine Infectious Disease
DX: Z20.828 Contact with and (suspected) exposure to other viral communicable diseases (principal)
CPT/HCPCS: 36415

== ENCOUNTER 2020-08-16 07:23 | Emergency (ER) | payer BC, OTHER ==
[~2020-08-16] VITALS: Ht 177.8 cm; Wt 87.7 kg
[2020-08-16 07:28] VITALS: BP 159/85
[2020-08-16] MEDS ORDERED: LIDOcaine 5% patch TP SCH (08:10)
[2020-08-16] MEDS ORDERED: ketorolac trometh. 30mg/ml inj. IM ONE (08:10)
[2020-08-16] MEDS ORDERED: morphine 4 MG/ML inj SYRINge IM ONE (09:00)
[2020-08-16] MEDS ORDERED: LIDO700A32 TOP (09:03)
== END 2020-08-16 09:28 | disposition home or self-care (01) ==
LOC: ER 07:23 → EEVIPCON 07:23 → ER 09:28
DX: S39.012A Strain of muscle, fascia and tendon of lower back, initial encounter (principal); X50.9XXA Other and unspecified overexertion or strenuous movements or postures, initial encounter; Y93.89 Activity, other specified; Y92.89 Other specified places as the place of occurrence of the external cause; Y99.8 Other external cause status
CPT/HCPCS: 72100; 96372; 99284; J1885; J2270

== ENCOUNTER 2020-09-12 16:45 | Inpatient (IN) | payer BC, MEDICARE ==
[~2020-09-12] VITALS: Ht 177.8 cm; Wt 88.6 kg
[~2020-09-12 16:45] MED LIST changes: +LIDO700A32 TOP
[2020-09-12] MEDS ORDERED: ipratropium/albuterol 3ml nebule NEB ONE (16:55)
[2020-09-12] MEDS ORDERED: methylPREDNISolone sod succ 125mg/2ml vial IV ONE (16:55)
[2020-09-12] MEDS ORDERED: albuterol 2.5 MG/3 ML nebule NEB ONE (16:55)
[2020-09-12] MEDS ORDERED: ondansetron/PF 4mg/2ml inj IV ONE (17:25)
[2020-09-12 17:29] LABS: BASOPHILS # (AUTO) 0.1 X10'3 (0-0.2); BASOPHILS % (AUTO) 0.9 % (0-1); EOSINOPHILS # (AUTO) 0.1 X10'3 (0-0.9); EOSINOPHILS % (AUTO) 1.5 % (0-6); HEMATOCRIT 47.5 % (35.0-45.0); HEMOGLOBIN 16.3 g/dl (12.0-16.0); LYMPHOCYTES # (AUTO) 3.5 X10'3 (1.1-4.8); LYMPHOCYTES % (AUTO) 42.6 % (21-51); MEAN CORPUSCULAR HEMOGLOBIN 35.3 PG (27.0-31.0); MEAN CORPUSCULAR HGB CONC 34.2 g/dL (33.0-36.5); MEAN CORPUSCULAR VOLUME 103.1 FL (78-98); MEAN PLATELET VOLUME 8.8 FL (7.4-10.4); MONOCYTES % (AUTO) 11.6 % (2-12); NEUTROPHILS # (AUTO) 3.6 X10'3 (1.8-7.7); NEUTROPHILS % (AUTO) 43.4 % (42-75); PLATELET COUNT 171 X10'3 (140-440); RED BLOOD COUNT 4.61 X10'6 (4.20-5.60); RED CELL DISTRIBUTION WIDTH 15.8 % (11.5-14.5); WHITE BLOOD COUNT 8.2 X10'3 (4.5-11.0)
[2020-09-12] MEDS: morphine 4 MG/ML inj SYRINge IV PRN ×3 (17:29→22:58)
[2020-09-12 17:40] LABS: ALANINE AMINOTRANSFERASE 30 U/L (12-78); ALBUMIN 3.6 G/DL (3.4-5.0); ALBUMIN/GLOBULIN RATIO 0.9 (1.1-1.5); ALKALINE PHOSPHATASE 169 IU/L (46-116); ANION GAP 9 (8-16); ASPARTATE AMINO TRANSFERASE 22 U/L (10-37); BILIRUBIN,TOTAL 0.6 MG/DL (0.1-1.0); BLOOD UREA NITROGEN 6 MG/DL (7-18); BUN/CREATININE RATIO 9.2 (6.6-38.0); CALCIUM 9.1 MG/DL (8.5-10.1); CHLORIDE 107 MMOL/L (99-107); CREATININE 0.65 MG/DL (0.40-0.90); GLUCOSE 87 MG/DL (70-104); POTASSIUM 3.6 MMOL/L (3.5-5.1); SODIUM 144 MMOL/L (135-145); TOTAL CARBON DIOXIDE 28.1 MMOL/L (24-32); TOTAL PROTEIN 7.6 G/DL (6.4-8.2); eGFR > 90 ML/MIN
--- NOTE | 2020-09-12 17:59 | NUR ---
Patient reports improved pain level, 12/25. Dr. Ta notified.
--- NOTE | 2020-09-12 18:30 | NUR ---
dr simpson talking with pt about results and admission. Pt will need serial troponins and he will order an echo. Pt is agreeable to admission, but reports she was hopeful of going home tonight. she requests adtl pain meds.
[2020-09-12] MEDS ORDERED: fentaNYL/PF 50MCG/1 ML 2ML syringe IV ONE (18:35)
[2020-09-12] MEDS ORDERED: albuterol 2.5 MG/3 ML nebule CONTNEB PRN (18:35)
--- NOTE | 2020-09-12 18:36 | NUR ---
verbal received for fentanyl 100 mcg x1 now for pain increasing in her upper chest neck area that radiates to her left shouder
[2020-09-12] MEDS ORDERED: GABA300T25 PO (18:51)
[2020-09-12] MEDS ORDERED: BUDE10.2 INH (18:51)
[2020-09-12] MEDS ORDERED: UMEC62.5 INH (18:51)
--- NOTE | 2020-09-12 18:56 | NUR ---
rt at bedside to begin continuous neb treatment and Bombsight Specialist at bedside for cardiac echo. med rec completed.
[2020-09-12] MEDS ORDERED: magnesium 4gm in 100ml NS 100 ML IV PRN (20:00)
[2020-09-12] MEDS ORDERED: ipratropium/albuterol 3ml nebule NEB PRN (20:00)
[2020-09-12] MEDS ORDERED: enoxaparin 40mg/0.4ml syringe SQ SCH (20:00)
[2020-09-12] MEDS ORDERED: potassium Cl 20 mEq SR tablet PO PRN ×2 (20:00)
[2020-09-12] MEDS ORDERED: ondansetron/PF 4mg/2ml inj IV PRN (20:00)
[2020-09-12] MEDS ORDERED: potassium Cl 40MEQ/1/2NS 520ml 520 ML IV PRN ×2 (20:00)
[2020-09-12] MEDS ORDERED: thiamine inj. 100 MG in normal saline 100ml IV soln 100 ML IV ONE (20:00)
[2020-09-12] MEDS ORDERED: acetaminophen 325mg tablet PO PRN (20:00)
[2020-09-12] MEDS ORDERED: K and/or MAG REPLACEMENT MC SCH (20:00)
[2020-09-12] MEDS ORDERED: magnesium 2GM in 50ml NS 50 ML IV PRN (20:00)
[2020-09-12] MEDS ORDERED: mag hydrox/Alum hydrox/simeth 30ml oral suspension PO PRN (20:00)
[2020-09-12] MEDS ORDERED: LORazepam 2 mg/ml vial IV PRN (20:00)
--- NOTE | 2020-09-12 20:39 | NUR ---
Patient's room air saturation 84% with good wave form. Patient placed on 2L NC and primary RN notified.
--- NOTE | 2020-09-12 22:34 | NUR ---
Received report from SANDRA Scott. Awaiting patient arrival to the floor.
[2020-09-12] MEDS: normal saline 1000ml 1,000 ML IV SCH (22:46)
[2020-09-12] MEDS: methylPREDNISolone sod succ/PF 40mg inj. IV SCH (22:47)
[2020-09-12] MEDS: gabapentin 300mg capsule PO SCH (22:47)
--- NOTE | 2020-09-12 23:20 | NUR ---
Patient arrived to the floor via wheelchair accompanied by PCT. Placed in room 352A. Patient alert and oriented x4, in no apparent distress with even and unlabored respirations on room air. Call light and items of frequent use within reach. Will continue to monitor.
[2020-09-12 23:35] VITALS: BP 174/91
[2020-09-13] MEDS ORDERED: HYDROmorphone inj. 0.5 MG/0.5 ML DISP.SYRIN IV PRN
[2020-09-13] MEDS: HYDROmorphone 1 mg/ml syringe IV PRN ×2 (00:10→04:24)
[2020-09-13] MEDS ORDERED: hydrALAZINE 20mg/ml inj. IV PRN (00:30)
[2020-09-13] MEDS ORDERED: TETanus/Pertussis (Acell)/Diphther VAC/PF (Tdap-Adult) 0.5ml syringe IMVAC ONE (00:30)
[2020-09-13] MEDS: morphine 4 MG/ML inj SYRINge IV PRN ×2 (02:32→09:03)
--- NOTE | 2020-09-13 06:10 | NUR ---
Problems reprioritized. Patient report given, questions answered & plan of care reviewed with SANDRA Monahan.
--- NOTE | 2020-09-13 06:37 | NUR ---
Patient in room SHANNEN 352. I have received report from Shireen FLORES and had the opportunity to ask questions and assume patient care.
[2020-09-13 06:57] LABS: BASOPHILS % (AUTO) 0.7 % (0-1); EOSINOPHILS % (AUTO) 0 % (0-6); HEMATOCRIT 44.2 % (35.0-45.0); HEMOGLOBIN 14.8 g/dl (12.0-16.0); LYMPHOCYTES # (AUTO) 0.6 X10'3 (1.1-4.8); LYMPHOCYTES % (AUTO) 11.4 % (21-51); MEAN CORPUSCULAR HEMOGLOBIN 34.8 PG (27.0-31.0); MEAN CORPUSCULAR HGB CONC 33.6 g/dL (33.0-36.5); MEAN CORPUSCULAR VOLUME 103.8 FL (78-98); MONOCYTES # (AUTO) 0.1 X10'3 (0-0.9); MONOCYTES % (AUTO) 2.2 % (2-12); NEUTROPHILS # (AUTO) 4.7 X10'3 (1.8-7.7); NEUTROPHILS % (AUTO) 85.7 % (42-75); PLATELET COUNT 152 X10'3 (140-440); RED BLOOD COUNT 4.26 X10'6 (4.20-5.60); RED CELL DISTRIBUTION WIDTH 15.5 % (11.5-14.5); WHITE BLOOD COUNT 5.5 X10'3 (4.5-11.0)
[2020-09-13 07:08] LABS: ALANINE AMINOTRANSFERASE 31 U/L (12-78); ALBUMIN 3.3 G/DL (3.4-5.0); ALBUMIN/GLOBULIN RATIO 0.8 (1.1-1.5); ALKALINE PHOSPHATASE 153 IU/L (46-116); ANION GAP 9 (8-16); ASPARTATE AMINO TRANSFERASE 20 U/L (10-37); BILIRUBIN,TOTAL 0.4 MG/DL (0.1-1.0); BLOOD UREA NITROGEN 14 MG/DL (7-18); BUN/CREATININE RATIO 20.6 (6.6-38.0); CHLORIDE 105 MMOL/L (99-107); CREATININE 0.68 MG/DL (0.40-0.90); GLUCOSE 192 MG/DL (70-104); POTASSIUM 4.3 MMOL/L (3.5-5.1); SODIUM 139 MMOL/L (135-145); TOTAL CARBON DIOXIDE 25.3 MMOL/L (24-32); TOTAL PROTEIN 7.2 G/DL (6.4-8.2); eGFR 87 ML/MIN
[2020-09-13 07:11] LABS: AMYLASE 32 U/L (25-115); CHOL/HDL RATIO 2.2 (0.00-4.99); CHOLESTEROL 197 MG/DL (0-200); HDL CHOLESTEROL 90 MG/DL (35-60); LDL CHOLESTEROL 98 MG/DL (50-100); LIPASE < 50 U/L (73-393); MAGNESIUM 1.7 MG/DL (1.5-2.4); PHOSPHORUS 3.8 MG/DL (2.3-4.5); TRIGLYCERIDES 52 MG/DL (20-135)
[2020-09-13 08:00] VITALS: BP 165/70
[2020-09-13] MEDS ORDERED: LIDOcaine 5% patch TP SCH (08:00)
[2020-09-13] MEDS ORDERED: folic acid 1mg/0.2ml inj IV SCH ×2 (08:00→08:53)
[2020-09-13] MEDS ORDERED: thiamine inj. 100 MG, MVI, adult No.4 with vit. K 10 ML in dextrose 5% water 500ml 500 ML IV SCH ×3 (08:00)
--- NOTE | 2020-09-13 08:28 | NUR ---
PAGER ID: [phone] MESSAGE: Erin Flores [phone]- Pt would like to eat, do her lung scan today and lisha as an out pt. Pt is charge nurse AM ED. Nuclear med said lung scan can be done now, lisha has to wait 48hrs after lung test. Thank you. Taniya [phone]
[2020-09-13] MEDS ORDERED: folic acid 1mg tablet PO SCH (08:54)
[2020-09-13] MEDS ORDERED: multivitamins, therapeutics tablet PO SCH (08:55)
[2020-09-13] MEDS ORDERED: thiamine 100mg tablet PO SCH (08:55)
[2020-09-13] MEDS: normal saline 1000ml 1,000 ML IV SCH (09:02)
[2020-09-13] MEDS: gabapentin 300mg capsule PO SCH (09:03)
[2020-09-13] MEDS: methylPREDNISolone sod succ/PF 40mg inj. IV SCH (09:03)
[2020-09-13] MEDS ORDERED: APIX5TAB3 PO (10:40)
[2020-09-13 11:00] VITALS: BP 171/88
--- NOTE | 2020-09-13 12:20 | NUR ---
Pt DC to home with . Pt is A & O x4 and in no apparent distress. Pt verbalizes understanding of all DC orders. Pt states there was no need for Dc teachings other than giving her the package. 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 Pt is going to try to get an order from Dr Hayward her shell plater to get it done. She had already called someone at [facility] de[facility] to schedule it. Pt's IV removed intact. Pt packed her belongings and was walked out to the front where her picked her up. Dr Enriquez did tasted he was going to refer her to get her Mala scan and would take care of the order to get it done.
[2020-09-14] MEDS ORDERED: folic acid 1mg tablet PO SCH (08:00)
[2020-09-14] MEDS ORDERED: LORazepam 2 mg/ml vial IV PRN (20:00)
[2020-09-14] MEDS ORDERED: LORazepam 1 MG tablet PO PRN (20:00)
== END 2020-09-13 12:20 | disposition home or self-care (01) | DRG 191 ==
LOC: ER 16:46 → EEVIPCON 16:46 → ED HOLD 20:26 → SUR 3N 23:05
PROVIDERS: ADMIT Family Medicine; ATTEND Internal Medicine
PROC: 3E0234Z Introduction of Serum, Toxoid and Vaccine into Muscle, Percutaneous Approach (ICD-10-PCS; principal; 2020-09-13)
DX: J44.1 Chronic obstructive pulmonary disease with (acute) exacerbation (principal); D68.59 Other primary thrombophilia; I69.351 Hemiplegia and hemiparesis following cerebral infarction affecting right dominant side; I10 Essential (primary) hypertension; Z96.642 Presence of left artificial hip joint; G47.30 Sleep apnea, unspecified; G89.29 Other chronic pain; R07.9 Chest pain, unspecified; M54.9 Dorsalgia, unspecified; R06.03 Acute respiratory distress; Z79.01 Long term (current) use of anticoagulants; Z79.899 Other long term (current) drug therapy; Z80.1 Family history of malignant neoplasm of trachea, bronchus and lung; Z82.49 Family history of ischemic heart disease and other diseases of the circulatory system; Z82.5 Family history of asthma and other chronic lower respiratory diseases; Z86.711 Personal history of pulmonary embolism; Z87.442 Personal history of urinary calculi; Z87.891 Personal history of nicotine dependence; Z90.49 Acquired absence of other specified parts of digestive tract; Z91.041 Radiographic dye allergy status; Z95.0 Presence of cardiac pacemaker; Z23 Encounter for immunization; Z88.8 Allergy status to other drugs, medicaments and biological substances
CPT/HCPCS: 36415; 71045; 80053; 80061; 82150; 83690; 83735; 83880; 84100; 84484; 85025; 85610; 87081; 90715; 93005; 93306; 93308; 94640; 94760; 96374; 96375; 99285; A7015; G0378; J0360; J1170; J1650; J2270; J2405; J2920; J2930; J3010; J7030

== ENCOUNTER 2021-01-10 11:51 | Inpatient (IN) | payer BC, MEDICARE ==
[~2021-01-10] VITALS: Ht 177.8 cm; Wt 92.3 kg
[~2021-01-10 11:51] MED LIST changes: +APIX5TAB3 PO; +BUDE10.2 INH; -FOLI0.4T14 PO; +GABA300T25 PO; -HYDR-3965 PO; -HYDR-3972 PO; -LORA-269 PO; -MAGN400C PO; -METO-395 PO; -PANT40TA54 PO; -PRED5TAB PO; +UMEC62.5 INH
[2021-01-10 12:34] LABS: BASOPHILS # (AUTO) 0.1 X10'3 (0-0.2); BASOPHILS % (AUTO) 0.6 % (0-1); EOSINOPHILS # (AUTO) 0.1 X10'3 (0-0.9); HEMATOCRIT 45.6 % (35.0-45.0); HEMOGLOBIN 15.4 g/dl (12.0-16.0); LYMPHOCYTES # (AUTO) 2.8 X10'3 (1.1-4.8); LYMPHOCYTES % (AUTO) 27.1 % (21-51); MEAN CORPUSCULAR HEMOGLOBIN 35.8 PG (27.0-31.0); MEAN CORPUSCULAR HGB CONC 33.7 g/dL (33.0-36.5); MEAN CORPUSCULAR VOLUME 106.3 FL (78-98); MEAN PLATELET VOLUME 8.9 FL (7.4-10.4); MONOCYTES % (AUTO) 9.7 % (2-12); NEUTROPHILS # (AUTO) 6.4 X10'3 (1.8-7.7); NEUTROPHILS % (AUTO) 61.6 % (42-75); PLATELET COUNT 160 X10'3 (140-440); RED BLOOD COUNT 4.29 X10'6 (4.20-5.60); RED CELL DISTRIBUTION WIDTH 13.3 % (11.5-14.5); WHITE BLOOD COUNT 10.4 X10'3 (4.5-11.0)
[2021-01-10 12:43] LABS: ALANINE AMINOTRANSFERASE 28 U/L (12-78); ALBUMIN 3.7 G/DL (3.4-5.0); ALKALINE PHOSPHATASE 171 IU/L (46-116); ANION GAP 9 (8-16); ASPARTATE AMINO TRANSFERASE 28 U/L (10-37); BILIRUBIN,TOTAL 0.7 MG/DL (0.1-1.0); BLOOD UREA NITROGEN 14 MG/DL (7-18); BUN/CREATININE RATIO 17.5 (6.6-38.0); CALCIUM 9.2 MG/DL (8.5-10.1); CHLORIDE 105 MMOL/L (99-107); GLUCOSE 141 MG/DL (70-104); POTASSIUM 4.5 MMOL/L (3.5-5.1); SODIUM 143 MMOL/L (135-145); TOTAL CARBON DIOXIDE 29.5 MMOL/L (24-32); TOTAL PROTEIN 7.5 G/DL (6.4-8.2); eGFR 72 ML/MIN
[2021-01-10 12:50] LABS: MAGNESIUM 1.8 MG/DL (1.5-2.4)
[2021-01-10] MEDS ORDERED: ondansetron/PF 4mg/2ml inj IV ONE (12:55)
[2021-01-10] MEDS ORDERED: morphine 4 MG/ML inj SYRINge IV ONE (12:55)
[2021-01-10] MEDS ORDERED: hydrALAZINE 20mg/ml inj. IV ONE (13:25)
[2021-01-10 14:16] LABS: GLUCOSE, URINE NEGATIVE (Neg); KETONES,URINE NEGATIVE (Neg); LEUKOCYTE ESTERASE ,URINE NEGATIVE (Neg); NITRITES, URINE NEGATIVE (Neg); OCCULT BLOOD,URINE NEGATIVE (Neg); PROTEIN,URINE NEGATIVE (Neg)
[2021-01-10] MEDS ORDERED: GABA300C PO (14:22)
[2021-01-10] MEDS ORDERED: DILT360T13 PO (14:23)
[2021-01-10 14:26] LABS: UA COLLECTION TYPE CLN CATCH MIDSTREAM
[2021-01-10 14:27] LABS: CLARITY,URINE SLIGHTLY CLOUDY (Clear); COLOR,URINE DARK YELLOW (Yellow)
[2021-01-10 14:28] LABS: BACTERIA,URINE FEW /HPF (Neg); MUCUS STRANDS MANY /LPF (Neg); RBC,URINE NONE SEEN /HPF (0-2); SQUAMOUS EPITHELIAL CELL,UR MODERATE /LPF (FEW); WBC,URINE 0-4 /HPF (0-4)
--- NOTE | 2021-01-10 15:20 | NUR ---
TC FROM JUDI IN REGARDS TO PACEMAKER INTERROGATION. JUDI STATES HE NOTICED PERIODS OF ATRIAL TACHYCARDIA AND ATRIAL FLUTTER WITH ATRIAL RATE 120-190. VENTRICULAR RATE IS 120, COMPATIBLE WITH PATIENT'S PRESENT HEART RATE OF 106-111.
[2021-01-10] MEDS ORDERED: gabapentin 300mg capsule PO PRN (15:30)
[2021-01-10] MEDS ORDERED: albuterol 2.5 MG/3 ML nebule NEB PRN (15:30)
[2021-01-10] MEDS ORDERED: magnesium hydroxide 30ml (MOM) UD suspension PO PRN (15:35)
[2021-01-10] MEDS: normal saline 1000ml 1,000 ML IV SCH (15:35)
[2021-01-10] MEDS ORDERED: HYDROcodone/acetaminophen 5mg/325mg tablet PO PRN (15:35)
[2021-01-10] MEDS ORDERED: mag hydrox/Alum hydrox/simeth 30ml oral suspension PO PRN (15:35)
[2021-01-10] MEDS ORDERED: magnesium 2GM in 50ml NS 50 ML IV PRN (15:35)
[2021-01-10] MEDS ORDERED: HYDROcodone/acetaminophen 10/325mg tab PO PRN (15:35)
[2021-01-10] MEDS ORDERED: magnesium Cl slow-release 64mg tablet PO PRN (15:35)
[2021-01-10] MEDS ORDERED: potassium Cl 20 mEq SR tablet PO PRN ×2 (15:35)
[2021-01-10] MEDS ORDERED: diphenhydrAMINE 25mg capsule PO PRN (15:35)
[2021-01-10] MEDS ORDERED: potassium Cl 40MEQ/1/2NS 520ml 520 ML IV PRN ×2 (15:35)
[2021-01-10] MEDS ORDERED: ondansetron/PF 4mg/2ml inj IV PRN (15:35)
[2021-01-10] MEDS ORDERED: bisacodyl 10mg suppository rectal RC PRN (15:35)
[2021-01-10] MEDS ORDERED: acetaminophen 650mg rectal suppository RC PRN (15:35)
[2021-01-10] MEDS ORDERED: acetaminophen 325mg tablet PO PRN ×2 (15:35)
[2021-01-10] MEDS ORDERED: morphine 2 MG/ML inj. syringe IV PRN ×2 (15:35)
[2021-01-10] MEDS ORDERED: magnesium 4gm in 100ml NS 100 ML IV PRN (15:35)
[2021-01-10] MEDS ORDERED: hydrALAZINE 20mg/ml inj. IV PRN (15:55)
[2021-01-10] MEDS ORDERED: ipratropium 0.5 MG/2.5ML nebule IH SCH (16:17)
[2021-01-10 16:21] LABS: HEMOGLOBIN A1C 5.8 % (4.5-6.2)
[2021-01-10 16:30] LABS: CHOL/HDL RATIO 2.1 (0.00-4.99); CHOLESTEROL 206 MG/DL (0-200); ETHANOL < 0.010 GM/DL (0.0-0.010); HDL CHOLESTEROL 98 MG/DL (35-60); LDL CHOLESTEROL 92 MG/DL (50-100); TRIGLYCERIDES 59 MG/DL (20-135)
--- NOTE | 2021-01-10 16:51 | NUR ---
Patient in room ED 16. I have received report from cielo,race engine builder and had the opportunity to ask questions and assume patient care.
[2021-01-10] MEDS: amLODIPine 5mg tablet PO SCH (16:55)
[2021-01-10] MEDS: metoprolol succinate 25mg (24-HOUR) SR. Tablet PO SCH (16:55)
[2021-01-10 17:30] VITALS: BP 152/67
--- NOTE | 2021-01-10 17:30 | NUR ---
RECEIVED PT INTO ROOM 318,ORIENTED TO SURROUNDINGS,PT ABLE TO WALK FROM GURNEY TO BED,vss,PT C/O HEADACHE, MEDICATED WITH TYLENOL PO, SINUS TACH ON PORTABLE MONITER, SAO2 ON R/A =96%, few scattered crackles at bilat posterior lung bases, iv patent to lfa, ns @ 50/hr started,pt aware to call for assist, bsc @ bedside
[2021-01-10 18:00] VITALS: BP 166/69
--- NOTE | 2021-01-10 18:20 | NUR ---
Problems reprioritized. Patient report given, questions answered & plan of care reviewed with fercho maldonado.
[2021-01-10] MEDS: heparin, porcine 5000 units/ml vial SQ SCH (19:48)
[2021-01-10 20:00] VITALS: BP 152/66
[2021-01-10] MEDS ORDERED: non-formulary drug (Budesonide/Formoterol Fumarate (Symbicort 160-4.5 Mcg Inhaler) 2 PUFF) INH SCH (20:00)
[2021-01-10] MEDS: K and/or MAG REPLACEMENT MC SCH (20:00)
[2021-01-10 20:01] VITALS: BP 154/70
[2021-01-10 20:02] VITALS: BP 157/72
[2021-01-10] MEDS: ipratropium/albuterol 3ml nebule NEB SCH (20:17)
[2021-01-10] MEDS: budesonide 0.5mg/2ml UD nebule IH SCH (20:17)
[2021-01-10] MEDS ORDERED: albuterol 2.5 MG/3 ML nebule NEB SCH (21:00)
[2021-01-10 22:00] VITALS: BP 141/60
[2021-01-11] VITALS (8 sets, daily range): BP systolic 114–160; BP diastolic 53–78
[2021-01-11] MEDS: temazepam 15mg capsule PO PRN ×2 (00:23→21:32)
[2021-01-11 00:53] LABS: BASOPHILS % (AUTO) 0.6 % (0-1); EOSINOPHILS # (AUTO) 0.1 X10'3 (0-0.9); EOSINOPHILS % (AUTO) 1.1 % (0-6); HEMATOCRIT 41.9 % (35.0-45.0); HEMOGLOBIN 14.3 g/dl (12.0-16.0); LYMPHOCYTES # (AUTO) 2.3 X10'3 (1.1-4.8); LYMPHOCYTES % (AUTO) 30.4 % (21-51); MEAN CORPUSCULAR HEMOGLOBIN 36.1 PG (27.0-31.0); MEAN CORPUSCULAR HGB CONC 34.1 g/dL (33.0-36.5); MEAN CORPUSCULAR VOLUME 105.8 FL (78-98); MEAN PLATELET VOLUME 9.6 FL (7.4-10.4); MONOCYTES # (AUTO) 0.8 X10'3 (0-0.9); MONOCYTES % (AUTO) 11.3 % (2-12); NEUTROPHILS # (AUTO) 4.2 X10'3 (1.8-7.7); NEUTROPHILS % (AUTO) 56.6 % (42-75); PLATELET COUNT 157 X10'3 (140-440); RED BLOOD COUNT 3.96 X10'6 (4.20-5.60); RED CELL DISTRIBUTION WIDTH 13.6 % (11.5-14.5); WHITE BLOOD COUNT 7.5 X10'3 (4.5-11.0)
[2021-01-11 00:55] LABS: ALANINE AMINOTRANSFERASE 27 U/L (12-78); ALBUMIN 3.4 G/DL (3.4-5.0); ALKALINE PHOSPHATASE 166 IU/L (46-116); ANION GAP 7 (8-16); ASPARTATE AMINO TRANSFERASE 23 U/L (10-37); BILIRUBIN,TOTAL 0.8 MG/DL (0.1-1.0); BLOOD UREA NITROGEN 16 MG/DL (7-18); BUN/CREATININE RATIO 22.2 (6.6-38.0); CHLORIDE 106 MMOL/L (99-107); CREATININE 0.72 MG/DL (0.40-0.90); GLUCOSE 109 MG/DL (70-104); POTASSIUM 3.9 MMOL/L (3.5-5.1); SODIUM 141 MMOL/L (135-145); TOTAL PROTEIN 6.8 G/DL (6.4-8.2); eGFR 81 ML/MIN
[2021-01-11 00:58] LABS: CHOLESTEROL 185 MG/DL (0-200); HDL CHOLESTEROL 91 MG/DL (35-60); LDL CHOLESTEROL 79 MG/DL (50-100); MAGNESIUM 1.7 MG/DL (1.5-2.4); PHOSPHORUS 4.5 MG/DL (2.3-4.5); TRIGLYCERIDES 83 MG/DL (20-135)
--- NOTE | 2021-01-11 02:03 | NUR ---
Patient getting up and taking herself to the restroom, not using call light.
[2021-01-11] MEDS: ipratropium/albuterol 3ml nebule NEB SCH ×4 (02:27→19:48)
--- NOTE | 2021-01-11 06:20 | NUR ---
Patient in room MED 318. I have received report from SANDRA NUÑEZ and had the opportunity to ask questions and assume patient care.
--- NOTE | 2021-01-11 06:28 | NUR ---
Problems reprioritized. Patient report given, questions answered & plan of care reviewed with Jordin.
[2021-01-11] MEDS ORDERED: non-formulary drug (Umeclidinium Bromide (Incruse Ellipta) 1 PUFF) INH SCH (08:00)
[2021-01-11] MEDS: K and/or MAG REPLACEMENT MC SCH ×2 (08:00→20:00)
[2021-01-11] MEDS: metoprolol succinate 25mg (24-HOUR) SR. Tablet PO SCH (08:00)
[2021-01-11] MEDS: budesonide 0.5mg/2ml UD nebule IH SCH ×2 (08:52→19:52)
[2021-01-11] MEDS ORDERED: pantoprazole 40 MG vial IV ONE (09:40)
[2021-01-11] MEDS ORDERED: ipratropium/albuterol 3ml nebule NEB PRN (09:40)
[2021-01-11] MEDS: diltiazem CD 180mg cap (once-daily) PO SCH (10:10)
[2021-01-11] MEDS: amLODIPine 5mg tablet PO SCH (10:10)
[2021-01-11] MEDS: aspirin 81mg tablet.DR PO SCH (10:11)
[2021-01-11] MEDS: heparin, porcine 5000 units/ml vial SQ SCH ×2 (10:12→20:25)
[2021-01-11] MEDS: normal saline 1000ml 1,000 ML IV SCH (11:35)
[2021-01-11] MEDS ORDERED: nitroGLYCERIN 0.4mg SUBLingual tab SL PRN (14:55)
[2021-01-11] MEDS ORDERED: aminophylline 250mg/10ml inj. IV PRN (14:55)
[2021-01-11] MEDS ORDERED: regadenoson 0.4mg/5ml syringe IV PRN (14:55)
[2021-01-11] MEDS ORDERED: metoprolol tartrate 1mg/ml inj IV PRN (14:55)
[2021-01-11] MEDS ORDERED: meclizine 12.5mg tablet PO PRN (15:00)
[2021-01-11] MEDS ORDERED: meclizine 12.5mg tablet PO ONE (15:00)
--- NOTE | 2021-01-11 15:00 | NUR ---
PT MEDICATED WITH ZOFRAN BEFORE LUNCH FOR NAUSEA, UP WITH PT AFTER LUNCH WITH SEVERE DIZZINESS, ORTHOSTATIC V/S DROP IN BP, DR. JORDAN CONTACTED WITH ABOVE INFO, ORDERS TAKEN TO INCREASE IV SALINE TO 75/HR, AND MECLIZINE PO, STRESS TEST IN AM , NEURO TELE EXAM COMPLETED, DIZZINESS RESOLVING AFTER SLEEPING
--- NOTE | 2021-01-11 16:09 | NUR ---
1500 svn not given. pt sleeping without distress
--- NOTE | 2021-01-11 18:20 | NUR ---
Problems reprioritized. Patient report given, questions answered & plan of care reviewed with SANDRA NUÑEZ.
[2021-01-12] VITALS (11 sets, daily range): BP systolic 120–158; BP diastolic 51–73
[2021-01-12] MEDS: ipratropium/albuterol 3ml nebule NEB SCH ×3 (03:00→15:00)
--- NOTE | 2021-01-12 06:20 | NUR ---
Patient in room MED 318. I have received report from SANDRA Colin and had the opportunity to ask questions and assume patient care.
--- NOTE | 2021-01-12 06:20 | NUR ---
Problems reprioritized. Patient report given, questions answered & plan of care reviewed with Sole-RN
--- NOTE | 2021-01-12 06:30 | NUR ---
Patient in room MED 318. I have received report from SANDRA Colin and had the opportunity to ask questions and assume patient care.
[2021-01-12 07:29] LABS: BASOPHILS % (AUTO) 0.7 % (0-1); EOSINOPHILS # (AUTO) 0.1 X10'3 (0-0.9); EOSINOPHILS % (AUTO) 1.8 % (0-6); HEMATOCRIT 41.4 % (35.0-45.0); LYMPHOCYTES # (AUTO) 1.8 X10'3 (1.1-4.8); LYMPHOCYTES % (AUTO) 33.8 % (21-51); MEAN CORPUSCULAR HEMOGLOBIN 35.8 PG (27.0-31.0); MEAN CORPUSCULAR HGB CONC 33.7 g/dL (33.0-36.5); MEAN CORPUSCULAR VOLUME 106.3 FL (78-98); MEAN PLATELET VOLUME 9.2 FL (7.4-10.4); MONOCYTES # (AUTO) 0.7 X10'3 (0-0.9); NEUTROPHILS # (AUTO) 2.7 X10'3 (1.8-7.7); NEUTROPHILS % (AUTO) 50.7 % (42-75); PLATELET COUNT 149 X10'3 (140-440); RED CELL DISTRIBUTION WIDTH 13.3 % (11.5-14.5); WHITE BLOOD COUNT 5.3 X10'3 (4.5-11.0)
[2021-01-12] MEDS: budesonide 0.5mg/2ml UD nebule IH SCH (07:47)
[2021-01-12 07:48] LABS: ALANINE AMINOTRANSFERASE 25 U/L (12-78); ALBUMIN 3.2 G/DL (3.4-5.0); ALBUMIN/GLOBULIN RATIO 0.9 (1.1-1.5); ALKALINE PHOSPHATASE 127 IU/L (46-116); ANION GAP 8 (8-16); ASPARTATE AMINO TRANSFERASE 24 U/L (10-37); BILIRUBIN,TOTAL 0.9 MG/DL (0.1-1.0); BLOOD UREA NITROGEN 11 MG/DL (7-18); CALCIUM 9.5 MG/DL (8.5-10.1); CHLORIDE 108 MMOL/L (99-107); CREATININE 0.55 MG/DL (0.40-0.90); GLUCOSE 111 MG/DL (70-104); MAGNESIUM 1.7 MG/DL (1.5-2.4); POTASSIUM 4.1 MMOL/L (3.5-5.1); SODIUM 144 MMOL/L (135-145); TOTAL CARBON DIOXIDE 27.8 MMOL/L (24-32); TOTAL PROTEIN 6.7 G/DL (6.4-8.2); eGFR > 90 ML/MIN
--- NOTE | 2021-01-12 07:48 | NUR ---
pt refused morning svn stating that she doesn't feel that she needs one at this time. no resp. distress observed
[2021-01-12] MEDS ORDERED: chlorthalidone 25mg tablet PO SCH (08:00)
[2021-01-12] MEDS: K and/or MAG REPLACEMENT MC SCH (08:00)
[2021-01-12] MEDS ORDERED: pantoprazole 40 MG vial IV SCH (08:00)
[2021-01-12] MEDS: diltiazem CD 180mg cap (once-daily) PO SCH (08:48)
[2021-01-12] MEDS: aspirin 81mg tablet.DR PO SCH (08:48)
[2021-01-12] MEDS: metoprolol succinate 25mg (24-HOUR) SR. Tablet PO SCH (08:49)
[2021-01-12] MEDS: heparin, porcine 5000 units/ml vial SQ SCH (08:49)
[2021-01-12] MEDS: normal saline 1000ml 1,000 ML IV SCH (13:20)
--- NOTE | 2021-01-12 15:38 | NUR ---
PAGER ID: [phone] MESSAGE: Sole/PRINCESS. Pt: Taz, Rm: [phone]. video poker floorman unable to do test today. requesting to get it done as an outpatient next week. they wont have enough staff until Sunday. thanks
--- NOTE | 2021-01-12 16:06 | NUR ---
Pt back from [facility] scan. A&O x4. V/S 97.7, 69, 94%, 16, 153/71.
--- NOTE | 2021-01-12 16:19 | NUR ---
pt refused 1500 svn. no distress observed
--- NOTE | 2021-01-12 16:24 | NUR ---
PAGER ID: [phone] MESSAGE: SHAHLA/ PRINCESS. PT: JAMAR. RM: 18. PT BACK FROM [facility]. CAN SHE RESUME TO DIET? THANKS
[2021-01-12] MEDS ORDERED: MECL-226 PO (17:00)
[2021-01-12] MEDS ORDERED: ASPI-1071 PO (17:00)
[2021-01-12] MEDS ORDERED: APIX5TAB3 PO (17:00)
[2021-01-12] MEDS ORDERED: CHLO25TA11 PO (17:00)
[2021-01-12] MEDS ORDERED: PANT40TA54 PO (17:00)
[2021-01-12] MEDS ORDERED: METO-395 PO (17:05)
[2021-01-12] MEDS ORDERED: NIFE90TA2 PO (17:05)
--- NOTE | 2021-01-12 18:30 | NUR ---
Pt discharged home on stable condition. Discharge and medication instructions given to pt. Tele box and IV removed. Pt will follow up with EEG outpatient. Pt left the hospital via private vehicle accompanied by family member.
== END 2021-01-12 18:15 | disposition home or self-care (01) | DRG 312 ==
LOC: ER 11:53 → EEVIPCON 11:53 → ED HOLD 15:32 → EEVIPCON 15:32 → MED 3N 17:11
PROVIDERS: ADMIT Family Medicine; ATTEND Family Medicine
PROC: CB121ZZ Planar Nuclear Medicine Imaging of Lungs and Bronchi using Technetium 99m (Tc-99m) (ICD-10-PCS; principal; 2021-01-10)
PROC: 4B02XSZ Measurement of Cardiac Pacemaker, External Approach (ICD-10-PCS; 2021-01-11)
PROC: 4A02XM4 Measurement of Cardiac Total Activity, External Approach (ICD-10-PCS; 2021-01-12)
PROC: 3E073KZ Introduction of Other Diagnostic Substance into Coronary Artery, Percutaneous Approach (ICD-10-PCS; 2021-01-12)
DX: R55 Syncope and collapse (principal); I47.1 Supraventricular tachycardia; I69.351 Hemiplegia and hemiparesis following cerebral infarction affecting right dominant side; I16.0 Hypertensive urgency; E66.01 Morbid (severe) obesity due to excess calories; F10.20 Alcohol dependence, uncomplicated; F17.200 Nicotine dependence, unspecified, uncomplicated; G62.9 Polyneuropathy, unspecified; I10 Essential (primary) hypertension; G89.29 Other chronic pain; G47.30 Sleep apnea, unspecified; J44.9 Chronic obstructive pulmonary disease, unspecified; Z79.82 Long term (current) use of aspirin; Z79.899 Other long term (current) drug therapy; Z80.1 Family history of malignant neoplasm of trachea, bronchus and lung; Z82.49 Family history of ischemic heart disease and other diseases of the circulatory system; Z82.5 Family history of asthma and other chronic lower respiratory diseases; Z86.711 Personal history of pulmonary embolism; Z86.718 Personal history of other venous thrombosis and embolism; Z87.442 Personal history of urinary calculi; Z90.49 Acquired absence of other specified parts of digestive tract; Z91.041 Radiographic dye allergy status; Z95.0 Presence of cardiac pacemaker; Z95.828 Presence of other vascular implants and grafts; Z88.8 Allergy status to other drugs, medicaments and biological substances; Z68.29 Body mass index [BMI] 29.0-29.9, adult
CPT/HCPCS: 36415; 70450; 71045; 78452; 78582; 80053; 80061; 80320; 81001; 83036; 83735; 83880; 84100; 84443; 84484; 85025; 87081; 92508; 92616; 93005; 93017; 93306; 94640; 94760; 96374; 96375; 97124; 97161; 97530; 99285; A9500; A9539; A9540; C9113; G0378; J0360; J1644; J2270; J2405; J2785; J7030; J7626; J8597

== ENCOUNTER 2021-04-02 09:48 | Emergency (ER) | payer BC, MEDICARE ==
[~2021-04-02] VITALS: Ht 177.8 cm; Wt 92.3 kg
[~2021-04-02 09:48] MED LIST changes: +ASPI-1071 PO; +CHLO25TA11 PO; +GABA300C PO; -GABA300T25 PO; -LIDO700A32 TOP; +MECL-226 PO; +METO-395 PO; +PANT40TA54 PO
[2021-04-02 10:23] VITALS: BP 158/104
[2021-04-02] MEDS ORDERED: acetaminophen 325mg tablet PO ONE (10:55)
[2021-04-02] MEDS ORDERED: TETanus/Pertussis (Acell)/Diphther VAC/PF (Tdap-Adult) 0.5ml syringe IMVAC ONE (10:55)
[2021-04-02] MEDS ORDERED: vancomycin/NS 1 GM ADD-VANTAGE 250 ML IV ONE (10:55)
[2021-04-02] MEDS ORDERED: bacitracin 15gm ointment TP ONE (10:55)
[2021-04-02] MEDS ORDERED: CefTRIAXone 2gm/D5W 50ml BAG 50 ML IV ONE (10:55)
[2021-04-02 12:26] LABS: BASOPHILS % (AUTO) 0.6 % (0-1); EOSINOPHILS # (AUTO) 0.1 X10'3 (0-0.9); EOSINOPHILS % (AUTO) 1.3 % (0-6); HEMATOCRIT 46.4 % (35.0-45.0); HEMOGLOBIN 15.8 g/dl (12.0-16.0); LYMPHOCYTES # (AUTO) 2.4 X10'3 (1.1-4.8); LYMPHOCYTES % (AUTO) 32.6 % (21-51); MEAN CORPUSCULAR HEMOGLOBIN 35.3 PG (27.0-31.0); MEAN PLATELET VOLUME 9.6 FL (7.4-10.4); MONOCYTES # (AUTO) 0.9 X10'3 (0-0.9); MONOCYTES % (AUTO) 12.1 % (2-12); NEUTROPHILS # (AUTO) 3.8 X10'3 (1.8-7.7); NEUTROPHILS % (AUTO) 53.4 % (42-75); PLATELET COUNT 147 X10'3 (140-440); RED BLOOD COUNT 4.46 X10'6 (4.20-5.60); RED CELL DISTRIBUTION WIDTH 13.8 % (11.5-14.5); WHITE BLOOD COUNT 7.2 X10'3 (4.5-11.0)
[2021-04-02] MEDS ORDERED: SULF1TAB49 PO (12:58)
--- NOTE | 2021-04-05 16:57 | NUR ---
called pt. to find out which pharmacy she wanted us to call in new antibiotic for levaquin 250mg po daily x 5 days. pt. stated she is at her PMD's office and she will have dr. thomas write the scrip.
== END 2021-04-02 14:00 | disposition home or self-care (01) ==
LOC: ER 09:49 → EEVIPCON 09:49 → ER 14:00
DX: S80.921A Unspecified superficial injury of right lower leg, initial encounter (principal); L03.115 Cellulitis of right lower limb; M79.604 Pain in right leg; I10 Essential (primary) hypertension; J44.9 Chronic obstructive pulmonary disease, unspecified; G89.29 Other chronic pain; F17.200 Nicotine dependence, unspecified, uncomplicated; Z86.73 Personal history of transient ischemic attack (TIA), and cerebral infarction without residual deficits; Z87.01 Personal history of pneumonia (recurrent); Z86.711 Personal history of pulmonary embolism; Z87.442 Personal history of urinary calculi; Z87.440 Personal history of urinary (tract) infections; Z90.89 Acquired absence of other organs; Z90.49 Acquired absence of other specified parts of digestive tract; Z95.0 Presence of cardiac pacemaker; Z98.890 Other specified postprocedural states; Z88.8 Allergy status to other drugs, medicaments and biological substances; Z91.018 Allergy to other foods; Z79.82 Long term (current) use of aspirin; Z79.2 Long term (current) use of antibiotics; Z79.899 Other long term (current) drug therapy; X58.XXXA Exposure to other specified factors, initial encounter; Y93.89 Activity, other specified; Y92.89 Other specified places as the place of occurrence of the external cause; Y99.8 Other external cause status
CPT/HCPCS: 36415; 73590; 83605; 84145; 85025; 87040; 87070; 87077; 87186; 90471; 90715; 96365; 96366; 96368; 99284; J0696; J3370

== ENCOUNTER 2021-04-29 18:05 | Emergency (ER) | payer BC, OTHER ==
[~2021-04-29] VITALS: Ht 177.8 cm; Wt 97.7 kg
[~2021-04-29 18:05] MED LIST changes: +ALBU8.5H17 INH; -ALBU8.5H8 INH
[2021-04-29] MEDS ORDERED: methylPREDNISolone sod succ 125mg/2ml vial IV ONE (18:20)
[2021-04-29] MEDS ORDERED: normal saline 1000ML IV soln IVB ONE ×2 (18:20→20:15)
[2021-04-29] MEDS ORDERED: albuterol 2.5 MG/3 ML nebule CONTNEB PRN (18:20)
[2021-04-29] MEDS ORDERED: magnesium 2GM in 50ml NS 50 ML IV ONE (18:35)
[2021-04-29] MEDS ORDERED: albuterol 2.5 MG/3 ML nebule NEB ONE ×2 (18:45→20:15)
[2021-04-29 19:19] LABS: BASOPHILS # (AUTO) 0.1 X10'3 (0-0.2); BASOPHILS % (AUTO) 0.9 % (0-1); EOSINOPHILS # (AUTO) 0.1 X10'3 (0-0.9); EOSINOPHILS % (AUTO) 1.9 % (0-6); HEMATOCRIT 43.6 % (35.0-45.0); HEMOGLOBIN 14.8 g/dl (12.0-16.0); LYMPHOCYTES # (AUTO) 2.7 X10'3 (1.1-4.8); LYMPHOCYTES % (AUTO) 42.7 % (21-51); MEAN CORPUSCULAR VOLUME 103.1 FL (78-98); MEAN PLATELET VOLUME 9.2 FL (7.4-10.4); MONOCYTES # (AUTO) 0.7 X10'3 (0-0.9); MONOCYTES % (AUTO) 11.4 % (2-12); NEUTROPHILS # (AUTO) 2.8 X10'3 (1.8-7.7); NEUTROPHILS % (AUTO) 43.1 % (42-75); PLATELET COUNT 154 X10'3 (140-440); RED BLOOD COUNT 4.22 X10'6 (4.20-5.60); RED CELL DISTRIBUTION WIDTH 14.6 % (11.5-14.5); WHITE BLOOD COUNT 6.4 X10'3 (4.5-11.0)
[2021-04-29 19:36] LABS: D-DIMER 0.59 MG/L FEU (0-0.50)
[2021-04-29 20:00] LABS: ALANINE AMINOTRANSFERASE 36 U/L (12-78); ALBUMIN 3.4 G/DL (3.4-5.0); ALBUMIN/GLOBULIN RATIO 0.9 (1.1-1.5); ALKALINE PHOSPHATASE 127 IU/L (46-116); ANION GAP 11 (8-16); ASPARTATE AMINO TRANSFERASE 50 U/L (10-37); BILIRUBIN,TOTAL 0.4 MG/DL (0.1-1.0); BLOOD UREA NITROGEN 11 MG/DL (7-18); BUN/CREATININE RATIO 14.1 (6.6-38.0); CALCIUM 8.6 MG/DL (8.5-10.1); CHLORIDE 110 MMOL/L (99-107); CREATININE 0.78 MG/DL (0.40-0.90); GLUCOSE 106 MG/DL (70-104); POTASSIUM 3.8 MMOL/L (3.5-5.1); SODIUM 146 MMOL/L (135-145); TOTAL CARBON DIOXIDE 25.5 MMOL/L (24-32); eGFR 74 ML/MIN
[2021-04-29] MEDS ORDERED: DOXY-1 PO (20:02)
[2021-04-29] MEDS ORDERED: PRED10TA23 PO (20:02)
[2021-04-29 20:07] LABS: MAGNESIUM 1.5 MG/DL (1.5-2.4)
[2021-04-29 21:29] VITALS: BP 145/89
[2021-04-30] MEDS ORDERED: METO-384 PO (17:53)
[2021-04-30] MEDS ORDERED: CHLO25TA10 PO (17:53)
[2021-04-30] MEDS ORDERED: FURO20TA4 PO (17:53)
[2021-04-30] MEDS ORDERED: PANT40TA54 PO (17:53)
== END 2021-04-29 21:33 | disposition home or self-care (01) ==
LOC: EEVIPCON 18:05 → ER 19:19
DX: S81.801A Unspecified open wound, right lower leg, initial encounter (principal); Z20.822 Contact with and (suspected) exposure to COVID-19; J44.1 Chronic obstructive pulmonary disease with (acute) exacerbation; I10 Essential (primary) hypertension; G89.29 Other chronic pain; G47.30 Sleep apnea, unspecified; Z87.440 Personal history of urinary (tract) infections; Z87.442 Personal history of urinary calculi; Z90.49 Acquired absence of other specified parts of digestive tract; Z95.0 Presence of cardiac pacemaker; Z87.01 Personal history of pneumonia (recurrent); Z72.89 Other problems related to lifestyle; Z91.041 Radiographic dye allergy status; Z91.018 Allergy to other foods; Z88.8 Allergy status to other drugs, medicaments and biological substances; Z79.82 Long term (current) use of aspirin; Z79.899 Other long term (current) drug therapy; X58.XXXA Exposure to other specified factors, initial encounter; Y93.89 Activity, other specified; Y92.89 Other specified places as the place of occurrence of the external cause; Y99.8 Other external cause status
CPT/HCPCS: 36415; 71045; 80053; 83605; 83735; 83880; 84484; 85025; 85379; 87040; 87070; 87077; 87186; 87635; 93005; 94640; 96365; 96366; 96375; 99285; C9803; J2930; J3475; J7030; 94760; 96361

== ENCOUNTER 2021-04-30 15:36 | Inpatient (IN) | payer BC ==
[~2021-04-30] VITALS: Ht 177.8 cm; Wt 108.5 kg
[~2021-04-30 15:36] MED LIST changes: +DOXY-1 PO; +PRED10TA23 PO; +rocuronium 10mg/ml inj IV ONE
--- NOTE | 2021-04-30 15:40 | NUR ---
-PT CAME TO ER AT 1538 BP 134/76 HR 109,SPO2 97 ON CPAP .PT PLACED ON CHEST PAD -AT 1539 PT GIVEN 20 MG OF ETOMODATE BY OK FLORES ,JOEL BELTRAN RN AT BEDSIDE ALONG WITH DR GREER AND RT STAFF. -AT 1540 PT RECIVED 20 MG ETOMODATE AGAIN IV PUSH FOLLOWED WITH FLUSH BY HOTEL CASINO FLOORPERSONSANDRA EUCEDA.(PT HR 106,SPO2 91 ON CPAP,134/76. -AT 1541 AT RECIVED ANA 100 MG BY SANDRA OLMOS PER MD ORDERS. -PT INTUBATED AT 1541 22 AT THE TEETH . -1552 BP 194/97,HR 134,SPO2 98%,R 17.
[2021-04-30] MEDS ORDERED: dexamethasone sod phosphate 10mg/ml inj IV STA (15:45)
[2021-04-30 15:56] LABS: ABG BASE EXCESS -7.7 mmol/L (-2.0-2.0); ABG OXYGEN SATURATION 99.2 % (94-97); ABG PCO2 (T) 37.6 mmHg (32.0-45.0); ABG PO2 (T) 378.7 mmHg (75.0-100.0); ALLEN'S TEST POSITIVE; FCOHb 5.3 % (0.0-3.9); FMetHb 0.3 % (0.0-1.5); FO2Hb 93.6 % (94-97); PEEP 5 cm H2O; RESPIRATORY RATE 16 b/min; TIDAL VOLUME 475 mL; TOTAL HEMOGLOBIN 14.3 G/dl (12.0-16.0)
[2021-04-30] MEDS: midazolam 100mg in NS 100ml 100 ML IV SCH (15:58)
[2021-04-30] MEDS: FENTANYL-0.9 % NACL/PF 100 ML IV PRN (16:00)
[2021-04-30 16:13] LABS: BASOPHILS % (AUTO) 0.2 % (0-1); EOSINOPHILS % (AUTO) 0 % (0-6); HEMATOCRIT 42.2 % (35.0-45.0); LYMPHOCYTES % (AUTO) 16.3 % (21-51); MEAN CORPUSCULAR HEMOGLOBIN 35.4 PG (27.0-31.0); MEAN CORPUSCULAR HGB CONC 33.1 g/dL (33.0-36.5); MEAN CORPUSCULAR VOLUME 106.8 FL (78-98); MEAN PLATELET VOLUME 9.4 FL (7.4-10.4); MONOCYTES # (AUTO) 1.2 X10'3 (0-0.9); MONOCYTES % (AUTO) 9.9 % (2-12); NEUTROPHILS # (AUTO) 9.3 X10'3 (1.8-7.7); NEUTROPHILS % (AUTO) 73.6 % (42-75); PLATELET COUNT 145 X10'3 (140-440); RED BLOOD COUNT 3.95 X10'6 (4.20-5.60); RED CELL DISTRIBUTION WIDTH 14.7 % (11.5-14.5); WHITE BLOOD COUNT 12.6 X10'3 (4.5-11.0)
[2021-04-30] MEDS ORDERED: CefTRIAXone 2gm/D5W 50ml BAG 50 ML IV ONE (16:20)
[2021-04-30] MEDS ORDERED: vancomycin/NS 1 GM ADD-VANTAGE 250 ML IV ONE (16:20)
[2021-04-30 16:25] LABS: ALANINE AMINOTRANSFERASE 30 U/L (12-78); ALBUMIN 3.2 G/DL (3.4-5.0); ALKALINE PHOSPHATASE 145 IU/L (46-116); ANION GAP 12 (8-16); ASPARTATE AMINO TRANSFERASE 23 U/L (10-37); BILIRUBIN,TOTAL 0.3 MG/DL (0.1-1.0); BLOOD UREA NITROGEN 10 MG/DL (7-18); BUN/CREATININE RATIO 13.7 (6.6-38.0); CALCIUM 7.8 MG/DL (8.5-10.1); CHLORIDE 110 MMOL/L (99-107); CREATININE 0.73 MG/DL (0.40-0.90); GLUCOSE 204 MG/DL (70-104); POTASSIUM 3.2 MMOL/L (3.5-5.1); SODIUM 146 MMOL/L (135-145); TOTAL CARBON DIOXIDE 24.1 MMOL/L (24-32); TOTAL PROTEIN 6.5 G/DL (6.4-8.2); eGFR 80 ML/MIN
[2021-04-30] MEDS ORDERED: heparin 25,000 UNIT/250ml bag 250 ML IV SCH (16:25)
[2021-04-30] MEDS ORDERED: heparin 10,000 units/1 ML INJ IV PRN (16:25)
[2021-04-30] MEDS ORDERED: heparin 10,000 units/1 ML INJ IV ONE (16:25)
[2021-04-30 16:28] LABS: D-DIMER 0.61 MG/L FEU (0-0.50); PARTIAL THROMBOPLASTIN TIME 22 SECONDS (22-32)
--- NOTE | 2021-04-30 16:28 | NUR ---
PT BIB EMS FOR DIFFICULITY BREATHING ,PT SPO2 SAT WERE DROPPING DOWN ,[facility].
[2021-04-30 16:36] LABS: CLARITY,URINE CLEAR (Clear); COLOR,URINE STRAW (Yellow); GLUCOSE, URINE 250 mg/dl (Neg); KETONES,URINE NEGATIVE (Neg); LEUKOCYTE ESTERASE ,URINE NEGATIVE (Neg); NITRITES, URINE NEGATIVE (Neg); OCCULT BLOOD,URINE NEGATIVE (Neg); PROTEIN,URINE NEGATIVE (Neg); UROBILINOGEN,URINE 0.2 E.U/dL (0.2-1.0)
[2021-04-30 16:38] LABS: UA COLLECTION TYPE FOLEY CATH
--- NOTE | 2021-04-30 17:08 | NUR ---
SUPERVISOR TANK HOUSE AT BEDSIDE .
[2021-04-30] MEDS ORDERED: Neutra Phos packet PO PRN (17:15)
[2021-04-30] MEDS: sodium chloride 0.45% 1,000 ML IV SCH (17:15)
[2021-04-30] MEDS ORDERED: dextrose 50%-water 50ml dispensing syringe IV PRN (17:15)
[2021-04-30] MEDS ORDERED: haloperidol 5mg tablet PO PRN (17:15)
[2021-04-30] MEDS ORDERED: acetaminophen 325mg tablet PO PRN (17:15)
[2021-04-30] MEDS ORDERED: methylPREDNISolone sod succ 125mg/2ml vial IV ONE (17:15)
[2021-04-30] MEDS ORDERED: magnesium hydroxide 30ml (MOM) UD suspension PO PRN (17:15)
[2021-04-30] MEDS ORDERED: sodium phosphate inj. 15 MMOL in dextrose 5%-water 250 ML IV PRN (17:15)
[2021-04-30] MEDS ORDERED: CefTRIAXone 2gm/D5W 50ml BAG 50 ML IV SCH (17:15)
[2021-04-30] MEDS ORDERED: haloperidol lactate 5mg/ml inj IM PRN (17:15)
[2021-04-30] MEDS ORDERED: potassium Cl 20 mEq SR tablet PO PRN (17:15)
[2021-04-30] MEDS ORDERED: LORazepam 2 mg/ml vial IV PRN (17:15)
[2021-04-30] MEDS ORDERED: sodium phosphate inj. 30 MMOL in dextrose 5%-water 250 ML IV PRN (17:15)
[2021-04-30] MEDS: K, MAG and/or Phos replacement - Verify level? MC SCH (17:15)
[2021-04-30] MEDS ORDERED: magnesium 2GM in 50ml NS 50 ML IV PRN (17:15)
[2021-04-30] MEDS ORDERED: magnesium 4gm in 100ml NS 100 ML IV PRN (17:15)
[2021-04-30] MEDS ORDERED: magnesium Cl slow-release 64mg tablet PO PRN (17:15)
[2021-04-30] MEDS ORDERED: albuterol 2.5 MG/3 ML nebule NEB PRN (17:15)
[2021-04-30] MEDS ORDERED: thiamine 100mg/ml 2ml inj. IV ONE (17:15)
--- NOTE | 2021-04-30 17:20 | NUR ---
DR LIGHT WANTS MED REC TO BE DONE INFORMED THAT WILL CALL THE PHARMACY.
--- NOTE | 2021-04-30 17:22 | NUR ---
SPOKE TO JONATHAN AT PHARMACY A SPER HIM HE WILL DO THE MED REC ON THE PT.
[2021-04-30] MEDS: pantoprazole 40 MG vial IV SCH (17:52)
[2021-04-30] MEDS ORDERED: CHLO25TA10 PO (17:53)
[2021-04-30] MEDS ORDERED: PANT40TA54 PO (17:53)
[2021-04-30] MEDS ORDERED: METO-384 PO (17:53)
[2021-04-30] MEDS ORDERED: FURO20TA4 PO (17:53)
[2021-04-30 21:00] VITALS: BP 105/49
[2021-04-30 22:00] VITALS: BP 92/45
[2021-04-30 23:00] VITALS: BP 89/44
[2021-05-01] VITALS (23 sets, daily range): BP systolic 98–169; BP diastolic 43–104
[2021-05-01 00:05] LABS: POTASSIUM 3.5 MMOL/L (3.5-5.1)
[2021-05-01] MEDS: sodium chloride 0.45% 1,000 ML IV SCH ×4 (01:15→21:18)
[2021-05-01 04:15] LABS: BASOPHILS % (AUTO) 0.2 % (0-1); EOSINOPHILS % (AUTO) 0 % (0-6); HEMATOCRIT 40.9 % (35.0-45.0); HEMOGLOBIN 13.4 g/dl (12.0-16.0); LYMPHOCYTES # (AUTO) 0.6 X10'3 (1.1-4.8); LYMPHOCYTES % (AUTO) 7.6 % (21-51); MEAN CORPUSCULAR HEMOGLOBIN 34.8 PG (27.0-31.0); MEAN CORPUSCULAR HGB CONC 32.6 g/dL (33.0-36.5); MEAN CORPUSCULAR VOLUME 106.7 FL (78-98); MEAN PLATELET VOLUME 9.5 FL (7.4-10.4); MONOCYTES # (AUTO) 0.3 X10'3 (0-0.9); MONOCYTES % (AUTO) 3.4 % (2-12); NEUTROPHILS % (AUTO) 88.8 % (42-75); PLATELET COUNT 148 X10'3 (140-440); RED BLOOD COUNT 3.84 X10'6 (4.20-5.60); RED CELL DISTRIBUTION WIDTH 14.4 % (11.5-14.5); WHITE BLOOD COUNT 7.9 X10'3 (4.5-11.0)
[2021-05-01 04:27] LABS: ALANINE AMINOTRANSFERASE 29 U/L (12-78); ALBUMIN 2.9 G/DL (3.4-5.0); ALBUMIN/GLOBULIN RATIO 0.9 (1.1-1.5); ALKALINE PHOSPHATASE 102 IU/L (46-116); ANION GAP 9 (8-16); ASPARTATE AMINO TRANSFERASE 20 U/L (10-37); BILIRUBIN,TOTAL 0.3 MG/DL (0.1-1.0); BLOOD UREA NITROGEN 11 MG/DL (7-18); BUN/CREATININE RATIO 15.5 (6.6-38.0); CALCIUM 7.9 MG/DL (8.5-10.1); CHLORIDE 108 MMOL/L (99-107); CREATININE 0.71 MG/DL (0.40-0.90); GLUCOSE 184 MG/DL (70-104); POTASSIUM 3.3 MMOL/L (3.5-5.1); SODIUM 142 MMOL/L (135-145); TOTAL CARBON DIOXIDE 24.7 MMOL/L (24-32); TOTAL PROTEIN 6.3 G/DL (6.4-8.2); eGFR 82 ML/MIN
[2021-05-01 04:31] LABS: MAGNESIUM 1.6 MG/DL (1.5-2.4); PHOSPHORUS 2.9 MG/DL (2.3-4.5)
[2021-05-01] MEDS: K, MAG and/or Phos replacement - Verify level? MC SCH (08:00)
[2021-05-01] MEDS: azithromycin/NS 500mg/250ml 250 ML IV SCH (09:09)
[2021-05-01] MEDS: CefTRIAXone 2gm/D5W 50ml BAG 50 ML IV SCH (09:09)
[2021-05-01] MEDS: pantoprazole 40 MG vial IV SCH (09:10)
[2021-05-01] MEDS: midazolam 100mg in NS 100ml 100 ML IV SCH (09:10)
[2021-05-01] MEDS: FENTANYL-0.9 % NACL/PF 100 ML IV PRN ×2 (09:11→21:37)
--- NOTE | 2021-05-01 14:05 | NUR ---
Initial: Pt admitted w/ respiratory distress and was subsequently intubated, currently NPO. Per RN, pt will be extubated today and diet will be advanced as tolerated. No BM documented this admit. Pt also noted w/ small abscess on lower R leg. Limited nutrition interventions at this time given pt's condition, will continue to monitor PO trends and diet tolerance s/p extubation. Recs: 1. Advance diet as tolerated s/p extubation per MD order 2. Bowel care per rx 3. Weekly wts Addendum: 05/01/21 at [address] Amended: Links added.
[2021-05-01] MEDS ORDERED: potassium Cl 40MEQ/250ML bag 270 ML IV PRN (18:15)
--- NOTE | 2021-05-01 18:26 | NUR ---
Patient in room ICU 2039. I have received report from Allie FLORES at bedside and had the opportunity to ask questions and assume patient care.
--- NOTE | 2021-05-01 18:28 | NUR ---
Report SANDRA Marie
[2021-05-01] MEDS: lactobacillus rhamnosus 10,000 MMU CELLS/CAPSULE PO SCH (20:22)
[2021-05-01] MEDS: apixaban 5mg tablet PO SCH (20:22)
[2021-05-02] VITALS (24 sets, daily range): BP systolic 115–165; BP diastolic 51–88
[2021-05-02 03:05] LABS: ABG BASE EXCESS -0.3 mmol/L (-2.0-2.0); ABG HCO3 25.7 mmol/L (22.0-26.0); ABG OXYGEN SATURATION 95.3 % (94-97); ABG PCO2 (T) 46.4 mmHg (32.0-45.0); ABG PO2 (T) 75.7 mmHg (75.0-100.0); ALLEN'S TEST POSITIVE; FCOHb 0.4 % (0.0-3.9); FMetHb 0.1 % (0.0-1.5); FO2Hb 94.8 % (94-97); PATIENT TEMPERATURE 36.4; PEEP 5 cm H2O; TOTAL HEMOGLOBIN 14.4 G/dl (12.0-16.0)
[2021-05-02 03:31] LABS: BASOPHILS % (AUTO) 0.1 % (0-1); EOSINOPHILS % (AUTO) 0 % (0-6); HEMATOCRIT 40.7 % (35.0-45.0); HEMOGLOBIN 13.4 g/dl (12.0-16.0); MEAN CORPUSCULAR HEMOGLOBIN 35.2 PG (27.0-31.0); MEAN CORPUSCULAR VOLUME 106.8 FL (78-98); MEAN PLATELET VOLUME 9.9 FL (7.4-10.4); MONOCYTES # (AUTO) 0.8 X10'3 (0-0.9); MONOCYTES % (AUTO) 9.3 % (2-12); NEUTROPHILS # (AUTO) 6.5 X10'3 (1.8-7.7); NEUTROPHILS % (AUTO) 78.6 % (42-75); PLATELET COUNT 138 X10'3 (140-440); RED BLOOD COUNT 3.81 X10'6 (4.20-5.60); RED CELL DISTRIBUTION WIDTH 14.6 % (11.5-14.5); WHITE BLOOD COUNT 8.2 X10'3 (4.5-11.0)
[2021-05-02 03:47] LABS: PARTIAL THROMBOPLASTIN TIME 27 SECONDS (22-32)
[2021-05-02 04:03] LABS: ALANINE AMINOTRANSFERASE 27 U/L (12-78); ALBUMIN 2.9 G/DL (3.4-5.0); ALBUMIN/GLOBULIN RATIO 0.9 (1.1-1.5); ALKALINE PHOSPHATASE 94 IU/L (46-116); ANION GAP 6 (8-16); ASPARTATE AMINO TRANSFERASE 14 U/L (10-37); BILIRUBIN,TOTAL 0.5 MG/DL (0.1-1.0); BLOOD UREA NITROGEN 14 MG/DL (7-18); BUN/CREATININE RATIO 25.5 (6.6-38.0); CALCIUM 7.7 MG/DL (8.5-10.1); CHLORIDE 109 MMOL/L (99-107); CREATININE 0.55 MG/DL (0.40-0.90); GLUCOSE 141 MG/DL (70-104); MAGNESIUM 1.9 MG/DL (1.5-2.4); PHOSPHORUS 2.3 MG/DL (2.3-4.5); POTASSIUM 3.8 MMOL/L (3.5-5.1); SODIUM 144 MMOL/L (135-145); TOTAL CARBON DIOXIDE 29.1 MMOL/L (24-32); TOTAL PROTEIN 6.2 G/DL (6.4-8.2); eGFR > 90 ML/MIN
[2021-05-02] MEDS: sodium chloride 0.45% 1,000 ML IV SCH (05:08)
--- NOTE | 2021-05-02 06:22 | NUR ---
Problems reprioritized. Patient report given, questions answered & plan of care reviewed with Nini FLORES at bedside.
--- NOTE | 2021-05-02 06:30 | NUR ---
Received report from SANDRA Marie
[2021-05-02] MEDS: K, MAG and/or Phos replacement - Verify level? MC SCH (08:00)
[2021-05-02] MEDS: CefTRIAXone 2gm/D5W 50ml BAG 50 ML IV SCH (08:12)
[2021-05-02] MEDS: azithromycin/NS 500mg/250ml 250 ML IV SCH (08:12)
[2021-05-02] MEDS: pantoprazole 40 MG vial IV SCH (08:14)
[2021-05-02] MEDS: lactobacillus rhamnosus 10,000 MMU CELLS/CAPSULE PO SCH ×2 (08:14→19:27)
[2021-05-02] MEDS: apixaban 5mg tablet PO SCH ×2 (08:14→19:27)
[2021-05-02] MEDS ORDERED: albuterol 2.5 MG/3 ML nebule NEB PRN (11:40)
[2021-05-02] MEDS ORDERED: gabapentin 300mg capsule PO PRN (11:40)
[2021-05-02] MEDS ORDERED: thiamine inj. 100 MG in normal saline 100ml IV soln 100 ML IV ONE (12:00)
[2021-05-02] MEDS ORDERED: folic acid 1mg/0.2ml inj IV ONE (12:00)
[2021-05-02] MEDS: multivitamins, therapeutics tablet PO SCH (12:00)
--- NOTE | 2021-05-02 12:38 | NUR ---
F/u 05/02: Pt extubated this AM pending BSS once more appropriate prior to PO diet advancement per family support coordinator at rounds. Etoh 0.340 on admit; to start on thiamin, folic, MVI per MD. Will monitor for PO diet advancement and tolerance this admit. Recs: 1. Advance diet as tolerated to heart healthy 2. thiamin, folic, MVI for etoh hx 3. routine bowel care 4. Weekly wts Addendum: 05/02/21 at [address] Amended: Links added.
[2021-05-02] MEDS ORDERED: albuterol 2.5 MG/3 ML nebule NEB SCH (15:00)
[2021-05-02] MEDS ORDERED: ipratropium 0.5 MG/2.5ML nebule NEB SCH (15:00)
[2021-05-02] MEDS: midazolam 100mg in NS 100ml 100 ML IV SCH (15:50)
[2021-05-02] MEDS ORDERED: LORazepam 2 mg/ml vial IV PRN (17:15)
[2021-05-02] MEDS ORDERED: LORazepam 1 MG tablet PO PRN (17:15)
--- NOTE | 2021-05-02 18:31 | NUR ---
Patient in room ICU 2039. I have received report from RN and had the opportunity to ask questions and assume patient care.
[2021-05-02] MEDS: budesonide 0.5mg/2ml UD nebule IH SCH (20:30)
[2021-05-02] MEDS: ipratropium/albuterol 3ml nebule IH SCH (20:30)
[2021-05-03] VITALS (19 sets, daily range): BP systolic 127–165; BP diastolic 62–84
[2021-05-03] MEDS: ipratropium/albuterol 3ml nebule IH SCH ×4 (02:42→20:39)
[2021-05-03 02:56] LABS: BASOPHILS % (AUTO) 0.2 % (0-1); EOSINOPHILS % (AUTO) 0.2 % (0-6); HEMATOCRIT 39.6 % (35.0-45.0); HEMOGLOBIN 13.2 g/dl (12.0-16.0); LYMPHOCYTES # (AUTO) 1.8 X10'3 (1.1-4.8); LYMPHOCYTES % (AUTO) 30.2 % (21-51); MEAN CORPUSCULAR HEMOGLOBIN 35.2 PG (27.0-31.0); MEAN CORPUSCULAR HGB CONC 33.3 g/dL (33.0-36.5); MEAN CORPUSCULAR VOLUME 105.5 FL (78-98); MEAN PLATELET VOLUME 9.9 FL (7.4-10.4); MONOCYTES # (AUTO) 0.8 X10'3 (0-0.9); MONOCYTES % (AUTO) 13.3 % (2-12); NEUTROPHILS # (AUTO) 3.3 X10'3 (1.8-7.7); NEUTROPHILS % (AUTO) 56.1 % (42-75); PLATELET COUNT 120 X10'3 (140-440); RED BLOOD COUNT 3.75 X10'6 (4.20-5.60); RED CELL DISTRIBUTION WIDTH 14.3 % (11.5-14.5); WHITE BLOOD COUNT 5.9 X10'3 (4.5-11.0)
[2021-05-03 03:17] LABS: ALANINE AMINOTRANSFERASE 26 U/L (12-78); ALBUMIN 2.8 G/DL (3.4-5.0); ALKALINE PHOSPHATASE 113 IU/L (46-116); ANION GAP 4 (8-16); ASPARTATE AMINO TRANSFERASE 27 U/L (10-37); BILIRUBIN,TOTAL 0.4 MG/DL (0.1-1.0); BLOOD UREA NITROGEN 15 MG/DL (7-18); BUN/CREATININE RATIO 22.4 (6.6-38.0); CALCIUM 7.9 MG/DL (8.5-10.1); CHLORIDE 111 MMOL/L (99-107); CREATININE 0.67 MG/DL (0.40-0.90); GLUCOSE 113 MG/DL (70-104); MAGNESIUM 1.7 MG/DL (1.5-2.4); PHOSPHORUS 2.7 MG/DL (2.3-4.5); POTASSIUM 3.1 MMOL/L (3.5-5.1); SODIUM 144 MMOL/L (135-145); TOTAL PROTEIN 5.6 G/DL (6.4-8.2); eGFR 88 ML/MIN
[2021-05-03 03:18] LABS: PARTIAL THROMBOPLASTIN TIME 34 SECONDS (22-32)
[2021-05-03] MEDS: potassium Cl 20 mEq SR tablet PO PRN ×3 (03:32→12:22)
--- NOTE | 2021-05-03 06:19 | NUR ---
Problems reprioritized. Patient report given, questions answered & plan of care reviewed with SANDRA bey.
[2021-05-03] MEDS: midazolam 100mg in NS 100ml 100 ML IV SCH (07:34)
[2021-05-03] MEDS: K, MAG and/or Phos replacement - Verify level? MC SCH (07:34)
[2021-05-03] MEDS: CefTRIAXone 2gm/D5W 50ml BAG 50 ML IV SCH (07:52)
[2021-05-03] MEDS: apixaban 5mg tablet PO SCH ×2 (07:53→20:40)
[2021-05-03] MEDS: azithromycin/NS 500mg/250ml 250 ML IV SCH (07:53)
[2021-05-03] MEDS: furosemide 20MG tablet PO SCH (07:53)
[2021-05-03] MEDS: lactobacillus rhamnosus 10,000 MMU CELLS/CAPSULE PO SCH ×2 (07:53→20:40)
[2021-05-03] MEDS: chlorthalidone 25mg tablet PO SCH (07:53)
[2021-05-03] MEDS: pantoprazole 40mg Tablet.DR PO SCH (07:54)
[2021-05-03] MEDS: metoprolol succinate 25mg (24-HOUR) SR. Tablet PO SCH (07:54)
[2021-05-03] MEDS: multivitamins, therapeutics tablet PO SCH (07:54)
[2021-05-03] MEDS: thiamine 100mg tablet PO SCH (07:54)
[2021-05-03] MEDS: folic acid 1mg tablet PO SCH (07:55)
[2021-05-03] MEDS: budesonide 0.5mg/2ml UD nebule IH SCH ×2 (08:32→20:39)
--- NOTE | 2021-05-03 17:13 | NUR ---
Problems reprioritized. Patient report given, questions answered & plan of care reviewed with Surgical Nurse Nini FLORES.
--- NOTE | 2021-05-03 17:21 | NUR ---
Received report from Geena Pierson RN. Awaiting patient arrival.
--- NOTE | 2021-05-03 19:04 | NUR ---
Problems reprioritized. Patient report given, questions answered & plan of care reviewed with SANDRA Hdz.
--- NOTE | 2021-05-03 19:12 | NUR ---
Patient in room [facility]ANN[facility] 353. I have received report from lianet FLORES and had the opportunity to ask questions and assume patient care.
[2021-05-04] VITALS: BP 164/81
[2021-05-04] MEDS: ipratropium/albuterol 3ml nebule IH SCH ×3 (02:39→15:19)
[2021-05-04 06:08] LABS: PARTIAL THROMBOPLASTIN TIME 29 SECONDS (22-32)
[2021-05-04 06:11] LABS: BASOPHILS % (AUTO) 0.4 % (0-1); EOSINOPHILS # (AUTO) 0.1 X10'3 (0-0.9); EOSINOPHILS % (AUTO) 1.1 % (0-6); HEMATOCRIT 40.8 % (35.0-45.0); LYMPHOCYTES # (AUTO) 1.9 X10'3 (1.1-4.8); LYMPHOCYTES % (AUTO) 32.8 % (21-51); MEAN CORPUSCULAR HEMOGLOBIN 35.7 PG (27.0-31.0); MEAN CORPUSCULAR HGB CONC 34.2 g/dL (33.0-36.5); MEAN CORPUSCULAR VOLUME 104.3 FL (78-98); MEAN PLATELET VOLUME 9.7 FL (7.4-10.4); MONOCYTES # (AUTO) 0.7 X10'3 (0-0.9); MONOCYTES % (AUTO) 11.4 % (2-12); NEUTROPHILS # (AUTO) 3.1 X10'3 (1.8-7.7); NEUTROPHILS % (AUTO) 54.3 % (42-75); PLATELET COUNT 121 X10'3 (140-440); RED BLOOD COUNT 3.91 X10'6 (4.20-5.60); RED CELL DISTRIBUTION WIDTH 14.4 % (11.5-14.5); WHITE BLOOD COUNT 5.7 X10'3 (4.5-11.0)
--- NOTE | 2021-05-04 06:22 | NUR ---
patient appears comfortable no c/o pain. not requiring O2. slept on and off most of night. labs drawn. report given to binta FLORES
[2021-05-04 06:23] LABS: ALANINE AMINOTRANSFERASE 33 U/L (12-78); ALBUMIN 3.1 G/DL (3.4-5.0); ALKALINE PHOSPHATASE 116 IU/L (46-116); ANION GAP 10 (8-16); ASPARTATE AMINO TRANSFERASE 28 U/L (10-37); BLOOD UREA NITROGEN 10 MG/DL (7-18); BUN/CREATININE RATIO 14.7 (6.6-38.0); CALCIUM 9.2 MG/DL (8.5-10.1); CHLORIDE 106 MMOL/L (99-107); CREATININE 0.68 MG/DL (0.40-0.90); GLUCOSE 118 MG/DL (70-104); MAGNESIUM 1.6 MG/DL (1.5-2.4); PHOSPHORUS 3.9 MG/DL (2.3-4.5); POTASSIUM 3.1 MMOL/L (3.5-5.1); SODIUM 146 MMOL/L (135-145); TOTAL CARBON DIOXIDE 30.5 MMOL/L (24-32); TOTAL PROTEIN 6.3 G/DL (6.4-8.2); eGFR 87 ML/MIN
[2021-05-04] MEDS: K, MAG and/or Phos replacement - Verify level? MC SCH (08:00)
[2021-05-04 08:11] VITALS: BP 150/75
[2021-05-04] MEDS: budesonide 0.5mg/2ml UD nebule IH SCH (08:38)
--- NOTE | 2021-05-04 08:44 | NUR ---
F/u 05/04: Pt advanced to regular diet s/p extubation 05/02, eating mostly 50-100% of meals meeting needs. Pt noted w/ small, full thickness wound on R garsia. No N/V/D, LBM 05/03. No nutritional diagnosis at this time, will continue to monitor. Recs: 1. Continue Regular diet as tolerated 2. thiamin, folic, MVI for etoh hx 3. routine bowel care 4. Weekly wts Addendum: 05/04/21 at [address] Amended: Links added.
[2021-05-04 09:00] VITALS: BP 120/62
[2021-05-04] MEDS: azithromycin/NS 500mg/250ml 250 ML IV SCH (09:53)
[2021-05-04] MEDS: chlorthalidone 25mg tablet PO SCH (09:53)
[2021-05-04] MEDS: multivitamins, therapeutics tablet PO SCH (09:54)
[2021-05-04] MEDS: apixaban 5mg tablet PO SCH (09:54)
[2021-05-04] MEDS: potassium Cl 20 mEq SR tablet PO PRN ×3 (09:54→18:01)
[2021-05-04] MEDS: pantoprazole 40mg Tablet.DR PO SCH (09:54)
[2021-05-04] MEDS: thiamine 100mg tablet PO SCH (09:55)
[2021-05-04] MEDS: folic acid 1mg tablet PO SCH (09:55)
[2021-05-04] MEDS: metoprolol succinate 25mg (24-HOUR) SR. Tablet PO SCH (09:55)
[2021-05-04] MEDS: lactobacillus rhamnosus 10,000 MMU CELLS/CAPSULE PO SCH (09:56)
[2021-05-04] MEDS: CefTRIAXone 2gm/D5W 50ml BAG 50 ML IV SCH (11:48)
[2021-05-04] MEDS: furosemide 20MG tablet PO SCH (11:48)
[2021-05-04 11:55] VITALS: BP 150/73
--- NOTE | 2021-05-04 16:45 | NUR ---
PT HAS BEEN ADMITTED TO THE FLOOR AND HAS NOT BEEN DC'd. LAB RESULTS FAXED TO SURGICAL FLOOR
[2021-05-04] MEDS ORDERED: LORazepam 1 MG tablet PO PRN (17:15)
[2021-05-04] MEDS ORDERED: LORazepam 2 mg/ml vial IV PRN (17:15)
--- NOTE | 2021-05-04 18:09 | NUR ---
PAGER ID: [phone] MESSAGE: Erin Flores [phone] This pt. transferred from ICU yesterday. Dr. Zapien states he spoke to Jyoti and Zoe about assuming care?? Delores [phone]
[2021-05-04] MEDS ORDERED: SULF1TAB49 PO (18:52)
--- NOTE | 2021-05-04 18:53 | NUR ---
Hospitalist Zoe rounded on pt. Pt. eager to go home. Does not want a home prescription of Eliquis and states she is not sure why she was put on Eliquis. aware of pt's medical hx, however pt. states she has only had one PE before and it was 8 years ago. Pt. denies needing any oxygen and oxygen saturation stable today. Pt. requesting discharge antibiotic for her small wound on R garsia. Discharge orders noted.
[2021-05-04 19:00] VITALS: BP 155/70
--- NOTE | 2021-05-04 19:30 | NUR ---
Reviewed discharge paperwork with pt. LEJ removed, pressure held for 5 min, pressure bandage applied. Cannula intact and no s/sx bleeding noted. Pt aware to p/u atb at [facility] for MRSA in wound on R garsia. Picture in chart from last 24 hour for discharge. Pt. had the opportune to ask questions. Aware to f/u with PCP in a week. here to p/u her and her belongings to go home.
[2021-05-05] MEDS ORDERED: azithromycin 250mg tablet PO SCH (08:00)
== END 2021-05-04 19:40 | disposition home or self-care (01) | DRG 208 ==
LOC: ER 15:37 → EEVIPCON 15:37 → ED HOLD 17:27 → ICU 2S 19:58 → SUR 3N 05-03 17:30
PROVIDERS: ADMIT Internal Medicine Critical Care Medicine; ATTEND Internal Medicine Critical Care Medicine
PROC: 5A1945Z Respiratory Ventilation, 24-96 Consecutive Hours (ICD-10-PCS; principal; 2021-04-30)
PROC: 0BH17EZ Insertion of Endotracheal Airway into Trachea, Via Natural or Artificial Opening (ICD-10-PCS; 2021-04-30)
PROC: 0D9670Z Drainage of Stomach with Drainage Device, Via Natural or Artificial Opening (ICD-10-PCS; 2021-04-30)
PROC: 02HV33Z Insertion of Infusion Device into Superior Vena Cava, Percutaneous Approach (ICD-10-PCS; 2021-04-30)
PROC: B548ZZA Ultrasonography of Superior Vena Cava, Guidance (ICD-10-PCS; 2021-04-30)
DX: J96.01 Acute respiratory failure with hypoxia (principal); J44.1 Chronic obstructive pulmonary disease with (acute) exacerbation; E87.2 Acidosis; I10 Essential (primary) hypertension; G47.30 Sleep apnea, unspecified; B96.20 Unspecified Escherichia coli [E. coli] as the cause of diseases classified elsewhere; B95.62 Methicillin resistant Staphylococcus aureus infection as the cause of diseases classified elsewhere; G89.29 Other chronic pain; S81.801D Unspecified open wound, right lower leg, subsequent encounter; Z79.01 Long term (current) use of anticoagulants; Z79.82 Long term (current) use of aspirin; Z79.899 Other long term (current) drug therapy; Z82.49 Family history of ischemic heart disease and other diseases of the circulatory system; Z86.711 Personal history of pulmonary embolism; Z86.73 Personal history of transient ischemic attack (TIA), and cerebral infarction without residual deficits; Z87.442 Personal history of urinary calculi; Z90.49 Acquired absence of other specified parts of digestive tract; Z91.041 Radiographic dye allergy status; Z88.8 Allergy status to other drugs, medicaments and biological substances; Z91.018 Allergy to other foods; Z80.1 Family history of malignant neoplasm of trachea, bronchus and lung
CPT/HCPCS: 31500; 36415; 36556; 36600; 71045; 80053; 80320; 81003; 82803; 82948; 83735; 83880; 84100; 84132; 84145; 84484; 85018; 85025; 85379; 85610; 85730; 87040; 87070; 87081; 87502; 87503; 93005; 93306; 94003; 94640; 94760; 94799; 96365; 96367; 96368; 96375; 99291; C9113; G0378; J0456; J0696; J1100; J1644; J2930; J3010; J3370; J3411; J3480; J3490; J7626

== ENCOUNTER 2021-05-11 08:39 | Outpatient (CLI) | payer BC ==
[~2021-05-11 08:39] MED LIST changes: -APIX5TAB3 PO; -ASPI-1071 PO; +CHLO25TA10 PO; -CHLO25TA11 PO; -DOXY-1 PO; +FURO20TA4 PO; -MECL-226 PO; +METO-384 PO; -METO-395 PO; -PRED10TA23 PO; +SULF1TAB49 PO; -rocuronium 10mg/ml inj IV ONE
[2021-05-11] MEDS ORDERED: METO50TA16 PO (15:28)
== END 2021-05-11 23:59 | disposition home or self-care (01) ==
LOC: VAS 08:39
PROVIDERS: ATTEND Physician Assistant
DX: Z86.718 Personal history of other venous thrombosis and embolism (principal)
CPT/HCPCS: 93922; 93925

== ENCOUNTER 2021-05-11 09:37 | Inpatient (IN) | payer BC ==
[2021-05-11] VITALS (29 sets, daily range): BP systolic 115–211; BP diastolic 50–100
[~2021-05-11] VITALS: Ht 177.8 cm; Wt 102.7 kg
[2021-05-11] MEDS ORDERED: labetalol 20mg/4ml (5mg/ml) syringe IV ONE (09:55)
[2021-05-11] MEDS ORDERED: proCHLORperazine 10 MG/2 ml inj IV ONE (10:15)
--- NOTE | 2021-05-11 10:21 | NUR ---
TELE NEURO CART IN BED ,SMITH STROKE NURSE AT BEDSIDE .GAURI AT BEDSIDE .NEUROLOGIST ASSESSING THE PT .
[2021-05-11 10:24] LABS: BASOPHILS # (AUTO) 0.1 X10'3 (0-0.2); BASOPHILS % (AUTO) 0.6 % (0-1); EOSINOPHILS # (AUTO) 0.1 X10'3 (0-0.9); EOSINOPHILS % (AUTO) 1.1 % (0-6); HEMATOCRIT 45.3 % (35.0-45.0); HEMOGLOBIN 15.4 g/dl (12.0-16.0); LYMPHOCYTES # (AUTO) 2.4 X10'3 (1.1-4.8); LYMPHOCYTES % (AUTO) 23.9 % (21-51); MEAN CORPUSCULAR HEMOGLOBIN 35.6 PG (27.0-31.0); MEAN CORPUSCULAR VOLUME 104.7 FL (78-98); MEAN PLATELET VOLUME 9.2 FL (7.4-10.4); MONOCYTES # (AUTO) 1.2 X10'3 (0-0.9); NEUTROPHILS # (AUTO) 6.2 X10'3 (1.8-7.7); NEUTROPHILS % (AUTO) 62.4 % (42-75); PLATELET COUNT 170 X10'3 (140-440); RED BLOOD COUNT 4.33 X10'6 (4.20-5.60); RED CELL DISTRIBUTION WIDTH 13.7 % (11.5-14.5); WHITE BLOOD COUNT 9.9 X10'3 (4.5-11.0)
[2021-05-11] MEDS ORDERED: normal saline 1000ml 1,000 ML IV ONE (10:30)
[2021-05-11] MEDS: niCARDipine-NS 40mg/200ml IVPB 200 ML IV SCH ×2 (10:30→17:45)
[2021-05-11] MEDS ORDERED: normal saline 50ml IV soln 50 ML IV SCH (10:30)
[2021-05-11 10:42] LABS: ALANINE AMINOTRANSFERASE 36 U/L (12-78); ALBUMIN 3.7 G/DL (3.4-5.0); ALKALINE PHOSPHATASE 128 IU/L (46-116); ANION GAP 12 (8-16); ASPARTATE AMINO TRANSFERASE 28 U/L (10-37); BILIRUBIN,TOTAL 1.2 MG/DL (0.1-1.0); BLOOD UREA NITROGEN 5 MG/DL (7-18); BUN/CREATININE RATIO 6.8 (6.6-38.0); CALCIUM 8.9 MG/DL (8.5-10.1); CHLORIDE 105 MMOL/L (99-107); CREATININE 0.74 MG/DL (0.40-0.90); GLUCOSE 134 MG/DL (70-104); POTASSIUM 3.9 MMOL/L (3.5-5.1); SODIUM 141 MMOL/L (135-145); TOTAL CARBON DIOXIDE 24.5 MMOL/L (24-32); TOTAL PROTEIN 7.4 G/DL (6.4-8.2); eGFR 79 ML/MIN
[2021-05-11 10:47] LABS: PARTIAL THROMBOPLASTIN TIME 28 SECONDS (22-32)
--- NOTE | 2021-05-11 10:47 | NUR ---
PT TPA BOLUS STARTED AT 1043 8.9 MG AND 0.809 MG/KG/HR IV INFUSION STARTED AT 1044 BY SMITH STROKE NURSE AND CO SIGNED WITH MOISE FLORES. GAURI AT BEDSIDE.WILL CONT TO MONITR,NICARDIPNE TURNED OFF BP WITHIN NORMAL LIMIT ITS 155/77 MMHG AT THIS TIME HR 83 NSR,SPO2 94 % RA
--- NOTE | 2021-05-11 11:34 | NUR ---
PT ON BEDPAN
[2021-05-11] MEDS ORDERED: morphine 4 MG/ML inj SYRINge IV PRN (12:05)
[2021-05-11] MEDS ORDERED: ondansetron/PF 4mg/2ml inj IV PRN (12:05)
[2021-05-11] MEDS: normal saline 1000ml 1,000 ML IV SCH ×2 (12:05→14:40)
[2021-05-11] MEDS ORDERED: morphine 2 MG/ML inj. syringe IV PRN (12:05)
[2021-05-11] MEDS ORDERED: potassium Cl 20 mEq SR tablet PO PRN ×2 (12:05)
[2021-05-11] MEDS ORDERED: acetaminophen 325mg tablet PO PRN ×2 (12:05)
[2021-05-11] MEDS ORDERED: magnesium hydroxide 30ml (MOM) UD suspension PO PRN (12:05)
[2021-05-11 12:09] LABS: TROPONIN I < 0.04 NG/ML (0.0-0.05)
--- NOTE | 2021-05-11 13:00 | NUR ---
Patient arrived via gurney with Stroke RN. Report received. Patient alert, oriented and in no apparent distress at time of arrival. Patient connected to monitor, VSS. BLL. Call light within reach.
[2021-05-11] MEDS: K, MAG and/or Phos replacement - Verify level? MC SCH (13:08)
[2021-05-11] MEDS ORDERED: METO50TA16 PO (15:28)
[2021-05-11 16:12] LABS: HEMOGLOBIN A1C 5.7 % (4.5-6.2)
--- NOTE | 2021-05-11 18:20 | NUR ---
Problems reprioritized. Patient report given, questions answered & plan of care reviewed with SANDRA Cazares.
--- NOTE | 2021-05-11 18:50 | NUR ---
Patient in room ICU 2043. I have received report from Mouna @ 2500 and had the opportunity to ask questions and assume patient care.
[2021-05-12] VITALS (19 sets, daily range): BP systolic 120–200; BP diastolic 51–92
[2021-05-12] MEDS: normal saline 1000ml 1,000 ML IV SCH ×3 (00:13→13:14)
[2021-05-12] MEDS: niCARDipine-NS 40mg/200ml IVPB 200 ML IV SCH ×2 (02:10→09:11)
--- NOTE | 2021-05-12 06:05 | NUR ---
Patient in room ICU 2043. I have received report from SANDRA Cazares and had the opportunity to ask questions and assume patient care.
--- NOTE | 2021-05-12 06:07 | NUR ---
Problems reprioritized. Patient report given, questions answered & plan of care reviewed with Mouna.
[2021-05-12 06:13] LABS: PARTIAL THROMBOPLASTIN TIME 23 SECONDS (22-32)
[2021-05-12 06:28] LABS: ALANINE AMINOTRANSFERASE 27 U/L (12-78); ALBUMIN 3.3 G/DL (3.4-5.0); ALBUMIN/GLOBULIN RATIO 1.1 (1.1-1.5); ALKALINE PHOSPHATASE 121 IU/L (46-116); ANION GAP 13 (8-16); ASPARTATE AMINO TRANSFERASE 23 U/L (10-37); BILIRUBIN,TOTAL 1.2 MG/DL (0.1-1.0); BLOOD UREA NITROGEN 8 MG/DL (7-18); BUN/CREATININE RATIO 13.1 (6.6-38.0); CALCIUM 8.1 MG/DL (8.5-10.1); CHLORIDE 107 MMOL/L (99-107); CHOL/HDL RATIO 2.5 (0.00-4.99); CHOLESTEROL 169 MG/DL (0-200); CREATININE 0.61 MG/DL (0.40-0.90); GLUCOSE 107 MG/DL (70-104); HDL CHOLESTEROL 67 MG/DL (35-60); LDL CHOLESTEROL 79 MG/DL (50-100); MAGNESIUM 1.4 MG/DL (1.5-2.4); PHOSPHORUS 3.6 MG/DL (2.3-4.5); POTASSIUM 3.6 MMOL/L (3.5-5.1); SODIUM 143 MMOL/L (135-145); TOTAL CARBON DIOXIDE 22.7 MMOL/L (24-32); TOTAL PROTEIN 6.4 G/DL (6.4-8.2); TRIGLYCERIDES 95 MG/DL (20-135); eGFR > 90 ML/MIN
[2021-05-12] MEDS: K, MAG and/or Phos replacement - Verify level? MC SCH (07:00)
[2021-05-12] MEDS ORDERED: gabapentin 300mg capsule PO PRN (08:00)
[2021-05-12] MEDS ORDERED: pantoprazole 40 MG vial IV SCH (08:00)
[2021-05-12] MEDS ORDERED: potassium Cl 20 mEq SR tablet PO PRN (08:05)
[2021-05-12] MEDS ORDERED: magnesium 2GM in 50ml NS 50 ML IV PRN (08:05)
[2021-05-12] MEDS ORDERED: potassium Cl 40MEQ/1/2NS 520ml 520 ML IV PRN (08:05)
[2021-05-12] MEDS ORDERED: potassium CL 10mEq/100ml bag 100 ML IV PRN (08:05)
[2021-05-12] MEDS ORDERED: magnesium 4gm in 100ml NS 100 ML IV PRN (08:05)
[2021-05-12] MEDS: metoprolol tartrate 50mg tablet PO SCH ×2 (08:43→20:23)
[2021-05-12] MEDS: chlorthalidone 25mg tablet PO SCH (08:43)
[2021-05-12 09:51] LABS: BASOPHILS # (AUTO) 0.1 X10'3 (0-0.2); EOSINOPHILS # (AUTO) 0.1 X10'3 (0-0.9); EOSINOPHILS % (AUTO) 1.8 % (0-6); HEMATOCRIT 44.4 % (35.0-45.0); HEMOGLOBIN 14.9 g/dl (12.0-16.0); LYMPHOCYTES # (AUTO) 2.1 X10'3 (1.1-4.8); LYMPHOCYTES % (AUTO) 27.9 % (21-51); MEAN CORPUSCULAR HEMOGLOBIN 35.3 PG (27.0-31.0); MEAN CORPUSCULAR HGB CONC 33.7 g/dL (33.0-36.5); MEAN CORPUSCULAR VOLUME 104.9 FL (78-98); MEAN PLATELET VOLUME 10.4 FL (7.4-10.4); MONOCYTES # (AUTO) 0.7 X10'3 (0-0.9); NEUTROPHILS # (AUTO) 4.4 X10'3 (1.8-7.7); NEUTROPHILS % (AUTO) 59.3 % (42-75); PLATELET COUNT 142 X10'3 (140-440); RED BLOOD COUNT 4.23 X10'6 (4.20-5.60); RED CELL DISTRIBUTION WIDTH 14.1 % (11.5-14.5); WHITE BLOOD COUNT 7.4 X10'3 (4.5-11.0)
[2021-05-12] MEDS: thiamine 100mg tablet PO SCH (12:45)
[2021-05-12] MEDS: folic acid 1mg tablet PO SCH (12:45)
--- NOTE | 2021-05-12 12:45 | NUR ---
Spoke to Dr. Lopez about patient's tele/neuro consult. Dr. Lopez agreed with the recommendations that the neurologist gave. Orders put in and the first dose of Lipitor, Aspirin, and Plavix given per order. Dr. Lopez also agreed to transfer patient to Neuro with tele monitoring x24 hrs. Orders put in.
[2021-05-12] MEDS: multivitamins, therapeutics tablet PO SCH (12:46)
[2021-05-12] MEDS: clopidogrel 75mg tablet PO SCH (12:46)
[2021-05-12] MEDS: atorvastatin 20mg tablet PO SCH (12:46)
[2021-05-12] MEDS: aspirin 81mg, enteric-coated 1 TAB TABLET.DR PO SCH (12:46)
--- NOTE | 2021-05-12 13:49 | NUR ---
Patient report given to SANDRA Pinzon on Neuro.
--- NOTE | 2021-05-12 15:22 | NUR ---
Patient transferred to neuro unit via wheelchair with primary RN. Patient VSS, alert, oriented and in no apparent distress at time of transfer. Patient took all belongings to neuro. Tele monitor was retrieved and placed on patient prior to transfer. Patient chart brought with us.
--- NOTE | 2021-05-12 17:08 | NUR ---
agree with physical assessment done by wilma brantley Addendum: 05/12/21 at 1708 by Jenna Pastor RN Amended: Links added.
--- NOTE | 2021-05-12 18:24 | NUR ---
Problems reprioritized. Patient report given, questions answered & plan of care reviewed with KAYLEEN FLORES.
--- NOTE | 2021-05-12 18:49 | NUR ---
Patient in room ORTHO 4007. I have received report from SANDRA Pinzon and had the opportunity to ask questions and assume patient care.
[2021-05-12] MEDS: ipratropium 0.5 MG/2.5ML nebule NEB PRN (20:42)
[2021-05-13 02:00] VITALS: BP 159/74
[2021-05-13] MEDS: normal saline 1000ml 1,000 ML IV SCH (02:45)
[2021-05-13 06:00] VITALS: BP 160/64
--- NOTE | 2021-05-13 06:23 | NUR ---
Problems reprioritized. Patient report given, questions answered & plan of care reviewed with SANDRA Diaz.
--- NOTE | 2021-05-13 06:26 | NUR ---
Patient in room ORTHO 4007. I have received report from Adriana FLORES and had the opportunity to ask questions and assume patient care.
[2021-05-13] MEDS: ipratropium 0.5 MG/2.5ML nebule NEB PRN (06:40)
[2021-05-13 06:52] LABS: BASOPHILS % (AUTO) 0.4 % (0-1); EOSINOPHILS # (AUTO) 0.1 X10'3 (0-0.9); EOSINOPHILS % (AUTO) 1.8 % (0-6); HEMATOCRIT 42.6 % (35.0-45.0); HEMOGLOBIN 14.3 g/dl (12.0-16.0); LYMPHOCYTES # (AUTO) 1.9 X10'3 (1.1-4.8); LYMPHOCYTES % (AUTO) 26.8 % (21-51); MEAN CORPUSCULAR HEMOGLOBIN 34.9 PG (27.0-31.0); MEAN CORPUSCULAR HGB CONC 33.6 g/dL (33.0-36.5); MEAN CORPUSCULAR VOLUME 103.7 FL (78-98); MEAN PLATELET VOLUME 9.4 FL (7.4-10.4); MONOCYTES # (AUTO) 0.8 X10'3 (0-0.9); MONOCYTES % (AUTO) 10.9 % (2-12); NEUTROPHILS # (AUTO) 4.3 X10'3 (1.8-7.7); NEUTROPHILS % (AUTO) 60.1 % (42-75); PLATELET COUNT 145 X10'3 (140-440); RED BLOOD COUNT 4.11 X10'6 (4.20-5.60); RED CELL DISTRIBUTION WIDTH 13.7 % (11.5-14.5); WHITE BLOOD COUNT 7.1 X10'3 (4.5-11.0)
[2021-05-13 07:08] LABS: PARTIAL THROMBOPLASTIN TIME 27 SECONDS (22-32)
[2021-05-13] MEDS: aspirin 81mg, enteric-coated 1 TAB TABLET.DR PO SCH (07:21)
[2021-05-13] MEDS: thiamine 100mg tablet PO SCH (07:21)
[2021-05-13 07:22] VITALS: BP_SYST 131
[2021-05-13] MEDS: multivitamins, therapeutics tablet PO SCH (07:22)
[2021-05-13] MEDS: metoprolol tartrate 50mg tablet PO SCH (07:22)
[2021-05-13] MEDS: atorvastatin 20mg tablet PO SCH (07:23)
[2021-05-13] MEDS: clopidogrel 75mg tablet PO SCH (07:23)
[2021-05-13] MEDS: folic acid 1mg tablet PO SCH (07:23)
[2021-05-13 07:25] LABS: ALANINE AMINOTRANSFERASE 29 U/L (12-78); ALBUMIN 3.3 G/DL (3.4-5.0); ALBUMIN/GLOBULIN RATIO 1.1 (1.1-1.5); ALKALINE PHOSPHATASE 117 IU/L (46-116); ANION GAP 10 (8-16); ASPARTATE AMINO TRANSFERASE 24 U/L (10-37); BILIRUBIN,TOTAL 0.9 MG/DL (0.1-1.0); BLOOD UREA NITROGEN 7 MG/DL (7-18); BUN/CREATININE RATIO 11.5 (6.6-38.0); CALCIUM 8.8 MG/DL (8.5-10.1); CHLORIDE 108 MMOL/L (99-107); CREATININE 0.61 MG/DL (0.40-0.90); GLUCOSE 111 MG/DL (70-104); MAGNESIUM 1.8 MG/DL (1.5-2.4); PHOSPHORUS 3.3 MG/DL (2.3-4.5); POTASSIUM 3.5 MMOL/L (3.5-5.1); SODIUM 142 MMOL/L (135-145); TOTAL CARBON DIOXIDE 24.4 MMOL/L (24-32); TOTAL PROTEIN 6.4 G/DL (6.4-8.2); eGFR > 90 ML/MIN
[2021-05-13] MEDS: chlorthalidone 25mg tablet PO SCH (07:27)
[2021-05-13] MEDS ORDERED: pantoprazole 40mg Tablet.DR PO SCH (07:30)
[2021-05-13] MEDS: K, MAG and/or Phos replacement - Verify level? MC SCH (08:00)
[2021-05-13] MEDS ORDERED: ATOR20TA66 PO (09:44)
[2021-05-13] MEDS ORDERED: ASPI81TA52 PO (09:44)
[2021-05-13] MEDS ORDERED: CLOP75TA34 PO (09:44)
--- NOTE | 2021-05-13 10:15 | NUR ---
PATIENT DISCHARGED WITH IN STABLE CONDITION. IV REMOVED NO COMPLICATIONS. BELONGINGS SENT WITH PATIENT. PATIENT DISCHARGED WITH IN PRIVATE VEHICLE
== END 2021-05-13 10:14 | disposition home or self-care (01) | DRG 63 ==
LOC: ER 09:37 → EEVIPCON 09:37 → ED HOLD 12:12 → ICU 2S 12:51 → ORTHO 4S 05-12 15:20
PROVIDERS: ADMIT Surgery Surgical Critical Care; ATTEND Surgery Surgical Critical Care
DX: I63.9 Cerebral infarction, unspecified (principal); I10 Essential (primary) hypertension; J44.9 Chronic obstructive pulmonary disease, unspecified; G47.30 Sleep apnea, unspecified; G83.21 Monoplegia of upper limb affecting right dominant side; R55 Syncope and collapse; G62.9 Polyneuropathy, unspecified; R29.702 NIHSS score 2; G89.29 Other chronic pain; Z80.1 Family history of malignant neoplasm of trachea, bronchus and lung; Z82.49 Family history of ischemic heart disease and other diseases of the circulatory system; Z82.5 Family history of asthma and other chronic lower respiratory diseases; Z86.711 Personal history of pulmonary embolism; Z86.73 Personal history of transient ischemic attack (TIA), and cerebral infarction without residual deficits; Z87.442 Personal history of urinary calculi; Z90.49 Acquired absence of other specified parts of digestive tract; Z88.8 Allergy status to other drugs, medicaments and biological substances; Z87.01 Personal history of pneumonia (recurrent); Z87.440 Personal history of urinary (tract) infections; Z95.0 Presence of cardiac pacemaker; Z79.899 Other long term (current) drug therapy
CPT/HCPCS: 36415; 70450; 71045; 80053; 80061; 82948; 83036; 83735; 84100; 84484; 85025; 85610; 85730; 92508; 92616; 93005; 93880; 94640; 94760; 96361; 96374; 96375; 97112; 97116; 97161; 97530; 99291; C9113; G0378; J0780; J2997; J3475; J3490; J7030

== ENCOUNTER 2021-05-30 10:59 | Outpatient (CLI) | payer BC ==
[~2021-05-30 10:59] MED LIST changes: +ASPI81TA52 PO; +ATOR20TA66 PO; +CLOP75TA34 PO; -METO-384 PO; +METO50TA16 PO; -SULF1TAB49 PO
[2021-05-30 11:51] LABS: ALBUMIN 3.9 G/DL (3.4-5.0); ANION GAP 10 (8-16); BLOOD UREA NITROGEN 9 MG/DL (7-18); BUN/CREATININE RATIO 11.8 (6.6-38.0); CALCIUM 9.5 MG/DL (8.5-10.1); CHLORIDE 105 MMOL/L (99-107); CREATININE 0.76 MG/DL (0.40-0.90); GLUCOSE 115 MG/DL (70-104); POTASSIUM 4.1 MMOL/L (3.5-5.1); SODIUM 141 MMOL/L (135-145); TOTAL CARBON DIOXIDE 25.9 MMOL/L (24-32); eGFR 76 ML/MIN
== END 2021-05-30 23:59 | disposition home or self-care (01) ==
LOC: LAB 10:59
PROVIDERS: ATTEND Internal Medicine Interventional Cardiology
DX: R06.02 Shortness of breath (principal)
CPT/HCPCS: 36415; 80048

== ENCOUNTER 2022-01-31 15:02 | Emergency (ER) | payer BC ==
[~2022-01-31] VITALS: Ht 177.8 cm; Wt 90.0 kg
[~2022-01-31 15:02] MED LIST changes: -ASPI81TA52 PO
[2022-01-31] MEDS ORDERED: ipratropium/albuterol 3ml nebule NEB ONE (15:05)
[2022-01-31] MEDS ORDERED: normal saline 1000ml 1,000 ML IV ONE (15:25)
[2022-01-31] MEDS ORDERED: ondansetron/PF 4mg/2ml inj IV ONE (15:30)
[2022-01-31] MEDS ORDERED: BEBTELOVIMAB 175 MG/2 ML VIAL IV ONE (15:50)
[2022-01-31 15:57] LABS: BASOPHILS % (AUTO) 0.5 % (0-1); EOSINOPHILS % (AUTO) 0.4 % (0-6); HEMATOCRIT 41.4 % (35.0-45.0); LYMPHOCYTES # (AUTO) 2.1 X10'3 (1.1-4.8); LYMPHOCYTES % (AUTO) 21.8 % (21-51); MEAN CORPUSCULAR HGB CONC 33.9 g/dL (33.0-36.5); MEAN CORPUSCULAR VOLUME 103.4 FL (78-98); MEAN PLATELET VOLUME 9.1 FL (7.4-10.4); MONOCYTES # (AUTO) 1.6 X10'3 (0-0.9); MONOCYTES % (AUTO) 16.7 % (2-12); NEUTROPHILS # (AUTO) 5.8 X10'3 (1.8-7.7); NEUTROPHILS % (AUTO) 60.6 % (42-75); PLATELET COUNT 185 X10'3 (140-440); RED BLOOD COUNT 4.01 X10'6 (4.20-5.60); RED CELL DISTRIBUTION WIDTH 14.5 % (11.5-14.5); WHITE BLOOD COUNT 9.5 X10'3 (4.5-11.0)
[2022-01-31 16:15] LABS: PLATELET ESTIMATE NORMAL; TOTAL CELLS COUNTED 100
[2022-01-31 16:17] LABS: ALANINE AMINOTRANSFERASE 25 U/L (12-78); ALBUMIN 3.4 G/DL (3.4-5.0); ALBUMIN/GLOBULIN RATIO 0.8 (1.1-1.5); ALKALINE PHOSPHATASE 153 IU/L (46-116); ANION GAP 10 (8-16); ASPARTATE AMINO TRANSFERASE 24 U/L (10-37); BILIRUBIN,TOTAL 0.9 MG/DL (0.1-1.0); BLOOD UREA NITROGEN 11 MG/DL (7-18); BUN/CREATININE RATIO 17.7 (6.6-38.0); CALCIUM 8.7 MG/DL (8.5-10.1); CHLORIDE 102 MMOL/L (99-107); CREATININE 0.62 MG/DL (0.40-0.90); GLUCOSE 90 MG/DL (70-104); MAGNESIUM 1.7 MG/DL (1.5-2.4); POTASSIUM 3.8 MMOL/L (3.5-5.1); SODIUM 137 MMOL/L (135-145); TOTAL CARBON DIOXIDE 24.6 MMOL/L (24-32); TOTAL PROTEIN 7.6 G/DL (6.4-8.2); eGFR > 90 ML/MIN
[2022-01-31 16:47] VITALS: BP 128/77
[2022-01-31] MEDS ORDERED: ondansetron 4mg rapidly disintigrating tab PO ONE (17:15)
[2022-01-31] MEDS ORDERED: benzonatate 100mg capsule PO ONE (17:15)
[2022-01-31] MEDS ORDERED: BENZ-38 PO (17:20)
[2022-01-31] MEDS ORDERED: ONDA8TAB13 PO (17:20)
== END 2022-01-31 17:47 | disposition home or self-care (01) ==
LOC: EEVIPCON 15:03 → ER 15:03
DX: U07.1 COVID-19 (principal); R19.7 Diarrhea, unspecified; R05.9 Cough, unspecified; R09.89 Other specified symptoms and signs involving the circulatory and respiratory systems; R11.10 Vomiting, unspecified; I10 Essential (primary) hypertension; J44.9 Chronic obstructive pulmonary disease, unspecified; G89.29 Other chronic pain; Z86.73 Personal history of transient ischemic attack (TIA), and cerebral infarction without residual deficits; Z87.01 Personal history of pneumonia (recurrent); Z86.711 Personal history of pulmonary embolism; Z87.442 Personal history of urinary calculi; Z87.440 Personal history of urinary (tract) infections; Z90.89 Acquired absence of other organs; Z90.49 Acquired absence of other specified parts of digestive tract; Z95.0 Presence of cardiac pacemaker; Z72.89 Other problems related to lifestyle; Z88.8 Allergy status to other drugs, medicaments and biological substances; Z79.899 Other long term (current) drug therapy
CPT/HCPCS: 36415; 71045; 80053; 83605; 83735; 84145; 85007; 85025; 87040; 93005; 94640; 96361; 96374; 99285; J2405; J7030; M0222; Q0222; 94760

== ENCOUNTER 2022-02-04 18:56 | Inpatient (IN) | payer BC, MEDICARE ==
[~2022-02-04] VITALS: Ht 177.8 cm; Wt 90.0 kg
[~2022-02-04 18:56] MED LIST changes: +BENZ-38 PO; +ONDA8TAB13 PO
[2022-02-04] MEDS ORDERED: methylPREDNISolone sod succ 125mg/2ml vial IV ONE (19:05)
[2022-02-04] MEDS ORDERED: ipratropium/albuterol 3ml nebule NEB ONE (19:05)
[2022-02-04] MEDS: albuterol 2.5 MG/3 ML nebule CONTNEB PRN (19:22)
[2022-02-04 19:28] LABS: ABG BASE EXCESS -0.1 mmol/L (-2.0-2.0); ABG HCO3 24.3 mmol/L (22.0-26.0); ABG OXYGEN SATURATION 96.6 % (94-97); ABG PCO2 (T) 39.3 mmHg (32.0-45.0); ABG PO2 (T) 90.7 mmHg (75.0-100.0); ALLEN'S TEST POSITIVE; FCOHb 4.4 % (0.0-3.9); FLOW 4 L/min; FMetHb 0.2 % (0.0-1.5); FO2Hb 92.2 % (94-97); PATIENT TEMPERATURE 37.2; TOTAL HEMOGLOBIN 15.2 G/dl (12.0-16.0)
[2022-02-04 19:38] LABS: ALANINE AMINOTRANSFERASE 17 U/L (12-78); ALBUMIN 3.4 G/DL (3.4-5.0); ALBUMIN/GLOBULIN RATIO 0.7 (1.1-1.5); ALKALINE PHOSPHATASE 170 IU/L (46-116); ANION GAP 11 (8-16); ASPARTATE AMINO TRANSFERASE 23 U/L (10-37); BILIRUBIN,TOTAL 0.6 MG/DL (0.1-1.0); BLOOD UREA NITROGEN 5 MG/DL (7-18); BUN/CREATININE RATIO 8.2 (6.6-38.0); CALCIUM 9.2 MG/DL (8.5-10.1); CHLORIDE 100 MMOL/L (99-107); CREATININE 0.61 MG/DL (0.40-0.90); GLUCOSE 100 MG/DL (70-104); SODIUM 136 MMOL/L (135-145); eGFR > 90 ML/MIN
[2022-02-04] MEDS ORDERED: LIDOcaine 2% (20mg/ml) 5ml vial SQ ONE (19:40)
[2022-02-04 19:47] LABS: POTASSIUM 4.5 MMOL/L (3.5-5.1)
[2022-02-04 19:57] LABS: BASOPHILS # (AUTO) 0.1 X10'3 (0-0.2); BASOPHILS % (AUTO) 0.7 % (0-1); EOSINOPHILS # (AUTO) 0.1 X10'3 (0-0.9); EOSINOPHILS % (AUTO) 1.3 % (0-6); HEMATOCRIT 41.4 % (35.0-45.0); HEMOGLOBIN 14.1 g/dl (12.0-16.0); LYMPHOCYTES # (AUTO) 2.6 X10'3 (1.1-4.8); LYMPHOCYTES % (AUTO) 30.9 % (21-51); MEAN CORPUSCULAR HEMOGLOBIN 35.3 PG (27.0-31.0); MEAN CORPUSCULAR HGB CONC 34.1 g/dL (33.0-36.5); MEAN CORPUSCULAR VOLUME 103.4 FL (78-98); MEAN PLATELET VOLUME 8.8 FL (7.4-10.4); MONOCYTES # (AUTO) 1.1 X10'3 (0-0.9); MONOCYTES % (AUTO) 13.2 % (2-12); NEUTROPHILS # (AUTO) 4.6 X10'3 (1.8-7.7); NEUTROPHILS % (AUTO) 53.9 % (42-75); PLATELET COUNT 237 X10'3 (140-440); WHITE BLOOD COUNT 8.5 X10'3 (4.5-11.0)
--- NOTE | 2022-02-04 20:16 | NUR ---
MD ADMINISTERED LIDOCAINE 2% 4ML W/ 1 ML NS VIA INHALER W/ 6L O2 FOR INTRACTIBLE COUGH.
[2022-02-04] MEDS ORDERED: REMDESIVIR INJ 200 MG in normal saline 100ml IV soln 100 ML IV ONE (20:50)
--- NOTE | 2022-02-04 20:58 | NUR ---
SPOKE TO DR ELIZABETH PT'S LACTIC IS 2.2. HE GAVE A VO FOR 1 L OF NS BOLUS
[2022-02-04] MEDS ORDERED: normal saline 1000ml 1,000 ML IV ONE (21:00)
[2022-02-04] MEDS ORDERED: magnesium hydroxide 30ml (MOM) UD suspension PO PRN (21:50)
[2022-02-04] MEDS ORDERED: morphine 2 MG/ML inj. syringe IV PRN (21:50)
[2022-02-04] MEDS ORDERED: diphenhydrAMINE 25mg capsule PO PRN (21:50)
[2022-02-04] MEDS ORDERED: acetaminophen 325mg tablet PO PRN ×2 (21:50)
[2022-02-04] MEDS ORDERED: ondansetron 4mg rapidly disintigrating tab PO PRN (21:50)
[2022-02-04] MEDS ORDERED: bisacodyl 10mg suppository rectal RC PRN (21:50)
[2022-02-04] MEDS ORDERED: diphenhydrAMINE 50 mg/ml inj IV PRN (21:50)
[2022-02-04] MEDS ORDERED: acetaminophen 650mg rectal suppository RC PRN (21:50)
[2022-02-04] MEDS ORDERED: ondansetron/PF 4mg/2ml inj IV PRN (21:50)
[2022-02-04] MEDS ORDERED: mag hydrox/Alum hydrox/simeth 30ml oral suspension PO PRN (21:50)
[2022-02-04] MEDS ORDERED: ALBUTEROL INHALER 1 PUFF/90 MCG INHALER IH PRN (21:55)
[2022-02-04 22:15] LABS: APTT 29 SECONDS (22-32); D-DIMER 1.11 MG/L FEU (0-0.50)
[2022-02-04] MEDS: normal saline 1000ml 1,000 ML IV SCH (22:29)
[2022-02-04 22:34] LABS: HEMOGLOBIN A1C 5.2 % (4.5-6.2)
--- NOTE | 2022-02-04 22:45 | NUR ---
CALLED TO GIVE REPORT PT HAS A ROOM. A NURSE HAS NOT BEEN ASSIGNED YET SO WILL CALL LATER.
[2022-02-04 22:49] LABS: CREATINE KINASE 23 U/L (26-192); LIPASE < 50 U/L (73-393); MAGNESIUM 1.7 MG/DL (1.5-2.4); PHOSPHORUS 3.3 MG/DL (2.3-4.5)
[2022-02-04 23:50] VITALS: BP 155/78
[2022-02-05] MEDS: HYDROcodone/acetaminophen 5mg/325mg tablet PO PRN ×2 (00:19→21:13)
[2022-02-05] MEDS: temazepam 15mg capsule PO PRN ×2 (00:20→20:31)
--- NOTE | 2022-02-05 00:21 | NUR ---
patient in room, having meal and water. Will request MD directional drill operator for PRN medicine for cough per patient request. Vitals stable, no distress.
[2022-02-05 02:00] VITALS: BP 148/69
[2022-02-05 06:00] VITALS: BP 111/59
[2022-02-05] MEDS ORDERED: sod chloride 0.9% 10ml flush syringe IV ONE (08:00)
[2022-02-05] MEDS ORDERED: naloxone 0.4 mg/ml inj ONE (08:00)
[2022-02-05] MEDS ORDERED: dexamethasone 4mg/ml inj IV SCH ×2 (08:00→08:55)
[2022-02-05] MEDS: BARICITINIB 2 MG TABLET PO SCH ×2 (08:00→15:57)
[2022-02-05 08:30] VITALS: BP 157/70
[2022-02-05] MEDS: docusate sod 100mg capsule PO SCH ×2 (08:49→20:32)
[2022-02-05] MEDS: heparin, porcine 5000 units/ml vial SQ SCH ×2 (08:50→20:32)
[2022-02-05 09:11] LABS: BASOPHILS % (AUTO) 0.3 % (0-1); EOSINOPHILS % (AUTO) 0 % (0-6); HEMATOCRIT 40.5 % (35.0-45.0); HEMOGLOBIN 13.7 g/dl (12.0-16.0); LYMPHOCYTES # (AUTO) 0.7 X10'3 (1.1-4.8); LYMPHOCYTES % (AUTO) 11.3 % (21-51); MEAN CORPUSCULAR HEMOGLOBIN 34.9 PG (27.0-31.0); MEAN CORPUSCULAR HGB CONC 33.9 g/dL (33.0-36.5); MEAN CORPUSCULAR VOLUME 102.8 FL (78-98); MEAN PLATELET VOLUME 9.3 FL (7.4-10.4); MONOCYTES # (AUTO) 0.3 X10'3 (0-0.9); MONOCYTES % (AUTO) 4.7 % (2-12); NEUTROPHILS # (AUTO) 5.5 X10'3 (1.8-7.7); NEUTROPHILS % (AUTO) 83.7 % (42-75); PLATELET COUNT 211 X10'3 (140-440); RED BLOOD COUNT 3.94 X10'6 (4.20-5.60); RED CELL DISTRIBUTION WIDTH 13.8 % (11.5-14.5); WHITE BLOOD COUNT 6.6 X10'3 (4.5-11.0)
[2022-02-05 09:20] LABS: ALANINE AMINOTRANSFERASE 16 U/L (12-78); ALBUMIN 3.1 G/DL (3.4-5.0); ALBUMIN/GLOBULIN RATIO 0.7 (1.1-1.5); ALKALINE PHOSPHATASE 153 IU/L (46-116); ANION GAP 8 (8-16); ASPARTATE AMINO TRANSFERASE 17 U/L (10-37); BILIRUBIN,TOTAL 0.3 MG/DL (0.1-1.0); BLOOD UREA NITROGEN 12 MG/DL (7-18); CALCIUM 9.2 MG/DL (8.5-10.1); CHLORIDE 103 MMOL/L (99-107); CHOL/HDL RATIO 2.6 (0.00-4.99); CHOLESTEROL 148 MG/DL (0-200); CREATININE 0.63 MG/DL (0.40-0.90); GLUCOSE 159 MG/DL (70-104); HDL CHOLESTEROL 56 MG/DL (35-60); LDL CHOLESTEROL 76 MG/DL (50-100); POTASSIUM 4.5 MMOL/L (3.5-5.1); SODIUM 137 MMOL/L (135-145); TOTAL CARBON DIOXIDE 26.1 MMOL/L (24-32); TOTAL PROTEIN 7.3 G/DL (6.4-8.2); TRIGLYCERIDES 46 MG/DL (20-135); eGFR > 90 ML/MIN
[2022-02-05 11:00] VITALS: BP 151/74
--- NOTE | 2022-02-05 11:03 | NUR ---
Expiratory Wheezes SOB with mild exertion. Difficulties moving thick mulcu
[2022-02-05] MEDS: albuterol 2.5 MG/3 ML nebule CONTNEB PRN (11:52)
--- NOTE | 2022-02-05 13:00 | NUR ---
Vomiting caused by forceful cough.
[2022-02-05] MEDS ORDERED: ALBUTEROL INHALER 1 PUFF/90 MCG INHALER IH PRN (13:05)
[2022-02-05] MEDS: ALBUTEROL INHALER 1 PUFF/90 MCG INHALER IH SCH ×3 (16:20→23:15)
[2022-02-05] MEDS ORDERED: gabapentin 300mg capsule PO PRN (16:25)
[2022-02-05 18:00] VITALS: BP 165/73
[2022-02-05] MEDS: budesonide 0.5mg/2ml UD nebule IH SCH (19:16)
[2022-02-05] MEDS: metoprolol tartrate 50mg tablet PO SCH (20:31)
[2022-02-05] MEDS: dexamethasone 4mg/ml inj IV SCH (20:32)
[2022-02-05] MEDS: benzonatate 100mg capsule PO SCH (20:32)
[2022-02-05] MEDS: REMDESIVIR INJ 100 MG in normal saline 100ml IV soln 100 ML IV SCH (20:33)
[2022-02-05 21:43] LABS: LACTATE DEHYDROGENASE 291 U/L (81-234)
[2022-02-05 22:00] VITALS: BP 164/87
[2022-02-06] MEDS: temazepam 15mg capsule PO PRN ×2 (01:05→21:08)
[2022-02-06] MEDS: morphine 2 MG/ML inj. syringe IV PRN ×2 (01:06→21:30)
[2022-02-06 02:00] VITALS: BP 156/78
[2022-02-06] MEDS: ALBUTEROL INHALER 1 PUFF/90 MCG INHALER IH SCH ×2 (03:11→08:14)
[2022-02-06 06:00] VITALS: BP 154/80
[2022-02-06 06:23] LABS: BASOPHILS % (AUTO) 0.1 % (0-1); EOSINOPHILS % (AUTO) 0 % (0-6); HEMATOCRIT 38.8 % (35.0-45.0); HEMOGLOBIN 13.2 g/dl (12.0-16.0); LYMPHOCYTES # (AUTO) 1.3 X10'3 (1.1-4.8); LYMPHOCYTES % (AUTO) 10.9 % (21-51); MEAN CORPUSCULAR HEMOGLOBIN 35.4 PG (27.0-31.0); MEAN CORPUSCULAR VOLUME 104.3 FL (78-98); MEAN PLATELET VOLUME 8.9 FL (7.4-10.4); MONOCYTES # (AUTO) 0.8 X10'3 (0-0.9); MONOCYTES % (AUTO) 6.5 % (2-12); NEUTROPHILS # (AUTO) 10.1 X10'3 (1.8-7.7); NEUTROPHILS % (AUTO) 82.5 % (42-75); PLATELET COUNT 213 X10'3 (140-440); RED BLOOD COUNT 3.72 X10'6 (4.20-5.60); RED CELL DISTRIBUTION WIDTH 13.8 % (11.5-14.5); WHITE BLOOD COUNT 12.3 X10'3 (4.5-11.0)
[2022-02-06 06:36] LABS: D-DIMER 1.05 MG/L FEU (0-0.50)
[2022-02-06 06:53] LABS: ALANINE AMINOTRANSFERASE 16 U/L (12-78); ALBUMIN 2.8 G/DL (3.4-5.0); ALBUMIN/GLOBULIN RATIO 0.7 (1.1-1.5); ALKALINE PHOSPHATASE 145 IU/L (46-116); ANION GAP 6 (8-16); ASPARTATE AMINO TRANSFERASE 14 U/L (10-37); BILIRUBIN,TOTAL 0.3 MG/DL (0.1-1.0); BLOOD UREA NITROGEN 14 MG/DL (7-18); BUN/CREATININE RATIO 23.3 (6.6-38.0); C-REACTIVE PROTEIN 2.18 MG/DL (0.0-0.5); CALCIUM 9.1 MG/DL (8.5-10.1); CHLORIDE 107 MMOL/L (99-107); GLUCOSE 157 MG/DL (70-104); POTASSIUM 4.6 MMOL/L (3.5-5.1); SODIUM 140 MMOL/L (135-145); TOTAL CARBON DIOXIDE 27.4 MMOL/L (24-32); TOTAL PROTEIN 6.6 G/DL (6.4-8.2); eGFR > 90 ML/MIN
[2022-02-06] MEDS: pantoprazole 40mg Tablet.DR PO SCH (07:00)
[2022-02-06] MEDS: clopidogrel 75mg tablet PO SCH (08:00)
[2022-02-06] MEDS: docusate sod 100mg capsule PO SCH ×2 (08:00→21:09)
[2022-02-06] MEDS: dexamethasone 4mg/ml inj IV SCH ×2 (08:00→21:10)
[2022-02-06] MEDS: benzonatate 100mg capsule PO SCH ×3 (08:00→21:09)
[2022-02-06] MEDS: chlorthalidone 25mg tablet PO SCH (08:00)
[2022-02-06] MEDS: metoprolol tartrate 50mg tablet PO SCH ×2 (08:00→21:08)
[2022-02-06] MEDS: furosemide 20MG tablet PO SCH (08:00)
[2022-02-06] MEDS: atorvastatin 20mg tablet PO SCH (08:00)
[2022-02-06] MEDS: heparin, porcine 5000 units/ml vial SQ SCH ×2 (08:00→21:09)
[2022-02-06] MEDS: budesonide 0.5mg/2ml UD nebule IH SCH ×2 (08:14→20:12)
[2022-02-06 11:00] VITALS: BP 142/65
[2022-02-06] MEDS: ipratropium/albuterol 3ml nebule NEB SCH ×2 (14:39→20:12)
[2022-02-06 15:00] VITALS: BP 129/64
[2022-02-06 18:00] VITALS: BP 131/56
[2022-02-06] MEDS: REMDESIVIR INJ 100 MG in normal saline 100ml IV soln 100 ML IV SCH (21:10)
[2022-02-06] MEDS: normal saline 1000ml 1,000 ML IV SCH (21:50)
[2022-02-06 22:00] VITALS: BP 126/56
[2022-02-07 02:00] VITALS: BP 141/72
[2022-02-07] MEDS: ipratropium/albuterol 3ml nebule NEB SCH ×4 (02:22→19:53)
[2022-02-07 04:16] LABS: BASOPHILS % (AUTO) 0.2 % (0-1); EOSINOPHILS % (AUTO) 0 % (0-6); LYMPHOCYTES # (AUTO) 1.1 X10'3 (1.1-4.8); LYMPHOCYTES % (AUTO) 9.2 % (21-51); MEAN CORPUSCULAR HEMOGLOBIN 34.9 PG (27.0-31.0); MEAN CORPUSCULAR HGB CONC 33.3 g/dL (33.0-36.5); MEAN CORPUSCULAR VOLUME 104.8 FL (78-98); MEAN PLATELET VOLUME 9.1 FL (7.4-10.4); MONOCYTES # (AUTO) 0.7 X10'3 (0-0.9); MONOCYTES % (AUTO) 6.3 % (2-12); NEUTROPHILS # (AUTO) 9.7 X10'3 (1.8-7.7); NEUTROPHILS % (AUTO) 84.3 % (42-75); PLATELET COUNT 227 X10'3 (140-440); RED BLOOD COUNT 3.72 X10'6 (4.20-5.60); WHITE BLOOD COUNT 11.5 X10'3 (4.5-11.0)
[2022-02-07 04:23] LABS: D-DIMER 0.98 MG/L FEU (0-0.50)
[2022-02-07 04:34] LABS: ALANINE AMINOTRANSFERASE 17 U/L (12-78); ALBUMIN 2.8 G/DL (3.4-5.0); ALBUMIN/GLOBULIN RATIO 0.7 (1.1-1.5); ALKALINE PHOSPHATASE 139 IU/L (46-116); ANION GAP 7 (8-16); ASPARTATE AMINO TRANSFERASE 17 U/L (10-37); BILIRUBIN,TOTAL 0.3 MG/DL (0.1-1.0); BLOOD UREA NITROGEN 19 MG/DL (7-18); BUN/CREATININE RATIO 22.1 (6.6-38.0); C-REACTIVE PROTEIN 1.42 MG/DL (0.0-0.5); CALCIUM 9.6 MG/DL (8.5-10.1); CHLORIDE 106 MMOL/L (99-107); CREATININE 0.86 MG/DL (0.40-0.90); GLUCOSE 161 MG/DL (70-104); SODIUM 140 MMOL/L (135-145); TOTAL CARBON DIOXIDE 27.3 MMOL/L (24-32); TOTAL PROTEIN 6.6 G/DL (6.4-8.2); eGFR 66 ML/MIN
[2022-02-07] MEDS: budesonide 0.5mg/2ml UD nebule IH SCH ×2 (07:16→19:53)
[2022-02-07] MEDS: dexamethasone 4mg/ml inj IV SCH ×2 (08:06→20:42)
[2022-02-07] MEDS: heparin, porcine 5000 units/ml vial SQ SCH ×2 (08:06→20:55)
[2022-02-07] MEDS: normal saline 1000ml 1,000 ML IV SCH (08:07)
[2022-02-07] MEDS: benzonatate 100mg capsule PO SCH ×3 (08:07→20:43)
[2022-02-07] MEDS: pantoprazole 40mg Tablet.DR PO SCH (08:07)
[2022-02-07] MEDS: BARICITINIB 2 MG TABLET PO SCH (08:07)
[2022-02-07] MEDS: chlorthalidone 25mg tablet PO SCH (08:07)
[2022-02-07] MEDS: clopidogrel 75mg tablet PO SCH (08:07)
[2022-02-07] MEDS: furosemide 20MG tablet PO SCH (08:07)
[2022-02-07] MEDS: docusate sod 100mg capsule PO SCH ×2 (08:08→20:00)
[2022-02-07] MEDS: metoprolol tartrate 50mg tablet PO SCH ×2 (08:08→20:56)
[2022-02-07] MEDS: atorvastatin 20mg tablet PO SCH (08:08)
[2022-02-07] MEDS: morphine 2 MG/ML inj. syringe IV PRN ×2 (08:09→13:01)
[2022-02-07 11:00] VITALS: BP 128/82
[2022-02-07 15:00] VITALS: BP 122/50
[2022-02-07 18:00] VITALS: BP 121/56
--- NOTE | 2022-02-07 18:23 | NUR ---
Problems reprioritized. Patient report given, questions answered & plan of care reviewed with danny .
--- NOTE | 2022-02-07 19:57 | NUR ---
SVN TX Delayed due to patient eating dinner.
--- NOTE | 2022-02-07 20:26 | NUR ---
SVN tx delayed aptient in Rest Room
[2022-02-07] MEDS: guaiFENesin/codeine phos 10ml UD oral syrup PO PRN (20:42)
[2022-02-07] MEDS: temazepam 15mg capsule PO PRN (20:42)
[2022-02-07] MEDS: REMDESIVIR INJ 100 MG in normal saline 100ml IV soln 100 ML IV SCH (20:43)
[2022-02-07 22:00] VITALS: BP 130/66
[2022-02-08 02:00] VITALS: BP 150/76
[2022-02-08] MEDS: morphine 2 MG/ML inj. syringe IV PRN (02:10)
[2022-02-08] MEDS: ipratropium/albuterol 3ml nebule NEB SCH ×2 (02:24→07:51)
[2022-02-08 02:35] LABS: D-DIMER 0.94 MG/L FEU (0-0.50)
[2022-02-08 02:36] LABS: BASOPHILS % (AUTO) 0.1 % (0-1); EOSINOPHILS % (AUTO) 0 % (0-6); HEMATOCRIT 40.1 % (35.0-45.0); HEMOGLOBIN 13.4 g/dl (12.0-16.0); LYMPHOCYTES % (AUTO) 9.3 % (21-51); MEAN CORPUSCULAR HEMOGLOBIN 35.1 PG (27.0-31.0); MEAN CORPUSCULAR HGB CONC 33.4 g/dL (33.0-36.5); MEAN CORPUSCULAR VOLUME 104.9 FL (78-98); MONOCYTES # (AUTO) 0.8 X10'3 (0-0.9); MONOCYTES % (AUTO) 7.2 % (2-12); NEUTROPHILS % (AUTO) 83.4 % (42-75); PLATELET COUNT 207 X10'3 (140-440); RED BLOOD COUNT 3.83 X10'6 (4.20-5.60); RED CELL DISTRIBUTION WIDTH 13.7 % (11.5-14.5); WHITE BLOOD COUNT 10.8 X10'3 (4.5-11.0)
[2022-02-08 02:45] LABS: ALANINE AMINOTRANSFERASE 28 U/L (12-78); ALBUMIN 2.7 G/DL (3.4-5.0); ALBUMIN/GLOBULIN RATIO 0.7 (1.1-1.5); ALKALINE PHOSPHATASE 143 IU/L (46-116); ANION GAP 8 (8-16); ASPARTATE AMINO TRANSFERASE 36 U/L (10-37); BILIRUBIN,TOTAL 0.3 MG/DL (0.1-1.0); BLOOD UREA NITROGEN 19 MG/DL (7-18); BUN/CREATININE RATIO 26.4 (6.6-38.0); C-REACTIVE PROTEIN 1.19 MG/DL (0.0-0.5); CALCIUM 8.8 MG/DL (8.5-10.1); CHLORIDE 104 MMOL/L (99-107); CREATININE 0.72 MG/DL (0.40-0.90); GLUCOSE 183 MG/DL (70-104); SODIUM 139 MMOL/L (135-145); TOTAL CARBON DIOXIDE 26.9 MMOL/L (24-32); TOTAL PROTEIN 6.5 G/DL (6.4-8.2); eGFR 81 ML/MIN
--- NOTE | 2022-02-08 07:00 | NUR ---
Patient in room PCU 3008. I have received report and had the opportunity to ask questions and assume patient care.
[2022-02-08] MEDS: budesonide 0.5mg/2ml UD nebule IH SCH (07:51)
[2022-02-08] MEDS: dexamethasone 4mg/ml inj IV SCH (08:00)
[2022-02-08] MEDS: chlorthalidone 25mg tablet PO SCH (08:00)
[2022-02-08] MEDS: clopidogrel 75mg tablet PO SCH (08:00)
[2022-02-08] MEDS: docusate sod 100mg capsule PO SCH (08:00)
[2022-02-08] MEDS: atorvastatin 20mg tablet PO SCH (08:01)
[2022-02-08] MEDS: furosemide 20MG tablet PO SCH (08:01)
[2022-02-08] MEDS: benzonatate 100mg capsule PO SCH (08:01)
[2022-02-08] MEDS: metoprolol tartrate 50mg tablet PO SCH (08:01)
[2022-02-08] MEDS: pantoprazole 40mg Tablet.DR PO SCH (08:01)
[2022-02-08] MEDS: heparin, porcine 5000 units/ml vial SQ SCH (08:02)
[2022-02-08] MEDS: BARICITINIB 2 MG TABLET PO SCH (08:09)
[2022-02-08] MEDS: guaiFENesin/codeine phos 10ml UD oral syrup PO PRN (08:10)
--- NOTE | 2022-02-08 10:49 | NUR ---
Initial: Pt admit for acute respiratory failure and SIRS secondary to COVID PNA with COPD exacerbation. Currently on a regular diet and eating fairly well with average 75% PO intake, up to 100% PO intake at breakfast this morning closely meeting estimated nutrient needs. LBM 02/07 per I&O, first documented BM since admit. Will continue to follow and monitor need for nutrition intervention pending further trends in PO intake. Recommendations: 1) Continue regular diet 2) Monitor need for ONS/additional protein 3) Routine bowel care 4) Weekly scaled weights Addendum: 02/08/22 at [address] Amended: Links added.
[2022-02-08 11:00] VITALS: BP 132/58
[2022-02-08] MEDS ORDERED: APIX2.5T PO (11:31)
[2022-02-08] MEDS ORDERED: DEXA4TAB PO (11:31)
== END 2022-02-08 13:04 | disposition home or self-care (01) | DRG 177 ==
LOC: ER 18:57 → EEVIPCON 18:57 → ED HOLD 21:52 → PCU 3S 23:26
PROVIDERS: ADMIT Family Medicine; ATTEND Family Medicine
PROC: XW033E5 Introduction of Remdesivir Anti-infective into Peripheral Vein, Percutaneous Approach, New Technology Group 5 (ICD-10-PCS; principal; 2022-02-04)
DX: U07.1 COVID-19 (principal); J96.21 Acute and chronic respiratory failure with hypoxia; J12.82 Pneumonia due to coronavirus disease 2019; I50.33 Acute on chronic diastolic (congestive) heart failure; J44.1 Chronic obstructive pulmonary disease with (acute) exacerbation; J44.0 Chronic obstructive pulmonary disease with (acute) lower respiratory infection; D72.810 Lymphocytopenia; E78.5 Hyperlipidemia, unspecified; G89.4 Chronic pain syndrome; G47.33 Obstructive sleep apnea (adult) (pediatric); K21.9 Gastro-esophageal reflux disease without esophagitis; K76.0 Fatty (change of) liver, not elsewhere classified; I11.0 Hypertensive heart disease with heart failure; Z86.73 Personal history of transient ischemic attack (TIA), and cerebral infarction without residual deficits; Z95.0 Presence of cardiac pacemaker; Z86.711 Personal history of pulmonary embolism; Z79.01 Long term (current) use of anticoagulants; Z79.02 Long term (current) use of antithrombotics/antiplatelets; Z79.899 Other long term (current) drug therapy; Z82.49 Family history of ischemic heart disease and other diseases of the circulatory system; Z87.442 Personal history of urinary calculi; Z87.891 Personal history of nicotine dependence; Z90.49 Acquired absence of other specified parts of digestive tract; Z88.8 Allergy status to other drugs, medicaments and biological substances; Z91.041 Radiographic dye allergy status; Z87.440 Personal history of urinary (tract) infections; Z80.1 Family history of malignant neoplasm of trachea, bronchus and lung
CPT/HCPCS: 36410; 36415; 36600; 71045; 80053; 80061; 82550; 82803; 83036; 83605; 83615; 83690; 83735; 83880; 84100; 84145; 84484; 85018; 85025; 85379; 85610; 85730; 86140; 87040; 87081; 92508; 92616; 94640; 94760; 96374; 96375; 99285; A7015; C1751; G0378; J1100; J1644; J2270; J2310; J2930; J3490; J7030

== ENCOUNTER 2022-03-09 16:34 | Inpatient (IN) | payer BC, MEDICARE ==
[~2022-03-09] VITALS: Ht 177.8 cm; Wt 87.3 kg
[~2022-03-09 16:34] MED LIST changes: +APIX2.5T PO; -BENZ-38 PO; +DEXA4TAB PO
[2022-03-09] MEDS ORDERED: normal saline 1000ML IV soln IVB ONE ×2 (16:55→17:30)
[2022-03-09] MEDS ORDERED: hydrocortisone sod succ/PF 250mg/2ml inj. IV ONE (17:30)
[2022-03-09] MEDS ORDERED: hydrocortisone sod succ/PF 100mg/2ml inj. IV ONE (17:40)
[2022-03-09 19:05] LABS: BASOPHILS % (AUTO) 0.3 % (0-1); EOSINOPHILS # (AUTO) 0.1 X10'3 (0-0.9); EOSINOPHILS % (AUTO) 0.7 % (0-6); HEMATOCRIT 40.5 % (35.0-45.0); HEMOGLOBIN 13.2 g/dl (12.0-16.0); LYMPHOCYTES # (AUTO) 2.9 X10'3 (1.1-4.8); LYMPHOCYTES % (AUTO) 26.4 % (21-51); MEAN CORPUSCULAR HEMOGLOBIN 33.9 PG (27.0-31.0); MEAN CORPUSCULAR HGB CONC 32.6 g/dL (33.0-36.5); MEAN CORPUSCULAR VOLUME 104.1 FL (78-98); MEAN PLATELET VOLUME 8.4 FL (7.4-10.4); MONOCYTES # (AUTO) 1.7 X10'3 (0-0.9); MONOCYTES % (AUTO) 15.5 % (2-12); NEUTROPHILS # (AUTO) 6.4 X10'3 (1.8-7.7); NEUTROPHILS % (AUTO) 57.1 % (42-75); PLATELET COUNT 271 X10'3 (140-440); RED BLOOD COUNT 3.89 X10'6 (4.20-5.60); RED CELL DISTRIBUTION WIDTH 14.2 % (11.5-14.5); WHITE BLOOD COUNT 11.1 X10'3 (4.5-11.0)
[2022-03-09 19:17] LABS: ALANINE AMINOTRANSFERASE 23 U/L (12-78); ALBUMIN 2.9 G/DL (3.4-5.0); ALBUMIN/GLOBULIN RATIO 0.8 (1.1-1.5); ALKALINE PHOSPHATASE 200 IU/L (46-116); ANION GAP 11 (8-16); ASPARTATE AMINO TRANSFERASE 24 U/L (10-37); BILIRUBIN,TOTAL 0.7 MG/DL (0.1-1.0); BLOOD UREA NITROGEN 19 MG/DL (7-18); BUN/CREATININE RATIO 6.9 (6.6-38.0); CALCIUM 8.4 MG/DL (8.5-10.1); CHLORIDE 101 MMOL/L (99-107); CREATININE 2.76 MG/DL (0.40-0.90); GLUCOSE 110 MG/DL (70-104); POTASSIUM 3.9 MMOL/L (3.5-5.1); SODIUM 138 MMOL/L (135-145); TOTAL CARBON DIOXIDE 25.8 MMOL/L (24-32); TOTAL PROTEIN 6.6 G/DL (6.4-8.2); eGFR 17 ML/MIN
[2022-03-09] MEDS ORDERED: ondansetron/PF 4mg/2ml inj IV ONE (19:40)
[2022-03-09] MEDS ORDERED: mag hydrox/Alum hydrox/simeth 30ml oral suspension PO PRN (20:25)
[2022-03-09] MEDS ORDERED: potassium CL 10mEq/100ml bag 100 ML IV PRN (20:25)
[2022-03-09] MEDS ORDERED: magnesium Cl slow-release 64mg tablet PO PRN (20:25)
[2022-03-09] MEDS ORDERED: magnesium 4gm in 100ml NS 100 ML IV PRN (20:25)
[2022-03-09] MEDS ORDERED: ondansetron/PF 4mg/2ml inj IV PRN (20:25)
[2022-03-09] MEDS ORDERED: POTASSIUM BICARB 20meq eff tab 20 MEQ TABLET.EFF PO PRN ×2 (20:25)
[2022-03-09] MEDS ORDERED: magnesium hydroxide 30ml (MOM) UD suspension PO PRN (20:25)
[2022-03-09] MEDS ORDERED: acetaminophen 325mg tablet PO PRN (20:25)
[2022-03-09] MEDS ORDERED: magnesium 2GM in 50ml NS 50 ML IV PRN (20:25)
[2022-03-09] MEDS ORDERED: HYDROcodone/acetaminophen 5mg/325mg tablet PO PRN (20:25)
[2022-03-09] MEDS: morphine 4 MG/ML inj SYRINge IV PRN (20:29)
[2022-03-09] MEDS ORDERED: ipratropium/albuterol 3ml nebule NEB PRN ×2 (20:40)
[2022-03-09 20:49] LABS: MAGNESIUM 1.6 MG/DL (1.5-2.4)
[2022-03-09] MEDS: potassium cl 20mEq in 1/2 NS 1,000 ML IV SCH (21:26)
[2022-03-10] MEDS: morphine 4 MG/ML inj SYRINge IV PRN (00:04)
[2022-03-10] MEDS ORDERED: diphenhydrAMINE 25mg capsule PO PRN (00:30)
[2022-03-10] MEDS ORDERED: METO-395 PO (00:34)
[2022-03-10 01:15] LABS: CLARITY,URINE CLEAR (Clear); COLOR,URINE YELLOW (Yellow); GLUCOSE, URINE NEGATIVE (Neg); KETONES,URINE NEGATIVE (Neg); LEUKOCYTE ESTERASE ,URINE NEGATIVE (Neg); NITRITES, URINE NEGATIVE (Neg); OCCULT BLOOD,URINE NEGATIVE (Neg); PH,URINE 5.5 (4.8-8.0); PROTEIN,URINE NEGATIVE (Neg); UROBILINOGEN,URINE 0.2 E.U/dL (0.2-1.0)
[2022-03-10 01:17] LABS: UA COLLECTION TYPE CLN CATCH MIDSTREAM
--- NOTE | 2022-03-10 01:28 | NUR ---
Patient told RT and this customs entry writer she would not like her 0300 breathing treatment as she would like to try and sleep. RT aware.
[2022-03-10] MEDS ORDERED: methylPREDNISolone sod succ 125mg/2ml vial IV SCH ×3 (02:00)
[2022-03-10 02:19] LABS: BASOPHILS % (AUTO) 0.4 % (0-1); EOSINOPHILS % (AUTO) 0 % (0-6); HEMATOCRIT 37.2 % (35.0-45.0); HEMOGLOBIN 12.5 g/dl (12.0-16.0); LYMPHOCYTES # (AUTO) 1.2 X10'3 (1.1-4.8); LYMPHOCYTES % (AUTO) 18.3 % (21-51); MEAN CORPUSCULAR HEMOGLOBIN 35.1 PG (27.0-31.0); MEAN CORPUSCULAR HGB CONC 33.7 g/dL (33.0-36.5); MEAN CORPUSCULAR VOLUME 103.9 FL (78-98); MEAN PLATELET VOLUME 8.7 FL (7.4-10.4); MONOCYTES # (AUTO) 0.2 X10'3 (0-0.9); MONOCYTES % (AUTO) 2.7 % (2-12); NEUTROPHILS # (AUTO) 5.2 X10'3 (1.8-7.7); NEUTROPHILS % (AUTO) 78.6 % (42-75); PLATELET COUNT 247 X10'3 (140-440); RED BLOOD COUNT 3.58 X10'6 (4.20-5.60); RED CELL DISTRIBUTION WIDTH 14.1 % (11.5-14.5); WHITE BLOOD COUNT 6.6 X10'3 (4.5-11.0)
[2022-03-10 02:26] LABS: ALANINE AMINOTRANSFERASE 22 U/L (12-78); ALBUMIN 2.7 G/DL (3.4-5.0); ALBUMIN/GLOBULIN RATIO 0.8 (1.1-1.5); ALKALINE PHOSPHATASE 190 IU/L (46-116); ANION GAP 8 (8-16); ASPARTATE AMINO TRANSFERASE 24 U/L (10-37); BILIRUBIN,TOTAL 0.5 MG/DL (0.1-1.0); BLOOD UREA NITROGEN 20 MG/DL (7-18); BUN/CREATININE RATIO 11.5 (6.6-38.0); CALCIUM 8.1 MG/DL (8.5-10.1); CHLORIDE 102 MMOL/L (99-107); CHOL/HDL RATIO 2.1 (0.00-4.99); CHOLESTEROL 114 MG/DL (0-200); CREATININE 1.74 MG/DL (0.40-0.90); GLUCOSE 183 MG/DL (70-104); HDL CHOLESTEROL 55 MG/DL (35-60); LDL CHOLESTEROL 52 MG/DL (50-100); MAGNESIUM 1.7 MG/DL (1.5-2.4); SODIUM 136 MMOL/L (135-145); TOTAL CARBON DIOXIDE 26.1 MMOL/L (24-32); TOTAL PROTEIN 6.2 G/DL (6.4-8.2); TRIGLYCERIDES 47 MG/DL (20-135); eGFR 29 ML/MIN
[2022-03-10] MEDS ORDERED: albuterol 2.5 MG/3 ML nebule NEB SCH (03:00)
[2022-03-10] MEDS: potassium cl 20mEq in 1/2 NS 1,000 ML IV SCH (07:00)
--- NOTE | 2022-03-10 07:58 | NUR ---
Report called to SANDRA Alcantar
[2022-03-10] MEDS: K and/or MAG REPLACEMENT MC SCH ×2 (08:00→19:13)
[2022-03-10] MEDS ORDERED: docusate sod 100mg capsule PO SCH (08:00)
[2022-03-10] MEDS: morphine 2 MG/ML inj. syringe IV PRN ×3 (08:03→17:49)
[2022-03-10] MEDS ORDERED: albuterol 2.5 MG/3 ML nebule NEB PRN (08:10)
[2022-03-10 08:30] VITALS: BP 112/59
[2022-03-10] MEDS: ipratropium/albuterol 3ml nebule NEB SCH ×3 (08:46→20:19)
[2022-03-10] MEDS: budesonide 0.5mg/2ml UD nebule IH SCH ×2 (08:46→20:19)
[2022-03-10] MEDS: methylPREDNISolone sod succ 125mg/2ml vial IV SCH ×2 (09:36→19:33)
[2022-03-10] MEDS: HYDROcodone/acetaminophen 10/325mg tab PO PRN ×3 (09:37→19:31)
[2022-03-10] MEDS: pantoprazole 40mg Tablet.DR PO SCH (09:37)
[2022-03-10] MEDS: normal saline 1000ml 1,000 ML IV SCH ×2 (09:38→19:33)
[2022-03-10] MEDS: heparin, porcine 5000 units/ml vial SQ SCH ×3 (09:42→23:51)
[2022-03-10 11:00] VITALS: BP 96/51
[2022-03-10 15:00] VITALS: BP 121/60
[2022-03-10] MEDS ORDERED: PERFLUTREN PROTEIN-A MICROSPHR (Optison) 0.22 MG/ML 3ML VIAL IV ONE (15:40)
[2022-03-10 15:56] VITALS: BP_SYST 100; BP_SYST 102; BP_SYST 93; BP_DIAS 44; BP_DIAS 49; BP_DIAS 52
[2022-03-10] MEDS: proCHLORperazine 10 MG/2 ml inj IV PRN (16:12)
[2022-03-10 18:30] VITALS: BP 119/45
--- NOTE | 2022-03-10 19:00 | NUR ---
pt states she's been using the flutter valve & does not want the IS Addendum: 03/11/22 at 0512 by Rosmery Gray RN Amended: Links added.
[2022-03-10] MEDS ORDERED: Melatonin 3mg tablet PO SCH (21:00)
[2022-03-10 21:30] VITALS: BP 114/55
[2022-03-11 02:00] VITALS: BP 107/58
[2022-03-11] MEDS: HYDROcodone/acetaminophen 10/325mg tab PO PRN ×2 (02:53→08:59)
[2022-03-11 06:00] VITALS: BP 121/60
[2022-03-11] MEDS: normal saline 1000ml 1,000 ML IV SCH (06:07)
[2022-03-11 06:49] LABS: BASOPHILS % (AUTO) 0.2 % (0-1); EOSINOPHILS % (AUTO) 0 % (0-6); HEMATOCRIT 36.6 % (35.0-45.0); HEMOGLOBIN 12.1 g/dl (12.0-16.0); LYMPHOCYTES # (AUTO) 1.1 X10'3 (1.1-4.8); LYMPHOCYTES % (AUTO) 8.4 % (21-51); MEAN CORPUSCULAR HEMOGLOBIN 34.5 PG (27.0-31.0); MEAN CORPUSCULAR VOLUME 104.7 FL (78-98); MONOCYTES # (AUTO) 0.9 X10'3 (0-0.9); MONOCYTES % (AUTO) 6.7 % (2-12); NEUTROPHILS # (AUTO) 10.7 X10'3 (1.8-7.7); NEUTROPHILS % (AUTO) 84.7 % (42-75); PLATELET COUNT 234 X10'3 (140-440); RED CELL DISTRIBUTION WIDTH 14.2 % (11.5-14.5); WHITE BLOOD COUNT 12.7 X10'3 (4.5-11.0)
[2022-03-11 06:51] LABS: ALANINE AMINOTRANSFERASE 21 U/L (12-78); ALBUMIN 2.7 G/DL (3.4-5.0); ALBUMIN/GLOBULIN RATIO 0.8 (1.1-1.5); ALKALINE PHOSPHATASE 169 IU/L (46-116); ANION GAP 11 (8-16); ASPARTATE AMINO TRANSFERASE 14 U/L (10-37); BILIRUBIN,TOTAL 0.2 MG/DL (0.1-1.0); BLOOD UREA NITROGEN 20 MG/DL (7-18); BUN/CREATININE RATIO 22.2 (6.6-38.0); CALCIUM 8.5 MG/DL (8.5-10.1); CHLORIDE 108 MMOL/L (99-107); CHOL/HDL RATIO 2.3 (0.00-4.99); CHOLESTEROL 132 MG/DL (0-200); GLUCOSE 169 MG/DL (70-104); HDL CHOLESTEROL 58 MG/DL (35-60); LDL CHOLESTEROL 57 MG/DL (50-100); MAGNESIUM 1.6 MG/DL (1.5-2.4); POTASSIUM 4.8 MMOL/L (3.5-5.1); SODIUM 142 MMOL/L (135-145); TOTAL CARBON DIOXIDE 23.2 MMOL/L (24-32); TOTAL PROTEIN 6.1 G/DL (6.4-8.2); TRIGLYCERIDES 69 MG/DL (20-135); eGFR 62 ML/MIN
[2022-03-11] MEDS: ipratropium/albuterol 3ml nebule NEB SCH (07:43)
[2022-03-11] MEDS: budesonide 0.5mg/2ml UD nebule IH SCH (07:44)
[2022-03-11 08:00] VITALS: BP_SYST 108; BP_SYST 117; BP_SYST 123; BP_DIAS 56; BP_DIAS 62; BP_DIAS 64
[2022-03-11] MEDS: K and/or MAG REPLACEMENT MC SCH (08:00)
[2022-03-11] MEDS: methylPREDNISolone sod succ 125mg/2ml vial IV SCH (08:59)
[2022-03-11] MEDS: pantoprazole 40mg Tablet.DR PO SCH (08:59)
[2022-03-11] MEDS: heparin, porcine 5000 units/ml vial SQ SCH (09:00)
[2022-03-11] MEDS ORDERED: PRED20TA PO (09:28)
[2022-03-11 11:00] VITALS: BP 126/59
[2022-03-11] MEDS: proCHLORperazine 10 MG/2 ml inj IV PRN (11:12)
[2022-03-11] MEDS: morphine 2 MG/ML inj. syringe IV PRN (11:13)
--- NOTE | 2022-03-11 15:45 | NUR ---
Pt stable for d/c per MD orders. All d/c ppwk was reviewed with patient. Pt confirmed that her pharmacy is [facility] in [place]. Reiterated stopping the 2 medications and starting prednisone, also, the importance of the flutter valve - pt verbalized understanding. PIV was removed and pt tolerated well, pressure was held for the appropriate time and coban was applied. Tele box was removed and given to the tele ekg monitor tech. All personal belongings were sent with patient and patient was rolled out in W/C (by nursing staff) to private vehicle, family was waiting.
== END 2022-03-11 12:25 | disposition home or self-care (01) | DRG 314 ==
LOC: ER 16:36 → EEVIPCON 16:36 → UNDOADMIN 20:22 → ED HOLD 20:22 → PCU 3S 03-10 08:30
PROVIDERS: ADMIT Internal Medicine; ATTEND Family Medicine
DX: I95.89 Other hypotension (principal); N17.0 Acute kidney failure with tubular necrosis; J96.10 Chronic respiratory failure, unspecified whether with hypoxia or hypercapnia; E86.0 Dehydration; E86.1 Hypovolemia; R19.7 Diarrhea, unspecified; G47.33 Obstructive sleep apnea (adult) (pediatric); G89.29 Other chronic pain; A08.4 Viral intestinal infection, unspecified; J44.9 Chronic obstructive pulmonary disease, unspecified; I08.1 Rheumatic disorders of both mitral and tricuspid valves; E78.5 Hyperlipidemia, unspecified; I10 Essential (primary) hypertension; Z79.51 Long term (current) use of inhaled steroids; Z79.899 Other long term (current) drug therapy; Z82.49 Family history of ischemic heart disease and other diseases of the circulatory system; Z86.16 Personal history of COVID-19; Z86.711 Personal history of pulmonary embolism; Z86.73 Personal history of transient ischemic attack (TIA), and cerebral infarction without residual deficits; Z87.442 Personal history of urinary calculi; Z87.891 Personal history of nicotine dependence; Z90.49 Acquired absence of other specified parts of digestive tract; Z95.828 Presence of other vascular implants and grafts; Z91.041 Radiographic dye allergy status; Z88.8 Allergy status to other drugs, medicaments and biological substances; Z91.018 Allergy to other foods; Z87.440 Personal history of urinary (tract) infections; Z80.1 Family history of malignant neoplasm of trachea, bronchus and lung
CPT/HCPCS: 36415; 71045; 80053; 80061; 81003; 82948; 83605; 83735; 84145; 85025; 87040; 87081; 93306; 94640; 94667; 94668; 94760; 96361; 96374; 96375; 99285; G0378; J0780; J1644; J1720; J2270; J2405; J2930; J3480; J7030; Q0163

== ENCOUNTER 2022-08-25 08:50 | Inpatient (IN) | payer MEDICARE, BC ==
[2022-08-25] VITALS (12 sets, daily range): BP systolic 81–117; BP diastolic 39–60
[~2022-08-25] VITALS: Ht 172.7 cm; Wt 99.5 kg
[~2022-08-25 08:50] MED LIST changes: -APIX2.5T PO; -ATOR20TA66 PO; -CHLO25TA10 PO; -CLOP75TA34 PO; -DEXA4TAB PO; -FURO20TA4 PO; -GABA300C PO; +GUAI100L37 PO; -METO50TA16 PO; -ONDA8TAB13 PO; +TES100C PO; -UMEC62.5 INH; +calcium chloride 100 MG/1 ML inj IV ONE; +epiNEPHrine 0.1mg/ml 10ml syringe ONE; +guaiFENesin/codeine oral syrup PO; +sodium bicarbonate (8.4%) 1 mEq/ml syringe ONE
[2022-08-25] MEDS ORDERED: proCHLORperazine 10 MG/2 ml inj IV ONE (09:15)
[2022-08-25] MEDS ORDERED: acetaminophen 325mg tablet PO ONE (09:15)
[2022-08-25] MEDS ORDERED: CefTRIAXone/D5W-Rocephin 1gm 50 ML IV ONE (09:55)
[2022-08-25 10:14] LABS: BASOPHILS # (AUTO) 0.1 X10'3 (0-0.2); BASOPHILS % (AUTO) 0.7 % (0-1); EOSINOPHILS # (AUTO) 0.1 X10'3 (0-0.9); EOSINOPHILS % (AUTO) 0.8 % (0-6); HEMATOCRIT 33.3 % (35.0-45.0); HEMOGLOBIN 11.3 g/dl (12.0-16.0); LYMPHOCYTES # (AUTO) 1.3 X10'3 (1.1-4.8); LYMPHOCYTES % (AUTO) 11.1 % (21-51); MEAN CORPUSCULAR HEMOGLOBIN 37.6 PG (27.0-31.0); MEAN CORPUSCULAR VOLUME 110.4 FL (78-98); MEAN PLATELET VOLUME 9.1 FL (7.4-10.4); MONOCYTES # (AUTO) 1.5 X10'3 (0-0.9); MONOCYTES % (AUTO) 12.3 % (2-12); NEUTROPHILS # (AUTO) 9.1 X10'3 (1.8-7.7); NEUTROPHILS % (AUTO) 75.1 % (42-75); PLATELET COUNT 175 X10'3 (140-440); RED BLOOD COUNT 3.01 X10'6 (4.20-5.60); RED CELL DISTRIBUTION WIDTH 15.7 % (11.5-14.5); WHITE BLOOD COUNT 12.1 X10'3 (4.5-11.0)
[2022-08-25] MEDS ORDERED: NORepinephrine 8mg/ 250ml NS 250 ML IV ONE (10:17)
[2022-08-25] MEDS ORDERED: NORepinephrine inj. 32 MG in normal saline 250ml IV soln 218 ML IV SCH (10:20)
[2022-08-25 10:31] LABS: ALANINE AMINOTRANSFERASE 81 U/L (12-78); ALBUMIN 1.9 G/DL (3.4-5.0); ALKALINE PHOSPHATASE 328 IU/L (46-116); ANION GAP 13 (8-16); ASPARTATE AMINO TRANSFERASE 313 U/L (10-37); BILIRUBIN,TOTAL 6.5 MG/DL (0.1-1.0); BLOOD UREA NITROGEN 22 MG/DL (7-18); BUN/CREATININE RATIO 10.8 (6.6-38.0); CALCIUM 8.6 MG/DL (8.5-10.1); CHLORIDE 102 MMOL/L (99-107); CREATININE 2.03 MG/DL (0.40-0.90); GLUCOSE 89 MG/DL (70-104); SODIUM 135 MMOL/L (135-145); TOTAL CARBON DIOXIDE 19.7 MMOL/L (24-32); eGFR 24 ML/MIN
[2022-08-25] MEDS ORDERED: normal saline 1000ml 1,000 ML IV ONE ×2 (10:35→11:30)
[2022-08-25 10:38] LABS: ALBUMIN/GLOBULIN RATIO 0.6 (1.1-1.5); POTASSIUM 3.6 MMOL/L (3.5-5.1); TOTAL PROTEIN 5.2 G/DL (6.4-8.2)
[2022-08-25 10:40] LABS: MAGNESIUM 1.6 MG/DL (1.5-2.4)
[2022-08-25] MEDS ORDERED: azithromycin/NS 500mg/250ml 250 ML IV ONE (10:50)
[2022-08-25 10:53] LABS: PLATELET ESTIMATE NORMAL
[2022-08-25 10:54] LABS: ANISOCYTOSIS 1+; POLYCHROMASIA FEW; TARGET CELLS 2+
[2022-08-25] MEDS ORDERED: LIDOcaine 2% 10ml TOPICAL JELLY (Urojet) TP ONE (11:30)
[2022-08-25] MEDS ORDERED: ondansetron/PF 4mg/2ml inj IV PRN (11:30)
[2022-08-25] MEDS ORDERED: morphine 2 MG/ML inj. syringe IV PRN (11:30)
[2022-08-25] MEDS ORDERED: morphine 4 MG/ML inj SYRINge IV PRN (11:30)
[2022-08-25] MEDS ORDERED: magnesium hydroxide 30ml (MOM) UD suspension PO PRN (11:30)
[2022-08-25] MEDS ORDERED: acetaminophen 325mg tablet PO PRN ×2 (11:30)
[2022-08-25] MEDS ORDERED: POTASSIUM BICARB 20meq eff tab 20 MEQ TABLET.EFF PO PRN ×2 (11:30)
[2022-08-25] MEDS: NORepinephrine 8mg/ 250ml NS 250 ML IV SCH ×2 (11:32→18:03)
--- NOTE | 2022-08-25 11:55 | NUR ---
Assisted MD with Central Line procedure. Pt tolerated procedure well. No complications. Afterwards - HR mid 120's-low 130's. SBPs mid 90's. O2 90-91% RA.
[2022-08-25] MEDS ORDERED: VANCOMYCIN 750MG IV in NS 250 ML IV SCH (13:12)
[2022-08-25 13:21] LABS: CLARITY,URINE SLIGHTLY CLOUDY (Clear); COLOR,URINE YELLOW (Yellow); GLUCOSE, URINE 100 mg/dl (Neg); KETONES,URINE TRACE mg/dl (Neg); LEUKOCYTE ESTERASE ,URINE NEGATIVE (Neg); NITRITES, URINE NEGATIVE (Neg); OCCULT BLOOD,URINE TRACE-INTACT (Neg); PROTEIN,URINE TRACE mg/dl (Neg)
[2022-08-25 13:28] LABS: UA COLLECTION TYPE FOLEY CATH
[2022-08-25 13:29] LABS: BACTERIA,URINE FEW /HPF (Neg); RBC,URINE 0-2 /HPF (0-2); WBC,URINE 20-30 /HPF (0-4)
[2022-08-25 13:30] LABS: MUCUS STRANDS FEW /LPF (Neg); SQUAMOUS EPITHELIAL CELL,UR NONE SEEN /LPF (FEW)
[2022-08-25] MEDS ORDERED: folic acid 1mg/0.2ml inj IV ONE (17:00)
[2022-08-25] MEDS ORDERED: thiamine 100mg/ml 2ml inj. IV ONE (17:00)
--- NOTE | 2022-08-25 17:44 | NUR ---
Patient in room CICU 2013. I have received report from Subha FLORES ED and had the opportunity to ask questions and assume patient care. Received pt about 1710. Dr Ceballos at bedside shortly after pt settled into bed. [address] for chest, abd and pelvis w/out contrast. Pt tolerated procedure well. Dr. Nur to see pt regarding renal status.
--- NOTE | 2022-08-25 18:00 | NUR ---
Pt arrival: Pt arrived to room 2013 shortly after 1700 via gurney from ED by transporter. Moved to bed and positioned to comfort with several RNs. Lying flat increases SOB & cough. Positioned to comfort. Dr. Ceballos to see pt. Orders CT of pt and pt move to CT. Pt tolerated CT fairly well. Back to room, repositioned to comfort. Dr Nur to see pt. Family to see pt. Problems reprioritized. Patient report given, questions answered & plan of care reviewed with Kait RN & Gissel FLORES.
--- NOTE | 2022-08-25 18:25 | NUR ---
Patient in room CICU 2013. I have received report from SANDRA Martinez and had the opportunity to ask questions and assume patient care.
[2022-08-25 19:19] LABS: ETHANOL < 0.010 GM/DL (0.0-0.010)
[2022-08-25] MEDS ORDERED: diphenhydrAMINE 25mg capsule PO PRN (19:30)
[2022-08-25] MEDS ORDERED: heparin, porcine 5000 units/ml vial SQ SCH (20:00)
[2022-08-25] MEDS: sennosides/docusate sodium tablet PO SCH (20:24)
[2022-08-25] MEDS: NORepinephrine 32 MG in Normal Saline 250ml IV soln IV SCH (21:13)
[2022-08-25] MEDS: Melatonin 3mg tablet PO SCH (21:23)
[2022-08-25] MEDS ORDERED: morphine 2 MG/ML inj. syringe IV ONE (21:30)
[2022-08-25] MEDS ORDERED: metoprolol tartrate 1mg/ml inj IV ONE (21:30)
[2022-08-25] MEDS ORDERED: tenecteplase 50mg kit IV ONE (21:40)
[2022-08-25] MEDS ORDERED: heparin 25,000 UNIT/250ml bag 250 ML IV PRN (21:55)
[2022-08-25] MEDS ORDERED: heparin 10,000 units/1 ML INJ IV PRN (21:55)
[2022-08-25] MEDS ORDERED: heparin 10,000 units/1 ML INJ IV ONE (21:55)
[2022-08-25] MEDS ORDERED: aspirin 325mg tablet, delayed-release (Ecotrin) PO ONE (21:55)
--- NOTE | 2022-08-25 21:56 | NUR ---
TPA infused. Pt says she is not having chest pain at this moment, but the pain comes an goes in waves.
[2022-08-25] MEDS ORDERED: clopidogrel 75mg tablet PO ONE (22:05)
[2022-08-25 22:25] LABS: BASOPHILS # (AUTO) 0.1 X10'3 (0-0.2); BASOPHILS % (AUTO) 0.6 % (0-1); EOSINOPHILS % (AUTO) 0.3 % (0-6); HEMATOCRIT 35.3 % (35.0-45.0); LYMPHOCYTES # (AUTO) 1.8 X10'3 (1.1-4.8); LYMPHOCYTES % (AUTO) 11.2 % (21-51); MEAN CORPUSCULAR HEMOGLOBIN 37.6 PG (27.0-31.0); MEAN CORPUSCULAR HGB CONC 33.9 g/dL (33.0-36.5); MEAN CORPUSCULAR VOLUME 110.7 FL (78-98); MEAN PLATELET VOLUME 8.8 FL (7.4-10.4); NEUTROPHILS # (AUTO) 11.7 X10'3 (1.8-7.7); NEUTROPHILS % (AUTO) 74.9 % (42-75); PLATELET COUNT 218 X10'3 (140-440); RED BLOOD COUNT 3.19 X10'6 (4.20-5.60); RED CELL DISTRIBUTION WIDTH 16.2 % (11.5-14.5); WHITE BLOOD COUNT 15.6 X10'3 (4.5-11.0)
[2022-08-25 22:32] LABS: APTT 41 SECONDS (22-32)
--- NOTE | 2022-08-25 23:18 | NUR ---
Communication -Dr. Díaz at bedside. Repeat EKG improved.
[2022-08-25] MEDS ORDERED: gelatin sponge, absorbable (Gelfoam-100 compressed) sponge TP ONE (23:20)
--- NOTE | 2022-08-25 23:22 | NUR ---
MD Communication -Called Dr. Salter regarding bleeding from a left arm skin tear that the patient came in with. Order received.
[2022-08-26] VITALS (29 sets, daily range): BP systolic 85–119; BP diastolic 45–69
[2022-08-26 00:26] LABS: URINE AMPHETAMINE SCREEN NEGATIVE (Neg); URINE BARBITUATE SCREEN NEGATIVE (Neg); URINE BENZODIAZEPINES SCREEN POSITIVE (Neg); URINE CANNABINOID SCREEN NEGATIVE (Neg); URINE COCAINE SCREEN NEGATIVE (Neg); URINE METHADONE SCREEN NEGATIVE (Neg); URINE OPIATE SCREEN POSITIVE (Neg); URINE PHENCYCLIDINE SCREEN NEGATIVE (Neg)
--- NOTE | 2022-08-26 01:30 | NUR ---
MD Communication -Called Dr. Díaz regarding transient but significant ST elevation with chest pain and nausea. Per MD, continue with medical management and observation.
[2022-08-26] MEDS ORDERED: albumin (Human) 5% 250ml 250 ML IV ONE ×2 (01:40→09:25)
--- NOTE | 2022-08-26 01:45 | NUR ---
MD Communication -Called Dr. Salter regarding hypotension and tachycardia, and to update him on EKG changes that were reported to Dr. Díaz. Received order for Albumin.
[2022-08-26] MEDS ORDERED: dextrose 50%-water 50ml dispensing syringe IV ONE ×2 (01:48→04:43)
[2022-08-26 02:01] LABS: BASOPHILS # (AUTO) 0.1 X10'3 (0-0.2); BASOPHILS % (AUTO) 0.6 % (0-1); EOSINOPHILS % (AUTO) 0.3 % (0-6); HEMATOCRIT 35.5 % (35.0-45.0); HEMOGLOBIN 11.8 g/dl (12.0-16.0); LYMPHOCYTES # (AUTO) 1.5 X10'3 (1.1-4.8); LYMPHOCYTES % (AUTO) 9.6 % (21-51); MEAN CORPUSCULAR HEMOGLOBIN 37.1 PG (27.0-31.0); MEAN CORPUSCULAR HGB CONC 33.4 g/dL (33.0-36.5); MEAN CORPUSCULAR VOLUME 111.3 FL (78-98); MEAN PLATELET VOLUME 8.9 FL (7.4-10.4); MONOCYTES % (AUTO) 12.9 % (2-12); NEUTROPHILS # (AUTO) 11.6 X10'3 (1.8-7.7); NEUTROPHILS % (AUTO) 76.6 % (42-75); PLATELET COUNT 226 X10'3 (140-440); RED BLOOD COUNT 3.19 X10'6 (4.20-5.60); RED CELL DISTRIBUTION WIDTH 16.5 % (11.5-14.5); WHITE BLOOD COUNT 15.2 X10'3 (4.5-11.0)
[2022-08-26 02:16] LABS: ALANINE AMINOTRANSFERASE 106 U/L (12-78); ALKALINE PHOSPHATASE 367 IU/L (46-116); ANION GAP 14 (8-16); ASPARTATE AMINO TRANSFERASE 424 U/L (10-37); BILIRUBIN,TOTAL 6.9 MG/DL (0.1-1.0); BLOOD UREA NITROGEN 24 MG/DL (7-18); BUN/CREATININE RATIO 9.7 (6.6-38.0); CALCIUM 8.2 MG/DL (8.5-10.1); CHLORIDE 103 MMOL/L (99-107); CREATININE 2.47 MG/DL (0.40-0.90); MAGNESIUM 1.6 MG/DL (1.5-2.4); SODIUM 135 MMOL/L (135-145); TOTAL CARBON DIOXIDE 18.5 MMOL/L (24-32); eGFR 19 ML/MIN
[2022-08-26 02:19] LABS: PHOSPHORUS 4.6 MG/DL (2.3-4.5)
[2022-08-26 02:21] LABS: ALBUMIN/GLOBULIN RATIO 0.6 (1.1-1.5); GLUCOSE 45 MG/DL (70-104); TOTAL PROTEIN 5.5 G/DL (6.4-8.2)
--- NOTE | 2022-08-26 03:00 | NUR ---
Communication -Called Dr. Salter regarding hemoptysis as well as continued significant oozing from skin tears. Received order to turn heparin off for four hours.
[2022-08-26] MEDS: proCHLORperazine 10 MG/2 ml inj IV PRN ×2 (03:03→22:53)
[2022-08-26 04:00] LABS: BASOPHILS # (AUTO) 0.1 X10'3 (0-0.2); BASOPHILS % (AUTO) 0.7 % (0-1); EOSINOPHILS # (AUTO) 0.1 X10'3 (0-0.9); EOSINOPHILS % (AUTO) 0.6 % (0-6); HEMOGLOBIN 11.2 g/dl (12.0-16.0); LYMPHOCYTES % (AUTO) 12.3 % (21-51); MEAN CORPUSCULAR HEMOGLOBIN 37.7 PG (27.0-31.0); MEAN CORPUSCULAR HGB CONC 33.9 g/dL (33.0-36.5); MEAN PLATELET VOLUME 9.1 FL (7.4-10.4); MONOCYTES # (AUTO) 2.2 X10'3 (0-0.9); MONOCYTES % (AUTO) 13.9 % (2-12); NEUTROPHILS # (AUTO) 11.7 X10'3 (1.8-7.7); NEUTROPHILS % (AUTO) 72.5 % (42-75); PLATELET COUNT 223 X10'3 (140-440); RED BLOOD COUNT 2.98 X10'6 (4.20-5.60); RED CELL DISTRIBUTION WIDTH 16.7 % (11.5-14.5); WHITE BLOOD COUNT 16.1 X10'3 (4.5-11.0)
[2022-08-26 04:08] LABS: APTT > 139 SECONDS (22-32)
--- NOTE | 2022-08-26 04:50 | NUR ---
Communication -Called Dr. Salter regarding critical low blood sugar. Received order to start D5 NS.
[2022-08-26] MEDS ORDERED: dextrose 5%-normal saline 1,000 ML IV SCH (05:00)
[2022-08-26 05:35] LABS: TOTAL CELLS COUNTED 100
[2022-08-26 05:36] LABS: ANISOCYTOSIS 1+; PLATELET ESTIMATE NORMAL
[2022-08-26 06:19] LABS: ANISOCYTOSIS 1+; PLATELET ESTIMATE NORMAL; POLYCHROMASIA FEW; TARGET CELLS 1+; TOTAL CELLS COUNTED 100
--- NOTE | 2022-08-26 06:28 | NUR ---
Problems reprioritized. Patient report given, questions answered & plan of care reviewed with SANDRA Freire.
[2022-08-26 06:51] LABS: BASOPHILS # (AUTO) 0.2 X10'3 (0-0.2); BASOPHILS % (AUTO) 0.9 % (0-1); EOSINOPHILS # (AUTO) 0.1 X10'3 (0-0.9); EOSINOPHILS % (AUTO) 0.5 % (0-6); HEMATOCRIT 34.1 % (35.0-45.0); HEMOGLOBIN 11.1 g/dl (12.0-16.0); LYMPHOCYTES # (AUTO) 3.1 X10'3 (1.1-4.8); MEAN CORPUSCULAR HEMOGLOBIN 36.1 PG (27.0-31.0); MEAN CORPUSCULAR HGB CONC 32.4 g/dL (33.0-36.5); MEAN CORPUSCULAR VOLUME 111.5 FL (78-98); MEAN PLATELET VOLUME 8.9 FL (7.4-10.4); MONOCYTES # (AUTO) 2.6 X10'3 (0-0.9); MONOCYTES % (AUTO) 14.2 % (2-12); NEUTROPHILS # (AUTO) 12.2 X10'3 (1.8-7.7); NEUTROPHILS % (AUTO) 67.4 % (42-75); PLATELET COUNT 231 X10'3 (140-440); RED BLOOD COUNT 3.06 X10'6 (4.20-5.60); WHITE BLOOD COUNT 18.1 X10'3 (4.5-11.0)
[2022-08-26] MEDS: K and/or MAG REPLACEMENT MC SCH (07:10)
[2022-08-26] MEDS: thiamine 100mg/ml 2ml inj. IV SCH (07:19)
[2022-08-26] MEDS: folic acid 1mg/0.2ml inj IV SCH (07:19)
[2022-08-26] MEDS: NORepinephrine 32 MG in Normal Saline 250ml IV soln IV SCH ×2 (07:33→16:30)
[2022-08-26] MEDS ORDERED: cefepime 1GM/NS ADD-VANTAGE 100 ML IV SCH (08:00)
[2022-08-26 08:20] LABS: ANISOCYTOSIS 1+; PLATELET ESTIMATE NORMAL; POLYCHROMASIA 1+; TARGET CELLS FEW
[2022-08-26] MEDS ORDERED: vasopressin inj. 40 UNIT in dextrose 5%-water 50ml 38 ML IV SCH (08:30)
[2022-08-26] MEDS ORDERED: morphine 2 MG/ML inj. syringe IV PRN (08:50)
[2022-08-26] MEDS: hydrocortisone sod succ/PF 100mg/2ml inj. IV SCH ×3 (08:50→19:46)
[2022-08-26] MEDS: vasopressin inj. 40 UNIT in normal saline 50ml IV soln 38 ML IV SCH (09:01)
--- NOTE | 2022-08-26 09:31 | NUR ---
Spoke with Dr. Ceballos and got an order for Vasopressin. Dr. Ceballos spoke with Dr. Díaz who stated he thinks the transient ST elevation is due to vasospasm and the treatment would be calcium channel blockers which the patient won't be able to start because of the need for pressors. He stated to just deal with the pain management portion with morphine. MD aware of the lab changes including raise in LA and Troponin. Dr. Ceballos bedside and spoke with patient about dialysis and intubation. He expressed that we aren't there right now but wants to make sure the we follow her wishes. She stated that she wouldn't like to do dialysis unless it was going to be a temporary thing however, she also stated that she just doesn't want to so if we have to do dialysis then that is okay. She agreed to intubation if it is needed.
--- NOTE | 2022-08-26 09:38 | NUR ---
Spoke with Dr. Ceballos about fluids and Albumin order since patient is not making urine. He agreed to stop both orders. Dr. Green bedside to consult.
[2022-08-26 10:47] LABS: CLARITY,URINE CLOUDY (Clear); COLOR,URINE BROWN (Yellow); GLUCOSE, URINE NEGATIVE (Neg); KETONES,URINE TRACE mg/dl (Neg); LEUKOCYTE ESTERASE ,URINE TRACE (Neg); NITRITES, URINE NEGATIVE (Neg); OCCULT BLOOD,URINE LARGE (Neg); PROTEIN,URINE 100 mg/dl (Neg); UROBILINOGEN,URINE 0.2 E.U/dL (0.2-1.0)
[2022-08-26] MEDS ORDERED: albumin (human) 25% 100 ML IV solution IV ONE (11:15)
[2022-08-26 11:18] LABS: UA COLLECTION TYPE FOLEY CATH
[2022-08-26 11:20] LABS: BACTERIA,URINE 2+ /HPF (Neg); MUCUS STRANDS FEW /LPF (Neg); SQUAMOUS EPITHELIAL CELL,UR FEW /LPF (FEW); TRANSITIONAL EPI CELLS,URINE FEW /HPF
[2022-08-26 11:44] LABS: CREATININE,URINE RANDOM 236.6 MG/DL; TOTAL PROTEIN,URINE RANDOM 136.4 MG/DL
[2022-08-26] MEDS ORDERED: LIDOcaine 2% 10ml TOPICAL JELLY (Urojet) MM STA (11:46)
[2022-08-26 11:51] LABS: UA EOSINOPHILS NO EOS /HPF
--- NOTE | 2022-08-26 12:22 | NUR ---
Malnutrition consult: Per physician notes pt reports 60 lb unintentional wt loss since COVID in January of this year. Noted the only indication of wt loss in EMR is when documented weights are not scaled (87 kg 03/10 and 82 kg 08/17), however scaled weights show wt has increased since January (90 kg chair scale 02/05, 96.3 kg bed scale 08/25). Given pt with bilat gen 3+ edema patient's actual dry weight possibly stable with wt in January. Pt with no documented significant decrease in muscle strength and no visible fat or muscle wasting appreciated. Pt currently lacks a minimum of two criteria for malnutrition. Pt currently NPO, recommend advancing to Na restricted diet as medically indicated to assist with prevention of fluid retention in view of liver cirrhosis. Will continue to follow and monitor need for nutrition intervention with diet advancement. Addendum: 08/26/22 at [address] Amended: Links added.
[2022-08-26] MEDS: vancomycin inj 500 MG in normal saline 100ml IV soln 100 ML IV SCH (13:56)
[2022-08-26] MEDS ORDERED: ASPI81TA52 PO (18:19)
[2022-08-26] MEDS ORDERED: GUAI473S6 PO (18:19)
--- NOTE | 2022-08-26 18:38 | NUR ---
Patient in room CICU 2013. I have received report from SANDRA Freire and had the opportunity to ask questions and assume patient care.
[2022-08-26] MEDS ORDERED: ringers solution, lacted 1,000 ML IV ONE (19:30)
[2022-08-26] MEDS: cefepime 1GM/NS ADD-VANTAGE 100 ML IV SCH (19:46)
[2022-08-26] MEDS: albumin (human) 25% 100 ML IV solution IV SCH (20:06)
[2022-08-26] MEDS: sennosides/docusate sodium tablet PO SCH (21:00)
[2022-08-26] MEDS: Melatonin 3mg tablet PO SCH (21:00)
[2022-08-26 21:36] LABS: ABG BASE EXCESS -12.5 mmol/L (-2.0-2.0); ABG HCO3 13.4 mmol/L (22.0-26.0); ABG PCO2 (T) 30.4 mmHg (32.0-45.0); ABG PO2 (T) 57.6 mmHg (75.0-100.0); FCOHb 0.3 % (0.0-3.9); FLOW 6 L/min; FMetHb 0.3 % (0.0-1.5); FO2Hb 85.5 % (94-97); PATIENT TEMPERATURE 36.8; TOTAL HEMOGLOBIN 10.6 G/dl (12.0-16.0)
--- NOTE | 2022-08-26 22:10 | NUR ---
Dr Salter notified regarding increased somnolence and change of LOC, as well as abnormal ABG results. Orders received for ammonia level, 2 amps bicarb, bipap, and recheck ABG in AM.
[2022-08-26] MEDS ORDERED: sodium bicarbonate (8.4%) 1 mEq/ml syringe IV ONE (22:15)
--- NOTE | 2022-08-26 23:36 | NUR ---
Bipap trialed and pt unable to tolerate. Pt back on 12L O2 NC via salter.
[2022-08-27] VITALS (29 sets, daily range): BP systolic 75–120; BP diastolic 44–68
[2022-08-27 01:34] LABS: BASOPHILS # (AUTO) 0.1 X10'3 (0-0.2); BASOPHILS % (AUTO) 0.8 % (0-1); EOSINOPHILS # (AUTO) 0.1 X10'3 (0-0.9); EOSINOPHILS % (AUTO) 0.6 % (0-6); HEMATOCRIT 29.1 % (35.0-45.0); HEMOGLOBIN 9.7 g/dl (12.0-16.0); LYMPHOCYTES # (AUTO) 1.4 X10'3 (1.1-4.8); LYMPHOCYTES % (AUTO) 8.8 % (21-51); MEAN CORPUSCULAR HEMOGLOBIN 37.5 PG (27.0-31.0); MEAN CORPUSCULAR HGB CONC 33.4 g/dL (33.0-36.5); MEAN CORPUSCULAR VOLUME 112.2 FL (78-98); MEAN PLATELET VOLUME 8.3 FL (7.4-10.4); MONOCYTES # (AUTO) 1.2 X10'3 (0-0.9); MONOCYTES % (AUTO) 7.8 % (2-12); NEUTROPHILS # (AUTO) 13.1 X10'3 (1.8-7.7); PLATELET COUNT 174 X10'3 (140-440); RED CELL DISTRIBUTION WIDTH 16.1 % (11.5-14.5); WHITE BLOOD COUNT 15.9 X10'3 (4.5-11.0)
[2022-08-27] MEDS: morphine 2 MG/ML inj. syringe IV PRN ×3 (01:43→06:13)
[2022-08-27 01:58] LABS: ALANINE AMINOTRANSFERASE 129 U/L (12-78); ALBUMIN 3.4 G/DL (3.4-5.0); ALKALINE PHOSPHATASE 246 IU/L (46-116); ANION GAP 18 (8-16); ASPARTATE AMINO TRANSFERASE 544 U/L (10-37); BILIRUBIN,TOTAL 6.9 MG/DL (0.1-1.0); BLOOD UREA NITROGEN 31 MG/DL (7-18); BUN/CREATININE RATIO 10.9 (6.6-38.0); CALCIUM 8.3 MG/DL (8.5-10.1); CHLORIDE 103 MMOL/L (99-107); CREATININE 2.85 MG/DL (0.40-0.90); GLUCOSE 90 MG/DL (70-104); MAGNESIUM 1.7 MG/DL (1.5-2.4); SODIUM 138 MMOL/L (135-145); TOTAL CARBON DIOXIDE 17.2 MMOL/L (24-32); eGFR 16 ML/MIN
[2022-08-27 02:03] LABS: ALBUMIN/GLOBULIN RATIO 1.5 (1.1-1.5); PHOSPHORUS 6.3 MG/DL (2.3-4.5); POTASSIUM 4.6 MMOL/L (3.5-5.1); TOTAL PROTEIN 5.7 G/DL (6.4-8.2)
[2022-08-27] MEDS: hydrocortisone sod succ/PF 100mg/2ml inj. IV SCH ×4 (02:03→19:22)
[2022-08-27] MEDS: vasopressin inj. 40 UNIT in normal saline 50ml IV soln 38 ML IV SCH ×2 (02:04→19:53)
[2022-08-27] MEDS: NORepinephrine 32 MG in Normal Saline 250ml IV soln IV SCH ×2 (02:05→14:32)
[2022-08-27 03:11] LABS: ANISOCYTOSIS 1+; HYPOCHROMASIA 1+; PLATELET ESTIMATE NORMAL; TOTAL CELLS COUNTED 100
[2022-08-27 03:12] LABS: STOMATOCYTES 1+
[2022-08-27 03:31] LABS: ABG BASE EXCESS -12.2 mmol/L (-2.0-2.0); ABG HCO3 14.5 mmol/L (22.0-26.0); ABG OXYGEN SATURATION 92.3 % (94-97); ABG PCO2 (T) 35.5 mmHg (32.0-45.0); ABG PO2 (T) 74.6 mmHg (75.0-100.0); FCOHb 0.3 % (0.0-3.9); FLOW 13 L/min; FMetHb 0.4 % (0.0-1.5); FO2Hb 91.7 % (94-97); PATIENT TEMPERATURE 36.7; TOTAL HEMOGLOBIN 10.9 G/dl (12.0-16.0)
[2022-08-27] MEDS: dexmedetomidine inj. 400 MCG in normal saline 100ml IV soln 96 ML IV SCH ×2 (04:26→14:14)
--- NOTE | 2022-08-27 05:00 | NUR ---
Pt agreed to wear BiPAP
[2022-08-27] MEDS ORDERED: sodium bicarbonate (8.4%) inj. 150 MEQ in dextrose 5%-water 1,000 ML IV SCH (05:20)
--- NOTE | 2022-08-27 05:38 | NUR ---
MD Communication -Called Dr. Salter regarding Critical Ammonia, hypotension and continued deterioration of mental status. Orders received.
[2022-08-27] MEDS ORDERED: sodium bicarbonate (8.4%) 1 mEq/ml syringe IV ONE ×3 (05:40→17:00)
[2022-08-27] MEDS ORDERED: albumin (human) 25% 100 ML IV solution IV ONE (05:40)
[2022-08-27] MEDS ORDERED: sodium bicarbonate (8.4%) inj. 1 MEQ/ML ML ONE ×4 (05:40→21:16)
[2022-08-27] MEDS ORDERED: CALCIUM GLUC 1gm/50ml NACL,iso 50 ML IV ONE ×2 (05:45→22:00)
[2022-08-27] MEDS ORDERED: dextrose 50%-water 50ml dispensing syringe IV ONE (06:18)
--- NOTE | 2022-08-27 06:27 | NUR ---
Problems reprioritized. Patient report given, questions answered & plan of care reviewed with SANDRA Freire.
[2022-08-27] MEDS: sodium bicarbonate (8.4%) inj. 150 MEQ in dextrose 5%-water 850 ML IV SCH ×3 (06:45→22:20)
[2022-08-27] MEDS: K and/or MAG REPLACEMENT MC SCH (08:00)
[2022-08-27] MEDS ORDERED: azithromycin/NS 500mg/250ml 250 ML IV SCH (08:00)
[2022-08-27] MEDS ORDERED: aspirin 81mg, enteric-coated 1 TAB TABLET.DR PO SCH (08:00)
[2022-08-27] MEDS ORDERED: clopidogrel 75mg tablet PO SCH (08:15)
[2022-08-27] MEDS: cefepime 1GM/NS ADD-VANTAGE 100 ML IV SCH (08:28)
[2022-08-27] MEDS: thiamine 100mg/ml 2ml inj. IV SCH (08:28)
[2022-08-27] MEDS: folic acid 1mg/0.2ml inj IV SCH (08:28)
[2022-08-27] MEDS: albumin (human) 25% 100 ML IV solution IV SCH ×2 (08:40→19:22)
[2022-08-27] MEDS ORDERED: dextrose 50%-water 50ml dispensing syringe IV PRN (08:50)
[2022-08-27] MEDS: dextrose 50%-water 50ml dispensing syringe IV PRN ×2 (09:24→11:40)
[2022-08-27] MEDS ORDERED: calcium chloride 100 MG/1 ML inj IV ONE ×4 (10:06→17:00)
[2022-08-27] MEDS ORDERED: midazolam 1 mg/ML 2ml injection ONE ×2 (10:12→10:22)
[2022-08-27] MEDS ORDERED: FENTANYL-0.9 % NACL/PF 100 ML IV PRN (10:25)
[2022-08-27] MEDS ORDERED: midazolam 100mg in NS 100ml 100 ML IV PRN (10:25)
[2022-08-27 10:59] LABS: ABG BASE EXCESS -21.1 mmol/L (-2.0-2.0); ABG HCO3 11.1 mmol/L (22.0-26.0); ABG OXYGEN SATURATION 86.8 % (94-97); ABG PCO2 (T) 57.9 mmHg (32.0-45.0); FCOHb 0.3 % (0.0-3.9); FMetHb 0.5 % (0.0-1.5); FO2Hb 86.1 % (94-97); RESPIRATORY RATE 10 b/min; TIDAL VOLUME 641 mL; TOTAL HEMOGLOBIN 9.7 G/dl (12.0-16.0)
[2022-08-27 11:29] LABS: ABG BASE EXCESS -19.5 mmol/L (-2.0-2.0); ABG HCO3 11.6 mmol/L (22.0-26.0); ABG OXYGEN SATURATION 93.9 % (94-97); ABG PCO2 (T) 51.1 mmHg (32.0-45.0); ABG PO2 (T) 96.5 mmHg (75.0-100.0); FCOHb 0.3 % (0.0-3.9); FMetHb 0.5 % (0.0-1.5); FO2Hb 93.1 % (94-97); PATIENT TEMPERATURE 36.6; RESPIRATORY RATE 26 b/min; TIDAL VOLUME 425 mL; TOTAL HEMOGLOBIN 9.8 G/dl (12.0-16.0)
[2022-08-27] MEDS ORDERED: polyethylene glycol 3350 17gm powd pack PO PRN (11:30)
[2022-08-27] MEDS ORDERED: bisacodyl 10mg suppository rectal RC PRN (11:30)
[2022-08-27] MEDS ORDERED: ringers solution, lacted 1,000 ML IV ONE (11:35)
[2022-08-27] MEDS ORDERED: sodium bicarbonate (8.4%) inj. 1 MEQ/ML ML IV ONE ×6 (11:45→19:00)
[2022-08-27] MEDS: PHENYLephrine 10mg/ml inj. 100 MG in normal saline 250ml IV soln 240 ML IV SCH ×2 (11:57→19:46)
[2022-08-27 12:28] LABS: BASOPHILS % (AUTO) 0.3 % (0-1); EOSINOPHILS # (AUTO) 0.2 X10'3 (0-0.9); EOSINOPHILS % (AUTO) 1.9 % (0-6); HEMATOCRIT 26.6 % (35.0-45.0); LYMPHOCYTES # (AUTO) 1.1 X10'3 (1.1-4.8); MEAN CORPUSCULAR HGB CONC 31.4 g/dL (33.0-36.5); MEAN PLATELET VOLUME 8.8 FL (7.4-10.4); NEUTROPHILS # (AUTO) 9.8 X10'3 (1.8-7.7)
[2022-08-27 12:31] LABS: HEMOGLOBIN 8.4 g/dl (12.0-16.0); LYMPHOCYTES % (AUTO) 9.1 % (21-51); MEAN CORPUSCULAR HEMOGLOBIN 36.8 PG (27.0-31.0); MONOCYTES # (AUTO) 0.5 X10'3 (0-0.9); MONOCYTES % (AUTO) 4.1 % (2-12); NEUTROPHILS % (AUTO) 84.6 % (42-75); PLATELET COUNT 148 X10'3 (140-440); RED BLOOD COUNT 2.27 X10'6 (4.20-5.60); RED CELL DISTRIBUTION WIDTH 16.8 % (11.5-14.5); WHITE BLOOD COUNT 11.6 X10'3 (4.5-11.0)
--- NOTE | 2022-08-27 12:54 | NUR ---
Upon shift change of RNs, patient was seen in room on Bipap on 50%. Patient was very agitated by this and kept attempting to pull off the Bipap. Patient was very confused and not easily redirected. Dr. Ceballos came around 0800 and asked for a chest xray. Order fulfilled and per MD the xray looked significantly worse than the day before. Neno (patient's ) bedside and received an update from both Dr. Ceballos and Dr. Segura. They both agreed that the patient would need intubated. At this time the patient was obtunded and her blood pressure was continually dropping. Levophed and Vasopressin were maxed. Lin ordered for an amp of bicarb to be given and then followed up by an amp of calcium. He then ordered for a Phenylephrine gtt to be started per titration protocol. Then we prepared for intubation. Another amp of bicarb given followed by another amp of calcium, then 4 mg of versed. Patient was intubated and another amp of bicarb was given. Patient was then started on her bicarb gtt and Dr. Ceballos asked for a half of an amp of epinephrine to be given. Patient blood pressure finally responded well. Post-intubation Dr. Ceballos started a new arterial line in the right axillary. Patient NG placed with 500ml return of dark maroon and coffee ground fluid. MD harmon and CBC sent down.
[2022-08-27] MEDS ORDERED: diphenhydrAMINE 25mg capsule PO ONE (13:20)
[2022-08-27] MEDS ORDERED: prednisone 10mg tablet PO PRN (13:20)
[2022-08-27 13:52] LABS: ABG BASE EXCESS -19.7 mmol/L (-2.0-2.0); ABG HCO3 10.7 mmol/L (22.0-26.0); ABG OXYGEN SATURATION 94.1 % (94-97); ABG PCO2 (T) 43.5 mmHg (32.0-45.0); ABG PO2 (T) 95.5 mmHg (75.0-100.0); FCOHb 0.3 % (0.0-3.9); FMetHb 0.6 % (0.0-1.5); FO2Hb 93.3 % (94-97); PATIENT TEMPERATURE 36.5; RESPIRATORY RATE 28 b/min; TIDAL VOLUME 500 mL; TOTAL HEMOGLOBIN 9.8 G/dl (12.0-16.0)
[2022-08-27] MEDS: vancomycin inj 500 MG in normal saline 100ml IV soln 100 ML IV SCH (14:02)
[2022-08-27] MEDS ORDERED: diphenhydrAMINE 50 mg/ml inj IV ONE (14:25)
[2022-08-27] MEDS ORDERED: methylPREDNISolone sod succ 125mg/2ml vial IV ONE (14:25)
--- NOTE | 2022-08-27 14:45 | NUR ---
Spoke with Toni regarding the need to take patient to CT and possible need for contrast even though the patient is allergic. It was explained that the patient will be premedicated and that the MD will be going with us to CT as well. He stated that he wanted to talk to his son in law who is a neurologist and that he would call me back with a decision. He called back 5 minutes later and stated that they decided it is a 50/50 situation but they decided to go through with it. Toni stated, "if she codes, I don't know what to say to you". RN expressed that we will do our very best to prevent that from happening. He stated an understanding and then stated that he was on his way in.
--- NOTE | 2022-08-27 15:50 | NUR ---
Toni () bedside and came with to the CT scan. With x1 RT, x2 RN, and Dr. Ceballos bedside we transported the patient to CT. Dr. Ceballos expressed to Neno that we will not need to give the contrast anymore due to Dr. Benitez stated that he can see what he needs to see well enough without it. Neno stated an understanding and then responded with, "we are all just playing games anyway". Unsure what he meant by this, Dr. Ceballos expressed that we are working as hard as we can and using all of the resources available to us here to help her. Patient tolerated CT okay.
[2022-08-27] MEDS ORDERED: hydrocortisone sod succ/PF 100mg/2ml inj. IV ONE (16:00)
[2022-08-27] MEDS: meropenem inj 500 MG in normal saline 100ml IV soln 100 ML IV SCH ×2 (16:15→19:22)
[2022-08-27 16:31] LABS: BASOPHILS # (AUTO) 0.1 X10'3 (0-0.2); HEMATOCRIT 27.5 % (35.0-45.0); HEMOGLOBIN 8.4 g/dl (12.0-16.0); LYMPHOCYTES # (AUTO) 1.3 X10'3 (1.1-4.8); MEAN PLATELET VOLUME 8.7 FL (7.4-10.4); NEUTROPHILS % (AUTO) 84.8 % (42-75); RED BLOOD COUNT 2.29 X10'6 (4.20-5.60)
[2022-08-27 16:32] LABS: BASOPHILS % (AUTO) 0.3 % (0-1); EOSINOPHILS # (AUTO) 0.3 X10'3 (0-0.9); LYMPHOCYTES % (AUTO) 8.9 % (21-51); MEAN CORPUSCULAR HEMOGLOBIN 36.9 PG (27.0-31.0); MEAN CORPUSCULAR HGB CONC 30.7 g/dL (33.0-36.5); MEAN CORPUSCULAR VOLUME 120.3 FL (78-98); MONOCYTES # (AUTO) 0.6 X10'3 (0-0.9); NEUTROPHILS # (AUTO) 12.7 X10'3 (1.8-7.7); PLATELET COUNT 130 X10'3 (140-440); RED CELL DISTRIBUTION WIDTH 17.4 % (11.5-14.5)
--- NOTE | 2022-08-27 16:55 | NUR ---
Patient's blood pressure very soft with SBP on 74. Phenylephrine, vaso and levo all max'd. Per Dr. Ceballos push 1 amp of bicarb Q30min and run vasopressin at 0.06 unit/min and he stated to run out of the parameters due to patient's needs.
[2022-08-27 16:56] LABS: ALANINE AMINOTRANSFERASE 262 U/L (12-78); ALBUMIN 3.1 G/DL (3.4-5.0); ALKALINE PHOSPHATASE 205 IU/L (46-116); ANION GAP 29 (8-16); BILIRUBIN,TOTAL 5.9 MG/DL (0.1-1.0); BLOOD UREA NITROGEN 34 MG/DL (7-18); BUN/CREATININE RATIO 9.6 (6.6-38.0); CALCIUM 8.3 MG/DL (8.5-10.1); CHLORIDE 103 MMOL/L (99-107); CREATININE 3.56 MG/DL (0.40-0.90); GLUCOSE 91 MG/DL (70-104); POTASSIUM 5.4 MMOL/L (3.5-5.1); SODIUM 144 MMOL/L (135-145); eGFR 13 ML/MIN
[2022-08-27 16:57] LABS: ALBUMIN/GLOBULIN RATIO 1.9 (1.1-1.5); ASPARTATE AMINO TRANSFERASE 1615 U/L (10-37); TOTAL PROTEIN 4.7 G/DL (6.4-8.2)
[2022-08-27 17:00] LABS: TOTAL CARBON DIOXIDE 11.8 MMOL/L (24-32)
--- NOTE | 2022-08-27 18:24 | NUR ---
Problems reprioritized. Patient report given, questions answered & plan of care reviewed with SANDRA Mendez.
--- NOTE | 2022-08-27 20:00 | NUR ---
Fingertips and ears dusky. unable to obtain O2 sat. vent with FiO2 100%
[2022-08-27] MEDS: Melatonin 3mg tablet PO SCH (20:45)
[2022-08-27] MEDS: sennosides/docusate sodium tablet PO SCH (20:45)
[2022-08-27] MEDS ORDERED: sodium bicarbonate (8.4%) 1 mEq/ml syringe IV SCH (21:00)
--- NOTE | 2022-08-27 21:00 | NUR ---
spoke with Dr. Salter on phone regarding LA results and low BP. Orders noted
[2022-08-27] MEDS ORDERED: epiNEPHrine inj 10 MG in normal saline 250ml IV soln 240 ML IV SCH (21:10)
[2022-08-27] MEDS: sodium bicarbonate (8.4%) inj. 1 MEQ/ML ML IV SCH (23:00)
--- NOTE | 2022-08-27 23:08 | NUR ---
Call to . Goes to voicemail. left vm requesting a call back to update on pt's condition
--- NOTE | 2022-08-27 23:15 | NUR ---
Call to son, JENNY listed on chart. goes to voicemail. vm left requesting call back to update on pt's condition
[2022-08-27 23:56] LABS: ABG BASE EXCESS -14.6 mmol/L (-2.0-2.0); ABG HCO3 13.7 mmol/L (22.0-26.0); ABG OXYGEN SATURATION 86.3 % (94-97); ABG PCO2 (T) 45.7 mmHg (32.0-45.0); ABG PO2 (T) 64.2 mmHg (75.0-100.0); FCOHb 0.2 % (0.0-3.9); FMetHb 1.1 % (0.0-1.5); FO2Hb 85.2 % (94-97); PATIENT TEMPERATURE 37.2; PEEP 5 cm H2O; RESPIRATORY RATE 30 b/min; TIDAL VOLUME 500 mL; TOTAL HEMOGLOBIN 6.3 G/dl (12.0-16.0)
[2022-08-28] MEDS: sodium bicarbonate (8.4%) inj. 1 MEQ/ML ML IV SCH ×2 (00:01→00:14)
[2022-08-28 00:14] LABS: MONOCYTES # (AUTO) 0.5 X10'3 (0-0.9)
[2022-08-28 00:15] VITALS: BP 82/59
[2022-08-28 00:16] LABS: BASOPHILS % (AUTO) 0.4 % (0-1); EOSINOPHILS # (AUTO) 0.2 X10'3 (0-0.9); EOSINOPHILS % (AUTO) 2.1 % (0-6); LYMPHOCYTES # (AUTO) 1.2 X10'3 (1.1-4.8); LYMPHOCYTES % (AUTO) 10.6 % (21-51); MEAN CORPUSCULAR HEMOGLOBIN 37.2 PG (27.0-31.0); MEAN CORPUSCULAR HGB CONC 31.5 g/dL (33.0-36.5); MEAN CORPUSCULAR VOLUME 117.8 FL (78-98); MEAN PLATELET VOLUME 8.2 FL (7.4-10.4); MONOCYTES % (AUTO) 4.1 % (2-12); NEUTROPHILS # (AUTO) 9.5 X10'3 (1.8-7.7); NEUTROPHILS % (AUTO) 82.8 % (42-75); PLATELET COUNT 82 X10'3 (140-440); RED BLOOD COUNT 1.59 X10'6 (4.20-5.60); RED CELL DISTRIBUTION WIDTH 16.8 % (11.5-14.5); WHITE BLOOD COUNT 11.4 X10'3 (4.5-11.0)
[2022-08-28 00:17] VITALS: BP 97/56
[2022-08-28] MEDS ORDERED: sodium bicarbonate (8.4%) inj. 1 MEQ/ML ML IV ONE (00:25)
[2022-08-28 00:26] VITALS: BP 96/53
[2022-08-28 00:32] LABS: ALANINE AMINOTRANSFERASE 596 U/L (12-78); ALBUMIN 2.9 G/DL (3.4-5.0); ALKALINE PHOSPHATASE 189 IU/L (46-116); BLOOD UREA NITROGEN 32 MG/DL (7-18); BUN/CREATININE RATIO 8.4 (6.6-38.0); CALCIUM 8.2 MG/DL (8.5-10.1); CHLORIDE 106 MMOL/L (99-107); CREATININE 3.79 MG/DL (0.40-0.90); GLUCOSE 85 MG/DL (70-104); MAGNESIUM 2.1 MG/DL (1.5-2.4); POTASSIUM 5.7 MMOL/L (3.5-5.1); TOTAL CARBON DIOXIDE 20.1 MMOL/L (24-32); eGFR 12 ML/MIN
[2022-08-28] MEDS ORDERED: SODIUM ZIRCONIUM CYCLOSILICATE 10 GM POWD.PACK NG SCH (00:40)
[2022-08-28 00:43] LABS: HEMATOCRIT 18.7 % (35.0-45.0); HEMOGLOBIN 5.9 g/dl (12.0-16.0)
[2022-08-28 00:45] VITALS: BP 78/46
[2022-08-28 00:47] LABS: APTT > 139 SECONDS (22-32)
[2022-08-28 01:03] LABS: ALBUMIN/GLOBULIN RATIO 2.4 (1.1-1.5); ASPARTATE AMINO TRANSFERASE 5145 U/L (10-37); PHOSPHORUS 11.2 MG/DL (2.3-4.5); TOTAL PROTEIN 4.1 G/DL (6.4-8.2)
[2022-08-28 01:04] LABS: ANION GAP 31 (8-16); SODIUM 157 MMOL/L (135-145)
[2022-08-28 01:35] LABS: ANISOCYTOSIS 1+; NUCLEATED RED BLOOD CELLS 5 /100WBC (0-0); PLATELET ESTIMATE DECREASED; TOTAL CELLS COUNTED 100
[2022-08-28 01:38] LABS: TARGET CELLS 2+
--- NOTE | 2022-08-28 01:46 | NUR ---
2244 Dr. Stein and charge nurse at bedside, labs drawn orders for 1 amp bicarb 1 amp rachele glu to be given along with abg and ekg. 2330 Gigi Austin [employer]ILDR[employer] ATTENDANT on tele monitor, review of pt hospital course, labs, ekg ect. pt having various arrhythmias including but not limited to svt, av paced, v paced 0010 at bedside along with Sister in law 0030 Bridget Austin [employer]ILDR[employer] ATTENDANT discussed with family the need to do chest compressions if pt continues to decline. Per husbands request, pt will not receive cardioversion or chest compressions. 0047 pt in vtac rate 197 0048 pt in wide complex vtac. Gigi Austin remained on the tele monitor until time of called at 0100 RN IS TO DOCUMENT YES TO ALL APPLICABLE AREAS Pronouncement of : 1. Time Physician Notified: Bridget Austin N.P. at bedside via tele monitor at time of 2. Date of :08/28/22 3. Time of : 99 4. DNR/Withdraw life support documented: yes 5. Monitor strip has been placed on chart:yes 6. Assessment process is of one-minute duration and includes following criteria: a) Patient is unresponsive to all stimuli: yes b) Pupils fixed and non-reactive:yes c) Auscultation of precordium reveals absence of heart tones:yes d) Auscultation of lungs reveals absence of breath sounds: yes e) Absence of blood pressure / all vital signs:yes f) QRS complexes are not present on monitor / EKG strip:yes g) Pacer spikes without capture:yes 4. Comments: and sister in law at bedside. Addendum: 08/28/22 at 0258 by Yolette Metzger RN Belongings sent home with .
[2022-08-28] MEDS ORDERED: lactulose 20gm/30ml cup NG SCH (02:00)
--- NOTE | 2022-08-28 02:07 | NUR ---
Call placed to to [employer] contacted for cupola repairer.
--- NOTE | 2022-08-28 02:19 | NUR ---
Donor network contacted body may be released, reference number [id number] supervisor contact and service clerks bella
[2022-08-29 05:14] LABS: HEP A AB, IGM Negative (Negative); HEP B CORE AB, TOT Negative (Negative); HEPATITIS C ANTIBODY 0.2 s/co ratio (0.0-0.9)
[2022-08-29] MEDS ORDERED: MVI, adult No.4 with vit. K 10 ML in dextrose 5% water 500ml 500 ML IV SCH ×2 (08:00)
[2022-08-29] MEDS ORDERED: VANCOMYCIN LEVEL IV ONE (12:30)
--- NOTE | 2022-09-06 08:45 | NUR ---
Case Management DC follow up: Patient .
== END 2022-08-28 04:39 | DRG 871 ==
LOC: ER 08:51 → ED HOLD 12:03 → EDBEDREQ 16:21 → CICU 2S 17:00
PROVIDERS: ADMIT Psychiatry & Neurology Neurocritical Care; ATTEND Psychiatry & Neurology Neurocritical Care
PROC: 02HV33Z Insertion of Infusion Device into Superior Vena Cava, Percutaneous Approach (ICD-10-PCS; 2022-08-25)
PROC: 3E03317 Introduction of Other Thrombolytic into Peripheral Vein, Percutaneous Approach (ICD-10-PCS; 2022-08-25)
PROC: 03HY32Z Insertion of Monitoring Device into Upper Artery, Percutaneous Approach (ICD-10-PCS; 2022-08-26)
PROC: 5A09357 Assistance with Respiratory Ventilation, Less than 24 Consecutive Hours, Continuous Positive Airway Pressure (ICD-10-PCS; principal; 2022-08-27)
PROC: 5A1935Z Respiratory Ventilation, Less than 24 Consecutive Hours (ICD-10-PCS; 2022-08-27)
PROC: 0BH17EZ Insertion of Endotracheal Airway into Trachea, Via Natural or Artificial Opening (ICD-10-PCS; 2022-08-27)
PROC: 03HY32Z Insertion of Monitoring Device into Upper Artery, Percutaneous Approach (ICD-10-PCS; 2022-08-27)
DX: A41.9 Sepsis, unspecified organism (principal); D65 Disseminated intravascular coagulation [defibrination syndrome]; R65.21 Severe sepsis with septic shock; J18.9 Pneumonia, unspecified organism; J96.21 Acute and chronic respiratory failure with hypoxia; I21.3 ST elevation (STEMI) myocardial infarction of unspecified site; E87.0 Hyperosmolality and hypernatremia; D68.59 Other primary thrombophilia; G93.40 Encephalopathy, unspecified; I47.1 Supraventricular tachycardia; J44.0 Chronic obstructive pulmonary disease with (acute) lower respiratory infection; N17.9 Acute kidney failure, unspecified; E87.4 Mixed disorder of acid-base balance; Z20.822 Contact with and (suspected) exposure to COVID-19; Z96.642 Presence of left artificial hip joint; K72.90 Hepatic failure, unspecified without coma; G47.30 Sleep apnea, unspecified; K74.60 Unspecified cirrhosis of liver; G89.29 Other chronic pain; R63.0 Anorexia; K76.0 Fatty (change of) liver, not elsewhere classified; U09.9 Post COVID-19 condition, unspecified; E78.5 Hyperlipidemia, unspecified; I12.9 Hypertensive chronic kidney disease with stage 1 through stage 4 chronic kidney disease, or unspecified chronic kidney disease; R63.4 Abnormal weight loss; N18.9 Chronic kidney disease, unspecified; E16.2 Hypoglycemia, unspecified; R34 Anuria and oliguria; K75.9 Inflammatory liver disease, unspecified; Z80.1 Family history of malignant neoplasm of trachea, bronchus and lung; Z82.49 Family history of ischemic heart disease and other diseases of the circulatory system; Z82.5 Family history of asthma and other chronic lower respiratory diseases; Z86.711 Personal history of pulmonary embolism; Z86.718 Personal history of other venous thrombosis and embolism; Z86.73 Personal history of transient ischemic attack (TIA), and cerebral infarction without residual deficits; Z87.01 Personal history of pneumonia (recurrent); Z87.440 Personal history of urinary (tract) infections; Z87.442 Personal history of urinary calculi; Z87.891 Personal history of nicotine dependence; Z90.49 Acquired absence of other specified parts of digestive tract; Z91.041 Radiographic dye allergy status; Z95.0 Presence of cardiac pacemaker; Z95.828 Presence of other vascular implants and grafts; Z68.33 Body mass index [BMI] 33.0-33.9, adult; Z88.8 Allergy status to other drugs, medicaments and biological substances; Z79.899 Other long term (current) drug therapy
CPT/HCPCS: 36415; 36600; 71045; 71250; 74176; 80053; 80305; 80320; 81001; 82140; 82570; 82803; 82948; 83605; 83735; 83880; 84100; 84145; 84156; 84300; 84484; 85007; 85008; 85018; 85025; 85384; 85610; 85730; 86704; 86705; 86706; 86709; 86738; 86803; 87040; 87070; 87088; 87207; 87502; 87503; 87811; 93005; 93308; 93975; 94002; 94660; 94760; 94799; 96361; 96374; 99285; A4333; A4615; A6196; A6209; A6213; A6223; A6258; A6446; A6449; C1752; G0378; J0171; J0456; J0610; J0692; J0696; J0780; J1644; J1720; J2185; J2250; J2270; J2370; J2405; J3101; J3370; J3411; J3490; J7030; J7040; J7042; J7050; J7070; J7120; P9045; P9047; Q0163